=== PATIENT | male | born 1940 | race Two or more races ===

== ENCOUNTER 2018-12-24 11:43 | Inpatient (IN) | payer MEDICARE, MEDICAID ==
[~2018-12-24] VITALS: Ht 177.8 cm; Wt 90.5 kg
[2018-12-24] VITALS (7 sets, daily range): BP systolic 100–142; BP diastolic 71–85
[2018-12-24] MEDS ORDERED: Cefepime HCl 2 GM in NS 110 ML IV SCH (11:45)
--- NOTE | 2018-12-24 12:00 | NUR ---
ED Nurse Note: Patient brought in to ER by ambulance from [facility] due to AMS than usual. mental status cannot be assessed and pt is non verbal. pt saturating 88% at room air so 4L/min O2 via NC initiated and pt is saturating at 95%. skin will be assessed after blood work and urine sample collected.
--- NOTE | 2018-12-24 12:15 | NUR ---
ED Nurse Note: Pressure ulcer on coccyx and both heels noted. no foreign body removed but redness present.
[2018-12-24 12:30] LABS: BASOPHILS % (AUTO) 0.4 % (0.0-2.0); HEMATOCRIT 39.3 % (42.0-52.0); HEMOGLOBIN 12.9 G/DL (14.2-18.0); LYMPHOCYTES % (AUTO) 9.3 % (20.0-45.0); MEAN CORPUSCULAR VOLUME 100 FL (80-99); MONOCYTES % (AUTO) 6.8 % (1.0-10.0); NEUTROPHILS % (AUTO) 83.4 % (45.0-75.0); PLATELET COUNT 169 K/UL (150-450); RED BLOOD COUNT 3.95 M/UL (4.70-6.10); RED CELL DISTRIBUTION WIDTH 14.4 % (11.6-14.8); WHITE BLOOD COUNT 15.1 K/UL (4.8-10.8)
[2018-12-24 12:33] LABS: APPEARANCE,URINE CLEAR; BILIRUBIN, URINE NEGATIVE (NEGATIVE); GLUCOSE, URINE (UA) NEGATIVE (NEGATIVE); KETONES,URINE NEGATIVE (NEGATIVE); LEUKOCYTE ESTERASE ,URINE 1+ (NEGATIVE); NITRITE,URINE NEGATIVE (NEGATIVE); PH,URINE 5 (4.5-8.0); PROTEIN,URINE NEGATIVE (NEGATIVE); UROBILINOGEN,URINE NORMAL MG/DL (0.0-1.0)
[2018-12-24 12:34] LABS: COLOR,URINE YELLOW
[2018-12-24 12:39] LABS: ANION GAP 7 mmol/L (5-15); BLOOD UREA NITROGEN 59 mg/dL (7-18); CALCIUM 8.4 MG/DL (8.5-10.1); CARBON DIOXIDE 28 MMOL/L (21-32); CHLORIDE 106 MMOL/L (98-107); CREATININE 2.8 MG/DL (0.55-1.30); POTASSIUM 5.2 MMOL/L (3.5-5.1); SODIUM 141 MMOL/L (136-145)
[2018-12-24 12:53] LABS: ALANINE AMINOTRANSFERASE 22 U/L (12-78); ALBUMIN 2.4 G/DL (3.4-5.0); ALBUMIN/GLOBULIN RATIO 0.6 (1.0-2.7); ALKALINE PHOSPHATASE 71 U/L (46-116); ASPARTATE AMINO TRANSFERASE 53 U/L (15-37); BILIRUBIN,TOTAL 0.4 MG/DL (0.2-1.0); CKMB 5.1 NG/ML (0.0-3.6); CREATINE KINASE 795 U/L (26-308)
--- NOTE | 2018-12-24 13:51 | Emergency Room Report ---
History of Present Illness General Chief Complaint: Altered Mental Status Source: Family Member, EMS Present Illness HPI Patient presents with altered level of consciousness. 2 days ago he was joking with family. At this point is unresponsive. He is in hospice care however the family wanted him transferred for evaluation is what the problem is. The patient has metastatic prostatic cancer and also dementia. H/O CHF with EF 18%. Patient altered and further history unavailable. Allergies: Coded Allergies: No Known Allergies (Unverified , 12/24/18) Patient History Limited by: medical condition Past Medical History: see triage record, CHF, dementia Social History: Denies: smoking, alcohol use - prior Social History Narrative Hospice at [facility] Reviewed Nursing Documentation: PMH: Agreed; PSxH: Agreed Nursing Documentation-PMH Past Medical History Deferred: Pt Cognitively Impaired Review of Systems All Other Systems: limited Physical Exam Vital Signs Date Time Temp Pulse Resp B/P (MAP) Pulse Ox O2 Delivery O2 Flow Rate FiO2 12/24/18 11:32 98.1 92 18 103/71 100 Room Air Sp02 EP Interpretation: reviewed, normal General Appearance: lethargic, Chronically Ill Eyes: bilateral eye PERRL, bilateral eye other - dry ENT: dry mucus membranes Neck: no meningismus, other - decreased movement Respiratory: rales - right Cardiovascular #1: regular rate, rhythm Cardiovascular #2: 2+ radial (R) Gastrointestinal: non tender, soft, decreased bowel sounds Musculoskeletal: other - decreased ROM Neurologic: Babinski - left, right normal, other - lethargic Psychiatric: depressed affect Reflexes: 1+ knee (R), 1+ knee (L) Skin: mottled Medical Decision Making Diagnostic Impression: Primary Impression: RLL pneumonia Qualified Codes: J18.1 - Lobar pneumonia, unspecified organism Additional Impressions: Sepsis Qualified Codes: A41.9 - Sepsis, unspecified organism Dehydration Renal failure Qualified Codes: N17.9 - Acute kidney failure, unspecified H/O metastatic prostate cancer ER Course Patient presents with a decreased mentation and obvious signs of dehydration and probable fever. Differential includes acute microinfarction, dehydration, sepsis ammonia, urinary tract infection amongst others. The patient will be evaluated with EKG, chest x-ray and labs including blood cultures. The daughter is requesting this. In addition he will receive IV hydration aggressively. EKG without injury. Rate of [address]-T wave changes. Chest x-ray with possible right lower lobe infiltrate. Labs with elevated white count, renal failure and elevated lactic acid. Sepsis re-evaluation: bolus in, mentation improving, capillary fill improved, some rales R, no dyspnea Moaning and family request analgesia. Morphine and zofran given. Improved with pain medication. Patient admitted to medical floor. Discussed with Dr. Cho patient's family request of DNR status. Laboratory Tests Test 12/24/18 12:15 12/24/18 14:30 12/24/18 17:40 White Blood Count 15.1 K/UL (4.8-10.8) H Red Blood Count 3.95 M/UL (4.70-6.10) L Hemoglobin 12.9 G/DL (14.2-18.0) L Hematocrit 39.3 % (42.0-52.0) L Mean Corpuscular Volume 100 FL (80-99) H Mean Corpuscular Hemoglobin 32.6 PG (27.0-31.0) H Mean Corpuscular Hemoglobin Concent 32.8 G/DL (32.0-36.0) Red Cell Distribution Width 14.4 % (11.6-14.8) Platelet Count 169 K/UL (150-450) Mean Platelet Volume 7.1 FL (6.5-10.1) Neutrophils (%) (Auto) 83.4 % (45.0-75.0) H Lymphocytes (%) (Auto) 9.3 % (20.0-45.0) L Monocytes (%) (Auto) 6.8 % (1.0-10.0) Eosinophils (%) (Auto) 0.0 % (0.0-3.0) Basophils (%) (Auto) 0.4 % (0.0-2.0) Prothrombin Time 10.5 SEC (9.30-11.50) Prothrombin Time INR 1.0 (0.9-1.1) PTT 28 SEC (23-33) Urine Color Yellow Urine Appearance Clear Urine pH 5 (4.5-8.0) Urine Specific [place] 1.015 (1.005-1.035) Urine Protein Negative (NEGATIVE) Urine Glucose (UA) Negative (NEGATIVE) Urine Ketones Negative (NEGATIVE) Urine Blood 1+ (NEGATIVE) H Urine Nitrite Negative (NEGATIVE) Urine Bilirubin Negative (NEGATIVE) Urine Urobilinogen Normal MG/DL (0.0-1.0) Urine Leukocyte Esterase 1+ (NEGATIVE) H Urine RBC 0-2 /HPF (0 - 0) H Urine WBC 2-4 /HPF (0 - 0) Urine Squamous Epithelial Cells Occasional /LPF Urine Bacteria Occasional /HPF (NONE) Sodium Level 141 MMOL/L (136-145) Potassium Level 5.2 MMOL/L (3.5-5.1) H Chloride Level 106 MMOL/L (98-107) Carbon Dioxide Level 28 MMOL/L (21-32) Anion Gap 7 mmol/L (5-15) Blood Urea Nitrogen 59 mg/dL (7-18) H Creatinine 2.8 MG/DL (0.55-1.30) H Estimate Glomerular Filtration Rate mL/min (>60) Glucose Level 134 MG/DL (74-106) H Lactic Acid Level 2.50 mmol/L (0.4-2.0) H 2.00 mmol/L (0.66-2.22) Calcium Level 8.4 MG/DL (8.5-10.1) L Magnesium Level 2.2 MG/DL (1.8-2.4) Total Bilirubin 0.4 MG/DL (0.2-1.0) Aspartate Amino Transferase (AST) 53 U/L (15-37) H Alanine Aminotransferase (ALT) 22 U/L (12-78) Alkaline Phosphatase 71 U/L (46-116) Total Creatine Kinase 795 U/L (26-308) H Creatine Kinase MB 5.1 NG/ML (0.0-3.6) H Creatine Kinase MB Relative Index 0.6 Troponin I 0.027 ng/mL (0.000-0.056) Pro-B-Type Natriuretic Peptide 3904 pg/mL (0-125) H Total Protein 6.3 G/DL (6.4-8.2) L Albumin 2.4 G/DL (3.4-5.0) L Globulin 3.9 g/dL Albumin/Globulin Ratio 0.6 (1.0-2.7) L Lipase 39 U/L (73-393) L Arterial Blood pH 7.400 (7.350-7.450) Arterial Blood Partial Pressure CO2 38.8 mmHg (35.0-45.0) Arterial Blood Partial Pressure O2 62.3 mmHg (75.0-100.0) L Arterial Blood HCO3 23.5 mmol/L (22.0-26.0) Arterial Blood Oxygen Saturation 89.9 % (95-100) *L Arterial Blood Base Excess -1.1 (-2-2) Martell Test Positive EKG Diagnostic Results Rate: normal Rhythm: NSR ST Segments: no acute changes Rhythm Strip Diag. Results EP Interpretation: yes Rhythm: NSR, no PVC's, no ectopy Chest X-Ray Diagnostic Results Chest X-Ray Diagnostic Results : Chest X-Ray Ordered: Yes # of Views/Limited/Complete: 1 View Indication: Other EP Interpretation: Yes Interpretation: no effusion, no pneumothorax, other - RLL infiltrate Impression: Other Electronically Signed by: Electronically signed by Mirza Rivera MD Last Vital Signs Date Time Temp Pulse Resp B/P (MAP) Pulse Ox O2 Delivery O2 Flow Rate FiO2 12/24/18 21:03 96 17 98 Facial 35 12/24/18 18:23 99.0 127/79 (95) 12/24/18 15:39 4.0 Status: improved Disposition: ADMITTED INPATIENT Condition: Serious Referrals: NON PHYSICIAN (PCP) Mirza Rivera MD Dec 24, 2018 13:51
[2018-12-24] MEDS ORDERED: ASPIR 8181 MG ORAL (14:00)
[2018-12-24] MEDS ORDERED: QUETIAPINE FUMA50 MG ORAL (14:00)
[2018-12-24] MEDS ORDERED: ZOFRAN4 M1 ORAL (14:00)
[2018-12-24] MEDS ORDERED: FLOMAX0.4 MG ORAL (14:00)
[2018-12-24] MEDS ORDERED: COREG3.125 MG ORAL (14:00)
[2018-12-24] MEDS ORDERED: Morphine Sulfate 2mg/ml Inj(IV/IM USE ONLY) IVP ONE (14:15)
--- NOTE | 2018-12-24 14:33 | NUR ---
ED Nurse Note: Attempted to give report. per Anai, nurse is not available. will try again.
--- NOTE | 2018-12-24 15:13 | NUR ---
ED Nurse Note: Report given to QUAN Blue
--- NOTE | 2018-12-24 15:38 | NUR ---
NURSE NOTES: Patient arrived on floor. No belongings.
[2018-12-24] MEDS ORDERED: Hydromorphone 0.5mg/0.5ml inj IVP PRN ×2 (15:45→19:22)
[2018-12-24] MEDS ORDERED: D5NS 1,000 ML IV SCH (16:09)
--- NOTE | 2018-12-24 16:48 | Pulmonology Progress Note ---
Assessment/Plan Assessment/Plan Pulmonary Consultation HPI Patient is an 78 year old man with history of Metastatic Prostate Cancer, Previous UTI, Dementia, presents with altered level of consciousness. Noted to have Right lower lobe pneumonia s/o Aspiration. He was on hospice care previously. The patient has metastatic prostatic cancer and also dementia. Allergies: Coded Allergies: No Known Allergies (Unverified , 12/24/18) Nursing Documentation-[facility] Past Medical History: Metastatic Prostate Cancer, Previous UTI, Dementia Review of Systems: Cognitively Impaired Physical Exam Vital Signs Noted Date Time Temp Pulse Resp B/P (MAP) Pulse Ox O2 Delivery O2 Flow Rate FiO2 12/24/18 11:32 98.1 92 18 103/71 100 Room Air HEENT: NCAT, dry MM, JVP not elevated Chest: Bilateral Rhonchi Heart: HS1, HS2, RRR Abdomen: Soft, NT, ND Extrem: No rashes noted, no edema [employer]: Sedated, responds to voice - opens eyes, moes all limbs, no seizures Impression Right lower lobe pneumonia - possibly aspiration related Patient presents with a decreased mentation Dehydration Metastatic Prostate Cancer Previous UTI Dementia.I Plan IV Antibiotics IVF SQ Heparin PPX Monitor Labs CT Head HHN/CPT EKG: Rate: normal Rhythm: NSR ST Segments: no acute changes CXR: RLL infiltrates Subjective ROS Limited/Unobtainable: No Allergies: Coded Allergies: No Known Allergies (Unverified , 12/24/18) Objective Last 24 Hour Vital Signs Date Time Temp Pulse Resp B/P (MAP) Pulse Ox O2 Delivery O2 Flow Rate FiO2 12/24/18 15:15 98.2 105 17 100/75 98 Nasal Cannula 4.0 12/24/18 15:15 98.2 105 17 100/75 98 Nasal Cannula 4.0 12/24/18 14:45 98.1 12/24/18 14:00 97.8 110 18 142/75 100 Room Air 12/24/18 13:00 98.3 103 18 121/85 100 Room Air 12/24/18 12:00 98.1 119 18 103/71 100 Room Air 12/24/18 12:00 92 18 Room Air 12/24/18 11:32 98.1 92 18 103/71 100 Room Air Laboratory Tests 12/24/18 12:15: White Blood Count 15.1H, Red Blood Count 3.95L, Hemoglobin 12.9L, Hematocrit 39.3L, Mean Corpuscular Volume 100H, Mean Corpuscular Hemoglobin 32.6H, Mean Corpuscular Hemoglobin Concent 32.8, Red Cell Distribution Width 14.4, Platelet Count 169, Mean Platelet Volume 7.1, Neutrophils (%) (Auto) 83.4H, Lymphocytes ( %) (Auto) 9.3L, Monocytes (%) (Auto) 6.8, Eosinophils (%) (Auto) 0.0, Basophils (%) (Auto) 0.4, Prothrombin Time 10.5, Prothromb Time International Ratio 1.0, Activated Partial Thromboplast Time 28, Urine Color Yellow, Urine Appearance Clear, Urine pH 5, Urine Specific [place] 1.015, Urine Protein Negative, Urine Glucose (UA) Negative, Urine Ketones Negative, Urine Blood 1+H, Urine Nitrite Negative, Urine Bilirubin Negative, Urine Urobilinogen Normal, Urine Leukocyte Esterase 1+H, Urine RBC 0-2H, Urine WBC 2-4, Urine Squamous Epithelial Cells Occasional, Urine Bacteria Occasional, Sodium Level 141, Potassium Level 5.2H, Chloride Level 106, Carbon Dioxide Level 28, Anion Gap 7, Blood Urea Nitrogen 59H, Creatinine 2.8H, Estimat Glomerular Filtration Rate , Glucose Level 134H, Lactic Acid Level 2.50H, Calcium Level 8.4L, Magnesium Level 2.2, Total Bilirubin 0.4, Aspartate Amino Transf (AST/SGOT) 53H, Alanine Aminotransferase ( ALT/SGPT) 22, Alkaline Phosphatase 71, Total Creatine Kinase 795H, Creatine Kinase MB 5.1H, Creatine Kinase MB Relative Index 0.6, Troponin I 0.027, Pro-B- Type Natriuretic Peptide 3904H, Total Protein 6.3L, Albumin 2.4L, Globulin 3.9, Albumin/Globulin Ratio 0.6L, Lipase 39L 12/24/18 14:30: Lactic Acid Level 2.00 Current Medications Medications (Trade) Dose Ordered Sig/Jessie Route PRN Reason Start Time Stop Time Status Last Admin Dose Admin Acetaminophen (Tylenol) 650 mg Q6H PRN ORAL Mild Pain/Temp > 100.5 12/24/18 15:45 01/23/19 15:44 Albuterol/ Ipratropium (Albuterol/ Ipratropium) 3 ml Q4HRT HHN 12/24/18 19:00 12/29/18 18:59 Dextrose/Sodium Chloride 1,000 ml @ 75 mls/hr [id number] IV 12/24/18 16:09 01/23/19 16:08 Heparin Sodium (Porcine) (Heparin 5000 units/ml) 5,000 units EVERY 12 HOURS SUBQ 12/24/18 21:00 01/23/19 20:59 Hydromorphone HCl (Dilaudid) 0.5 mg Q3H PRN IVP Severe Pain (Pain Scale 7-10) 12/24/18 15:45 12/31/18 15:44 Ondansetron HCl (Zofran) 4 mg Q8H PRN IVP Nausea & Vomiting 12/24/18 15:45 01/23/19 15:44 Pantoprazole (Protonix) 40 mg DAILY IVP 12/25/18 09:00 01/24/19 08:59 Piperacillin Sod/ Tazobactam Sod 3.375 gm/Sodium Chloride 110 ml @ 27.5 mls/hr Q8HR IVPB 12/24/18 22:00 12/31/18 21:59 Vancomycin HCl (Vanco rx to dose) 1 ea DAILY PRN MISC Per rx protocol 12/24/18 15:45 01/23/19 15:44 Vancomycin HCl/ Dextrose 275 ml @ 183.333 mls/hr ONCE IVPB 12/24/18 18:00 12/24/18 20:00 Mirza Mcgarry MD Dec 24, 2018 16:48
[2018-12-24] MEDS ORDERED: Vancomycin 1.25gm Premix IVPB SCH (18:00)
--- NOTE | 2018-12-24 18:14 | NUR ---
NURSE NOTES: Spoke to MD Mcgarry about ABG results. ABG 02 Sat is 89.9 with nasal cannula at 4L/minute. MD Mcgarry ordered patient transferred to [facility]. Charge nurse made aware.
[2018-12-24] MEDS ORDERED: Albuterol/Ipratropium 3ml neb HHN SCH (19:00)
--- NOTE | 2018-12-24 19:00 | NUR ---
HAND-OFF: Report given to QUAN Shin.
--- NOTE | 2018-12-24 19:25 | NUR ---
NURSE NOTES: Received report from Mirza RN., pt. transferred from - pt. is awake in bed with eyes open, non-verbal- incomprehensible, no signs or symptoms of acute cardiac or respiratory distress noted, cardiac monitoring on, full body assessment done- sacral area redness and lt. side lower back area small redness area noted and bilateral heels mushy DTI noted- otherwise skin intact, Vital signs taken, pt. oriented to room and pt. teaching done, bed in lowest position and call light within easy reach, bed in lowest position and safety brakes engaged, pt. appears to be resting comfortable in bed, with family at bedside, pt. appears to be tolerating current BIPAP settings at 10/5 and FIO2 of 35%- no distress noted and sating at 97%, Left and Right wrist both 20G IV's intact and patent, Left wrist running D5NS at 75cc/hr. safety measures continued, will continue with plan of care.
--- NOTE | 2018-12-24 19:42 | NUR ---
NURSE NOTES: MD Cho notified about potassium level and had no new orders. He was made aware of patient transfer to [facility].
[2018-12-24] MEDS: D5NS 1,000 ML IV SCH (20:05)
[2018-12-24] MEDS: Heparin 5000 units/ml inj SUBQ SCH (20:06)
--- NOTE | 2018-12-24 20:47 | Infectious Diseases Prog Note ---
Assessment/Plan Problems: (1) LLL pneumonia Assessment & Plan: suspect aspiration, continue vancomycin and zosyn , send sputum culture , aspiration precaution , keep HOB > 30 degree (2) Sepsis Assessment & Plan: with gram positive cocci , due to the above, continue wide spectrum antibiotics pending cultures (3) Acute encephalopathy Assessment & Plan: due to the above, suspect metabolic and toxic, continue antibiotics and supportive care (4) Renal failure Assessment & Plan: suspect due to dehydration , continue IVF , monitor renal function closely (5) Dehydration Assessment & Plan: continue IVF, encourage hydration (6) Acute respiratory failure Assessment & Plan: due to the above, continue BIPAP with close monitor of ABG, and CXR ./ Subjective Allergies: Coded Allergies: No Known Allergies (Unverified , 12/24/18) Objective Vital Signs Last 24 Hour Vital Signs Date Time Temp Pulse Resp B/P (MAP) Pulse Ox O2 Delivery O2 Flow Rate FiO2 12/24/18 20:13 97 16 100 Facial 35 12/24/18 18:23 99.0 98 17 127/79 (95) 94 12/24/18 15:39 Nasal Cannula 4.0 12/24/18 15:15 98.2 105 17 100/75 98 Nasal Cannula 4.0 12/24/18 15:15 98.2 105 17 100/75 98 Nasal Cannula 4.0 12/24/18 14:45 98.1 12/24/18 14:00 97.8 110 18 142/75 100 Room Air 12/24/18 13:00 98.3 103 18 121/85 100 Room Air 12/24/18 12:00 98.1 119 18 103/71 100 Room Air 12/24/18 12:00 92 18 Room Air 12/24/18 11:32 98.1 92 18 103/71 100 Room Air Height (Feet): 5 Height (Inches): 10.00 Weight (Pounds): 180 Laboratory Tests Test 12/24/18 12:15 12/24/18 14:30 12/24/18 17:40 White Blood Count 15.1 K/UL (4.8-10.8) H Red Blood Count 3.95 M/UL (4.70-6.10) L Hemoglobin 12.9 G/DL (14.2-18.0) L Hematocrit 39.3 % (42.0-52.0) L Mean Corpuscular Volume 100 FL (80-99) H Mean Corpuscular Hemoglobin 32.6 PG (27.0-31.0) H Mean Corpuscular Hemoglobin Concent 32.8 G/DL (32.0-36.0) Red Cell Distribution Width 14.4 % (11.6-14.8) Platelet Count 169 K/UL (150-450) Mean Platelet Volume 7.1 FL (6.5-10.1) Neutrophils (%) (Auto) 83.4 % (45.0-75.0) H Lymphocytes (%) (Auto) 9.3 % (20.0-45.0) L Monocytes (%) (Auto) 6.8 % (1.0-10.0) Eosinophils (%) (Auto) 0.0 % (0.0-3.0) Basophils (%) (Auto) 0.4 % (0.0-2.0) Prothrombin Time 10.5 SEC (9.30-11.50) Prothromb Time International Ratio 1.0 (0.9-1.1) Activated Partial Thromboplast Time 28 SEC (23-33) Urine Color Yellow Urine Appearance Clear Urine pH 5 (4.5-8.0) Urine Specific [place] 1.015 (1.005-1.035) Urine Protein Negative (NEGATIVE) Urine Glucose (UA) Negative (NEGATIVE) Urine Ketones Negative (NEGATIVE) Urine Blood 1+ (NEGATIVE) H Urine Nitrite Negative (NEGATIVE) Urine Bilirubin Negative (NEGATIVE) Urine Urobilinogen Normal MG/DL (0.0-1.0) Urine Leukocyte Esterase 1+ (NEGATIVE) H Urine RBC 0-2 /HPF (0 - 0) H Urine WBC 2-4 /HPF (0 - 0) Urine Squamous Epithelial Cells Occasional /LPF Urine Bacteria Occasional /HPF (NONE) Sodium Level 141 MMOL/L (136-145) Potassium Level 5.2 MMOL/L (3.5-5.1) H Chloride Level 106 MMOL/L (98-107) Carbon Dioxide Level 28 MMOL/L (21-32) Anion Gap 7 mmol/L (5-15) Blood Urea Nitrogen 59 mg/dL (7-18) H Creatinine 2.8 MG/DL (0.55-1.30) H Estimat Glomerular Filtration Rate mL/min (>60) Glucose Level 134 MG/DL (74-106) H Lactic Acid Level 2.50 mmol/L (0.4-2.0) H 2.00 mmol/L (0.66-2.22) Calcium Level 8.4 MG/DL (8.5-10.1) L Magnesium Level 2.2 MG/DL (1.8-2.4) Total Bilirubin 0.4 MG/DL (0.2-1.0) Aspartate Amino Transf (AST/SGOT) 53 U/L (15-37) H Alanine Aminotransferase (ALT/SGPT) 22 U/L (12-78) Alkaline Phosphatase 71 U/L (46-116) Total Creatine Kinase 795 U/L (26-308) H Creatine Kinase MB 5.1 NG/ML (0.0-3.6) H Creatine Kinase MB Relative Index 0.6 Troponin I 0.027 ng/mL (0.000-0.056) Pro-B-Type Natriuretic Peptide 3904 pg/mL (0-125) H Total Protein 6.3 G/DL (6.4-8.2) L Albumin 2.4 G/DL (3.4-5.0) L Globulin 3.9 g/dL Albumin/Globulin Ratio 0.6 (1.0-2.7) L Lipase 39 U/L (73-393) L Arterial Blood pH 7.400 (7.350-7.450) Arterial Blood Partial Pressure CO2 38.8 mmHg (35.0-45.0) Arterial Blood Partial Pressure O2 62.3 mmHg (75.0-100.0) L Arterial Blood HCO3 23.5 mmol/L (22.0-26.0) Arterial Blood Oxygen Saturation 89.9 % (95-100) *L Arterial Blood Base Excess -1.1 (-2-2) Martell Test Positive Current Medications Medications (Trade) Dose Ordered Sig/Jessie Route PRN Reason Start Time Stop Time Status Last Admin Dose Admin Acetaminophen (Tylenol) 650 mg Q6H PRN ORAL Mild Pain/Temp > 100.5 12/24/18 19:22 01/23/19 19:21 Albuterol/ Ipratropium (Albuterol/ Ipratropium) 3 ml Q4HRT HHN 12/24/18 23:00 12/29/18 18:59 Dextrose/Sodium Chloride 1,000 ml @ 75 mls/hr [id number] IV 12/24/18 19:21 01/23/19 19:20 12/24/18 20:05 Heparin Sodium (Porcine) (Heparin 5000 units/ml) 5,000 units EVERY 12 HOURS SUBQ 12/24/18 21:00 01/23/19 20:59 12/24/18 20:06 Hydromorphone HCl (Dilaudid) 0.5 mg Q3H PRN IVP Severe Pain (Pain Scale 7-10) 12/24/18 19:22 12/31/18 19:21 Ondansetron HCl (Zofran) 4 mg Q8H PRN IVP Nausea & Vomiting 12/24/18 19:22 01/23/19 19:21 Pantoprazole (Protonix) 40 mg DAILY IVP 12/25/18 09:00 01/24/19 08:59 Piperacillin Sod/ Tazobactam Sod 3.375 gm/Sodium Chloride 110 ml @ 27.5 mls/hr Q8HR IVPB 12/24/18 22:00 12/31/18 21:59 Vancomycin HCl (Vanco rx to dose) 1 ea DAILY PRN MISC Per rx protocol 12/25/18 09:00 01/23/19 15:44 Alex Mckeon M.D. Dec 24, 2018 20:47
[2018-12-24] MEDS ORDERED: Heparin 5000 units/ml inj SUBQ SCH (21:00)
[2018-12-24] MEDS: Piperacillin/Tazobactam 3.375 GM in NS 110 ML IVPB SCH (21:10)
[2018-12-24] MEDS ORDERED: Piperacillin/Tazobactam 3.375 GM in NS 110 ML IVPB SCH (22:00)
[2018-12-24] MEDS: Albuterol/Ipratropium 3ml neb HHN SCH (23:32)
[2018-12-25] VITALS: BP 128/74
[2018-12-25] MEDS: Albuterol/Ipratropium 3ml neb HHN SCH ×6 (03:52→22:49)
[2018-12-25 04:00] VITALS: BP_SYST 128; BP_SYST 143; BP_DIAS 74; BP_DIAS 82
[2018-12-25] MEDS: Piperacillin/Tazobactam 3.375 GM in NS 110 ML IVPB SCH ×3 (05:03→21:00)
[2018-12-25 05:23] LABS: HEMATOCRIT 34.6 % (42.0-52.0); HEMOGLOBIN 11.4 G/DL (14.2-18.0); MEAN CORPUSCULAR VOLUME 100 FL (80-99); PLATELET COUNT 138 K/UL (150-450); RED BLOOD COUNT 3.46 M/UL (4.70-6.10); RED CELL DISTRIBUTION WIDTH 14.2 % (11.6-14.8); WHITE BLOOD COUNT 11.7 K/UL (4.8-10.8)
[2018-12-25 05:39] LABS: ALANINE AMINOTRANSFERASE 31 U/L (12-78); ALBUMIN 2.3 G/DL (3.4-5.0); ALKALINE PHOSPHATASE 72 U/L (46-116); ANION GAP 9 mmol/L (5-15); ASPARTATE AMINO TRANSFERASE 67 U/L (15-37); BILIRUBIN,DIRECT 0.2 MG/DL (0.0-0.3); BILIRUBIN,TOTAL 0.5 MG/DL (0.2-1.0); BLOOD UREA NITROGEN 48 mg/dL (7-18); CARBON DIOXIDE 26 MMOL/L (21-32); CHLORIDE 109 MMOL/L (98-107); CREATININE 1.6 MG/DL (0.55-1.30); PHOSPHORUS 2.6 MG/DL (2.5-4.9); POTASSIUM 4.1 MMOL/L (3.5-5.1); SODIUM 144 MMOL/L (136-145)
[2018-12-25] MEDS ORDERED: Vancomycin 1.25gm Premix IVPB ONE ×2 (06:00→08:00)
--- NOTE | 2018-12-25 07:05 | NUR ---
HAND-OFF: Report given to Todd GLASS, pt. remains stable and no signs of distress noted.
--- NOTE | 2018-12-25 07:35 | History & Physical ---
History and Physical History & Physicial seen and examined . Full Dictation completed on 732 Albaro Cho MD Dec 25, 2018 07:34
--- NOTE | 2018-12-25 07:36 | General Progress Note ---
Assessment/Plan Assessment/Plan Full Dictation in progress Plan: ID, Pulmonary, Nephro consult current empirical abx remians DNR Subjective Allergies: Coded Allergies: No Known Allergies (Unverified , 12/24/18) Objective Last 24 Hour Vital Signs Date Time Temp Pulse Resp B/P (MAP) Pulse Ox O2 Delivery O2 Flow Rate FiO2 12/25/18 07:15 95 17 100 Bi-pap 35 12/25/18 07:13 94 17 100 Full Face 35 12/25/18 07:12 100 Bi-pap 35 12/25/18 07:12 Bi-pap 35 12/25/18 05:06 96 15 96 Full Face 35 12/25/18 04:00 104 12/25/18 04:00 97.3 101 14 143/82 (102) 97 12/25/18 04:00 97.9 90 15 128/74 (92) 98 12/25/18 04:00 Bi-pap 12/25/18 03:55 104 14 100 Bi-pap 35 12/25/18 03:43 101 13 98 Bi-pap 35 12/25/18 03:30 97 13 100 Facial 35 12/25/18 01:39 97 13 100 Facial 35 12/25/18 00:14 102 15 98 Facial 35 12/25/18 00:00 Bi-pap 12/25/18 00:00 97 12/25/18 00:00 97.9 90 15 128/74 (92) 98 12/24/18 23:44 101 23 100 Bi-pap 35 12/24/18 23:43 35 12/24/18 23:34 99 22 98 Bi-pap 35 12/24/18 22:39 92 14 97 Facial 35 12/24/18 21:03 96 17 98 Facial 35 12/24/18 21:00 98 17 Bi-pap 35 12/24/18 20:13 97 16 100 Facial 35 12/24/18 20:00 97.9 97 18 122/76 (91) 97 12/24/18 20:00 106 12/24/18 20:00 Bi-pap 12/24/18 20:00 Bi-pap 12/24/18 19:00 97 Nasal Cannula 4.0 36 12/24/18 19:00 Nasal Cannula 4.0 36 12/24/18 18:23 99.0 98 17 127/79 (95) 94 12/24/18 15:39 Nasal Cannula 4.0 12/24/18 15:15 98.2 105 17 100/75 98 Nasal Cannula 4.0 12/24/18 15:15 98.2 105 17 100/75 98 Nasal Cannula 4.0 12/24/18 14:45 98.1 12/24/18 14:00 97.8 110 18 142/75 100 Room Air 12/24/18 13:00 98.3 103 18 121/85 100 Room Air 12/24/18 12:00 98.1 119 18 103/71 100 Room Air 12/24/18 12:00 92 18 Room Air 12/24/18 11:32 98.1 92 18 103/71 100 Room Air Intake and Output 12/24/18 12/25/18 19:00 07:00 Intake Total 2660 ml 957.5 ml Output Total 600 ml 600 ml Balance 2060 ml 357.5 ml Intake Oral 0 ml IV Total 2660 ml 957.5 ml Output Urine Total 600 ml 600 ml Laboratory Tests 12/24/18 12:15: White Blood Count 15.1H, Red Blood Count 3.95L, Hemoglobin 12.9L, Hematocrit 39.3L, Mean Corpuscular Volume 100H, Mean Corpuscular Hemoglobin 32.6H, Mean Corpuscular Hemoglobin Concent 32.8, Red Cell Distribution Width 14.4, Platelet Count 169, Mean Platelet Volume 7.1, Neutrophils (%) (Auto) 83.4H, Lymphocytes ( %) (Auto) 9.3L, Monocytes (%) (Auto) 6.8, Eosinophils (%) (Auto) 0.0, Basophils (%) (Auto) 0.4, Prothrombin Time 10.5, Prothromb Time International Ratio 1.0, Activated Partial Thromboplast Time 28, Urine Color Yellow, Urine Appearance Clear, Urine pH 5, Urine Specific [place] 1.015, Urine Protein Negative, Urine Glucose (UA) Negative, Urine Ketones Negative, Urine Blood 1+H, Urine Nitrite Negative, Urine Bilirubin Negative, Urine Urobilinogen Normal, Urine Leukocyte Esterase 1+H, Urine RBC 0-2H, Urine WBC 2-4, Urine Squamous Epithelial Cells Occasional, Urine Bacteria Occasional, Sodium Level 141, Potassium Level 5.2H, Chloride Level 106, Carbon Dioxide Level 28, Anion Gap 7, Blood Urea Nitrogen 59H, Creatinine 2.8H, Estimat Glomerular Filtration Rate , Glucose Level 134H, Lactic Acid Level 2.50H, Calcium Level 8.4L, Magnesium Level 2.2, Total Bilirubin 0.4, Aspartate Amino Transf (AST/SGOT) 53H, Alanine Aminotransferase ( ALT/SGPT) 22, Alkaline Phosphatase 71, Total Creatine Kinase 795H, Creatine Kinase MB 5.1H, Creatine Kinase MB Relative Index 0.6, Troponin I 0.027, Pro-B- Type Natriuretic Peptide 3904H, Total Protein 6.3L, Albumin 2.4L, Globulin 3.9, Albumin/Globulin Ratio 0.6L, Lipase 39L 12/24/18 14:30: Lactic Acid Level 2.00 12/24/18 17:40: Arterial Blood pH 7.400, Arterial Blood Partial Pressure CO2 38.8, Arterial Blood Partial Pressure O2 62.3L, Arterial Blood HCO3 23.5, Arterial Blood Oxygen Saturation 89.9*L, Arterial Blood Base Excess -1.1, Martell Test Positive 12/25/18 03:30: White Blood Count 11.7H, Red Blood Count 3.46L, Hemoglobin 11.4L, Hematocrit 34.6L, Mean Corpuscular Volume 100H, Mean Corpuscular Hemoglobin 32.8H, Mean Corpuscular Hemoglobin Concent 32.8, Red Cell Distribution Width 14.2, Platelet Count 138L, Mean Platelet Volume 7.1, Neutrophils (%) (Auto) , Lymphocytes (%) ( Auto) , Monocytes (%) (Auto) , Eosinophils (%) (Auto) , Basophils (%) (Auto) , Sodium Level 144, Potassium Level 4.1, Chloride Level 109H, Carbon Dioxide Level 26, Anion Gap 9, Blood Urea Nitrogen 48H, Creatinine 1.6H, Estimat Glomerular Filtration Rate , Glucose Level 130H, Calcium Level 8.0L, Magnesium Level 2.0, Total Bilirubin 0.5, Aspartate Amino Transf (AST/SGOT) 67H, Alanine Aminotransferase (ALT/SGPT) 31, Alkaline Phosphatase 72, Total Protein 5.9L, Albumin 2.3L, Phosphorus Level 2.6, Direct Bilirubin 0.2, Random Vancomycin Level 11.0 Height (Feet): 5 Height (Inches): 10.00 Weight (Pounds): 180 Albaro Cho MD Dec 25, 2018 07:35
[2018-12-25 08:00] VITALS: BP 117/70
--- NOTE | 2018-12-25 08:00 | NUR ---
NURSE NOTES: received pt in the bed, awake, response just name, vital signs stable, no co pain, no SOB, pt on Bipap 10/5, FIO2 35%, skin warm and dry to touch, dressing on both heels and sacral area dry and intact, Prasad catheter with yellow urine, NPO, bed in low position, call light within react, HOB elevated.
[2018-12-25] MEDS: Pantoprazole Inj IVP SCH (08:36)
[2018-12-25] MEDS: Heparin 5000 units/ml inj SUBQ SCH ×2 (08:38→20:59)
[2018-12-25] MEDS: D5NS 1,000 ML IV SCH ×2 (08:39→11:50)
--- NOTE | 2018-12-25 08:55 | NUR ---
SLASHER SAWYERNEUROSURGICAL PHYSICIAN ASSISTANT 78 Y/O [facility] [place] ER CC:ALTERED MENTAL STATUS SI:SEPSIS . RLL PNA VS: BP 142/75, P 119, T 97.8, RR 18, SpO2 95 on 4.0L O2 NC WBC 15.1, RBC 3.46, Hgb 11.4, Hct 34.6, K 5.2, BUN 59, CR 2.8 SI:LEVOFLOXACIN 150ml IVPB CEFEPIME 110ml IV MORPHINE 2mg IVP ZOFRAN 4mg IVP DILAUDID 0.5mg IVP D5/NS x1L IV VANCOMYCIN 275ml IVPB ADMITTED TO SDU DC PLAN[facility]
[2018-12-25] MEDS ORDERED: Pantoprazole Inj IVP SCH (09:00)
--- NOTE | 2018-12-25 10:15 | Consultation ---
Consult Note Consult Note asked to eval for renal failure admitted through ER yesterday Chief Complaint: Altered Mental Status Patient presents with altered level of consciousness. 2 days ago he was joking with family. At this point is unresponsive. He is in hospice care however a family wanted him transferred for evaluation is what the problem is. The patient has metastatic prostatic cancer and also dementia. H/O CHF with EF 18%. 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
--- NOTE | 2018-12-25 11:25 | Diagnostic Imaging Report ---
Indication: Shortness of breath Technique: One view of the chest Comparison: none Findings: Atelectatic changes are seen at the left lung base. The heart size is upper limits normal. The aorta is tortuous and calcified. Impression: Left basilar atelectasis. No acute process otherwise
--- NOTE | 2018-12-25 11:56 | Diagnostic Imaging Report ---
Indications: Altered level of consciousness Technique: Spiral acquisitions obtained through the brain. Angled axial and coronal 5 x 5 mm slices were reconstructed. Total dose length product 4486.74 mGycm. CTDI vol(s) 70.38,70.38,70.38,70.38 mGy. Dose reduction achieved using automated exposure control Comparison: None. Findings: There is considerable image degradation due to motion artifact despite multiple acquisitions. No definite acute intracranial hemorrhage nor edema, mass effect, nor midline shift. There is marked enlargement of the ventricles and extra axial CSF spaces. There is marked periventricular deep white matter low-attenuation. There is evidence of ethmoid sinus disease. Grossly intact calvarium Impression: Very limited exam due to motion artifact. Extensive chronic and age-related changes as described No gross acute intracranial bleed or mass effect This agrees with the preliminary interpretation provided overnight by [facility] teleradiology service. The CT scanner at [facility] is accredited by the [employer] and the scans are performed using protocols designed to limit radiation exposure to as low as reasonably achievable to attain images of sufficient resolution adequate for diagnostic evaluation.
[2018-12-25 12:00] VITALS: BP 140/79
--- NOTE | 2018-12-25 13:00 | NUR ---
RESPIRATORY NOTE: patient is on BIPAP 10/5 35% patient is on full face mask was going to change the mask, but noticed some redness on the bridge of the nose, Lola RN is aware. Will keep patient on full face mask to avoid more skin breakdown, Tape is in place.
--- NOTE | 2018-12-25 15:00 | NUR ---
NURSE NOTES: vital signs stable, still on Bipap , wound nurse asses pt, dressing changed, family in the room, repositioned, continue monitoring.
--- NOTE | 2018-12-25 15:30 | History and Physical Report ---
DATE OF ADMISSION: 12/24/2018 SOURCE OF INFORMATION: Patient and EMR. HISTORY OF PRESENT ILLNESS: The patient is an 78-year-old male with currently on hospice care, who was transferred by the family secondary to change in level of consciousness. At this time of evaluation, the patient is not making any verbal communication. Limited source of information. The patient is already on BiPAP machine. This is significantly limited source of medical evaluation. REVIEW OF SYSTEMS: Not obtainable as above. ALLERGIES: NKDA. CODE STATUS: DNR. MEDICATIONS: Current hospital medications including, but not limited to, Dilaudid p.r.n., vancomycin, Zosyn. SOCIAL HISTORY: Not obtainable. PHYSICAL EXAMINATION: VITAL SIGNS: Blood pressure 100/70, pulse rate 120, respiratory rate 18, temperature of 98.3. HEAD AND NECK: Atraumatic and normocephalic. CHEST: Diffuse bronchial breathing sounds. ABDOMEN: Soft. MUSCULOSKELETAL: Positive for the increased reflexes and spasticity in all 4 extremities. NEUROLOGY: Limited evaluation as the patient is not verbally communicative. LABORATORY DATA: Labs dated 12/24/2018 shows WBC 15.1, hemoglobin 12.9, platelets 169. Sodium 141, potassium 5.2, BUN 59, creatinine 2.8. BNP of 3900. Albumin of 2.4. UA unremarkable. ASSESSMENT AND PLAN: 1. Sepsis. 2. Hypoxemic respiratory failure. 3. Healthcare-associated pneumonia. 4. Macrocytic anemia. 5. Abnormal LFTs. 6. GI and DVT prophylaxes. 7. DNR/DNI. PLAN OF CARE: We will continue with the empiric antibiotic treatment. Pulmonary and Infectious Disease have been consulted. COMMENT: The time of this dictation does not reflect the actual time of encounter. Albaro Cho M.D. DR: VELMA JOB#: [id number] CC:
--- NOTE | 2018-12-25 15:32 | NUR ---
*-* INSURANCE *-* ALL CLINICALS HAVE ODALIS FAXED TO: [facility] F: [phone]
--- NOTE | 2018-12-25 15:39 | NUR ---
P.T Note: P.T evaluation completed. Pt is alert, non engaging , confused , only responds to name however essentially unable to follow simple commands.Pt is dependent in all areas of ADL/mobilities. Based on P.T evaluation , patient is not candidate for skilled P.T services as patient is already at baseline. Recommend return to prior living arrangement for comfort and care. Addendum: 12/25/18 at 1539 by JUANY HARO PT Amended: Links added.
[2018-12-25 16:00] VITALS: BP 150/83
--- NOTE | 2018-12-25 16:44 | NUR ---
NURSE NOTES:WOUND CARE NOTES:Pt presented on admission with multiple pressure injuries. Non-blanchable red area that is indurated L thoracic(L)1.1cm x (W)3.5cm. Periwound pink and intact. Maroon discoloration that is indurated L Buttocks (L)1.9cm x (W)4cm.Maroon discoloration with red margins that are indurated.Non-blanchable erythema periwound. Non-blanchable erythema with induration noted to R buttocks (L)3cm x (W)3.5cm. Intact Blood Blister noted to R heel (L)5.5cm x (W)4.4cm. Non-blanchable erythema with fluctuance periwound. Intact Blood Blister noted extending from medial to lateral aspect of L heel (L)6.2cm x (W)9cm. Non-blanchable erythema periwound .Pt noted to have restlessness of both lower ext. Cavilon Skin Barrier applied to both heel blisters.Each heel covered with Optifoam drsg .Abd pads applied to both heels and each heel wrapped with kerlix to prevent further friction to heels .Pt's family at bedside and educated on stages of wounds and likelihood of pressure injuries becoming open wounds due to continuous restless behaviour. Pt 's family also informed of interventions being implemented to minimize risks to prevent further wound decline such as pt is being placed on an APM/RAÚL mattress overlay and attempts at off-loading heels. Recommendations: Apply Cavilon Skin Barrier to L thoracic. Cover with Optifoam drsg. Change every 3 days and prn. Apply Cavilon Skin Barrier to R and L heel Blisters. Cover each heel with Optifoam drsg.Reinforce with ABD Pad and Kerlix. Change every 7 days and prn. Apply Triad Paste to Sacrum,R and L buttocks. Cover with Optifoam drsgs. Change every 3 days and PRN. APM/RAÚL Mattress overlay. Reposition at least every 2hours or as tolerated. Off-load heels with Pillow.
--- NOTE | 2018-12-25 16:49 | Infectious Diseases Prog Note ---
Assessment/Plan Problems: (1) LLL pneumonia Assessment & Plan: suspect aspiration, continue vancomycin and zosyn , sputum culture , aspiration precaution , keep HOB > 30 degree (2) Sepsis Assessment & Plan: with gram positive cocci , due to the above, continue wide spectrum antibiotics pending cultures (3) Acute encephalopathy Assessment & Plan: due to the above, suspect metabolic and toxic, continue antibiotics and supportive care (4) Renal failure Assessment & Plan: suspect due to dehydration , continue IVF , monitor renal function closely (5) Dehydration Assessment & Plan: continue IVF, encourage hydration (6) Acute respiratory failure Assessment & Plan: due to the above, continue BIPAP with close monitor of ABG, and CXR ./ Subjective Constitutional: Reports: no symptoms HEENT: Reports: no symptoms Respiratory: Reports: dry cough Breasts: Reports: no symptoms Cardiovascular: Reports: no symptoms Gastrointestinal/Abdominal: Reports: nausea, vomiting Genitourinary: Reports: no symptoms Neurologic: Reports: no symptoms Psychiatric: Reports: no symptoms Skin: Reports: no symptoms Endocrine: Reports: no symptoms Hematologic: Reports: no symptoms Musculoskeletal: Reports: no symptoms Allergies: Coded Allergies: No Known Allergies (Unverified , 12/24/18) Objective Vital Signs Last 24 Hour Vital Signs Date Time Temp Pulse Resp B/P (MAP) Pulse Ox O2 Delivery O2 Flow Rate FiO2 12/25/18 16:00 40 12/25/18 16:00 Bi-pap 12/25/18 16:00 98.2 78 18 150/83 (105) 97 12/25/18 15:58 79 16 100 Bi-pap 35 12/25/18 15:48 77 15 99 Bi-pap 35 12/25/18 15:15 99 15 77 Full Face 35 12/25/18 13:57 99 11 72 Full Face 35 12/25/18 12:00 40 12/25/18 12:00 98.4 75 16 140/79 (99) 100 12/25/18 12:00 Bi-pap 12/25/18 12:00 77 12/25/18 11:16 78 16 100 Bi-pap 35 12/25/18 11:06 72 16 98 Bi-pap 35 12/25/18 11:06 98 15 76 Full Face 35 12/25/18 08:53 85 13 97 Full Face 35 12/25/18 08:00 93 12/25/18 08:00 99.0 81 14 117/70 (86) 97 12/25/18 08:00 40 12/25/18 08:00 Bi-pap 12/25/18 07:31 77 16 99 Bi-pap 35 12/25/18 07:15 95 17 100 Bi-pap 35 12/25/18 07:13 94 17 100 Full Face 35 12/25/18 07:12 100 Bi-pap 35 12/25/18 07:12 Bi-pap 35 12/25/18 05:06 96 15 96 Full Face 35 12/25/18 04:00 104 12/25/18 04:00 97.3 101 14 143/82 (102) 97 12/25/18 04:00 97.9 90 15 128/74 (92) 98 12/25/18 04:00 Bi-pap 12/25/18 03:55 104 14 100 Bi-pap 35 12/25/18 03:43 101 13 98 Bi-pap 35 12/25/18 03:30 97 13 100 Facial 35 12/25/18 01:39 97 13 100 Facial 35 12/25/18 00:14 102 15 98 Facial 35 12/25/18 00:00 Bi-pap 12/25/18 00:00 97 12/25/18 00:00 97.9 90 15 128/74 (92) 98 12/24/18 23:44 101 23 100 Bi-pap 35 12/24/18 23:43 35 12/24/18 23:34 99 22 98 Bi-pap 35 12/24/18 22:39 92 14 97 Facial 35 12/24/18 21:03 96 17 98 Facial 35 12/24/18 21:00 98 17 Bi-pap 35 12/24/18 20:13 97 16 100 Facial 35 12/24/18 20:00 97.9 97 18 122/76 (91) 97 12/24/18 20:00 106 12/24/18 20:00 Bi-pap 12/24/18 20:00 Bi-pap 12/24/18 19:00 97 Nasal Cannula 4.0 36 12/24/18 19:00 Nasal Cannula 4.0 36 12/24/18 18:23 99.0 98 17 127/79 (95) 94 Height (Feet): 5 Height (Inches): 10.00 Weight (Pounds): 180 General Appearance: WD/WN, no acute distress HEENT: normocephalic, atraumatic, anicteric, mucous membranes moist, PERRL, EOMI, pharynx normal, supple, no JVD Respiratory/Chest: chest wall non-tender, no respiratory distress, no accessory muscle use, decreased breath sounds, crackles/rales Cardiovascular: normal peripheral pulses, normal rate, regular rhythm, no gallop/murmur, no JVD Abdomen: normal bowel sounds, soft, non tender, no organomegaly, non distended , no mass, no scars Genitourinary: normal external genitalia Extremities: no cyanosis, no clubbing Skin: no rash, no lesions, no ulcers 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, alert, oriented x 3, responsive Lymphatic: no neck adenopathy, no groin adenopathy Musculoskeletal: normal muscle bulk, no effusion Microbiology Date/Time Source Procedure Growth Status 12/24/18 12:15 Blood Blood Culture - Preliminary Resulted 12/24/18 18:40 Indwelling Cath Urine Culture - Preliminary NO GROWTH Resulted Laboratory Tests Test 12/24/18 17:40 12/25/18 03:30 Arterial Blood pH 7.400 (7.350-7.450) Arterial Blood Partial Pressure CO2 38.8 mmHg (35.0-45.0) Arterial Blood Partial Pressure O2 62.3 mmHg (75.0-100.0) L Arterial Blood HCO3 23.5 mmol/L (22.0-26.0) Arterial Blood Oxygen Saturation 89.9 % (95-100) *L Arterial Blood Base Excess -1.1 (-2-2) Martell Test Positive White Blood Count 11.7 K/UL (4.8-10.8) H Red Blood Count 3.46 M/UL (4.70-6.10) L Hemoglobin 11.4 G/DL (14.2-18.0) L Hematocrit 34.6 % (42.0-52.0) L Mean Corpuscular Volume 100 FL (80-99) H Mean Corpuscular Hemoglobin 32.8 PG (27.0-31.0) H Mean Corpuscular Hemoglobin Concent 32.8 G/DL (32.0-36.0) Red Cell Distribution Width 14.2 % (11.6-14.8) Platelet Count 138 K/UL (150-450) L Mean Platelet Volume 7.1 FL (6.5-10.1) Neutrophils (%) (Auto) % (45.0-75.0) Lymphocytes (%) (Auto) % (20.0-45.0) Monocytes (%) (Auto) % (1.0-10.0) Eosinophils (%) (Auto) % (0.0-3.0) Basophils (%) (Auto) % (0.0-2.0) Sodium Level 144 MMOL/L (136-145) Potassium Level 4.1 MMOL/L (3.5-5.1) Chloride Level 109 MMOL/L (98-107) H Carbon Dioxide Level 26 MMOL/L (21-32) Anion Gap 9 mmol/L (5-15) Blood Urea Nitrogen 48 mg/dL (7-18) H Creatinine 1.6 MG/DL (0.55-1.30) H Estimat Glomerular Filtration Rate mL/min (>60) Glucose Level 130 MG/DL (74-106) H Calcium Level 8.0 MG/DL (8.5-10.1) L Phosphorus Level 2.6 MG/DL (2.5-4.9) Magnesium Level 2.0 MG/DL (1.8-2.4) Total Bilirubin 0.5 MG/DL (0.2-1.0) Direct Bilirubin 0.2 MG/DL (0.0-0.3) Aspartate Amino Transf (AST/SGOT) 67 U/L (15-37) H Alanine Aminotransferase (ALT/SGPT) 31 U/L (12-78) Alkaline Phosphatase 72 U/L (46-116) Total Protein 5.9 G/DL (6.4-8.2) L Albumin 2.3 G/DL (3.4-5.0) L Prostate Specific Antigen 14.98 ng/mL (0.13-4.0) H Random Vancomycin Level 11.0 ug/mL Current Medications Medications (Trade) Dose Ordered Sig/Jessie Route PRN Reason Start Time Stop Time Status Last Admin Dose Admin Acetaminophen (Tylenol) 650 mg Q6H PRN ORAL Mild Pain/Temp > 100.5 12/24/18 19:22 01/23/19 19:21 Albuterol/ Ipratropium (Albuterol/ Ipratropium) 3 ml Q4HRT HHN 12/24/18 23:00 12/29/18 18:59 12/25/18 15:50 Carvedilol (Coreg) 3.125 mg EVERY 12 HOURS ORAL 12/25/18 21:00 01/24/19 20:59 Dextrose/Sodium Chloride 1,000 ml @ 50 mls/hr Q20H IV 12/25/18 11:00 01/23/19 10:59 12/25/18 11:50 Heparin Sodium (Porcine) (Heparin 5000 units/ml) 5,000 units EVERY 12 HOURS SUBQ 12/24/18 21:00 01/23/19 20:59 12/25/18 08:38 Hydromorphone HCl (Dilaudid) 0.5 mg Q3H PRN IVP Severe Pain (Pain Scale 7-10) 12/24/18 19:22 12/31/18 19:21 Ondansetron HCl (Zofran) 4 mg Q8H PRN IVP Nausea & Vomiting 12/24/18 19:22 01/23/19 19:21 Pantoprazole (Protonix) 40 mg DAILY IVP 12/25/18 09:00 01/24/19 08:59 12/25/18 08:36 Piperacillin Sod/ Tazobactam Sod 3.375 gm/Sodium Chloride 110 ml @ 27.5 mls/hr Q8HR IVPB 12/24/18 22:00 12/31/18 21:59 12/25/18 13:40 Tamsulosin HCl (Flomax) 0.4 mg DAILY ORAL 12/26/18 09:00 01/25/19 08:59 Vancomycin HCl (Vanco rx to dose) 1 ea DAILY PRN MISC Per rx protocol 12/25/18 09:00 01/23/19 15:44 Alex Mckeon M.D. Dec 25, 2018 16:49
--- NOTE | 2018-12-25 17:48 | Pulmonology Progress Note ---
Assessment/Plan Assessment/Plan Problem List: 1. AMS - toxic metabolic encephalopathy 2. Pneumonia - possible aspiration 3. Acute hypoxemic respiratory failure 4. Dementia 5. MIRTA Plan: -ABX per ID -f/u cultures -d/c bipap -ABG in AM Subjective ROS Limited/Unobtainable: Yes Allergies: Coded Allergies: No Known Allergies (Unverified , 12/24/18) Subjective On BiPAP. Nonverbal. Respirations stable. Objective Last 24 Hour Vital Signs Date Time Temp Pulse Resp B/P (MAP) Pulse Ox O2 Delivery O2 Flow Rate FiO2 12/25/18 17:05 97 17 84 Full Face 35 12/25/18 16:00 40 12/25/18 16:00 Bi-pap 12/25/18 16:00 98.2 78 18 150/83 (105) 97 12/25/18 16:00 80 12/25/18 15:58 79 16 100 Bi-pap 35 12/25/18 15:48 77 15 99 Bi-pap 35 12/25/18 15:15 99 15 77 Full Face 35 12/25/18 13:57 99 11 72 Full Face 35 12/25/18 12:00 40 12/25/18 12:00 98.4 75 16 140/79 (99) 100 12/25/18 12:00 Bi-pap 12/25/18 12:00 77 12/25/18 11:16 78 16 100 Bi-pap 35 12/25/18 11:06 72 16 98 Bi-pap 35 12/25/18 11:06 98 15 76 Full Face 35 12/25/18 08:53 85 13 97 Full Face 35 12/25/18 08:00 93 12/25/18 08:00 99.0 81 14 117/70 (86) 97 12/25/18 08:00 40 12/25/18 08:00 Bi-pap 12/25/18 07:31 77 16 99 Bi-pap 35 12/25/18 07:15 95 17 100 Bi-pap 35 12/25/18 07:13 94 17 100 Full Face 35 12/25/18 07:12 100 Bi-pap 35 12/25/18 07:12 Bi-pap 35 12/25/18 05:06 96 15 96 Full Face 35 12/25/18 04:00 104 12/25/18 04:00 97.3 101 14 143/82 (102) 97 12/25/18 04:00 97.9 90 15 128/74 (92) 98 12/25/18 04:00 Bi-pap 12/25/18 03:55 104 14 100 Bi-pap 35 12/25/18 03:43 101 13 98 Bi-pap 35 12/25/18 03:30 97 13 100 Facial 35 12/25/18 01:39 97 13 100 Facial 35 12/25/18 00:14 102 15 98 Facial 35 12/25/18 00:00 Bi-pap 12/25/18 00:00 97 12/25/18 00:00 97.9 90 15 128/74 (92) 98 12/24/18 23:44 101 23 100 Bi-pap 35 12/24/18 23:43 35 12/24/18 23:34 99 22 98 Bi-pap 35 12/24/18 22:39 92 14 97 Facial 35 12/24/18 21:03 96 17 98 Facial 35 12/24/18 21:00 98 17 Bi-pap 35 12/24/18 20:13 97 16 100 Facial 35 12/24/18 20:00 97.9 97 18 122/76 (91) 97 12/24/18 20:00 106 12/24/18 20:00 Bi-pap 12/24/18 20:00 Bi-pap 12/24/18 19:00 97 Nasal Cannula 4.0 36 12/24/18 19:00 Nasal Cannula 4.0 36 12/24/18 18:23 99.0 98 17 127/79 (95) 94 Intake and Output 12/24/18 12/25/18 18:59 06:59 Intake Total 2660 ml 882.5 ml Output Total 600 ml 600 ml Balance 2060 ml 282.5 ml Intake Oral 0 ml IV Total 2660 ml 882.5 ml Output Urine Total 600 ml 600 ml General Appearance: no acute distress HEENT: mucous membranes moist Respiratory/Chest: lungs clear Cardiovascular: normal rate Abdomen: soft, non tender Extremities: no edema Microbiology Date/Time Source Procedure Growth Status 12/24/18 12:15 Blood Blood Culture - Preliminary Resulted 12/24/18 18:40 Indwelling Cath Urine Culture - Preliminary NO GROWTH Resulted Laboratory Tests 12/25/18 03:30: White Blood Count 11.7H, Red Blood Count 3.46L, Hemoglobin 11.4L, Hematocrit 34.6L, Mean Corpuscular Volume 100H, Mean Corpuscular Hemoglobin 32.8H, Mean Corpuscular Hemoglobin Concent 32.8, Red Cell Distribution Width 14.2, Platelet Count 138L, Mean Platelet Volume 7.1, Neutrophils (%) (Auto) , Lymphocytes (%) ( Auto) , Monocytes (%) (Auto) , Eosinophils (%) (Auto) , Basophils (%) (Auto) , Sodium Level 144, Potassium Level 4.1, Chloride Level 109H, Carbon Dioxide Level 26, Anion Gap 9, Blood Urea Nitrogen 48H, Creatinine 1.6H, Estimat Glomerular Filtration Rate , Glucose Level 130H, Calcium Level 8.0L, Phosphorus Level 2.6, Magnesium Level 2.0, Total Bilirubin 0.5, Direct Bilirubin 0.2, Aspartate Amino Transf (AST/SGOT) 67H, Alanine Aminotransferase (ALT/SGPT) 31, Alkaline Phosphatase 72, Total Protein 5.9L, Albumin 2.3L, Prostate Specific Antigen 14.98H, Random Vancomycin Level 11.0 Current Medications Medications (Trade) Dose Ordered Sig/Jessie Route PRN Reason Start Time Stop Time Status Last Admin Dose Admin Acetaminophen (Tylenol) 650 mg Q6H PRN ORAL Mild Pain/Temp > 100.5 12/24/18 19:22 01/23/19 19:21 Albuterol/ Ipratropium (Albuterol/ Ipratropium) 3 ml Q4HRT HHN 12/24/18 23:00 12/29/18 18:59 12/25/18 15:50 Carvedilol (Coreg) 3.125 mg EVERY 12 HOURS ORAL 12/25/18 21:00 01/24/19 20:59 Dextrose/Sodium Chloride 1,000 ml @ 50 mls/hr Q20H IV 12/25/18 11:00 01/23/19 10:59 12/25/18 11:50 Heparin Sodium (Porcine) (Heparin 5000 units/ml) 5,000 units EVERY 12 HOURS SUBQ 12/24/18 21:00 01/23/19 20:59 12/25/18 08:38 Hydromorphone HCl (Dilaudid) 0.5 mg Q3H PRN IVP Severe Pain (Pain Scale 7-10) 12/24/18 19:22 12/31/18 19:21 Ondansetron HCl (Zofran) 4 mg Q8H PRN IVP Nausea & Vomiting 12/24/18 19:22 01/23/19 19:21 Pantoprazole (Protonix) 40 mg DAILY IVP 12/25/18 09:00 01/24/19 08:59 12/25/18 08:36 Piperacillin Sod/ Tazobactam Sod 3.375 gm/Sodium Chloride 110 ml @ 27.5 mls/hr Q8HR IVPB 12/24/18 22:00 12/31/18 21:59 12/25/18 13:40 Tamsulosin HCl (Flomax) 0.4 mg DAILY ORAL 12/26/18 09:00 01/25/19 08:59 Vancomycin HCl (Vanco rx to dose) 1 ea DAILY PRN MISC Per rx protocol 12/25/18 09:00 01/23/19 15:44 Enrique White MD Dec 25, 2018 17:48
--- NOTE | 2018-12-25 18:58 | NUR ---
HAND-OFF: Report given to JEAN PAUL GLASS, no respiratory distress.
--- NOTE | 2018-12-25 19:05 | NUR ---
NURSE NOTES: Received patient from Lola Brooks RN. Patient is resting well in bed with BiPAP on with settings of 10/5 FiO2: 35% and O2 saturating at 97%. Bed on lowest position and alarm is activated. Will continue plan of care.
--- NOTE | 2018-12-25 19:15 | Cardiology Report ---
APPROVED REPORT EXAM: Two-dimensional and M-mode echocardiogram with Doppler and color Doppler. INDICATION Congestive Heart Failure M-Mode DIMENSIONS IVSd1.7 (0.7-1.1cm)Left Atrium (MM)3.8 (1.6-4.0cm) LVDd5.7 (3.5-5.6cm)Aortic Root4.0 (2.0-3.7cm) PWd1.4 (0.7-1.1cm)Aortic Cusp Exc.0.9 (1.5-2.0cm) IVSs1.8 cm LVDs4.8 (2.5-4.0cm) PWs1.8 cm Other Information . Global left ventricular hypokinesia with left ventricular ejection fraction estimated at 30-35%. Ischemic cardiomyopathy cannot be excluded. Mild left ventricular enlargement. No evidence of pericardial effusion. Left atrial chamber sizes is within upper normal limits . Right cardiac chamber sized are within normal limits . Aortic valve calcification with decreased cusp excursion c/w aortic stenosis. Mildly thickened mitral valve leaflets with normal excursion. Moderately mitral annulus and aortic root calcification. Pulmonic valve not well visualized. IVC at 1.6 cm without physiologic collapse . A color flow and spectral Doppler study was performed and revealed: No aortic insufficiency . Peak aortic valve gradient of 37mm Hg and a mean of 16mmHg. Moderate aortic valve area is calculated at 1.0 cm2 by continuity equation. Mitral diastolic velocities suggest reduced left ventricular relaxation c/w mild LV diastolic dysfunction (Grade I ) Mild mitral regurgitation. Mild to moderate tricuspid regurgitation. Tricuspid systolic velocities suggests peak right ventricular systolic pressure of 42 mmHg,consistent with mild pulmonary hypertension .
--- NOTE | 2018-12-25 19:40 | Cardiology Report ---
APPROVED REPORT EKG Measurement Heart [id number] Atrial fibrillation Inferior infarct, age undetermined Anterior infarct, age undetermined Abnormal ECG
[2018-12-25 20:00] VITALS: BP 170/91
--- NOTE | 2018-12-25 21:00 | Consultation ---
DATE OF CONSULTATION: 12/25/2018 INFECTIOUS DISEASE CONSULTATION CONSULTING PHYSICIAN: Alex Mckeon M.D. REQUESTING PHYSICIAN: Albaro Cho M.D. REASON FOR CONSULTATION: Left lower lobe aspiration pneumonia, sepsis with encephalopathy, and organ failure. Recommendation for antibiotics treatment. HISTORY OF PRESENT ILLNESS: The patient is an 78-year-old male, Kiswahili speaker, with past medical history of metastatic prostatic cancer and dementia, who lives in the rehabilitation at [facility], was brought into [facility] emergency room with altered level of consciousness, which started almost two days ago. The patient became unresponsive. He was on hospice care before, but family wanted him to be transferred for evaluation to find out what is his symptom related to. He also had history of congestive heart failure with ejection fraction of 18%. The patient was found to be altered in the ER with temperature of 98.1 and pulse of 92 and saturation of 100% on room air. Chest x-ray showed left lower lobe aspiration pneumonia with elevated white count concerning for sepsis. So, he was started on vancomycin and Zosyn empiric treatment. An Infectious Disease consultation was requested for antibiotics treatment and further management. As of note, the patient is on BiPAP and cannot provide any history to me at this time with at the bedside, but mainly Kiswahili speaker. History was mainly obtained by business support manager from his and medical record. REVIEW OF SYSTEMS: Unable to obtain. The patient is a poor historian and cannot provide any history at this point. PAST MEDICAL HISTORY: Significant for dementia and congestive heart failure with metastatic prostate cancer. He was on hospice care. PAST SURGICAL HISTORY: Not on record. MEDICATIONS: The patient was started on vancomycin and Zosyn. For the rest of his medications, please refer to MAR. ALLERGIES: No known drug allergies. FAMILY HISTORY: Not contributory. SOCIAL HISTORY: The patient was at the rehabilitation facility at [place] on hospice care before presenting into the hospital. PHYSICAL EXAMINATION: VITAL SIGNS: Temperature 98.4, pulse 77, respirations 16, blood pressure 140/79, and saturation 100% on BiPAP. GENERAL: An elderly male, looking pale, on BiPAP, awake, demented, not in acute distress. at the bedside. HEENT: Normocephalic and atraumatic. Pupils are reactive to light. Pale sclerae. Unable to assess oral mucosa due to BiPAP mask. NECK: Supple. No lymphadenopathy. CARDIOVASCULAR: He was tachycardic. S1, S2 normal. No murmur or gallop. LUNGS: Diminished breathing sounds at the bases with crackles. No wheezing or rhonchi. ABDOMEN: Soft and distended. Nontender. No organomegaly. No ascites. EXTREMITIES: No edema or cyanosis. SKIN: No rash. No hives. Sacrum redness and erythema. Left heel deep tissue injury and right heel deep tissue injury too. LABORATORY DATA: Labs showed white count of 15.1, hemoglobin of 12.9, and platelet count of 169,000. BUN of 48 and creatinine of 1.6. Glucose of 30. Lactic acid of 2.5. Urinalysis showed +1 leukocyte esterase and wbc's 2 to 4. TOXICOLOGY: Vancomycin level showed 11. MICROBIOLOGY: Urine culture and blood culture pending. IMAGING: Chest x-ray showed left basilar atelectases. No acute process otherwise. Head CT scan showed limited exam due to motion artifact, extensive chronic and age related changes. No gross acute intracranial bleed or mass effect. ASSESSMENT AND RECOMMENDATION: 1. Left lower lobe pneumonia, suspect aspiration. Continue vancomycin and Zosyn empiric coverage. Send sputum culture if he produces any. Aspiration precaution and keep head of bed more than 30 degrees. 2. Sepsis with gram-positive cocci due to the above. Continue wide-spectrum antibiotics pending blood cultures. 3. Acute encephalopathy due to the above. Suspect metabolic and toxic. Continue antibiotics and supportive care. 4. Renal failure, suspect due to dehydration. Continue intravenous fluids. Monitor renal function closely. 5. Dehydration. Continue IV fluids. Encourage hydration. 6. Acute respiratory failure due to the above. Continue BiPAP. Consult Pulmonary. Monitor chest x-ray. Thank you for the consult. Alex Mckeon M.D. DR: JEANINE JOB#: [id number] CC:
--- NOTE | 2018-12-25 23:53 | NUR ---
NURSE NOTES: Patient is tolerating 4L nasal cannula well, O2 saturating at 93%. Patient nods that he is okay and not in any pain or distress. Will continue to monitor.
[2018-12-26] VITALS: BP 118/69
[2018-12-26] MEDS: Albuterol/Ipratropium 3ml neb HHN SCH ×6 (02:08→22:44)
[2018-12-26 04:00] VITALS: BP 115/58
[2018-12-26 05:22] LABS: BASOPHILS % (AUTO) 0.4 % (0.0-2.0); EOSINOPHILS % (AUTO) 0.2 % (0.0-3.0); HEMATOCRIT 34.2 % (42.0-52.0); HEMOGLOBIN 11.2 G/DL (14.2-18.0); LYMPHOCYTES % (AUTO) 9.9 % (20.0-45.0); MEAN CORPUSCULAR VOLUME 100 FL (80-99); MONOCYTES % (AUTO) 5.9 % (1.0-10.0); NEUTROPHILS % (AUTO) 83.7 % (45.0-75.0); PLATELET COUNT 140 K/UL (150-450); RED BLOOD COUNT 3.44 M/UL (4.70-6.10); WHITE BLOOD COUNT 8.7 K/UL (4.8-10.8)
[2018-12-26 05:50] LABS: % IRON SATURATION 81 % (15-50); IRON 81 ug/dL (50-175); TOTAL IRON BINDING CAPACITY 100 ug/dL (250-450)
[2018-12-26 05:57] LABS: CREATINE KINASE 300 U/L (26-308); GAMMA GLUTAMYL TRANSPEPTIDASE 15 U/L (5-85); PHOSPHORUS 2.1 MG/DL (2.5-4.9)
[2018-12-26 06:06] LABS: ALANINE AMINOTRANSFERASE 48 U/L (12-78); ALBUMIN 2.1 G/DL (3.4-5.0); ALBUMIN/GLOBULIN RATIO 0.6 (1.0-2.7); ALKALINE PHOSPHATASE 69 U/L (46-116); ANION GAP 7 mmol/L (5-15); ASPARTATE AMINO TRANSFERASE 74 U/L (15-37); BILIRUBIN,TOTAL 0.8 MG/DL (0.2-1.0); BLOOD UREA NITROGEN 24 mg/dL (7-18); CALCIUM 8.1 MG/DL (8.5-10.1); CARBON DIOXIDE 29 MMOL/L (21-32); CHLORIDE 111 MMOL/L (98-107); CHOLESTEROL 122 MG/DL (< 200); CREATININE 0.9 MG/DL (0.55-1.30); FERRITIN 401 NG/ML (8-388); HDL CHOLESTEROL 32 MG/DL (40-60); POTASSIUM 4.1 MMOL/L (3.5-5.1); SODIUM 147 MMOL/L (136-145); TRIGLYCERIDES 104 MG/DL (30-150)
[2018-12-26] MEDS: D5NS 1,000 ML IV SCH (06:15)
[2018-12-26] MEDS: Piperacillin/Tazobactam 3.375 GM in NS 110 ML IVPB SCH ×3 (06:15→22:47)
[2018-12-26] MEDS ORDERED: Vancomycin 1.5gm Premix 275 ML IVPB SCH ×2 (07:00→08:00)
--- NOTE | 2018-12-26 07:25 | NUR ---
HAND-OFF: Report given to Lola Brooks RN.
[2018-12-26 08:00] VITALS: BP 129/63
--- NOTE | 2018-12-26 08:15 | NUR ---
NURSE NOTES: received pt in the bed, awake, alert, vital signs stable, no co pain, no SOB, pt on O2 4L, O2 sat 92%, no co pain, skin warm and dry to touch, dressing on sacral area and both heel dry and intact, Prasad catheter with yellow urine, bed in low position, call light within reach.
[2018-12-26] MEDS: Pantoprazole Inj IVP SCH (08:31)
[2018-12-26] MEDS: Heparin 5000 units/ml inj SUBQ SCH ×2 (08:33→21:17)
[2018-12-26] MEDS ORDERED: Tamsulosin 0.4mg cap ORAL SCH (09:00)
[2018-12-26 12:00] VITALS: BP 119/66
--- NOTE | 2018-12-26 12:03 | Pulmonology Progress Note ---
Assessment/Plan Assessment/Plan Problem List: 1. AMS - toxic metabolic encephalopathy 2. Pneumonia - possible aspiration 3. Acute hypoxemic respiratory failure 4. Dementia 5. MIRTA - improved 6. Acute pulmonary edema Plan: -ABX per ID -f/u cultures -no longer needs bipap -d/c IVF, may need diuresis Subjective ROS Limited/Unobtainable: Yes Allergies: Coded Allergies: No Known Allergies (Unverified , 12/24/18) Subjective ABG w/o need for BiPAP. Cr improved, proBNP elevated, getting IVF. Breathing stable Nonverbal Objective Last 24 Hour Vital Signs Date Time Temp Pulse Resp B/P (MAP) Pulse Ox O2 Delivery O2 Flow Rate FiO2 12/26/18 11:48 68 16 93 Nasal Cannula 4.0 36 12/26/18 11:48 36 12/26/18 08:34 66 129/63 12/26/18 08:15 68 18 96 Nasal Cannula 4.0 36 12/26/18 08:05 36 12/26/18 08:05 72 16 96 Nasal Cannula 4.0 36 12/26/18 08:05 Nasal Cannula 4.0 36 12/26/18 08:05 96 Nasal Cannula 4.0 36 12/26/18 08:00 71 12/26/18 08:00 Nasal Cannula 4.0 12/26/18 08:00 97.8 66 21 129/63 (85) 92 12/26/18 04:00 97.9 65 28 115/58 (77) 93 12/26/18 04:00 Nasal Cannula 4.0 12/26/18 03:26 62 12/26/18 02:17 72 18 97 Nasal Cannula 4.0 36 12/26/18 02:08 68 18 94 Nasal Cannula 4.0 36 12/26/18 00:00 Nasal Cannula 4.0 12/26/18 00:00 98.6 73 28 118/69 (85) 91 12/25/18 23:36 78 12/25/18 22:57 72 18 97 Nasal Cannula 4.0 36 12/25/18 22:50 74 18 95 Nasal Cannula 4.0 36 12/25/18 20:58 78 170/91 12/25/18 20:00 4.0 12/25/18 20:00 97.9 78 18 170/91 (117) 95 12/25/18 20:00 Nasal Cannula 4.0 4/8/19 19:30 77 15 100 Bi-pap 35 12/25/18 19:26 72 12/25/18 19:22 76 16 97 Bi-pap 35 12/25/18 19:22 Bi-pap 35 12/25/18 19:22 97 Bi-pap 35 12/25/18 19:20 76 18 97 Full Face 35 12/25/18 17:05 97 17 84 Full Face 35 12/25/18 16:00 40 12/25/18 16:00 Bi-pap 12/25/18 16:00 98.2 78 18 150/83 (105) 97 12/25/18 16:00 80 12/25/18 15:58 79 16 100 Bi-pap 35 12/25/18 15:48 77 15 99 Bi-pap 35 12/25/18 15:15 99 15 77 Full Face 35 12/25/18 13:57 99 11 72 Full Face 35 Intake and Output 12/25/18 12/26/18 19:00 07:00 Intake Total 542.5 ml 718.12 ml Output Total 1600 ml 750 ml Balance -1057.5 ml -31.88 ml IV Total 542.5 ml 718.12 ml Output Urine Total 1600 ml 750 ml General Appearance: no acute distress HEENT: mucous membranes moist, other - +JVD Respiratory/Chest: crackles/rales Cardiovascular: normal rate Abdomen: normal bowel sounds, soft, non tender Extremities: no edema Neurologic/Psychiatric: responsive Microbiology Date/Time Source Procedure Growth Status 12/24/18 12:15 Blood Blood Culture - Preliminary Staphylococcus Sp Coag Neg Resulted 12/24/18 12:15 Blood Blood Culture - Preliminary NO GROWTH AFTER 24 HOURS Resulted 12/24/18 14:00 Nasal Nares Left MRSA Culture - Final NO METHICILLIN RESISTANT STAPH AUREUS... Complete 12/24/18 18:40 Indwelling Cath Urine Culture - Preliminary NO GROWTH AFTER 24 HOURS Resulted 12/24/18 14:00 Rectum VRE Culture - Final NO VANCOMYCIN RESISTANT ENTEROCOCCUS ... Complete 12/24/18 14:00 Rectum - Final NO CARBAPENEM-RESISTANT ENTEROBACTERI... Complete Laboratory Tests 12/26/18 03:35: White Blood Count 8.7, Red Blood Count 3.44L, Hemoglobin 11.2L, Hematocrit 34.2L , Mean Corpuscular Volume 100H, Mean Corpuscular Hemoglobin 32.6H, Mean Corpuscular Hemoglobin Concent 32.7, Red Cell Distribution Width 14.0, Platelet Count 140L, Mean Platelet Volume 7.4, Neutrophils (%) (Auto) 83.7H, Lymphocytes (%) (Auto) 9.9L, Monocytes (%) (Auto) 5.9, Eosinophils (%) (Auto) 0.2, Basophils (%) (Auto) 0.4, Sodium Level 147H, Potassium Level 4.1, Chloride Level 111H, Carbon Dioxide Level 29, Anion Gap 7, Blood Urea Nitrogen 24H, Creatinine 0.9, Estimat Glomerular Filtration Rate , Glucose Level 130H, Hemoglobin A1c 6.5H, Uric Acid 4.4, Calcium Level 8.1L, Phosphorus Level 2.1L, Magnesium Level 2.0, Iron Level 81, Total Iron Binding Capacity 100L, Percent Iron Saturation 81H, Unsaturated Iron Binding 19L, Ferritin 401H, Total Bilirubin 0.8, Gamma Glutamyl Transpeptidase 15, Aspartate Amino Transf (AST/ SGOT) 74H, Alanine Aminotransferase (ALT/SGPT) 48, Alkaline Phosphatase 69, Total Creatine Kinase 300, C-Reactive Protein, Quantitative 11.7H, Pro-B-Type Natriuretic Peptide 04158H, Total Protein 5.4L, Albumin 2.1L, Globulin 3.3, Albumin/Globulin Ratio 0.6L, Triglycerides Level 104, Cholesterol Level 122, LDL Cholesterol 77, HDL Cholesterol 32L, Cholesterol/HDL Ratio 3.8, Vitamin B12 Level 588, Folate 19.8, Thyroid Stimulating Hormone (TSH) 1.225, Random Vancomycin Level 11.8 12/26/18 09:04: Arterial Blood pH 7.464H, Arterial Blood Partial Pressure CO2 37.1, Arterial Blood Partial Pressure O2 56.9L, Arterial Blood HCO3 26.0, Arterial Blood Oxygen Saturation 89.1*L, Arterial Blood Base Excess 2.3H, Martell Test Positive Current Medications Medications (Trade) Dose Ordered Sig/Jessie Route PRN Reason Start Time Stop Time Status Last Admin Dose Admin Acetaminophen (Tylenol) 650 mg Q6H PRN ORAL Mild Pain/Temp > 100.5 12/24/18 19:22 01/23/19 19:21 Albuterol/ Ipratropium (Albuterol/ Ipratropium) 3 ml Q4HRT HHN 12/24/18 23:00 12/29/18 18:59 12/26/18 11:48 Carvedilol (Coreg) 3.125 mg EVERY 12 HOURS ORAL 12/25/18 21:00 01/24/19 20:59 12/26/18 08:34 Heparin Sodium (Porcine) (Heparin 5000 units/ml) 5,000 units EVERY 12 HOURS SUBQ 12/24/18 21:00 01/23/19 20:59 12/26/18 08:33 Hydromorphone HCl (Dilaudid) 0.5 mg Q3H PRN IVP Severe Pain (Pain Scale 7-10) 12/24/18 19:22 12/31/18 19:21 Ondansetron HCl (Zofran) 4 mg Q8H PRN IVP Nausea & Vomiting 12/24/18 19:22 01/23/19 19:21 Pantoprazole (Protonix) 40 mg DAILY IVP 12/25/18 09:00 01/24/19 08:59 12/26/18 08:31 Piperacillin Sod/ Tazobactam Sod 3.375 gm/Sodium Chloride 110 ml @ 27.5 mls/hr Q8HR IVPB 12/24/18 22:00 12/31/18 21:59 12/26/18 06:15 Tamsulosin HCl (Flomax) 0.4 mg DAILY ORAL 12/26/18 09:00 01/25/19 08:59 12/26/18 08:32 Vancomycin HCl (Vanco rx to dose) 1 ea DAILY PRN MISC Per rx protocol 12/25/18 09:00 01/23/19 15:44 Vancomycin HCl/ Dextrose 275 ml @ 183.333 mls/hr Q24H IVPB 12/26/18 08:00 12/31/18 07:59 12/26/18 08:31 Enrique White MD Dec 26, 2018 12:03
--- NOTE | 2018-12-26 12:53 | Nephrology Progress Note ---
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 NOW IS FULL CODE ??? Subjective ROS Limited/Unobtainable: No Constitutional: Reports: malaise Objective Objective Last 24 Hour Vital Signs Date Time Temp Pulse Resp B/P (MAP) Pulse Ox O2 Delivery O2 Flow Rate FiO2 12/26/18 12:00 98.4 63 19 119/66 (83) 92 12/26/18 12:00 Nasal Cannula 4.0 12/26/18 11:58 63 16 99 Nasal Cannula 4.0 36 12/26/18 11:48 68 16 93 Nasal Cannula 4.0 36 12/26/18 11:48 36 12/26/18 08:34 66 129/63 12/26/18 08:15 68 18 96 Nasal Cannula 4.0 36 12/26/18 08:05 36 12/26/18 08:05 72 16 96 Nasal Cannula 4.0 36 12/26/18 08:05 Nasal Cannula 4.0 36 12/26/18 08:05 96 Nasal Cannula 4.0 36 12/26/18 08:00 71 12/26/18 08:00 Nasal Cannula 4.0 12/26/18 08:00 97.8 66 21 129/63 (85) 92 12/26/18 04:00 97.9 65 28 115/58 (77) 93 12/26/18 04:00 Nasal Cannula 4.0 12/26/18 03:26 62 12/26/18 02:17 72 18 97 Nasal Cannula 4.0 36 12/26/18 02:08 68 18 94 Nasal Cannula 4.0 36 12/26/18 00:00 Nasal Cannula 4.0 12/26/18 00:00 98.6 73 28 118/69 (85) 91 12/25/18 23:36 78 12/25/18 22:57 72 18 97 Nasal Cannula 4.0 36 12/25/18 22:50 74 18 95 Nasal Cannula 4.0 36 12/25/18 20:58 78 170/91 12/25/18 20:00 4.0 12/25/18 20:00 97.9 78 18 170/91 (117) 95 12/25/18 20:00 Nasal Cannula 4.0 12/25/18 19:30 77 15 100 Bi-pap 35 12/25/18 19:26 72 12/25/18 19:22 76 16 97 Bi-pap 35 12/25/18 19:22 Bi-pap 35 12/25/18 19:22 97 Bi-pap 35 12/25/18 19:20 76 18 97 Full Face 35 12/25/18 17:05 97 17 84 Full Face 35 12/25/18 16:00 40 12/25/18 16:00 Bi-pap 12/25/18 16:00 98.2 78 18 150/83 (105) 97 12/25/18 16:00 80 12/25/18 15:58 79 16 100 Bi-pap 35 12/25/18 15:48 77 15 99 Bi-pap 35 12/25/18 15:15 99 15 77 Full Face 35 12/25/18 13:57 99 11 72 Full Face 35 Intake and Output 12/25/18 12/26/18 19:00 07:00 Intake Total 542.5 ml 718.12 ml Output Total 1600 ml 750 ml Balance -1057.5 ml -31.88 ml IV Total 542.5 ml 718.12 ml Output Urine Total 1600 ml 750 ml Laboratory Tests 12/26/18 03:35: White Blood Count 8.7, Red Blood Count 3.44L, Hemoglobin 11.2L, Hematocrit 34.2L , Mean Corpuscular Volume 100H, Mean Corpuscular Hemoglobin 32.6H, Mean Corpuscular Hemoglobin Concent 32.7, Red Cell Distribution Width 14.0, Platelet Count 140L, Mean Platelet Volume 7.4, Neutrophils (%) (Auto) 83.7H, Lymphocytes (%) (Auto) 9.9L, Monocytes (%) (Auto) 5.9, Eosinophils (%) (Auto) 0.2, Basophils (%) (Auto) 0.4, Sodium Level 147H, Potassium Level 4.1, Chloride Level 111H, Carbon Dioxide Level 29, Anion Gap 7, Blood Urea Nitrogen 24H, Creatinine 0.9, Estimat Glomerular Filtration Rate , Glucose Level 130H, Hemoglobin A1c 6.5H, Uric Acid 4.4, Calcium Level 8.1L, Phosphorus Level 2.1L, Magnesium Level 2.0, Iron Level 81, Total Iron Binding Capacity 100L, Percent Iron Saturation 81H, Unsaturated Iron Binding 19L, Ferritin 401H, Total Bilirubin 0.8, Gamma Glutamyl Transpeptidase 15, Aspartate Amino Transf (AST/ SGOT) 74H, Alanine Aminotransferase (ALT/SGPT) 48, Alkaline Phosphatase 69, Total Creatine Kinase 300, C-Reactive Protein, Quantitative 11.7H, Pro-B-Type Natriuretic Peptide 88604N, Total Protein 5.4L, Albumin 2.1L, Globulin 3.3, Albumin/Globulin Ratio 0.6L, Triglycerides Level 104, Cholesterol Level 122, LDL Cholesterol 77, HDL Cholesterol 32L, Cholesterol/HDL Ratio 3.8, Vitamin B12 Level 588, Folate 19.8, Thyroid Stimulating Hormone (TSH) 1.225, Random Vancomycin Level 11.8 12/26/18 09:04: Arterial Blood pH 7.464H, Arterial Blood Partial Pressure CO2 37.1, Arterial Blood Partial Pressure O2 56.9L, Arterial Blood HCO3 26.0, Arterial Blood Oxygen Saturation 89.1*L, Arterial Blood Base Excess 2.3H, Martell Test Positive Height (Feet): 5 Height (Inches): 10.00 Weight (Pounds): 180 General Appearance: lethargic Cardiovascular: normal rate Respiratory/Chest: decreased breath sounds Abdomen: distended Rigoberto Aaron MD Dec 26, 2018 12:53
--- NOTE | 2018-12-26 13:11 | NUR ---
RD ASSESSMENT & RECOMMENDATIONS SEE CARE ACTIVITY FOR COMPLETE ASSESSMENT DAILY ESTIMATED NEEDS: Needs based on Wound, CA / 77kg abw 25-30 kcals/kg 7801-3652 total kcals 1.25-1.5 g protein/kg 96-115 g total protein 20-22 mL/kg 5527-8575 total fluid mLs NUTRITION DIAGNOSIS: Increased kcal/prot needs R/T wound healing, catabolic dx as evidenced by pt admitted w/ BL heels + sacral wound, pending eval, h/o metastatic prostate CA. CURRENT DIET:NPO PO DIET RECOMMENDATIONS: CCHO MED, LOW NA/ texture per PERSONNEL ANALYST ADDITIONAL RECOMMENDATIONS: * Calibrated bedscale weight for accurate CBW- bed w/ added p200 mattress * Monitor lytes, replete as needed (low phos) * Consider accucheck w/ SSI- h/o DM, A1C=6.5 * Wound healing: add MVI x 1, Vit C 500mg QD, Kyler 1pkt BID -F/up w/ wound care eval
--- NOTE | 2018-12-26 14:00 | NUR ---
*-* INSURANCE *-* ALL CLINICALS HAVE ODALIS FAXED TO: [facility] F: [phone]
--- NOTE | 2018-12-26 14:30 | NUR ---
NURSE NOTES: vital signs stable, tolerate o2 4L well,family in the room, continue monitoring.
--- NOTE | 2018-12-26 14:48 | NUR ---
ST NOTE: BEDSIDE SWALLOW EVAL RECEIVED BEDSIDE SWALLOW EVAL ORDER CHART REVIEWED PRIOR THE EVALUATION REFERRED BY , DR. GONZALES. PT IS A 78-YEAR-OLD LIBERIAN-SPEAKING MALE WHO WAS ADMITTED DUE TO SEPSIS, ACUTE RESP FAILURE AND ACUTE ENCEPHALOPATHY. PT WAS PUT ON BIPAP WITH FIO2 40%. DYSPHAGIA RISK FACTORS: DEMENTIA, HEART FAILURE, H/O DYSPHAGIA, SEIZURE, HTN, H/O CHF(EF 18% AND NOW 30%), DMII, PSYCH(PSYCHOSIS AND DEPRESSIVE DISORDER). PLOF: PT IS AT [facility]. PT WAS ON PUREE WITH THIN LIQUIDS DIET. PT WAS ON HOSPICE CARE. PER PT'S POLST:DNR/DNI, COMFORT-FOCUSED TX AND NO ARTIFICIAL MEANS OF NUTRITION, INCLUDING FEEDING TUBES. MEDICATIONS: PROTONIX, DILAUDID(PAIN MED) CURRENT STATUS: PT SEEN AT BEDSIDE IN PM, OFF BIPAP ON 12/25/18 AT NIGHT. FAMILY AT THE BEDSIDE, MORE ALERT, BUT CONFUSED, ORIENTED X 1, DID NOT FOLLOW DIRECTIONS. PT WITH NC(4L). OXYGEN LEVEL: 92-96. PT IS NOT FULL CODE. GIVEN PO TRIALS: NECTAR THICK(TSP X 2 ONLY) INITIAL IMPRESSION: MODERATE OR WORSENED OROPHARYNGEAL DYSPHAGIA GOOD DENTITION. MILDLY TO MODERATELY ORAL TRANSIT TIME AND OROPHARYNGEAL TRANSIT TIME, REDUCED LARYNGEAL ELEVATION, DELAYED COUGHING AND THROAT CLEARING WERE NOTED. GIVEN PT HAS H/O DEMENTIA AND IS ADMITTED FOR ACUTE RESP FAILURE, PT IS AT HIGH RISK FOR (SILENT) ASPIRATION. RECOMMENDATIONS: 1. CONSERVATIVELY, MODIFIED BARIUM SWALLOW STUDY(MBSS) PRIOR PO DIET. 2. IF PO IS GIVEN FOR QUALITY OF LIFE, CONSIDER LIQUIFIED PUREED, LIKE NECTAR THICK SOUP CONSISTENCY WITH NECTAR THICK LIQUIDS AT 1/2 TEASPOON LEVEL 3. STRICT ASPIRATION/REFLUX PRECAUTIONS WITH 1TO1 FEEDING. 4. MODIFIED BARIUM SWALLOW STUDY TO OBJECTIVELY ASSESS PT'S SWALLOWING FUNCTION AND R/O ANY SILENT ASPIRATION RISK. D/W PT'S FAMILY RE: RESULTS AND RECOMMENDATIONS, PT'S FAMILY AWARE THAT PT IS AT HIGH RISK FOR ASPIRATION. FAMILY AGREED KEEP PT NPO UNTIL MODIFIED BARIUM SWALLOW STUDY. POSTED NPO SIGN. D/W SHERIE GLASS. INFORMED PRIMARY PHYSICIAN, DR. MARTINES RE: PT'S CONDITIONS AND MBSS IS NECESSARY TO R/O ANY ASPIRATION RISK. PER YUMIKO SANTO FOR MBSS. WILL FOLLOW UP.
[2018-12-26 16:00] VITALS: BP 130/69
--- NOTE | 2018-12-26 16:46 | General Progress Note ---
Assessment/Plan Assessment/Plan S: I am ok O: make verbal conversation, no chest pain. on BIPAP PHYSICAL EXAMINATION:HEAD AND NECK: Atraumatic and normocephalic. CHEST: Diffuse bronchial breathing sounds.ABDOMEN: Soft. MUSCULOSKELETAL: Positive for the increased reflexes and spasticity in all 4 extremities.NEUROLOGY: Limited evaluation as the patient is not verbally communicative. Meds: Reviewed and reconciled. ASSESSMENT AND PLAN: 1. Sepsis: Gram positive 2. Hypoxemic respiratory failure. 3. Healthcare-associated pneumonia. 4. Macrocytic anemia. 5. Abnormal LFTs. 6. GI and DVT prophylaxes. 7. DNR/DNI. Plan: ID, Pulmonary, Nephro notes are reviewed current empirical abx remains DNR Subjective Allergies: Coded Allergies: No Known Allergies (Unverified , 12/24/18) Objective Last 24 Hour Vital Signs Date Time Temp Pulse Resp B/P (MAP) Pulse Ox O2 Delivery O2 Flow Rate FiO2 12/26/18 16:02 Nasal Cannula 4.0 12/26/18 16:00 68 12/26/18 16:00 97.5 63 20 130/69 (89) 93 12/26/18 15:32 71 16 99 Nasal Cannula 4.0 36 12/26/18 15:22 36 12/26/18 15:22 73 16 93 Nasal Cannula 4.0 36 12/26/18 12:00 98.4 63 19 119/66 (83) 92 12/26/18 12:00 Nasal Cannula 4.0 12/26/18 12:00 54 12/26/18 11:58 63 16 99 Nasal Cannula 4.0 36 12/26/18 11:48 68 16 93 Nasal Cannula 4.0 36 12/26/18 11:48 36 12/26/18 08:34 66 129/63 12/26/18 08:15 68 18 96 Nasal Cannula 4.0 36 12/26/18 08:05 36 12/26/18 08:05 72 16 96 Nasal Cannula 4.0 36 12/26/18 08:05 Nasal Cannula 4.0 36 12/26/18 08:05 96 Nasal Cannula 4.0 36 12/26/18 08:00 71 12/26/18 08:00 Nasal Cannula 4.0 12/26/18 08:00 97.8 66 21 129/63 (85) 92 12/26/18 04:00 97.9 65 28 115/58 (77) 93 12/26/18 04:00 Nasal Cannula 4.0 12/26/18 03:26 62 12/26/18 02:17 72 18 97 Nasal Cannula 4.0 36 12/26/18 02:08 68 18 94 Nasal Cannula 4.0 36 12/26/18 00:00 Nasal Cannula 4.0 12/26/18 00:00 98.6 73 28 118/69 (85) 91 12/25/18 23:36 78 12/25/18 22:57 72 18 97 Nasal Cannula 4.0 36 12/25/18 22:50 74 18 95 Nasal Cannula 4.0 36 12/25/18 20:58 78 170/91 12/25/18 20:00 4.0 12/25/18 20:00 97.9 78 18 170/91 (117) 95 12/25/18 20:00 Nasal Cannula 4.0 12/25/18 19:30 77 15 100 Bi-pap 35 12/25/18 19:26 72 12/25/18 19:22 76 16 97 Bi-pap 35 12/25/18 19:22 Bi-pap 35 12/25/18 19:22 97 Bi-pap 35 12/25/18 19:20 76 18 97 Full Face 35 12/25/18 17:05 97 17 84 Full Face 35 Intake and Output 12/25/18 12/26/18 19:00 07:00 Intake Total 542.5 ml 718.12 ml Output Total 1600 ml 750 ml Balance -1057.5 ml -31.88 ml IV Total 542.5 ml 718.12 ml Output Urine Total 1600 ml 750 ml Laboratory Tests 12/26/18 03:35: White Blood Count 8.7, Red Blood Count 3.44L, Hemoglobin 11.2L, Hematocrit 34.2L , Mean Corpuscular Volume 100H, Mean Corpuscular Hemoglobin 32.6H, Mean Corpuscular Hemoglobin Concent 32.7, Red Cell Distribution Width 14.0, Platelet Count 140L, Mean Platelet Volume 7.4, Neutrophils (%) (Auto) 83.7H, Lymphocytes (%) (Auto) 9.9L, Monocytes (%) (Auto) 5.9, Eosinophils (%) (Auto) 0.2, Basophils (%) (Auto) 0.4, Sodium Level 147H, Potassium Level 4.1, Chloride Level 111H, Carbon Dioxide Level 29, Anion Gap 7, Blood Urea Nitrogen 24H, Creatinine 0.9, Estimat Glomerular Filtration Rate , Glucose Level 130H, Hemoglobin A1c 6.5H, Uric Acid 4.4, Calcium Level 8.1L, Phosphorus Level 2.1L, Magnesium Level 2.0, Iron Level 81, Total Iron Binding Capacity 100L, Percent Iron Saturation 81H, Unsaturated Iron Binding 19L, Ferritin 401H, Total Bilirubin 0.8, Gamma Glutamyl Transpeptidase 15, Aspartate Amino Transf (AST/ SGOT) 74H, Alanine Aminotransferase (ALT/SGPT) 48, Alkaline Phosphatase 69, Total Creatine Kinase 300, C-Reactive Protein, Quantitative 11.7H, Pro-B-Type Natriuretic Peptide 95195A, Total Protein 5.4L, Albumin 2.1L, Globulin 3.3, Albumin/Globulin Ratio 0.6L, Triglycerides Level 104, Cholesterol Level 122, LDL Cholesterol 77, HDL Cholesterol 32L, Cholesterol/HDL Ratio 3.8, Vitamin B12 Level 588, Folate 19.8, Thyroid Stimulating Hormone (TSH) 1.225, Random Vancomycin Level 11.8 12/26/18 09:04: Arterial Blood pH 7.464H, Arterial Blood Partial Pressure CO2 37.1, Arterial Blood Partial Pressure O2 56.9L, Arterial Blood HCO3 26.0, Arterial Blood Oxygen Saturation 89.1*L, Arterial Blood Base Excess 2.3H, Martell Test Positive Height (Feet): 5 Height (Inches): 10.00 Weight (Pounds): 180 Albaro Cho MD Dec 26, 2018 16:46
--- NOTE | 2018-12-26 17:56 | Infectious Diseases Prog Note ---
Assessment/Plan Problems: (1) LLL pneumonia Assessment & Plan: suspect aspiration, continue vancomycin and zosyn , sputum culture , aspiration precaution , keep HOB > 30 degree (2) Sepsis Assessment & Plan: with gram positive cocci , due to the above, continue wide spectrum antibiotics pending cultures (3) Acute encephalopathy Assessment & Plan: due to the above, suspect metabolic and toxic, continue antibiotics and supportive care (4) Renal failure Assessment & Plan: suspect due to dehydration , continue IVF , monitor renal function closely (5) Dehydration Assessment & Plan: continue IVF, encourage hydration (6) Acute respiratory failure Assessment & Plan: due to the above, continue BIPAP with close monitor of ABG, and CXR ./ Subjective Constitutional: Reports: no symptoms HEENT: Reports: no symptoms Respiratory: Reports: no symptoms Breasts: Reports: no symptoms Cardiovascular: Reports: no symptoms Gastrointestinal/Abdominal: Reports: no symptoms Genitourinary: Reports: no symptoms Neurologic: Reports: no symptoms Psychiatric: Reports: no symptoms Skin: Reports: no symptoms Endocrine: Reports: no symptoms Hematologic: Reports: no symptoms Musculoskeletal: Reports: no symptoms Allergies: Coded Allergies: No Known Allergies (Unverified , 12/24/18) Objective Vital Signs Last 24 Hour Vital Signs Date Time Temp Pulse Resp B/P (MAP) Pulse Ox O2 Delivery O2 Flow Rate FiO2 12/26/18 16:02 Nasal Cannula 4.0 12/26/18 16:00 68 12/26/18 16:00 97.5 63 20 130/69 (89) 93 12/26/18 15:32 71 16 99 Nasal Cannula 4.0 36 12/26/18 15:22 36 12/26/18 15:22 73 16 93 Nasal Cannula 4.0 36 12/26/18 12:00 98.4 63 19 119/66 (83) 92 12/26/18 12:00 Nasal Cannula 4.0 12/26/18 12:00 54 12/26/18 11:58 63 16 99 Nasal Cannula 4.0 36 12/26/18 11:48 68 16 93 Nasal Cannula 4.0 36 12/26/18 11:48 36 12/26/18 08:34 66 129/63 12/26/18 08:15 68 18 96 Nasal Cannula 4.0 36 12/26/18 08:05 36 12/26/18 08:05 72 16 96 Nasal Cannula 4.0 36 12/26/18 08:05 Nasal Cannula 4.0 36 12/26/18 08:05 96 Nasal Cannula 4.0 36 12/26/18 08:00 71 12/26/18 08:00 Nasal Cannula 4.0 12/26/18 08:00 97.8 66 21 129/63 (85) 92 12/26/18 04:00 97.9 65 28 115/58 (77) 93 12/26/18 04:00 Nasal Cannula 4.0 12/26/18 03:26 62 12/26/18 02:17 72 18 97 Nasal Cannula 4.0 36 12/26/18 02:08 68 18 94 Nasal Cannula 4.0 36 12/26/18 00:00 Nasal Cannula 4.0 12/26/18 00:00 98.6 73 28 118/69 (85) 91 12/25/18 23:36 78 12/25/18 22:57 72 18 97 Nasal Cannula 4.0 36 12/25/18 22:50 74 18 95 Nasal Cannula 4.0 36 12/25/18 20:58 78 170/91 12/25/18 20:00 4.0 12/25/18 20:00 97.9 78 18 170/91 (117) 95 12/25/18 20:00 Nasal Cannula 4.0 12/25/18 19:30 77 15 100 Bi-pap 35 12/25/18 19:26 72 12/25/18 19:22 76 16 97 Bi-pap 35 12/25/18 19:22 Bi-pap 35 12/25/18 19:22 97 Bi-pap 35 12/25/18 19:20 76 18 97 Full Face 35 Height (Feet): 5 Height (Inches): 10.00 Weight (Pounds): 180 General Appearance: WD/WN, no acute distress HEENT: normocephalic, atraumatic, anicteric, mucous membranes moist, PERRL, EOMI, pharynx normal, supple Respiratory/Chest: chest wall non-tender, no respiratory distress, no accessory muscle use, decreased breath sounds Cardiovascular: normal peripheral pulses, normal rate, regular rhythm, no gallop/murmur, no JVD Abdomen: normal bowel sounds, soft, non tender, no organomegaly, non distended , no mass, no scars Extremities: no cyanosis, no clubbing Skin: no rash, no lesions, no ulcers Neurologic/Psychiatric: alert, responsive Lymphatic: no neck adenopathy, no groin adenopathy Musculoskeletal: normal muscle bulk, no effusion Microbiology Date/Time Source Procedure Growth Status 12/24/18 12:15 Blood Blood Culture - Preliminary Staphylococcus Sp Coag Neg Resulted 12/24/18 12:15 Blood Blood Culture - Preliminary NO GROWTH AFTER 24 HOURS Resulted 12/24/18 14:00 Nasal Nares Left MRSA Culture - Final NO METHICILLIN RESISTANT STAPH AUREUS... Complete 12/24/18 18:40 Indwelling Cath Urine Culture - Preliminary NO GROWTH AFTER 24 HOURS Resulted 12/24/18 14:00 Rectum VRE Culture - Final NO VANCOMYCIN RESISTANT ENTEROCOCCUS ... Complete 12/24/18 14:00 Rectum - Final NO CARBAPENEM-RESISTANT ENTEROBACTERI... Complete Laboratory Tests Test 12/26/18 03:35 12/26/18 09:04 White Blood Count 8.7 K/UL (4.8-10.8) Red Blood Count 3.44 M/UL (4.70-6.10) L Hemoglobin 11.2 G/DL (14.2-18.0) L Hematocrit 34.2 % (42.0-52.0) L Mean Corpuscular Volume 100 FL (80-99) H Mean Corpuscular Hemoglobin 32.6 PG (27.0-31.0) H Mean Corpuscular Hemoglobin Concent 32.7 G/DL (32.0-36.0) Red Cell Distribution Width 14.0 % (11.6-14.8) Platelet Count 140 K/UL (150-450) L Mean Platelet Volume 7.4 FL (6.5-10.1) Neutrophils (%) (Auto) 83.7 % (45.0-75.0) H Lymphocytes (%) (Auto) 9.9 % (20.0-45.0) L Monocytes (%) (Auto) 5.9 % (1.0-10.0) Eosinophils (%) (Auto) 0.2 % (0.0-3.0) Basophils (%) (Auto) 0.4 % (0.0-2.0) Sodium Level 147 MMOL/L (136-145) H Potassium Level 4.1 MMOL/L (3.5-5.1) Chloride Level 111 MMOL/L (98-107) H Carbon Dioxide Level 29 MMOL/L (21-32) Anion Gap 7 mmol/L (5-15) Blood Urea Nitrogen 24 mg/dL (7-18) H Creatinine 0.9 MG/DL (0.55-1.30) Estimat Glomerular Filtration Rate mL/min (>60) Glucose Level 130 MG/DL (74-106) H Hemoglobin A1c 6.5 % (4.3-6.0) H Uric Acid 4.4 MG/DL (2.6-7.2) Calcium Level 8.1 MG/DL (8.5-10.1) L Phosphorus Level 2.1 MG/DL (2.5-4.9) L Magnesium Level 2.0 MG/DL (1.8-2.4) Iron Level 81 ug/dL (50-175) Total Iron Binding Capacity 100 ug/dL (250-450) L Percent Iron Saturation 81 % (15-50) H Unsaturated Iron Binding 19 ug/dL (112-346) L Ferritin 401 NG/ML (8-388) H Total Bilirubin 0.8 MG/DL (0.2-1.0) Gamma Glutamyl Transpeptidase 15 U/L (5-85) Aspartate Amino Transf (AST/SGOT) 74 U/L (15-37) H Alanine Aminotransferase (ALT/SGPT) 48 U/L (12-78) Alkaline Phosphatase 69 U/L (46-116) Total Creatine Kinase 300 U/L (26-308) C-Reactive Protein, Quantitative 11.7 mg/dL (0.00-0.90) H Pro-B-Type Natriuretic Peptide 15523 pg/mL (0-125) H Total Protein 5.4 G/DL (6.4-8.2) L Albumin 2.1 G/DL (3.4-5.0) L Globulin 3.3 g/dL Albumin/Globulin Ratio 0.6 (1.0-2.7) L Triglycerides Level 104 MG/DL (30-150) Cholesterol Level 122 MG/DL (< 200) LDL Cholesterol 77 mg/dL (<100) HDL Cholesterol 32 MG/DL (40-60) L Cholesterol/HDL Ratio 3.8 (3.3-4.4) Vitamin B12 Level 588 PG/ML (193-986) Folate 19.8 NG/ML (8.6-58.9) Thyroid Stimulating Hormone (TSH) 1.225 uiU/mL (0.358-3.740) Random Vancomycin Level 11.8 ug/mL Arterial Blood pH 7.464 (7.350-7.450) Arterial Blood Partial Pressure CO2 37.1 mmHg (35.0-45.0) Arterial Blood Partial Pressure O2 56.9 mmHg (75.0-100.0) L Arterial Blood HCO3 26.0 mmol/L (22.0-26.0) Arterial Blood Oxygen Saturation 89.1 % (95-100) *L Arterial Blood Base Excess 2.3 (-2-2) H Martell Test Positive Current Medications Medications (Trade) Dose Ordered Sig/Jessie Route PRN Reason Start Time Stop Time Status Last Admin Dose Admin Acetaminophen (Tylenol) 650 mg Q6H PRN ORAL Mild Pain/Temp > 100.5 12/24/18 19:22 01/23/19 19:21 Albuterol/ Ipratropium (Albuterol/ Ipratropium) 3 ml Q4HRT HHN 12/24/18 23:00 12/29/18 18:59 12/26/18 15:22 Carvedilol (Coreg) 3.125 mg EVERY 12 HOURS ORAL 12/25/18 21:00 01/24/19 20:59 12/26/18 08:34 Heparin Sodium (Porcine) (Heparin 5000 units/ml) 5,000 units EVERY 12 HOURS SUBQ 12/24/18 21:00 01/23/19 20:59 12/26/18 08:33 Hydromorphone HCl (Dilaudid) 0.5 mg Q3H PRN IVP Severe Pain (Pain Scale 7-10) 12/24/18 19:22 12/31/18 19:21 Ondansetron HCl (Zofran) 4 mg Q8H PRN IVP Nausea & Vomiting 12/24/18 19:22 01/23/19 19:21 Pantoprazole (Protonix) 40 mg DAILY IVP 12/25/18 09:00 01/24/19 08:59 12/26/18 08:31 Piperacillin Sod/ Tazobactam Sod 3.375 gm/Sodium Chloride 110 ml @ 27.5 mls/hr Q8HR IVPB 12/24/18 22:00 12/31/18 21:59 12/26/18 13:37 Tamsulosin HCl (Flomax) 0.4 mg DAILY ORAL 12/26/18 09:00 01/25/19 08:59 12/26/18 08:32 Vancomycin HCl (Vanco rx to dose) 1 ea DAILY PRN MISC Per rx protocol 12/25/18 09:00 01/23/19 15:44 Vancomycin HCl 750 mg/Dextrose 275 ml @ 183.333 mls/hr Q12HR IVPB 12/26/18 21:00 12/31/18 20:59 Alex Mckeon M.D. Dec 26, 2018 17:56
--- NOTE | 2018-12-26 18:31 | Consultation ---
History of Present Illness General Date patient seen: Dec 26, 2018 Chief Complaint: Altered Mental Status Present Illness HPI This is a 78-year-old male [facility] resident care dependent who presented to [facility] after being identified of having altered mental status and abnormal labs. Patient currently admitted for medical care and management. During admission was identified to have multiple wounds requiring care. Surgery called to evaluate and assist with patient's care and management. Patient seen, patient evaluated, chart reviewed. Labs and imaging noted. Patient unable to participate in providing history or during examination Allergies: Coded Allergies: No Known Allergies (Unverified , 12/24/18) Medication History Scheduled Aspirin* (Aspir 81*), 81 MG ORAL DAILY, (Reported) Carvedilol (Coreg), 3.125 MG ORAL EVERY 12 HOURS, (Reported) Quetiapine Fumarate* (Quetiapine Fumarate*), 50 MG ORAL DAILY, (Reported) Tamsulosin HCl (Flomax), 0.4 MG ORAL DAILY, (Reported) Scheduled PRN Ondansetron (Zofran), 4 MG ORAL Q6H PRN for Nausea & Vomiting, (Reported) Patient History Limited by: medical condition History Provided By: Medical Record, PMD Healthcare decision maker Resuscitation status Do Not Resuscitate Advanced Directive on File No Past Medical/Surgical History Past Medical/Surgical History: (1) Acute encephalopathy (2) RLL pneumonia (3) Renal failure (4) Dehydration (5) Sepsis (6) LLL pneumonia (7) Acute respiratory failure Review of Systems ROS Narrative Cannot obtain given patient's current medical condition Physical Exam General Appearance: no apparent distress Lines, tubes and drains: other HEENT: normocephalic, mucous membranes moist, other Neck: supple Respiratory/Chest: no respiratory distress, no accessory muscle use, decreased breath sounds Cardiovascular/Chest: normal rate Abdomen: soft, no organomegaly, no mass, feeding tube Extremities: other Skin Exam: other Neurologic: unresponsiveness Last 24 Hour Vital Signs Date Time Temp Pulse Resp B/P (MAP) Pulse Ox O2 Delivery O2 Flow Rate FiO2 12/26/18 16:02 Nasal Cannula 4.0 12/26/18 16:00 68 12/26/18 16:00 97.5 63 20 130/69 (89) 93 12/26/18 15:32 71 16 99 Nasal Cannula 4.0 36 12/26/18 15:22 36 12/26/18 15:22 73 16 93 Nasal Cannula 4.0 36 12/26/18 12:00 98.4 63 19 119/66 (83) 92 12/26/18 12:00 Nasal Cannula 4.0 12/26/18 12:00 54 12/26/18 11:58 63 16 99 Nasal Cannula 4.0 36 12/26/18 11:48 68 16 93 Nasal Cannula 4.0 36 12/26/18 11:48 36 12/26/18 08:34 66 129/63 12/26/18 08:15 68 18 96 Nasal Cannula 4.0 36 12/26/18 08:05 36 12/26/18 08:05 72 16 96 Nasal Cannula 4.0 36 12/26/18 08:05 Nasal Cannula 4.0 36 12/26/18 08:05 96 Nasal Cannula 4.0 36 12/26/18 08:00 71 12/26/18 08:00 Nasal Cannula 4.0 12/26/18 08:00 97.8 66 21 129/63 (85) 92 12/26/18 04:00 97.9 65 28 115/58 (77) 93 12/26/18 04:00 Nasal Cannula 4.0 12/26/18 03:26 62 12/26/18 02:17 72 18 97 Nasal Cannula 4.0 36 12/26/18 02:08 68 18 94 Nasal Cannula 4.0 36 12/26/18 00:00 Nasal Cannula 4.0 12/26/18 00:00 98.6 73 28 118/69 (85) 91 12/25/18 23:36 78 12/25/18 22:57 72 18 97 Nasal Cannula 4.0 36 12/25/18 22:50 74 18 95 Nasal Cannula 4.0 36 12/25/18 20:58 78 170/91 12/25/18 20:00 4.0 12/25/18 20:00 97.9 78 18 170/91 (117) 95 12/25/18 20:00 Nasal Cannula 4.0 12/25/18 19:30 77 15 100 Bi-pap 35 12/25/18 19:26 72 12/25/18 19:22 76 16 97 Bi-pap 35 12/25/18 19:22 Bi-pap 35 12/25/18 19:22 97 Bi-pap 35 12/25/18 19:20 76 18 97 Full Face 35 Intake and Output 12/25/18 12/26/18 19:00 07:00 Intake Total 542.5 ml 718.12 ml Output Total 1600 ml 750 ml Balance -1057.5 ml -31.88 ml IV Total 542.5 ml 718.12 ml Output Urine Total 1600 ml 750 ml Laboratory Tests Test 12/26/18 03:35 12/26/18 09:04 White Blood Count 8.7 K/UL (4.8-10.8) Red Blood Count 3.44 M/UL (4.70-6.10) L Hemoglobin 11.2 G/DL (14.2-18.0) L Hematocrit 34.2 % (42.0-52.0) L Mean Corpuscular Volume 100 FL (80-99) H Mean Corpuscular Hemoglobin 32.6 PG (27.0-31.0) H Mean Corpuscular Hemoglobin Concent 32.7 G/DL (32.0-36.0) Red Cell Distribution Width 14.0 % (11.6-14.8) Platelet Count 140 K/UL (150-450) L Mean Platelet Volume 7.4 FL (6.5-10.1) Neutrophils (%) (Auto) 83.7 % (45.0-75.0) H Lymphocytes (%) (Auto) 9.9 % (20.0-45.0) L Monocytes (%) (Auto) 5.9 % (1.0-10.0) Eosinophils (%) (Auto) 0.2 % (0.0-3.0) Basophils (%) (Auto) 0.4 % (0.0-2.0) Sodium Level 147 MMOL/L (136-145) H Potassium Level 4.1 MMOL/L (3.5-5.1) Chloride Level 111 MMOL/L (98-107) H Carbon Dioxide Level 29 MMOL/L (21-32) Anion Gap 7 mmol/L (5-15) Blood Urea Nitrogen 24 mg/dL (7-18) H Creatinine 0.9 MG/DL (0.55-1.30) Estimat Glomerular Filtration Rate mL/min (>60) Glucose Level 130 MG/DL (74-106) H Hemoglobin A1c 6.5 % (4.3-6.0) H Uric Acid 4.4 MG/DL (2.6-7.2) Calcium Level 8.1 MG/DL (8.5-10.1) L Phosphorus Level 2.1 MG/DL (2.5-4.9) L Magnesium Level 2.0 MG/DL (1.8-2.4) Iron Level 81 ug/dL (50-175) Total Iron Binding Capacity 100 ug/dL (250-450) L Percent Iron Saturation 81 % (15-50) H Unsaturated Iron Binding 19 ug/dL (112-346) L Ferritin 401 NG/ML (8-388) H Total Bilirubin 0.8 MG/DL (0.2-1.0) Gamma Glutamyl Transpeptidase 15 U/L (5-85) Aspartate Amino Transf (AST/SGOT) 74 U/L (15-37) H Alanine Aminotransferase (ALT/SGPT) 48 U/L (12-78) Alkaline Phosphatase 69 U/L (46-116) Total Creatine Kinase 300 U/L (26-308) C-Reactive Protein, Quantitative 11.7 mg/dL (0.00-0.90) H Pro-B-Type Natriuretic Peptide 80049 pg/mL (0-125) H Total Protein 5.4 G/DL (6.4-8.2) L Albumin 2.1 G/DL (3.4-5.0) L Globulin 3.3 g/dL Albumin/Globulin Ratio 0.6 (1.0-2.7) L Triglycerides Level 104 MG/DL (30-150) Cholesterol Level 122 MG/DL (< 200) LDL Cholesterol 77 mg/dL (<100) HDL Cholesterol 32 MG/DL (40-60) L Cholesterol/HDL Ratio 3.8 (3.3-4.4) Vitamin B12 Level 588 PG/ML (193-986) Folate 19.8 NG/ML (8.6-58.9) Thyroid Stimulating Hormone (TSH) 1.225 uiU/mL (0.358-3.740) Random Vancomycin Level 11.8 ug/mL Arterial Blood pH 7.464 (7.350-7.450) Arterial Blood Partial Pressure CO2 37.1 mmHg (35.0-45.0) Arterial Blood Partial Pressure O2 56.9 mmHg (75.0-100.0) L Arterial Blood HCO3 26.0 mmol/L (22.0-26.0) Arterial Blood Oxygen Saturation 89.1 % (95-100) *L Arterial Blood Base Excess 2.3 (-2-2) H Martell Test Positive Height (Feet): 5 Height (Inches): 10.00 Weight (Pounds): 180 Medications Current Medications Medications (Trade) Dose Ordered Sig/Jessie Route PRN Reason Start Time Stop Time Status Last Admin Dose Admin Acetaminophen (Tylenol) 650 mg Q6H PRN ORAL Mild Pain/Temp > 100.5 12/24/18 19:22 01/23/19 19:21 Albuterol/ Ipratropium (Albuterol/ Ipratropium) 3 ml Q4HRT HHN 12/24/18 23:00 12/29/18 18:59 12/26/18 15:22 Carvedilol (Coreg) 3.125 mg EVERY 12 HOURS ORAL 12/25/18 21:00 01/24/19 20:59 12/26/18 08:34 Heparin Sodium (Porcine) (Heparin 5000 units/ml) 5,000 units EVERY 12 HOURS SUBQ 12/24/18 21:00 01/23/19 20:59 12/26/18 08:33 Hydromorphone HCl (Dilaudid) 0.5 mg Q3H PRN IVP Severe Pain (Pain Scale 7-10) 12/24/18 19:22 12/31/18 19:21 Ondansetron HCl (Zofran) 4 mg Q8H PRN IVP Nausea & Vomiting 12/24/18 19:22 01/23/19 19:21 Pantoprazole (Protonix) 40 mg DAILY IVP 12/25/18 09:00 01/24/19 08:59 12/26/18 08:31 Piperacillin Sod/ Tazobactam Sod 3.375 gm/Sodium Chloride 110 ml @ 27.5 mls/hr Q8HR IVPB 12/24/18 22:00 12/31/18 21:59 12/26/18 13:37 Tamsulosin HCl (Flomax) 0.4 mg DAILY ORAL 12/26/18 09:00 01/25/19 08:59 12/26/18 08:32 Vancomycin HCl (Vanco rx to dose) 1 ea DAILY PRN MISC Per rx protocol 12/25/18 09:00 01/23/19 15:44 Vancomycin HCl 750 mg/Dextrose 275 ml @ 183.333 mls/hr Q12HR IVPB 12/26/18 21:00 12/31/18 20:59 Assessment/Plan Problem List: (1) Decubitus skin ulcer Assessment & Plan: Pt presented on admission with multiple pressure injuries. Non-blanchable red area that is indurated L thoracic(L)1.1cm x (W)3.5cm. Periwound pink and intact. Maroon discoloration that is indurated L Buttocks (L) 1.9cm x (W)4cm.Maroon discoloration with red margins that are indurated.Non- blanchable erythema periwound. Non-blanchable erythema with induration noted to R buttocks (L)3cm x (W)3.5cm. Intact Blood Blister noted to R heel (L)5.5cm x (W )4.4cm. Non-blanchable erythema with fluctuance periwound. Intact Blood Blister noted extending from medial to lateral aspect of L heel (L)6.2cm x (W)9cm. Non- blanchable erythema periwound . Cavilon Skin Barrier applied to both heel blisters.Each heel covered with Optifoam drsg .Abd pads applied to both heels and each heel wrapped with kerlix to prevent further friction to heels Tx plan: Apply Cavilon Skin Barrier to L thoracic. Cover with Optifoam drsg. Change every 3 days and prn. Apply Cavilon Skin Barrier to R and L heel Blisters. Cover each heel with Optifoam drsg.Reinforce with ABD Pad and Kerlix. Change every 7 days and prn. Apply Triad Paste to Sacrum,R and L buttocks. Cover with Optifoam drsgs. Change every 3 days and APM/RAÚL Mattress overlay. Reposition at least every 2hours or as tolerated. Off-load heels with Pillow. ICD Codes: L89.90 - Pressure ulcer of unspecified site, unspecified stage SNOMED: 567574225 (2) Heel ulcer ICD Codes: L97.409 - Non-pressure chronic ulcer of unspecified heel and midfoot with unspecified severity SNOMED: 660341321 (3) Sepsis Assessment & Plan: leukocytosis resolved on IV Abx as per ID labs abnormal CT head noted cont with current care ICD Codes: A41.9 - Sepsis, unspecified organism SNOMED: 03473323 Qualifiers: Qualified Codes: A41.9 - Sepsis, unspecified organism (4) Dehydration Assessment & Plan: DAILY ESTIMATED NEEDS: Needs based on Wound, CA / 77kg abw 25-30 kcals/kg 7966-9956 total kcals 1.25-1.5 g protein/kg 96-115 g total protein 20-22 mL/kg 6662-2170 total fluid mLs NUTRITION DIAGNOSIS: Increased kcal/prot needs R/T wound healing, catabolic dx as evidenced by pt admitted w/ BL heels + sacral wound, pending eval, h/o metastatic prostate CA. CURRENT DIET:NPO PO DIET RECOMMENDATIONS: CCHO MED, LOW NA/ texture per [employer] ADDITIONAL RECOMMENDATIONS: * Calibrated bedscale weight for accurate CBW- bed w/ added p200 mattress * Monitor lytes, replete as needed (low phos) * Consider accucheck w/ SSI- h/o DM, A1C=6.5 * Wound healing: add MVI x 1, Vit C 500mg QD, Kyler 1pkt BID -F/up w/ wound care eval ICD Codes: E86.0 - Dehydration SNOMED: 78963582 Juan Syed Dec 26, 2018 18:31
--- NOTE | 2018-12-26 19:27 | NUR ---
HAND-OFF: Report given to JADA GLASS, CONDITION STABLE.
--- NOTE | 2018-12-26 19:28 | NUR ---
NURSE NOTES: Received bedside report from QUAN Brooks.Patient stable,no s/s of pain,no respiratory distress noted,A&Ox2 Azeri speaking,SR on child monitor,Sat O2 96-98% via N/C 4L/min,pt NPO until video swal.evaluation tomorrow,BS active in all quadrants,F/cath patent,draining toward gravity,wound dressing done by wound care nurse today and should be change on hills in 7 days,sacral in 3 days or as needed,IV asymptomatic intact L hand 22G SL,bed secured,call light within a reach.Order active to transfer MS.
--- NOTE | 2018-12-26 19:39 | NUR ---
NURSE NOTES: Patient took out IV line,new IV inserted on R hand G 22 SL asymptomatic,intact.Patient ready to transfer to [facility]
--- NOTE | 2018-12-26 20:00 | NUR ---
NURSE NOTES: Patient transferred to [address] [place] [address],tolerated portable oxygen well with 4L/min,no respiratory distress noted,report given to QUAN Vuong.Belongings list signed for no belongings.
[2018-12-26 21:00] VITALS: BP 133/73
[2018-12-26] MEDS ORDERED: Vancomycin 750mg/D5W 275ml IVPB SCH ×2 (21:00)
--- NOTE | 2018-12-26 21:00 | NUR ---
NURSE NOTES: Received patient from SDU, pt agitated but no other s/s of acute distress. Belongings checked. IV access asymptomatic, dressing reinforced. Prasad cath noted, draining dark ignacia urine. Fall and safety precautions taken, NPO status noted.
[2018-12-27 00:57] VITALS: BP 143/76
[2018-12-27] MEDS: Hydromorphone 0.5mg/0.5ml inj IVP PRN ×4 (01:28→17:30)
[2018-12-27] MEDS: Albuterol/Ipratropium 3ml neb HHN SCH ×6 (02:51→23:03)
[2018-12-27 04:00] VITALS: BP 116/74
[2018-12-27] MEDS: Piperacillin/Tazobactam 3.375 GM in NS 110 ML IVPB SCH ×4 (05:16→22:06)
--- NOTE | 2018-12-27 07:38 | NUR ---
HAND-OFF: Report given to QUAN Centeno.
--- NOTE | 2018-12-27 07:39 | NUR ---
NURSE NOTES: Received patient awake, lying comfortably in bed. Airloss mattress on bed. Nasal cannula at 3l/min. IV site at right hand, 22 gauge, saline lock. Bed at lowest level. with 3 side rails up. Call light within reach. In no apparent distress. Will continue to monitor.
[2018-12-27 08:00] VITALS: BP 135/72
[2018-12-27] MEDS: Pantoprazole Inj IVP SCH (08:28)
[2018-12-27] MEDS: Vancomycin 750 MG in D5W 275 ML IVPB SCH ×2 (08:29→20:18)
[2018-12-27] MEDS ORDERED: Ascorbic Acid 500mg tab ORAL SCH (09:00)
[2018-12-27] MEDS: Ascorbic Acid 500mg tab ORAL SCH ×2 (09:00→18:00)
[2018-12-27] MEDS: Heparin 5000 units/ml inj SUBQ SCH ×2 (09:00→20:03)
[2018-12-27] MEDS: Tamsulosin 0.4mg cap ORAL SCH (09:00)
--- NOTE | 2018-12-27 11:38 | General Progress Note ---
Assessment/Plan Assessment/Plan S: I am ok O: make verbal conversation, no chest pain. on BIPAP onn-off PHYSICAL EXAMINATION:HEAD AND NECK: Atraumatic and normocephalic. CHEST: Diffuse bronchial breathing sounds.ABDOMEN: Soft. MUSCULOSKELETAL: Positive for the increased reflexes and spasticity in all 4 extremities.NEUROLOGY: Limited evaluation as the patient is not verbally communicative. Meds: Reviewed and reconciled. ASSESSMENT AND PLAN: 1. Sepsis: Gram positive 2. Hypoxemic respiratory failure. 3. Healthcare-associated pneumonia. 4. Macrocytic anemia. 5. Abnormal LFTs. 6. GI and DVT prophylaxes. 7. DNR/DNI. 8. Dysphagia Plan: ID, Pulmonary, Nephro notes are reviewed current empirical abx remains DNR high risk for aspiration may benefit from peg placement keep npo d/w ST-design consultant Subjective Allergies: Coded Allergies: No Known Allergies (Unverified , 12/24/18) Objective Last 24 Hour Vital Signs Date Time Temp Pulse Resp B/P (MAP) Pulse Ox O2 Delivery O2 Flow Rate FiO2 12/27/18 11:08 92 20 100 Nasal Cannula 3.0 32 12/27/18 11:00 92 20 97 Nasal Cannula 3.0 32 12/27/18 09:00 Nasal Cannula 4.0 12/27/18 08:00 97.9 65 18 135/72 (93) 95 12/27/18 07:15 90 20 99 Nasal Cannula 3.0 32 12/27/18 07:12 97.6 12/27/18 07:00 112 18 96 Nasal Cannula 3.0 32 12/27/18 07:00 Nasal Cannula 3.0 31 12/27/18 07:00 96 Nasal Cannula 3.0 32 12/27/18 04:00 97.6 66 18 116/74 (88) 94 12/27/18 02:59 36 12/27/18 02:59 74 18 98 Nasal Cannula 4.0 36 12/27/18 02:51 74 18 95 Nasal Cannula 4.0 36 12/27/18 00:57 98.6 72 18 143/76 (98) 92 12/26/18 22:52 78 18 97 Nasal Cannula 4.0 36 12/26/18 22:52 36 12/26/18 22:44 78 18 92 Room Air 21 12/26/18 21:00 98.2 77 18 133/73 (93) 93 12/26/18 21:00 Nasal Cannula 4.0 12/26/18 20:00 Nasal Cannula 4.0 12/26/18 19:13 75 16 98 Nasal Cannula 4.0 36 12/26/18 19:13 36 12/26/18 19:07 Nasal Cannula 4.0 36 12/26/18 19:06 94 Nasal Cannula 4.0 36 12/26/18 19:04 81 16 94 Nasal Cannula 4.0 36 12/26/18 16:02 Nasal Cannula 4.0 12/26/18 16:00 68 12/26/18 16:00 97.5 63 20 130/69 (89) 93 12/26/18 15:32 71 16 99 Nasal Cannula 4.0 36 12/26/18 15:22 36 12/26/18 15:22 73 16 93 Nasal Cannula 4.0 36 12/26/18 12:00 98.4 63 19 119/66 (83) 92 12/26/18 12:00 Nasal Cannula 4.0 12/26/18 12:00 54 12/26/18 11:58 63 16 99 Nasal Cannula 4.0 36 12/26/18 11:48 68 16 93 Nasal Cannula 4.0 36 12/26/18 11:48 36 Intake and Output 12/26/18 12/27/18 19:00 07:00 Intake Total 440.000 ml Output Total 600 ml 500 ml Balance -160.000 ml -500 ml IV Total 440.000 ml Output Urine Total 600 ml 500 ml Laboratory Tests 12/27/18 06:15: Pro-B-Type Natriuretic Peptide 64452C Height (Feet): 5 Height (Inches): 10.00 Weight (Pounds): 179 Albaro Cho MD Dec 27, 2018 11:38
[2018-12-27 12:00] VITALS: BP 145/76
--- NOTE | 2018-12-27 12:59 | Surgery Progress Note ---
Surgery Progress Note Subjective Additional Comments no acute events. leukocytosis resolved. labs okay. cultures noted. exam unchanged. Objective Last 24 Hour Vital Signs Date Time Temp Pulse Resp B/P (MAP) Pulse Ox O2 Delivery O2 Flow Rate FiO2 12/27/18 11:08 92 20 100 Nasal Cannula 3.0 32 12/27/18 11:00 92 20 97 Nasal Cannula 3.0 32 12/27/18 09:00 Nasal Cannula 4.0 12/27/18 08:00 97.9 65 18 135/72 (93) 95 12/27/18 07:15 90 20 99 Nasal Cannula 3.0 32 12/27/18 07:12 97.6 12/27/18 07:00 112 18 96 Nasal Cannula 3.0 32 12/27/18 07:00 Nasal Cannula 3.0 31 12/27/18 07:00 96 Nasal Cannula 3.0 32 12/27/18 04:00 97.6 66 18 116/74 (88) 94 12/27/18 02:59 36 12/27/18 02:59 74 18 98 Nasal Cannula 4.0 36 12/27/18 02:51 74 18 95 Nasal Cannula 4.0 36 12/27/18 00:57 98.6 72 18 143/76 (98) 92 12/26/18 22:52 78 18 97 Nasal Cannula 4.0 36 12/26/18 22:52 36 12/26/18 22:44 78 18 92 Room Air 21 12/26/18 21:00 98.2 77 18 133/73 (93) 93 12/26/18 21:00 Nasal Cannula 4.0 12/26/18 20:00 Nasal Cannula 4.0 12/26/18 19:13 75 16 98 Nasal Cannula 4.0 36 12/26/18 19:13 36 12/26/18 19:07 Nasal Cannula 4.0 36 12/26/18 19:06 94 Nasal Cannula 4.0 36 12/26/18 19:04 81 16 94 Nasal Cannula 4.0 36 12/26/18 16:02 Nasal Cannula 4.0 12/26/18 16:00 68 12/26/18 16:00 97.5 63 20 130/69 (89) 93 12/26/18 15:32 71 16 99 Nasal Cannula 4.0 36 12/26/18 15:22 36 12/26/18 15:22 73 16 93 Nasal Cannula 4.0 36 I&O Intake and Output 12/26/18 12/27/18 19:00 07:00 Intake Total 440.000 ml Output Total 600 ml 500 ml Balance -160.000 ml -500 ml IV Total 440.000 ml Output Urine Total 600 ml 500 ml Dressing: other Wound: clean Drains: other Cardiovascular: RSR Respiratory: decreased breath sounds Abdomen: soft, present bowel sounds, non-distended Extremities: no tenderness, no cyanosis Laboratory Tests Test 12/27/18 06:15 Pro-B-Type Natriuretic Peptide 95432 pg/mL (0-125) H Plan Problems: (1) Decubitus skin ulcer Assessment & Plan: Pt presented on admission with multiple pressure injuries. Non-blanchable red area that is indurated L thoracic(L)1.1cm x (W)3.5cm. Periwound pink and intact. Maroon discoloration that is indurated L Buttocks (L) 1.9cm x (W)4cm.Maroon discoloration with red margins that are indurated.Non- blanchable erythema periwound. Non-blanchable erythema with induration noted to R buttocks (L)3cm x (W)3.5cm. Intact Blood Blister noted to R heel (L)5.5cm x (W )4.4cm. Non-blanchable erythema with fluctuance periwound. Intact Blood Blister noted extending from medial to lateral aspect of L heel (L)6.2cm x (W)9cm. Non- blanchable erythema periwound . Cavilon Skin Barrier applied to both heel blisters.Each heel covered with Optifoam drsg .Abd pads applied to both heels and each heel wrapped with kerlix to prevent further friction to heels Tx plan: Apply Cavilon Skin Barrier to L thoracic. Cover with Optifoam drsg. Change every 3 days and prn. Apply Cavilon Skin Barrier to R and L heel Blisters. Cover each heel with Optifoam drsg.Reinforce with ABD Pad and Kerlix. Change every 7 days and prn. Apply Triad Paste to Sacrum,R and L buttocks. Cover with Optifoam drsgs. Change every 3 days and APM/RAÚL Mattress overlay. Reposition at least every 2hours or as tolerated. Off-load heels with Pillow. (2) Heel ulcer (3) Sepsis Assessment & Plan: leukocytosis resolved on IV Abx as per ID labs abnormal CT head noted cont with current care (4) Dehydration Assessment & Plan: DAILY ESTIMATED NEEDS: Needs based on Wound, CA / 77kg abw 25-30 kcals/kg 7062-7203 total kcals 1.25-1.5 g protein/kg 96-115 g total protein 20-22 mL/kg 4226-3316 total fluid mLs NUTRITION DIAGNOSIS: Increased kcal/prot needs R/T wound healing, catabolic dx as evidenced by pt admitted w/ BL heels + sacral wound, pending eval, h/o metastatic prostate CA. CURRENT DIET:NPO PO DIET RECOMMENDATIONS: CCHO MED, LOW NA/ texture per HANGER OFF ADDITIONAL RECOMMENDATIONS: * Calibrated bedscale weight for accurate CBW- bed w/ added p200 mattress * Monitor lytes, replete as needed (low phos) * Consider accucheck w/ SSI- h/o DM, A1C=6.5 * Wound healing: add MVI x 1, Vit C 500mg QD, Kyler 1pkt BID Juan Syed Dec 27, 2018 12:59
--- NOTE | 2018-12-27 13:17 | GI Initial Consult Note ---
History of Present Illness General Date patient seen: Dec 27, 2018 Time patient seen: 13:11 Reason for Hospitalization: Altered Mental Status Referring physician: LANCE Reason for Consultation: PEG EVALUATION Present Illness HPI Patient presents with altered level of consciousness. 2 days ago he was joking with family. At this point is unresponsive. He is in hospice care however the family wanted him transferred for evaluation is what the problem is. The patient has metastatic prostatic cancer and also dementia. H/O CHF with EF 18%. Patient altered and further history unavailable. GI consulted for PEG evaluation. HELEN ellis, pt seen awake alert NAD. Family at bedside. The patient failed recent swallow evaluation, now recommended to the family to have a PEG placed. I met with the family at bedside to discuss the risk and benefits of having the PEG placed. They are awaiting additional family members prior to making their final decision. Reported that the patient has a history of metastatic prostate cancer and was previous only hospice care. Patient is now currently full code. Unknown history of endoscopy and colonoscopy at this time. Home Meds Reported Medications Aspirin* (ASPIR 81*) 81 Mg Tablet.dr, 81 MG ORAL DAILY, TAB 12/24/18 Carvedilol (Coreg) 3.125 Mg Tablet, 3.125 MG ORAL EVERY 12 HOURS, TAB 12/24/18 Ondansetron (Zofran) 4 Mg Tablet, 4 MG ORAL Q6H PRN for Nausea & Vomiting, TAB 12/24/18 Quetiapine Fumarate* (QUETIAPINE FUMARATE*) 50 Mg Tablet, 50 MG ORAL DAILY, TAB 12/24/18 Tamsulosin HCl (Flomax) 0.4 Mg Cap.er.24h, 0.4 MG ORAL DAILY, CAP 12/24/18 Med list reviewed/reconciled: Yes Allergies: Coded Allergies: No Known Allergies (Unverified , 12/24/18) Patient History History Provided By: Family Member, Medical Record PMH Narrative Limited by: medical condition Past Medical History: see triage record, CHF, dementia Social History: Denies: smoking, alcohol use - prior Social History Narrative Hospice at [facility] Reviewed Nursing Documentation: PMH: Agreed; PSxH: Agreed Nursing Documentation-PMH Past Medical History Deferred: Pt Cognitively Impaired Social History: Denies: smoking, alcohol use, drug use, other Review of Systems All Other Systems: limited Physical Exam Vital Signs Date Time Temp Pulse Resp B/P (MAP) Pulse Ox O2 Delivery O2 Flow Rate FiO2 12/24/18 11:32 98.1 92 18 103/71 100 Room Air 12/24/18 15:15 4.0 12/24/18 19:00 36 Sp02 EP Interpretation: reviewed, normal Labs Laboratory Tests Test 12/27/18 06:15 Pro-B-Type Natriuretic Peptide 86377 pg/mL (0-125) H General Appearance: no apparent distress Head: normocephalic EENT: PERRL/EOMI, normal ENT inspection Neck: supple Respiratory: normal breath sounds, no respiratory distress Cardiovascular: normal rate Gastrointestinal: normal inspection, non tender, soft, normal bowel sounds, non -distended Rectal: deferred Genitourinary: deferred Musculoskeletal: normal inspection, back normal Neurologic: alert, responsive Skin: normal inspection, normal color, no rash, warm/dry, palpation normal, well hydrated Lymphatic: normal inspection, no adenopathy Current Medications Current Medications Medications (Trade) Dose Ordered Sig/Jessie Route PRN Reason Start Time Stop Time Status Last Admin Dose Admin Acetaminophen (Tylenol) 650 mg Q6H PRN ORAL Mild Pain/Temp > 100.5 12/26/18 21:50 01/25/19 21:49 Albuterol/ Ipratropium (Albuterol/ Ipratropium) 3 ml Q4HRT HHN 12/26/18 23:00 12/29/18 18:59 12/27/18 10:59 Ascorbic Acid (Vitamin C) 500 mg TWICE A DAY ORAL 12/27/18 09:00 01/26/19 08:59 Carvedilol (Coreg) 3.125 mg EVERY 12 HOURS ORAL 12/27/18 09:00 01/24/19 20:59 Heparin Sodium (Porcine) (Heparin 5000 units/ml) 5,000 units EVERY 12 HOURS SUBQ 12/27/18 09:00 01/23/19 20:59 Hydromorphone HCl (Dilaudid) 0.5 mg Q3H PRN IVP Severe Pain (Pain Scale 7-10) 12/26/18 21:50 12/31/18 21:49 12/27/18 12:24 Multivitamins (Multivitamins) 1 tab DAILY ORAL 12/27/18 09:00 01/26/19 08:59 Ondansetron HCl (Zofran) 4 mg Q8H PRN IVP Nausea & Vomiting 12/26/18 21:51 01/25/19 21:50 Pantoprazole (Protonix) 40 mg DAILY IVP 12/27/18 09:00 01/24/19 08:59 12/27/18 08:28 Piperacillin Sod/ Tazobactam Sod 3.375 gm/Sodium Chloride 110 ml @ 27.5 mls/hr Q8HR IVPB 12/26/18 22:00 12/31/18 21:59 12/27/18 05:16 Tamsulosin HCl (Flomax) 0.4 mg DAILY ORAL 12/27/18 09:00 01/25/19 08:59 Vancomycin HCl (Vanco rx to dose) 1 ea DAILY PRN MISC Per rx protocol 12/26/18 21:51 01/25/19 21:50 Vancomycin HCl 750 mg/Dextrose 275 ml @ 183.333 mls/hr Q12HR IVPB 12/27/18 09:00 12/31/18 20:59 12/27/18 08:29 GI: Plan Problems: (1) Dysphagia (2) Severe malnutrition (3) Encounter for PEG (percutaneous endoscopic gastrostomy) (4) Dehydration (5) Hemochromatosis Plan PEG if family agrees, I have discussed the risks and benefits with the son at bedside. Awaiting additional family member to make final decision. maintain NPO + IVFs will schedule when decision is final prn transfusions ppi supportive care electrolyte correction will follow with additional recommendations Discussed with Dr. Styles. Thank you for this patient referral, we will follow. The patient was seen and examined at bedside and all new and available data was reviewed in the patients chart. I agree with the above findings, impression and plan. (Patient seen earlier today. Signature stamp does not reflect patient encounter time.). - MD Ruby Wagner Anh-Khadar PLAY BACK OPERATOR Dec 27, 2018 13:17
[2018-12-27 16:00] VITALS: BP 148/76
--- NOTE | 2018-12-27 16:08 | NUR ---
ST NOTE: MODIFIED BARIUM SWALLOW STUDY COMPLETED MODIFIED BARIUM SWALLOW STUDY(MBSS) FULL REPORT WILL FOLLOW AFTER REVIEWED IMAGES UNDER ST NOTE IN CARE ACTIVITY. PT ALERT WITH CUES, DECREASED ABILITY IN FOLLOWING DIRECTIONS, PT WAS IN BED AND ADJUST AT UPRIGHT POSITION. PT WITH NASAL CANNULA(4L) WITH NO RESP DISTRESS. GIVEN PO TRIALS: THIN(TSPX2) AND NECTAR THICK(TSP) ONLY PT PRESENTS WITH SIGNIFICANT OROPHARYNGEAL DYSPHAGIA. DURING ORAL PHASE, ANTERIOR SPILLAGE WITH THIN LIQUID ON THE RIGHT SIDE, INCREASED ORAL TRANSIT TIME ON THE FIRST THIN LIQUID TRIAL(8 TO 10SECS); AND 5 SECONDS WITH NECTAR THICK LIQUIDS, REDUCED BOLUS CONTROL; AND BOLUS HEADED IN PYRIFORM SINUSES DURING INITIATION OF PHARYNGEAL PHASE. DURING THE PHARYNGEAL PHASE, DEEP TRACE LARYNGEAL PENETRATION(LP) WITH THIN LIQUIDS DURING THE SWALLOW, ENTERED THE AIRWAY, ABOVE THE VOCAL FOLDS, BUT NOT EJECTED SECONDARY TO REDUCED HYO-LARYNGEAL ELEVATION/EXCURSION, NO EPIGLOTTIC MOVEMENT AND REDUCED LARYNGEAL VESTIBULE CLOSURE. DELAY COUGHING WAS NOTED AFTER THE FLUORO WAS OFF. WHEN PT TOOK NECTAR THICK LIQUID TRIAL, DEEP TRACE LP AFTER SWALLOW, ENTERED THE AIRWAY, NOT EJECTED, DUE TO THE ABOVE DEFICITS. SIGNIFICANT RESIDUE WAS NOTED IN TONGUE BASE, VALLECULAE, PHARYNGEAL WALL, PYRIFORM SINUSES DUE TO OVERALL PHARYNGEAL WEAKNESS(REDUCED TONGUE BASE RETRACTION, HYO-LARYNGEAL ELEVATION, NO INVERSION OF EPIGLOTTIC MOVEMENT, REDUCED LARYNGEAL ELEVATION AND REDUCED PHARYNGEAL STRIPPING WAVE). CERVICAL OSTEOPHYTES WERE NOTED FROM C2 TO C4, POSSIBLE THE CONTRIBUTION OF REDUCED EPIGLOTTIC MOVEMENT. PLEASE SEE FULL RADIOLOGIST REPORT FOR DETAILS. OVERALL, PT IS AT HIGH RISK RISK FOR CHRONIC ASPIRATION(DELAYED COUGHING WAS NOTED AFTER THE FLUORO WAS OFF) COMPOUNDED OF COGNITIVE IMPAIRMENT; PT WAS UNABLE TO FOLLOW SWALLOW TECHNIQUES; HOWEVER, PT TENDED TO TURN HIS HEAD TO R-SIDED DURING SWALLOW. RECOMMENDATIONS: 1. HOSPICE CARE WITH COMFORT FEEDING VS PEG PLACEMENT ONLY IF PT'S FAMILY AGREES. 2. IF PO IS GIVEN FOR QUALITY OF LIFE(COMFORT FEEDING), CONSIDER LIQUIFIED PUREED, LIKE NECTAR THICK SOUP CONSISTENCY AT 1/2 TEASPOON LEVEL WITH STRICT ASPIRATION PRECAUTIONS WITH 1TO1 FEEDING. 3. ORAL SUCTION PRN. D/W PT'S FAMILY, RN, MOHIT, AND INFORMED MD, DR. MARTINES.
--- NOTE | 2018-12-27 16:30 | NUR ---
ADOPTION AGENTPRODUCTION UNDERWRITER SI:SEPSIS . RLL PNA VS: BP 148/76, P 69, T 96.4, RR 20, SpO2 91 on 3.0L O2 NC [id number] PEPT 53098 IS: VANCOMYCIN 275ml IVPB PROTONIX 40mg IVP ALBUTEROL 3ml HHN PIPERACILLIN 110ml IVPB DILAUDID 0.5mg IVP MED/SURG STATUS
--- NOTE | 2018-12-27 17:11 | Nephrology Progress Note ---
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 NOW IS FULL CODE ??? Subjective ROS Limited/Unobtainable: No Constitutional: Reports: malaise, weakness Objective Objective Last 24 Hour Vital Signs Date Time Temp Pulse Resp B/P (MAP) Pulse Ox O2 Delivery O2 Flow Rate FiO2 12/27/18 16:00 96.4 69 18 148/76 (100) 96 12/27/18 15:20 88 20 100 Nasal Cannula 3.0 32 12/27/18 15:10 80 20 97 Nasal Cannula 3.0 32 12/27/18 12:54 97.9 12/27/18 12:00 98.0 72 18 145/76 (99) 91 12/27/18 11:08 92 20 100 Nasal Cannula 3.0 32 12/27/18 11:00 92 20 97 Nasal Cannula 3.0 32 12/27/18 09:00 Nasal Cannula 4.0 12/27/18 08:00 97.9 65 18 135/72 (93) 95 12/27/18 07:15 90 20 99 Nasal Cannula 3.0 32 12/27/18 07:00 112 18 96 Nasal Cannula 3.0 32 12/27/18 07:00 Nasal Cannula 3.0 31 12/27/18 07:00 96 Nasal Cannula 3.0 32 12/27/18 04:00 97.6 66 18 116/74 (88) 94 12/27/18 02:59 36 12/27/18 02:59 74 18 98 Nasal Cannula 4.0 36 12/27/18 02:51 74 18 95 Nasal Cannula 4.0 36 12/27/18 00:57 98.6 72 18 143/76 (98) 92 12/26/18 22:52 78 18 97 Nasal Cannula 4.0 36 12/26/18 22:52 36 12/26/18 22:44 78 18 92 Room Air 21 12/26/18 21:00 98.2 77 18 133/73 (93) 93 12/26/18 21:00 Nasal Cannula 4.0 12/26/18 20:00 Nasal Cannula 4.0 12/26/18 19:13 75 16 98 Nasal Cannula 4.0 36 12/26/18 19:13 36 12/26/18 19:07 Nasal Cannula 4.0 36 12/26/18 19:06 94 Nasal Cannula 4.0 36 12/26/18 19:04 81 16 94 Nasal Cannula 4.0 36 Intake and Output 12/26/18 12/27/18 19:00 07:00 Intake Total 440.000 ml Output Total 600 ml 500 ml Balance -160.000 ml -500 ml IV Total 440.000 ml Output Urine Total 600 ml 500 ml Laboratory Tests 12/27/18 06:15: Pro-B-Type Natriuretic Peptide 61504M Height (Feet): 5 Height (Inches): 10.00 Weight (Pounds): 179 General Appearance: no apparent distress Cardiovascular: normal rate Respiratory/Chest: decreased breath sounds Abdomen: distended Objective NO CHANGE Rigoberto Aaron MD Dec 27, 2018 17:11
--- NOTE | 2018-12-27 17:52 | Infectious Diseases Prog Note ---
Assessment/Plan Problems: (1) LLL pneumonia Assessment & Plan: suspect aspiration, continue vancomycin and zosyn , sputum culture , aspiration precaution , keep HOB > 30 degree (2) Sepsis Assessment & Plan: with staph aureus , due to the above, already on vancomycin and zosyn , will order ECHO to rule out vegetations . repeat blood culture to confirm clearance (3) Acute encephalopathy Assessment & Plan: due to the above, suspect metabolic and toxic, continue antibiotics and supportive care (4) Renal failure Assessment & Plan: suspect due to dehydration , continue IVF , monitor renal function closely (5) Dehydration Assessment & Plan: continue IVF, encourage hydration (6) Acute respiratory failure Assessment & Plan: due to the above, improving , off BIPAP , monitor CXR . Subjective ROS Limited/Unobtainable: Yes Allergies: Coded Allergies: No Known Allergies (Unverified , 12/24/18) Subjective He was awake but confused and agitated , trying to get out of bed , afebrile Objective Vital Signs Last 24 Hour Vital Signs Date Time Temp Pulse Resp B/P (MAP) Pulse Ox O2 Delivery O2 Flow Rate FiO2 12/27/18 16:00 96.4 69 18 148/76 (100) 96 12/27/18 15:20 88 20 100 Nasal Cannula 3.0 32 12/27/18 15:10 80 20 97 Nasal Cannula 3.0 32 12/27/18 12:54 97.9 12/27/18 12:00 98.0 72 18 145/76 (99) 91 12/27/18 11:08 92 20 100 Nasal Cannula 3.0 32 12/27/18 11:00 92 20 97 Nasal Cannula 3.0 32 12/27/18 09:00 Nasal Cannula 4.0 12/27/18 08:00 97.9 65 18 135/72 (93) 95 12/27/18 07:15 90 20 99 Nasal Cannula 3.0 32 12/27/18 07:00 112 18 96 Nasal Cannula 3.0 32 12/27/18 07:00 Nasal Cannula 3.0 31 12/27/18 07:00 96 Nasal Cannula 3.0 32 12/27/18 04:00 97.6 66 18 116/74 (88) 94 12/27/18 02:59 36 12/27/18 02:59 74 18 98 Nasal Cannula 4.0 36 12/27/18 02:51 74 18 95 Nasal Cannula 4.0 36 12/27/18 00:57 98.6 72 18 143/76 (98) 92 12/26/18 22:52 78 18 97 Nasal Cannula 4.0 36 12/26/18 22:52 36 12/26/18 22:44 78 18 92 Room Air 21 12/26/18 21:00 98.2 77 18 133/73 (93) 93 12/26/18 21:00 Nasal Cannula 4.0 12/26/18 20:00 Nasal Cannula 4.0 12/26/18 19:13 75 16 98 Nasal Cannula 4.0 36 12/26/18 19:13 36 12/26/18 19:07 Nasal Cannula 4.0 36 12/26/18 19:06 94 Nasal Cannula 4.0 36 12/26/18 19:04 81 16 94 Nasal Cannula 4.0 36 Height (Feet): 5 Height (Inches): 10.00 Weight (Pounds): 179 General Appearance: WD/WN, no acute distress HEENT: normocephalic, atraumatic, anicteric, mucous membranes moist, PERRL, EOMI, pharynx normal, supple, no JVD Respiratory/Chest: chest wall non-tender, no respiratory distress, no accessory muscle use, decreased breath sounds, crackles/rales Cardiovascular: normal peripheral pulses, normal rate, regular rhythm, no gallop/murmur, no JVD Abdomen: normal bowel sounds, soft, non tender, no organomegaly, non distended , no mass, no scars Extremities: no cyanosis, no clubbing Skin: no rash, no lesions, no ulcers Neurologic/Psychiatric: promotion producer II-XII grossly normal, no motor/sensory deficits, abnormal gait, alert, oriented x 3 Lymphatic: no neck adenopathy, no groin adenopathy Musculoskeletal: normal muscle bulk, no effusion Microbiology Date/Time Source Procedure Growth Status 12/24/18 18:40 Indwelling Cath Urine Culture - Final NO GROWTH AFTER 48 HOURS Complete Laboratory Tests Test 12/27/18 06:15 Pro-B-Type Natriuretic Peptide 98228 pg/mL (0-125) H Current Medications Medications (Trade) Dose Ordered Sig/Jessie Route PRN Reason Start Time Stop Time Status Last Admin Dose Admin Acetaminophen (Tylenol) 650 mg Q6H PRN ORAL Mild Pain/Temp > 100.5 12/26/18 21:50 01/25/19 21:49 Albuterol/ Ipratropium (Albuterol/ Ipratropium) 3 ml Q4HRT HHN 12/26/18 23:00 12/29/18 18:59 12/27/18 16:37 Ascorbic Acid (Vitamin C) 500 mg TWICE A DAY ORAL 12/27/18 09:00 01/26/19 08:59 Carvedilol (Coreg) 3.125 mg EVERY 12 HOURS ORAL 12/27/18 09:00 01/24/19 20:59 Heparin Sodium (Porcine) (Heparin 5000 units/ml) 5,000 units EVERY 12 HOURS SUBQ 12/27/18 09:00 01/23/19 20:59 Hydromorphone HCl (Dilaudid) 0.5 mg Q3H PRN IVP Severe Pain (Pain Scale 7-10) 12/26/18 21:50 12/31/18 21:49 12/27/18 17:30 Multivitamins (Multivitamins) 1 tab DAILY ORAL 12/27/18 09:00 01/26/19 08:59 Ondansetron HCl (Zofran) 4 mg Q8H PRN IVP Nausea & Vomiting 12/26/18 21:51 01/25/19 21:50 Pantoprazole (Protonix) 40 mg DAILY IVP 12/27/18 09:00 01/24/19 08:59 12/27/18 08:28 Piperacillin Sod/ Tazobactam Sod 3.375 gm/Sodium Chloride 110 ml @ 27.5 mls/hr Q8HR IVPB 12/26/18 22:00 12/31/18 21:59 12/27/18 15:25 Tamsulosin HCl (Flomax) 0.4 mg DAILY ORAL 12/27/18 09:00 01/25/19 08:59 Vancomycin HCl (Vanco rx to dose) 1 ea DAILY PRN MISC Per rx protocol 12/26/18 21:51 01/25/19 21:50 Vancomycin HCl 750 mg/Dextrose 275 ml @ 183.333 mls/hr Q12HR IVPB 12/27/18 09:00 12/31/18 20:59 12/27/18 08:29 Alex Mckeon M.D. Dec 27, 2018 17:52
--- NOTE | 2018-12-27 19:35 | NUR ---
HAND-OFF: Report given to QUAN Vuong.
[2018-12-27 20:00] VITALS: BP 133/76
[2018-12-27] MEDS ORDERED: LORazepam Inj 2mg/ml 1ml IV SCH (20:00)
--- NOTE | 2018-12-27 20:00 | NUR ---
NURSE NOTES: Received patient agitated in bed, trying to get out, trying pull out andrews. Called Dr Cho and got one time order of ativan, restraint if needed, and to consult Dr Black.
--- NOTE | 2018-12-27 22:45 | Consultation ---
History of Present Illness General Chief Complaint: Altered Mental Status Referring physician: LANCE Reason for Consultation: PEG EVALUATION Present Illness HPI 78-year-old male, Portuguese speaker, with past medical history of mmp and metastatic prostatic cancer and dementia. the pt was severely agitated and anxious. the pt was unable to provide hx due to cognitive impairment. the pt was pw memory impairment, waxing and waning of consciousness. Allergies: Coded Allergies: No Known Allergies (Unverified , 12/24/18) Medication History Scheduled Aspirin* (Aspir 81*), 81 MG ORAL DAILY, (Reported) Carvedilol (Coreg), 3.125 MG ORAL EVERY 12 HOURS, (Reported) Quetiapine Fumarate* (Quetiapine Fumarate*), 50 MG ORAL DAILY, (Reported) Tamsulosin HCl (Flomax), 0.4 MG ORAL DAILY, (Reported) Scheduled PRN Ondansetron (Zofran), 4 MG ORAL Q6H PRN for Nausea & Vomiting, (Reported) Patient History Limited by: medical condition History Provided By: Medical Record, PMD Healthcare decision maker Resuscitation status Do Not Resuscitate Advanced Directive on File No Past Medical/Surgical History Past Medical/Surgical History: (1) Acute encephalopathy (2) RLL pneumonia (3) Renal failure (4) Dehydration (5) Sepsis (6) LLL pneumonia (7) Acute respiratory failure (8) Decubitus skin ulcer (9) Heel ulcer (10) Dysphagia (11) Severe malnutrition (12) Encounter for PEG (percutaneous endoscopic gastrostomy) (13) Hemochromatosis (14) Anxiety (15) Agitation Review of Systems Psychiatric: Reports: anxiety, depressed feelings, emotional problems, hallucinations Physical Exam General Appearance: alert, confused, agitated, combative Last 24 Hour Vital Signs Date Time Temp Pulse Resp B/P (MAP) Pulse Ox O2 Delivery O2 Flow Rate FiO2 12/27/18 20:02 91 148/76 12/27/18 19:40 91 18 98 Nasal Cannula 3.0 32 12/27/18 19:25 96 Nasal Cannula 3.0 32 12/27/18 19:25 Nasal Cannula 3.0 32 12/27/18 19:25 91 20 96 Nasal Cannula 3.0 32 12/27/18 18:00 96.4 12/27/18 16:00 96.4 69 18 148/76 (100) 96 12/27/18 15:20 88 20 100 Nasal Cannula 3.0 32 12/27/18 15:10 80 20 97 Nasal Cannula 3.0 32 12/27/18 12:00 98.0 72 18 145/76 (99) 91 12/27/18 11:08 92 20 100 Nasal Cannula 3.0 32 12/27/18 11:00 92 20 97 Nasal Cannula 3.0 32 12/27/18 09:00 Nasal Cannula 4.0 12/27/18 08:00 97.9 65 18 135/72 (93) 95 12/27/18 07:15 90 20 99 Nasal Cannula 3.0 32 12/27/18 07:00 112 18 96 Nasal Cannula 3.0 32 12/27/18 07:00 Nasal Cannula 3.0 31 12/27/18 07:00 96 Nasal Cannula 3.0 32 12/27/18 04:00 97.6 66 18 116/74 (88) 94 12/27/18 02:59 36 12/27/18 02:59 74 18 98 Nasal Cannula 4.0 36 12/27/18 02:51 74 18 95 Nasal Cannula 4.0 36 12/27/18 00:57 98.6 72 18 143/76 (98) 92 12/26/18 22:52 78 18 97 Nasal Cannula 4.0 36 12/26/18 22:52 36 Intake and Output 12/26/18 12/27/18 19:00 07:00 Intake Total 440.000 ml Output Total 600 ml 500 ml Balance -160.000 ml -500 ml IV Total 440.000 ml Output Urine Total 600 ml 500 ml Laboratory Tests Test 12/27/18 06:15 Pro-B-Type Natriuretic Peptide 30683 pg/mL (0-125) H Height (Feet): 5 Height (Inches): 10.00 Weight (Pounds): 179 Medications Current Medications Medications (Trade) Dose Ordered Sig/Jessie Route PRN Reason Start Time Stop Time Status Last Admin Dose Admin Acetaminophen (Tylenol) 650 mg Q6H PRN ORAL Mild Pain/Temp > 100.5 12/26/18 21:50 01/25/19 21:49 Albuterol/ Ipratropium (Albuterol/ Ipratropium) 3 ml Q4HRT HHN 12/26/18 23:00 12/29/18 18:59 12/27/18 19:25 Ascorbic Acid (Vitamin C) 500 mg TWICE A DAY ORAL 12/27/18 09:00 01/26/19 08:59 Carvedilol (Coreg) 3.125 mg EVERY 12 HOURS ORAL 12/27/18 09:00 01/24/19 20:59 12/27/18 20:02 Heparin Sodium (Porcine) (Heparin 5000 units/ml) 5,000 units EVERY 12 HOURS SUBQ 12/27/18 09:00 01/23/19 20:59 12/27/18 20:03 Hydromorphone HCl (Dilaudid) 0.5 mg Q3H PRN IVP Severe Pain (Pain Scale 7-10) 12/26/18 21:50 12/31/18 21:49 12/27/18 17:30 Multivitamins (Multivitamins) 1 tab DAILY ORAL 12/27/18 09:00 01/26/19 08:59 Ondansetron HCl (Zofran) 4 mg Q8H PRN IVP Nausea & Vomiting 12/26/18 21:51 01/25/19 21:50 Pantoprazole (Protonix) 40 mg DAILY IVP 12/27/18 09:00 01/24/19 08:59 12/27/18 08:28 Piperacillin Sod/ Tazobactam Sod 3.375 gm/Sodium Chloride 110 ml @ 27.5 mls/hr Q8HR IVPB 12/26/18 22:00 12/31/18 21:59 12/27/18 22:06 Tamsulosin HCl (Flomax) 0.4 mg DAILY ORAL 12/27/18 09:00 01/25/19 08:59 Vancomycin HCl (Vanco rx to dose) 1 ea DAILY PRN MISC Per rx protocol 12/26/18 21:51 01/25/19 21:50 Vancomycin HCl 750 mg/Dextrose 275 ml @ 183.333 mls/hr Q12HR IVPB 12/27/18 09:00 12/31/18 20:59 12/27/18 20:18 Assessment/Plan Problem List: (1) Dementia with behavioral disturbance ICD Codes: F03.91 - Unspecified dementia with behavioral disturbance SNOMED: 5938243368324 (2) Acute encephalopathy ICD Codes: G93.40 - Encephalopathy, unspecified SNOMED: 92232974, 873595248 Assessment/Plan zyprexa 2.5mg po tid cont soft restraints. Lisha Starr MD Dec 27, 2018 22:45
[2018-12-27] MEDS ORDERED: LORazepam 1mg tab ORAL PRN (23:00)
--- NOTE | 2018-12-27 23:08 | NUR ---
NURSE NOTES: Soft wrist restraints unnecessary as one time order of Ativan was able to calm the patient down. Did not initiate.
[2018-12-27] MEDS: OLANZapine 2.5mg tab ORAL SCH (23:42)
[2018-12-28] VITALS (9 sets, daily range): BP systolic 116–144; BP diastolic 64–77
[2018-12-28] MEDS: Albuterol/Ipratropium 3ml neb HHN SCH ×6 (03:20→23:12)
[2018-12-28] MEDS: Piperacillin/Tazobactam 3.375 GM in NS 110 ML IVPB SCH ×3 (05:00→23:15)
[2018-12-28 08:30] LABS: BASOPHILS % (AUTO) 0.7 % (0.0-2.0); EOSINOPHILS % (AUTO) 5.4 % (0.0-3.0); HEMATOCRIT 37.5 % (42.0-52.0); LYMPHOCYTES % (AUTO) 19.1 % (20.0-45.0); MEAN CORPUSCULAR VOLUME 100 FL (80-99); MONOCYTES % (AUTO) 11.3 % (1.0-10.0); NEUTROPHILS % (AUTO) 63.6 % (45.0-75.0); PLATELET COUNT 185 K/UL (150-450); RED BLOOD COUNT 3.75 M/UL (4.70-6.10); RED CELL DISTRIBUTION WIDTH 14.4 % (11.6-14.8)
--- NOTE | 2018-12-28 08:48 | NUR ---
NURSE NOTES: Patient is alert to name. Patient is Tajik speaking. Patient is on oxygen via nasal cannula at 2 liters. Side rails are up X3. Patient's heels are off loading. Bed is locked, in lowest position, and bed alarm is on. No s/s of distress at the moment. Will continue to monitor.
[2018-12-28 08:54] LABS: ANION GAP 7 mmol/L (5-15); BLOOD UREA NITROGEN 19 mg/dL (7-18); CALCIUM 8.4 MG/DL (8.5-10.1); CARBON DIOXIDE 31 MMOL/L (21-32); CHLORIDE 112 MMOL/L (98-107); CREATININE 0.9 MG/DL (0.55-1.30); POTASSIUM 3.6 MMOL/L (3.5-5.1); SODIUM 149 MMOL/L (136-145)
[2018-12-28] MEDS: Tamsulosin 0.4mg cap ORAL SCH (09:00)
[2018-12-28] MEDS: Ascorbic Acid 500mg tab ORAL SCH ×2 (09:00→17:30)
[2018-12-28] MEDS: Pantoprazole Inj IVP SCH (09:00)
[2018-12-28] MEDS: OLANZapine 2.5mg tab ORAL SCH ×3 (09:00→17:30)
[2018-12-28] MEDS: Heparin 5000 units/ml inj SUBQ SCH ×2 (09:00→20:26)
[2018-12-28 09:04] LABS: ALANINE AMINOTRANSFERASE 68 U/L (12-78); ALBUMIN 2.2 G/DL (3.4-5.0); ALKALINE PHOSPHATASE 67 U/L (46-116); ASPARTATE AMINO TRANSFERASE 52 U/L (15-37); BILIRUBIN,DIRECT 0.3 MG/DL (0.0-0.3)
[2018-12-28 10:09] LABS: INR 1.1 (0.9-1.1)
[2018-12-28] MEDS: Vancomycin 500mg/D5W 110ml IVPB SCH ×4 (10:22→22:09)
[2018-12-28] MEDS ORDERED: Propofol 200mg/20ml IV ONE (11:30)
[2018-12-28] MEDS ORDERED: fentaNYL 100 mcg/2 mL IV ONE (11:30)
--- NOTE | 2018-12-28 11:42 | Pre-Procedure Note/Attestation ---
Pre-Procedure Note/Attestation Complete Prior to Procedure Planned Procedure: not applicable Procedure Narrative: egd/peg Indications for Procedure Pre-Operative Diagnosis: dysphagia Attestation I attest that I discussed the nature of the procedure; its benefits; risks and complications; and alternatives (and the risks and benefits of such alternatives ), prior to the procedure, with the patient (or the patient's legal sales representative printing paper). I attest that, if there was a reasonable possibility of needing a blood transfusion, the patient (or the patient's legal sales representative printing paper) was given the [facility] standardized written summary, pursuant to the Will Angel Blood Safety Act ([place] Health and Safety Code # 1645, as amended). I attest that I re-evaluated the patient just prior to the surgery and that there has been no change in the patient's H&P, except as documented below: David Styles MD Dec 28, 2018 11:42
--- NOTE | 2018-12-28 11:44 | Anethesia Preoperative Eval ---
Anesthesia Pre-op PMH/ROS General Date of Evaluation: Dec 28, 2018 Time of Evaluation: 11:35 Anesthesiologist: Aubrey ASA Score: ASA 4 Mallampati Score Class I : Soft palate, uvula, fauces, pillars visible Class II: Soft palate, uvula, fauces visible Class III: Soft palate, base of uvula visible Class IV: Only hard plate visible Mallampati Classification: Class III Surgeon: Jensen Diagnosis: Dysphagia Surgical Procedure: EGD PEG tube placement Anesthesia History: none Family History: no anesthesia problems Allergies: Coded Allergies: No Known Allergies (Unverified , 12/24/18) Patient NPO?: Yes Past Medical History Cardiovascular: Reports: HTN, CAD; Denies: PR, valve dz, arrhythmia, other Pulmonary: Reports: JEFFRY; Denies: asthma, COPD, other Gastrointestinal/Genitourinary: Reports: GERD, other - dysphagia; Denies: CRI, ESRD Neurologic/Psychiatric: Reports: dementia, CVA; Denies: depression/anxiety, TIA, other Endocrine: Reports: DM, hypothyroidism; Denies: steroids, other HEENT: Denies: cataract (L), cataract (R), glaucoma, KAKTOVIK (L), KAKTOVIK (R), other Hematology/Immune: Reports: anemia - mild; Denies: DVT, bleeding disorder, other Musculoskeletal/Integumentary: Reports: DJD; Denies: OA, RA, DDD, edema, other PMH Narrative: as above PSxH Narrative: see H&P Anesthesia Pre-op Phys. Exam Physician Exam Last Vital Signs Date Time Temp Pulse Resp B/P (MAP) Pulse Ox O2 Delivery O2 Flow Rate FiO2 12/28/18 11:07 67 18 93 Nasal Cannula 3.0 32 12/28/18 08:00 98.3 139/74 (95) Constitutional: NAD Neurologic: other - unable to obtaine Cardiovascular: RRR, no M/R/G Respiratory: CTA Gastrointestinal: S/NT/ND Airway Exam Mallampati Score: Class III MO: limited Neck: stiff ROM: limited Teeth: missing Dentures: no upper, no lower Anesthesia Pre-op A/P Labs Hematology Test 12/28/18 07:50 White Blood Count 6.0 K/UL (4.8-10.8) Red Blood Count 3.75 M/UL (4.70-6.10) L Hemoglobin 12.0 G/DL (14.2-18.0) L Hematocrit 37.5 % (42.0-52.0) L Mean Corpuscular Volume 100 FL (80-99) H Mean Corpuscular Hemoglobin 31.9 PG (27.0-31.0) H Mean Corpuscular Hemoglobin Concent 31.9 G/DL (32.0-36.0) L Red Cell Distribution Width 14.4 % (11.6-14.8) Platelet Count 185 K/UL (150-450) Mean Platelet Volume 6.4 FL (6.5-10.1) L Neutrophils (%) (Auto) 63.6 % (45.0-75.0) Lymphocytes (%) (Auto) 19.1 % (20.0-45.0) L Monocytes (%) (Auto) 11.3 % (1.0-10.0) H Eosinophils (%) (Auto) 5.4 % (0.0-3.0) H Basophils (%) (Auto) 0.7 % (0.0-2.0) Coagulation Test 12/28/18 09:35 Prothrombin Time 11.4 SEC (9.30-11.50) Prothromb Time International Ratio 1.1 (0.9-1.1) Activated Partial Thromboplast Time 26 SEC (23-33) Chemistry Test 12/28/18 07:50 Sodium Level 149 MMOL/L (136-145) H Potassium Level 3.6 MMOL/L (3.5-5.1) Chloride Level 112 MMOL/L (98-107) H Carbon Dioxide Level 31 MMOL/L (21-32) Anion Gap 7 mmol/L (5-15) Blood Urea Nitrogen 19 mg/dL (7-18) H Creatinine 0.9 MG/DL (0.55-1.30) Estimat Glomerular Filtration Rate mL/min (>60) Glucose Level 110 MG/DL (74-106) H Uric Acid 3.6 MG/DL (2.6-7.2) Calcium Level 8.4 MG/DL (8.5-10.1) L Phosphorus Level 3.0 MG/DL (2.5-4.9) Magnesium Level 2.3 MG/DL (1.8-2.4) Total Bilirubin 1.0 MG/DL (0.2-1.0) Direct Bilirubin 0.3 MG/DL (0.0-0.3) Aspartate Amino Transf (AST/SGOT) 52 U/L (15-37) H Alanine Aminotransferase (ALT/SGPT) 68 U/L (12-78) Alkaline Phosphatase 67 U/L (46-116) C-Reactive Protein, Quantitative 4.9 mg/dL (0.00-0.90) H Pro-B-Type Natriuretic Peptide 8620 pg/mL (0-125) H Total Protein 5.7 G/DL (6.4-8.2) L Albumin 2.2 G/DL (3.4-5.0) L Risk Assessment & Plan Assessment: ASA 4 Plan: MAC Status Change Before Surgery: No Pre-Antibiotics Drug: as scheduled Hemanth Burgos MD Dec 28, 2018 11:44
--- NOTE | 2018-12-28 11:44 | GI Progress Note ---
Assessment/Plan Problems: (1) Dysphagia ICD Codes: R13.10 - Dysphagia, unspecified SNOMED: 40867131, 805023051 (2) Anxiety ICD Codes: F41.9 - Anxiety disorder, unspecified SNOMED: 21021554 (3) Agitation ICD Codes: R45.1 - Restlessness and agitation SNOMED: 848028644 (4) Encounter for PEG (percutaneous endoscopic gastrostomy) ICD Codes: Z43.1 - Encounter for attention to gastrostomy SNOMED: 166807169, 655530019 Assessment/Plan plan PEG for today Subjective Gastrointestinal/Abdominal: Reports: no symptoms Objective Last 24 Hour Vital Signs Date Time Temp Pulse Resp B/P (MAP) Pulse Ox O2 Delivery O2 Flow Rate FiO2 12/28/18 11:07 67 18 93 Nasal Cannula 3.0 32 12/28/18 08:00 98.3 76 18 139/74 (95) 98 12/28/18 08:00 Nasal Cannula 2.0 12/28/18 07:41 64 20 100 Nasal Cannula 3.0 32 12/28/18 07:31 Nasal Cannula 3.0 32 12/28/18 07:31 63 20 94 Nasal Cannula 3.0 32 12/28/18 07:30 94 Nasal Cannula 3.0 32 12/28/18 04:00 98.0 71 18 144/77 (99) 97 12/28/18 03:31 76 18 96 Nasal Cannula 3.0 32 12/28/18 03:20 68 18 97 Nasal Cannula 3.0 32 12/28/18 00:00 98.4 81 18 137/64 (88) 97 12/27/18 23:13 78 18 97 Nasal Cannula 3.0 32 12/27/18 23:05 Nasal Cannula 4.0 12/27/18 23:03 90 18 93 Nasal Cannula 3.0 32 12/27/18 20:02 91 148/76 12/27/18 20:00 98.0 90 21 133/76 (95) 92 12/27/18 19:40 91 18 98 Nasal Cannula 3.0 32 12/27/18 19:25 96 Nasal Cannula 3.0 32 12/27/18 19:25 Nasal Cannula 3.0 32 12/27/18 19:25 91 20 96 Nasal Cannula 3.0 32 12/27/18 18:00 96.4 12/27/18 16:00 96.4 69 18 148/76 (100) 96 12/27/18 15:20 88 20 100 Nasal Cannula 3.0 32 12/27/18 15:10 80 20 97 Nasal Cannula 3.0 32 12/27/18 12:00 98.0 72 18 145/76 (99) 91 Intake and Output 12/27/18 12/28/18 19:00 07:00 Intake Total 412.500 ml Output Total 500 ml 250 ml Balance -87.500 ml -250 ml IV Total 412.500 ml Output Urine Total 500 ml 250 ml Laboratory Tests Test 12/28/18 07:50 12/28/18 09:35 White Blood Count 6.0 K/UL (4.8-10.8) Red Blood Count 3.75 M/UL (4.70-6.10) L Hemoglobin 12.0 G/DL (14.2-18.0) L Hematocrit 37.5 % (42.0-52.0) L Mean Corpuscular Volume 100 FL (80-99) H Mean Corpuscular Hemoglobin 31.9 PG (27.0-31.0) H Mean Corpuscular Hemoglobin Concent 31.9 G/DL (32.0-36.0) L Red Cell Distribution Width 14.4 % (11.6-14.8) Platelet Count 185 K/UL (150-450) Mean Platelet Volume 6.4 FL (6.5-10.1) L Neutrophils (%) (Auto) 63.6 % (45.0-75.0) Lymphocytes (%) (Auto) 19.1 % (20.0-45.0) L Monocytes (%) (Auto) 11.3 % (1.0-10.0) H Eosinophils (%) (Auto) 5.4 % (0.0-3.0) H Basophils (%) (Auto) 0.7 % (0.0-2.0) Sodium Level 149 MMOL/L (136-145) H Potassium Level 3.6 MMOL/L (3.5-5.1) Chloride Level 112 MMOL/L (98-107) H Carbon Dioxide Level 31 MMOL/L (21-32) Anion Gap 7 mmol/L (5-15) Blood Urea Nitrogen 19 mg/dL (7-18) H Creatinine 0.9 MG/DL (0.55-1.30) Estimat Glomerular Filtration Rate mL/min (>60) Glucose Level 110 MG/DL (74-106) H Uric Acid 3.6 MG/DL (2.6-7.2) Calcium Level 8.4 MG/DL (8.5-10.1) L Phosphorus Level 3.0 MG/DL (2.5-4.9) Magnesium Level 2.3 MG/DL (1.8-2.4) Total Bilirubin 1.0 MG/DL (0.2-1.0) Direct Bilirubin 0.3 MG/DL (0.0-0.3) Aspartate Amino Transf (AST/SGOT) 52 U/L (15-37) H Alanine Aminotransferase (ALT/SGPT) 68 U/L (12-78) Alkaline Phosphatase 67 U/L (46-116) C-Reactive Protein, Quantitative 4.9 mg/dL (0.00-0.90) H Pro-B-Type Natriuretic Peptide 8620 pg/mL (0-125) H Total Protein 5.7 G/DL (6.4-8.2) L Albumin 2.2 G/DL (3.4-5.0) L Vancomycin Level Trough 22.1 ug/mL (5.0-12.0) H Prothrombin Time 11.4 SEC (9.30-11.50) Prothromb Time International Ratio 1.1 (0.9-1.1) Activated Partial Thromboplast Time 26 SEC (23-33) Height (Feet): 5 Height (Inches): 10.00 Weight (Pounds): 179 General Appearance: no apparent distress Cardiovascular: normal rate Respiratory/Chest: decreased breath sounds Abdominal Exam: normal bowel sounds, non tender, soft Extremities: non-tender David Styles MD Dec 28, 2018 11:43
[2018-12-28] MEDS ORDERED: NS 500ML IVPB ONE (11:45)
--- NOTE | 2018-12-28 11:55 | NUR ---
NURSE NOTES: Patient off unit for procedure.
--- NOTE | 2018-12-28 12:00 | Endoscopy Procedure Note ---
Endoscopy Procedure Note General Indication for Procedure: dysphagia Procedures Performed: EGD, PEG Operative Findings/Diagnosis: same Specimen: none Pt Tolerated Procedure Well: Yes Estimated Blood Loss: none Anesthesia Anesthesiologist: andrew Anesthesia: MAC Inserted Devices Implant(s) used?: No GI Core Measures 50 yrs or older w/o bx or poly: Not Applicable 10yrs. F/U not recommended: Not Applicable David Styles MD Dec 28, 2018 12:00
--- NOTE | 2018-12-28 12:07 | Immediate Post-Op Evaluation ---
Immediate Post-Op Evalulation Immediate Post-Op Evalulation Procedure: EGD PEG tube placement Date of Evaluation: Dec 28, 2018 Time of Evaluation: 12:06 IV Fluids: 300 Blood Products: none Estimated Blood Loss: min Urinary Output: none Blood Pressure Systolic: 142 Blood Pressure Diastolic: 68 Pulse Rate: 64 Respiratory Rate: 20 O2 Sat by Pulse Oximetry: 98 Temperature (Fahrenheit): 97.6 Pain Score (1-10): 1 Nausea: No Vomiting: No Complications none Patient Status: reacts, patent, none Hydration Status: adequate Hemanth Burgos MD Dec 28, 2018 12:07
--- NOTE | 2018-12-28 12:23 | NUR ---
ST NOTE: FOLLOWED UP PT'S CONDITIONS. DISCUSSED WITH RN, GERONIMO AND SANDEE Suarez RE:PT'S CONDITIONS AND MBSS RESULTS AND RECOMMENDATIONS. PER N.P., PT'S FAMILY AGREED WITH PEG PLACEMENT AND SCHEDULE TODAY FOR PLACEMENT.
--- NOTE | 2018-12-28 12:50 | NUR ---
NURSE NOTES: Patient returned to unit. Vital signs stable. Report received from QUAN Wang. Patient has no reports of discomfort at the moment. Abdominal binder placed. Will continue to monitor.
--- NOTE | 2018-12-28 13:54 | General Progress Note ---
Assessment/Plan Assessment/Plan S: I am ok O: make verbal conversation, no chest pain. on BIPAP onn-off PHYSICAL EXAMINATION:HEAD AND NECK: Atraumatic and normocephalic. CHEST: Diffuse bronchial breathing sounds.ABDOMEN: Soft. MUSCULOSKELETAL: Positive for the increased reflexes and spasticity in all 4 extremities.NEUROLOGY: Limited evaluation as the patient is not verbally communicative. Meds: Reviewed and reconciled. ASSESSMENT AND PLAN: 1. Sepsis: Gram positive 2. Hypoxemic respiratory failure. 3. Healthcare-associated pneumonia. 4. Macrocytic anemia. 5. Abnormal LFTs. 6. GI and DVT prophylaxes. 7. DNR/DNI. 8. Dysphagia Plan: ID, Pulmonary, Nephro notes are reviewed current empirical abx remains DNR high risk for aspiration may benefit from peg placement keep npo d/w ST-technical assistance consultant will proceed with PEG T placement . comment: D/w family at bed side. requested DNI/DNR. Subjective Allergies: Coded Allergies: No Known Allergies (Unverified , 12/24/18) Objective Last 24 Hour Vital Signs Date Time Temp Pulse Resp B/P (MAP) Pulse Ox O2 Delivery O2 Flow Rate FiO2 12/28/18 12:25 65 22 129/65 97 Nasal Cannula 3 12/28/18 12:17 64 22 124/72 97 Nasal Cannula 3 12/28/18 12:12 62 22 116/75 97 Nasal Cannula 3 12/28/18 12:07 64 20 98 12/28/18 12:05 97.1 62 22 116/75 97 Nasal Cannula 3 12/28/18 11:17 77 18 99 Nasal Cannula 3.0 32 12/28/18 11:07 67 18 93 Nasal Cannula 3.0 32 12/28/18 08:00 98.3 76 18 139/74 (95) 98 12/28/18 08:00 Nasal Cannula 2.0 12/28/18 07:41 64 20 100 Nasal Cannula 3.0 32 12/28/18 07:31 Nasal Cannula 3.0 32 12/28/18 07:31 63 20 94 Nasal Cannula 3.0 32 12/28/18 07:30 94 Nasal Cannula 3.0 32 12/28/18 04:00 98.0 71 18 144/77 (99) 97 12/28/18 03:31 76 18 96 Nasal Cannula 3.0 32 12/28/18 03:20 68 18 97 Nasal Cannula 3.0 32 12/28/18 00:00 98.4 81 18 137/64 (88) 97 12/27/18 23:13 78 18 97 Nasal Cannula 3.0 32 12/27/18 23:05 Nasal Cannula 4.0 12/27/18 23:03 90 18 93 Nasal Cannula 3.0 32 12/27/18 20:02 91 148/76 12/27/18 20:00 98.0 90 21 133/76 (95) 92 12/27/18 19:40 91 18 98 Nasal Cannula 3.0 32 12/27/18 19:25 96 Nasal Cannula 3.0 32 12/27/18 19:25 Nasal Cannula 3.0 32 12/27/18 19:25 91 20 96 Nasal Cannula 3.0 32 12/27/18 18:00 96.4 12/27/18 16:00 96.4 69 18 148/76 (100) 96 12/27/18 15:20 88 20 100 Nasal Cannula 3.0 32 12/27/18 15:10 80 20 97 Nasal Cannula 3.0 32 Intake and Output 12/27/18 12/28/18 19:00 07:00 Intake Total 412.500 ml Output Total 500 ml 250 ml Balance -87.500 ml -250 ml IV Total 412.500 ml Output Urine Total 500 ml 250 ml Laboratory Tests 12/28/18 07:50: White Blood Count 6.0, Red Blood Count 3.75L, Hemoglobin 12.0L, Hematocrit 37.5L , Mean Corpuscular Volume 100H, Mean Corpuscular Hemoglobin 31.9H, Mean Corpuscular Hemoglobin Concent 31.9L, Red Cell Distribution Width 14.4, Platelet Count 185, Mean Platelet Volume 6.4L, Neutrophils (%) (Auto) 63.6, Lymphocytes (%) (Auto) 19.1L, Monocytes (%) (Auto) 11.3H, Eosinophils (%) (Auto ) 5.4H, Basophils (%) (Auto) 0.7, Sodium Level 149H, Potassium Level 3.6, Chloride Level 112H, Carbon Dioxide Level 31, Anion Gap 7, Blood Urea Nitrogen 19H, Creatinine 0.9, Estimat Glomerular Filtration Rate , Glucose Level 110H, Uric Acid 3.6, Calcium Level 8.4L, Phosphorus Level 3.0, Magnesium Level 2.3, Total Bilirubin 1.0, Direct Bilirubin 0.3, Aspartate Amino Transf (AST/SGOT) 52H , Alanine Aminotransferase (ALT/SGPT) 68, Alkaline Phosphatase 67, C-Reactive Protein, Quantitative 4.9H, Pro-B-Type Natriuretic Peptide 8620H, Total Protein 5.7L, Albumin 2.2L, Vancomycin Level Trough 22.1H 12/28/18 09:35: Prothrombin Time 11.4, Prothromb Time International Ratio 1.1, Activated Partial Thromboplast Time 26 Height (Feet): 5 Height (Inches): 10.00 Weight (Pounds): 179 Albaro Cho MD Dec 28, 2018 13:54
--- NOTE | 2018-12-28 16:02 | Surgery Progress Note ---
Surgery Progress Note Subjective Additional Comments no acute events. comfortable. stable. family at bedside. Objective Last 24 Hour Vital Signs Date Time Temp Pulse Resp B/P (MAP) Pulse Ox O2 Delivery O2 Flow Rate FiO2 12/28/18 15:12 59 18 96 Nasal Cannula 3.0 32 12/28/18 12:25 65 22 129/65 97 Nasal Cannula 3 12/28/18 12:17 64 22 124/72 97 Nasal Cannula 3 12/28/18 12:12 62 22 116/75 97 Nasal Cannula 3 12/28/18 12:07 64 20 98 12/28/18 12:05 97.1 62 22 116/75 97 Nasal Cannula 3 12/28/18 11:17 77 18 99 Nasal Cannula 3.0 32 12/28/18 11:07 67 18 93 Nasal Cannula 3.0 32 12/28/18 08:00 98.3 76 18 139/74 (95) 98 12/28/18 08:00 Nasal Cannula 2.0 12/28/18 07:41 64 20 100 Nasal Cannula 3.0 32 12/28/18 07:31 Nasal Cannula 3.0 32 12/28/18 07:31 63 20 94 Nasal Cannula 3.0 32 12/28/18 07:30 94 Nasal Cannula 3.0 32 12/28/18 04:00 98.0 71 18 144/77 (99) 97 12/28/18 03:31 76 18 96 Nasal Cannula 3.0 32 12/28/18 03:20 68 18 97 Nasal Cannula 3.0 32 12/28/18 00:00 98.4 81 18 137/64 (88) 97 12/27/18 23:13 78 18 97 Nasal Cannula 3.0 32 12/27/18 23:05 Nasal Cannula 4.0 12/27/18 23:03 90 18 93 Nasal Cannula 3.0 32 12/27/18 20:02 91 148/76 12/27/18 20:00 98.0 90 21 133/76 (95) 92 12/27/18 19:40 91 18 98 Nasal Cannula 3.0 32 12/27/18 19:25 96 Nasal Cannula 3.0 32 12/27/18 19:25 Nasal Cannula 3.0 32 12/27/18 19:25 91 20 96 Nasal Cannula 3.0 32 12/27/18 18:00 96.4 I&O Intake and Output 12/27/18 12/28/18 19:00 07:00 Intake Total 412.500 ml Output Total 500 ml 250 ml Balance -87.500 ml -250 ml IV Total 412.500 ml Output Urine Total 500 ml 250 ml Dressing: saturated Wound: other Drains: other Cardiovascular: RSR Respiratory: clear Abdomen: soft, non-tender, present bowel sounds, non-distended Extremities: edema, no cyanosis Laboratory Tests Test 12/28/18 07:50 12/28/18 09:35 White Blood Count 6.0 K/UL (4.8-10.8) Red Blood Count 3.75 M/UL (4.70-6.10) L Hemoglobin 12.0 G/DL (14.2-18.0) L Hematocrit 37.5 % (42.0-52.0) L Mean Corpuscular Volume 100 FL (80-99) H Mean Corpuscular Hemoglobin 31.9 PG (27.0-31.0) H Mean Corpuscular Hemoglobin Concent 31.9 G/DL (32.0-36.0) L Red Cell Distribution Width 14.4 % (11.6-14.8) Platelet Count 185 K/UL (150-450) Mean Platelet Volume 6.4 FL (6.5-10.1) L Neutrophils (%) (Auto) 63.6 % (45.0-75.0) Lymphocytes (%) (Auto) 19.1 % (20.0-45.0) L Monocytes (%) (Auto) 11.3 % (1.0-10.0) H Eosinophils (%) (Auto) 5.4 % (0.0-3.0) H Basophils (%) (Auto) 0.7 % (0.0-2.0) Sodium Level 149 MMOL/L (136-145) H Potassium Level 3.6 MMOL/L (3.5-5.1) Chloride Level 112 MMOL/L (98-107) H Carbon Dioxide Level 31 MMOL/L (21-32) Anion Gap 7 mmol/L (5-15) Blood Urea Nitrogen 19 mg/dL (7-18) H Creatinine 0.9 MG/DL (0.55-1.30) Estimat Glomerular Filtration Rate mL/min (>60) Glucose Level 110 MG/DL (74-106) H Uric Acid 3.6 MG/DL (2.6-7.2) Calcium Level 8.4 MG/DL (8.5-10.1) L Phosphorus Level 3.0 MG/DL (2.5-4.9) Magnesium Level 2.3 MG/DL (1.8-2.4) Total Bilirubin 1.0 MG/DL (0.2-1.0) Direct Bilirubin 0.3 MG/DL (0.0-0.3) Aspartate Amino Transf (AST/SGOT) 52 U/L (15-37) H Alanine Aminotransferase (ALT/SGPT) 68 U/L (12-78) Alkaline Phosphatase 67 U/L (46-116) C-Reactive Protein, Quantitative 4.9 mg/dL (0.00-0.90) H Pro-B-Type Natriuretic Peptide 8620 pg/mL (0-125) H Total Protein 5.7 G/DL (6.4-8.2) L Albumin 2.2 G/DL (3.4-5.0) L Vancomycin Level Trough 22.1 ug/mL (5.0-12.0) H Prothrombin Time 11.4 SEC (9.30-11.50) Prothromb Time International Ratio 1.1 (0.9-1.1) Activated Partial Thromboplast Time 26 SEC (23-33) Plan Problems: (1) Decubitus skin ulcer Assessment & Plan: Pt presented on admission with multiple pressure injuries. Non-blanchable red area that is indurated L thoracic(L)1.1cm x (W)3.5cm. Periwound pink and intact. Maroon discoloration that is indurated L Buttocks (L) 1.9cm x (W)4cm.Maroon discoloration with red margins that are indurated.Non- blanchable erythema periwound. Non-blanchable erythema with induration noted to R buttocks (L)3cm x (W)3.5cm. Intact Blood Blister noted to R heel (L)5.5cm x (W )4.4cm. Non-blanchable erythema with fluctuance periwound. Intact Blood Blister noted extending from medial to lateral aspect of L heel (L)6.2cm x (W)9cm. Non- blanchable erythema periwound . Cavilon Skin Barrier applied to both heel blisters.Each heel covered with Optifoam drsg .Abd pads applied to both heels and each heel wrapped with kerlix to prevent further friction to heels Tx plan: Apply Cavilon Skin Barrier to L thoracic. Cover with Optifoam drsg. Change every 3 days and prn. Apply Cavilon Skin Barrier to R and L heel Blisters. Cover each heel with Optifoam drsg.Reinforce with ABD Pad and Kerlix. Change every 7 days and prn. Apply Triad Paste to Sacrum,R and L buttocks. Cover with Optifoam drsgs. Change every 3 days and APM/RAÚL Mattress overlay. Reposition at least every 2hours or as tolerated. Off-load heels with Pillow. (2) Heel ulcer (3) Sepsis Assessment & Plan: leukocytosis resolved on IV Abx as per ID labs abnormal CT head noted cont with current care (4) Dehydration Assessment & Plan: DAILY ESTIMATED NEEDS: Needs based on Wound, CA / 77kg abw 25-30 kcals/kg 6803-5988 total kcals 1.25-1.5 g protein/kg 96-115 g total protein 20-22 mL/kg 9740-9503 total fluid mLs NUTRITION DIAGNOSIS: Increased kcal/prot needs R/T wound healing, catabolic dx as evidenced by pt admitted w/ BL heels + sacral wound, pending eval, h/o metastatic prostate CA. 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
--- NOTE | 2018-12-28 16:57 | Nephrology Progress Note ---
Assessment/Plan Problem List: (1) Renal failure Assessment: acute , resolved (2) LLL pneumonia (3) Acute respiratory failure (4) Acute encephalopathy Assessment Renal impression: Renal failure acute, likely prerenal , combination of cardiomyopathy and dehydration leading to pre renal azotemia RLL pneumonia Sepsis H/O metastatic prostate cancer EjFx 18% per history now 30% Was on Hospice PET [facility] Anemia Plan watch Vanco levels optimize cardiac state pulm support antibiotics Per consultants 2D echo noted WAS ON HOSPICE [facility]. ..NOW IS FULL CODE ??? Subjective ROS Limited/Unobtainable: No Constitutional: Reports: malaise Objective Objective Last 24 Hour Vital Signs Date Time Temp Pulse Resp B/P (MAP) Pulse Ox O2 Delivery O2 Flow Rate FiO2 12/28/18 15:22 59 20 99 Nasal Cannula 3.0 32 12/28/18 15:12 59 18 96 Nasal Cannula 3.0 32 12/28/18 12:25 65 22 129/65 97 Nasal Cannula 3 12/28/18 12:17 64 22 124/72 97 Nasal Cannula 3 12/28/18 12:12 62 22 116/75 97 Nasal Cannula 3 12/28/18 12:07 64 20 98 12/28/18 12:05 97.1 62 22 116/75 97 Nasal Cannula 3 12/28/18 11:17 77 18 99 Nasal Cannula 3.0 32 12/28/18 11:07 67 18 93 Nasal Cannula 3.0 32 12/28/18 08:00 98.3 76 18 139/74 (95) 98 12/28/18 08:00 Nasal Cannula 2.0 12/28/18 07:41 64 20 100 Nasal Cannula 3.0 32 12/28/18 07:31 Nasal Cannula 3.0 32 12/28/18 07:31 63 20 94 Nasal Cannula 3.0 32 12/28/18 07:30 94 Nasal Cannula 3.0 32 12/28/18 04:00 98.0 71 18 144/77 (99) 97 12/28/18 03:31 76 18 96 Nasal Cannula 3.0 32 12/28/18 03:20 68 18 97 Nasal Cannula 3.0 32 12/28/18 00:00 98.4 81 18 137/64 (88) 97 12/27/18 23:13 78 18 97 Nasal Cannula 3.0 32 4/10/19 23:05 Nasal Cannula 4.0 12/27/18 23:03 90 18 93 Nasal Cannula 3.0 32 12/27/18 20:02 91 148/76 12/27/18 20:00 98.0 90 21 133/76 (95) 92 12/27/18 19:40 91 18 98 Nasal Cannula 3.0 32 12/27/18 19:25 96 Nasal Cannula 3.0 32 12/27/18 19:25 Nasal Cannula 3.0 32 12/27/18 19:25 91 20 96 Nasal Cannula 3.0 32 12/27/18 18:00 96.4 Intake and Output 12/27/18 12/28/18 19:00 07:00 Intake Total 412.500 ml Output Total 500 ml 250 ml Balance -87.500 ml -250 ml IV Total 412.500 ml Output Urine Total 500 ml 250 ml Laboratory Tests 12/28/18 07:50: White Blood Count 6.0, Red Blood Count 3.75L, Hemoglobin 12.0L, Hematocrit 37.5L , Mean Corpuscular Volume 100H, Mean Corpuscular Hemoglobin 31.9H, Mean Corpuscular Hemoglobin Concent 31.9L, Red Cell Distribution Width 14.4, Platelet Count 185, Mean Platelet Volume 6.4L, Neutrophils (%) (Auto) 63.6, Lymphocytes (%) (Auto) 19.1L, Monocytes (%) (Auto) 11.3H, Eosinophils (%) (Auto ) 5.4H, Basophils (%) (Auto) 0.7, Sodium Level 149H, Potassium Level 3.6, Chloride Level 112H, Carbon Dioxide Level 31, Anion Gap 7, Blood Urea Nitrogen 19H, Creatinine 0.9, Estimat Glomerular Filtration Rate , Glucose Level 110H, Uric Acid 3.6, Calcium Level 8.4L, Phosphorus Level 3.0, Magnesium Level 2.3, Total Bilirubin 1.0, Direct Bilirubin 0.3, Aspartate Amino Transf (AST/SGOT) 52H , Alanine Aminotransferase (ALT/SGPT) 68, Alkaline Phosphatase 67, C-Reactive Protein, Quantitative 4.9H, Pro-B-Type Natriuretic Peptide 8620H, Total Protein 5.7L, Albumin 2.2L, Vancomycin Level Trough 22.1H 12/28/18 09:35: Prothrombin Time 11.4, Prothromb Time International Ratio 1.1, Activated Partial Thromboplast Time 26 Height (Feet): 5 Height (Inches): 10.00 Weight (Pounds): 179 General Appearance: no apparent distress Cardiovascular: normal rate Respiratory/Chest: decreased breath sounds Abdomen: soft, distended Objective NO CHANGE Rigoberto Aaron MD Dec 28, 2018 16:57
--- NOTE | 2018-12-28 17:18 | Infectious Diseases Prog Note ---
Assessment/Plan Problems: (1) LLL pneumonia Assessment & Plan: suspect aspiration, continue vancomycin and zosyn empirically , aspiration precaution , keep HOB > 30 degree (2) Sepsis Assessment & Plan: with staph aureus methicillin sensitive , due to the above , already on vancomycin and zosyn , ECHO rule out vegetations . repeated blood culture to confirm clearance is pending . (3) Acute encephalopathy Assessment & Plan: due to the above, suspect metabolic and toxic, continue antibiotics and supportive care (4) Renal failure Assessment & Plan: suspect due to dehydration , continue IVF , monitor renal function closely (5) Dehydration Assessment & Plan: continue IVF, encourage hydration (6) Acute respiratory failure Assessment & Plan: due to the above, improving , off BIPAP , monitor CXR . Subjective ROS Limited/Unobtainable: Yes Allergies: Coded Allergies: No Known Allergies (Unverified , 12/24/18) Subjective He was awake but confused and doesn't follow commands , afebrile Objective Vital Signs Last 24 Hour Vital Signs Date Time Temp Pulse Resp B/P (MAP) Pulse Ox O2 Delivery O2 Flow Rate FiO2 12/28/18 15:22 59 20 99 Nasal Cannula 3.0 32 12/28/18 15:12 59 18 96 Nasal Cannula 3.0 32 12/28/18 12:25 65 22 129/65 97 Nasal Cannula 3 12/28/18 12:17 64 22 124/72 97 Nasal Cannula 3 12/28/18 12:12 62 22 116/75 97 Nasal Cannula 3 12/28/18 12:07 64 20 98 12/28/18 12:05 97.1 62 22 116/75 97 Nasal Cannula 3 12/28/18 11:17 77 18 99 Nasal Cannula 3.0 32 12/28/18 11:07 67 18 93 Nasal Cannula 3.0 32 12/28/18 08:00 98.3 76 18 139/74 (95) 98 12/28/18 08:00 Nasal Cannula 2.0 12/28/18 07:41 64 20 100 Nasal Cannula 3.0 32 12/28/18 07:31 Nasal Cannula 3.0 32 12/28/18 07:31 63 20 94 Nasal Cannula 3.0 32 12/28/18 07:30 94 Nasal Cannula 3.0 32 12/28/18 04:00 98.0 71 18 144/77 (99) 97 12/28/18 03:31 76 18 96 Nasal Cannula 3.0 32 12/28/18 03:20 68 18 97 Nasal Cannula 3.0 32 12/28/18 00:00 98.4 81 18 137/64 (88) 97 12/27/18 23:13 78 18 97 Nasal Cannula 3.0 32 12/27/18 23:05 Nasal Cannula 4.0 12/27/18 23:03 90 18 93 Nasal Cannula 3.0 32 12/27/18 20:02 91 148/76 12/27/18 20:00 98.0 90 21 133/76 (95) 92 12/27/18 19:40 91 18 98 Nasal Cannula 3.0 32 12/27/18 19:25 96 Nasal Cannula 3.0 32 12/27/18 19:25 Nasal Cannula 3.0 32 12/27/18 19:25 91 20 96 Nasal Cannula 3.0 32 12/27/18 18:00 96.4 Height (Feet): 5 Height (Inches): 10.00 Weight (Pounds): 179 General Appearance: WD/WN, no acute distress HEENT: normocephalic, atraumatic, anicteric, mucous membranes moist, EOMI, pharynx normal, supple, no JVD Respiratory/Chest: chest wall non-tender, no respiratory distress, no accessory muscle use, decreased breath sounds Cardiovascular: normal peripheral pulses, normal rate, regular rhythm, no gallop/murmur, no JVD Abdomen: normal bowel sounds, soft, non tender, no organomegaly, non distended , no mass, no scars Genitourinary: normal external genitalia Extremities: no cyanosis, no clubbing Skin: no rash, no lesions, no ulcers Neurologic/Psychiatric: 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, no motor/sensory deficits, oriented x 3, responsive Lymphatic: no neck adenopathy, no groin adenopathy Musculoskeletal: normal muscle bulk, no effusion Laboratory Tests Test 12/28/18 07:50 12/28/18 09:35 White Blood Count 6.0 K/UL (4.8-10.8) Red Blood Count 3.75 M/UL (4.70-6.10) L Hemoglobin 12.0 G/DL (14.2-18.0) L Hematocrit 37.5 % (42.0-52.0) L Mean Corpuscular Volume 100 FL (80-99) H Mean Corpuscular Hemoglobin 31.9 PG (27.0-31.0) H Mean Corpuscular Hemoglobin Concent 31.9 G/DL (32.0-36.0) L Red Cell Distribution Width 14.4 % (11.6-14.8) Platelet Count 185 K/UL (150-450) Mean Platelet Volume 6.4 FL (6.5-10.1) L Neutrophils (%) (Auto) 63.6 % (45.0-75.0) Lymphocytes (%) (Auto) 19.1 % (20.0-45.0) L Monocytes (%) (Auto) 11.3 % (1.0-10.0) H Eosinophils (%) (Auto) 5.4 % (0.0-3.0) H Basophils (%) (Auto) 0.7 % (0.0-2.0) Sodium Level 149 MMOL/L (136-145) H Potassium Level 3.6 MMOL/L (3.5-5.1) Chloride Level 112 MMOL/L (98-107) H Carbon Dioxide Level 31 MMOL/L (21-32) Anion Gap 7 mmol/L (5-15) Blood Urea Nitrogen 19 mg/dL (7-18) H Creatinine 0.9 MG/DL (0.55-1.30) Estimat Glomerular Filtration Rate mL/min (>60) Glucose Level 110 MG/DL (74-106) H Uric Acid 3.6 MG/DL (2.6-7.2) Calcium Level 8.4 MG/DL (8.5-10.1) L Phosphorus Level 3.0 MG/DL (2.5-4.9) Magnesium Level 2.3 MG/DL (1.8-2.4) Total Bilirubin 1.0 MG/DL (0.2-1.0) Direct Bilirubin 0.3 MG/DL (0.0-0.3) Aspartate Amino Transf (AST/SGOT) 52 U/L (15-37) H Alanine Aminotransferase (ALT/SGPT) 68 U/L (12-78) Alkaline Phosphatase 67 U/L (46-116) C-Reactive Protein, Quantitative 4.9 mg/dL (0.00-0.90) H Pro-B-Type Natriuretic Peptide 8620 pg/mL (0-125) H Total Protein 5.7 G/DL (6.4-8.2) L Albumin 2.2 G/DL (3.4-5.0) L Vancomycin Level Trough 22.1 ug/mL (5.0-12.0) H Prothrombin Time 11.4 SEC (9.30-11.50) Prothromb Time International Ratio 1.1 (0.9-1.1) Activated Partial Thromboplast Time 26 SEC (23-33) Current Medications Medications (Trade) Dose Ordered Sig/Jessie Route PRN Reason Start Time Stop Time Status Last Admin Dose Admin Acetaminophen (Tylenol) 650 mg Q6H PRN ORAL Mild Pain/Temp > 100.5 12/26/18 21:50 01/25/19 21:49 Albuterol/ Ipratropium (Albuterol/ Ipratropium) 3 ml Q4HRT HHN 12/26/18 23:00 12/29/18 18:59 12/28/18 15:12 Ascorbic Acid (Vitamin C) 500 mg TWICE A DAY ORAL 12/27/18 09:00 01/26/19 08:59 Carvedilol (Coreg) 3.125 mg EVERY 12 HOURS ORAL 12/27/18 09:00 01/24/19 20:59 12/27/18 20:02 Heparin Sodium (Porcine) (Heparin 5000 units/ml) 5,000 units EVERY 12 HOURS SUBQ 12/27/18 09:00 01/23/19 20:59 12/27/18 20:03 Hydromorphone HCl (Dilaudid) 0.5 mg Q3H PRN IVP Severe Pain (Pain Scale 7-10) 12/26/18 21:50 12/31/18 21:49 12/27/18 17:30 Lorazepam (Ativan) 1 mg Q6H PRN ORAL For Anxiety 12/27/18 23:00 01/03/19 22:59 Multivitamins (Multivitamins) 1 tab DAILY ORAL 12/27/18 09:00 01/26/19 08:59 Olanzapine (ZyPREXA) 2.5 mg TID ORAL 12/27/18 23:00 01/26/19 22:59 12/27/18 23:42 Ondansetron HCl (Zofran) 4 mg Q8H PRN IVP Nausea & Vomiting 12/26/18 21:51 01/25/19 21:50 Pantoprazole (Protonix) 40 mg DAILY IVP 12/27/18 09:00 01/24/19 08:59 12/27/18 08:28 Piperacillin Sod/ Tazobactam Sod 3.375 gm/Sodium Chloride 110 ml @ 27.5 mls/hr Q8HR IVPB 12/26/18 22:00 12/31/18 21:59 12/28/18 14:16 Tamsulosin HCl (Flomax) 0.4 mg DAILY ORAL 12/27/18 09:00 01/25/19 08:59 Vancomycin HCl (Vanco rx to dose) 1 ea DAILY PRN MISC Per rx protocol 12/26/18 21:51 01/25/19 21:50 Vancomycin HCl 500 mg/Dextrose 110 ml @ 110 mls/hr Q12HR@1100,2300 IVPB 12/28/18 11:00 01/02/19 10:59 12/28/18 10:22 Alex Mckeon M.D. Dec 28, 2018 17:18
[2018-12-28] MEDS: Hydromorphone 0.5mg/0.5ml inj IVP PRN ×2 (17:40→22:16)
--- NOTE | 2018-12-28 17:59 | NUR ---
NURSE NOTES: Tube started at 1730. Rate started at 10 ml/hr. Will increase to goal rate as tolerated.
--- NOTE | 2018-12-28 18:30 | Procedure Note ---
DATE OF PROCEDURE: 12/28/2018 SURGEON: David Styles M.D. REFERRING PHYSICIAN: Albaro Cho M.D. PROCEDURE: Upper endoscopy with PEG placement. ANESTHESIA: Per Dr. Burgos. INSTRUMENT: Olympus adult flexible upper endoscope. INDICATION: Failure to thrive and dysphagia. REASON FOR PROCEDURE: The procedure, risks, benefits, and possible consequences, including hemorrhage, aspiration, perforation and infection, and alternative treatments, were explained to the patient/legal guardian by Dr. David Styles and the patient/legal guardian understood and accepted these risks DESCRIPTION OF PROCEDURE: After informed consent was obtained and the patient was adequately sedated, Olympus upper endoscope was advanced from the mouth to the second portion of duodenum and retroflexion was performed in the stomach. The patient had severe atrophic gastritis. Then, under endoscopic guidance under sterile condition, a 20-Sami pull type of G-tube was successfully placed in the epigastric area. The distance from the tip of the tube to skin was about 2 cm in size. The patient tolerated the procedure very well without any complication. SUMMARY OF FINDINGS: 1. Status post successful PEG placement. 2. Atrophic gastritis. RECOMMENDATIONS: 1. Abdominal binder. 2. Elevate the head of the bed at all times. 3. G-tube flush. 4. G-tube care. 5. Start tube feeding later today. 6. The patient is currently on vancomycin, we will continue. I want to thank, Dr. Cho, for this kind referral. David Styles M.D. DR: NAT JOB#: [id number] CC: Albaro Cho M.D.; Fax#: [phone]
--- NOTE | 2018-12-28 19:26 | NUR ---
HAND-OFF: Report given to QUAN Joaquin.
--- NOTE | 2018-12-28 19:30 | NUR ---
NURSE NOTES: Received patient in bed. A&OX1. NC 2L on. IV site patent and intact. G-tube in place, running Glucerna 1.5 10cc/hr, 5cc residual noted, flushed, elevated HOB. Prasad draining well by gravity, ignacia urine noted. Bed in lowest position. Call light within reach. Will continue to monitor.
[2018-12-28] MEDS ORDERED: NS 275ml ONE (19:33)
[2018-12-28] MEDS ORDERED: Tubing IV Secondary IV ONE (19:33)
--- NOTE | 2018-12-28 22:01 | General Progress Note ---
Assessment/Plan Problem List: (1) Acute encephalopathy ICD Codes: G93.40 - Encephalopathy, unspecified SNOMED: 35756463, 136050961 (2) Anxiety ICD Codes: F41.9 - Anxiety disorder, unspecified SNOMED: 78274243 Assessment/Plan zyprexa 2.5mg po tid ativan prn haldol prn Subjective Neurologic/Psychiatric: Reports: anxiety, depressed, emotional problems Allergies: Coded Allergies: No Known Allergies (Unverified , 12/24/18) Subjective the pt is doing better and calmer luxembourger speaking. Objective Last 24 Hour Vital Signs Date Time Temp Pulse Resp B/P (MAP) Pulse Ox O2 Delivery O2 Flow Rate FiO2 12/28/18 20:26 84 128/69 12/28/18 20:00 98.4 84 18 128/69 (88) 93 12/28/18 19:38 78 20 97 Nasal Cannula 3.0 32 12/28/18 19:30 68 20 92 Nasal Cannula 3.0 32 12/28/18 19:30 Nasal Cannula 3.0 32 12/28/18 19:25 92 Nasal Cannula 3.0 32 12/28/18 16:00 98.0 80 18 128/71 (90) 99 12/28/18 15:22 59 20 99 Nasal Cannula 3.0 32 12/28/18 15:12 59 18 96 Nasal Cannula 3.0 32 12/28/18 12:25 65 22 129/65 97 Nasal Cannula 3 12/28/18 12:17 64 22 124/72 97 Nasal Cannula 3 12/28/18 12:12 62 22 116/75 97 Nasal Cannula 3 12/28/18 12:07 64 20 98 12/28/18 12:05 97.1 62 22 116/75 97 Nasal Cannula 3 12/28/18 11:17 77 18 99 Nasal Cannula 3.0 32 12/28/18 11:07 67 18 93 Nasal Cannula 3.0 32 12/28/18 08:00 98.3 76 18 139/74 (95) 98 12/28/18 08:00 Nasal Cannula 2.0 12/28/18 07:41 64 20 100 Nasal Cannula 3.0 32 12/28/18 07:31 Nasal Cannula 3.0 32 12/28/18 07:31 63 20 94 Nasal Cannula 3.0 32 12/28/18 07:30 94 Nasal Cannula 3.0 32 12/28/18 04:00 98.0 71 18 144/77 (99) 97 12/28/18 03:31 76 18 96 Nasal Cannula 3.0 32 12/28/18 03:20 68 18 97 Nasal Cannula 3.0 32 12/28/18 00:00 98.4 81 18 137/64 (88) 97 12/27/18 23:13 78 18 97 Nasal Cannula 3.0 32 12/27/18 23:05 Nasal Cannula 4.0 12/27/18 23:03 90 18 93 Nasal Cannula 3.0 32 Intake and Output 12/27/18 12/28/18 19:00 07:00 Intake Total 412.500 ml Output Total 500 ml 250 ml Balance -87.500 ml -250 ml IV Total 412.500 ml Output Urine Total 500 ml 250 ml Laboratory Tests 12/28/18 07:50: White Blood Count 6.0, Red Blood Count 3.75L, Hemoglobin 12.0L, Hematocrit 37.5L , Mean Corpuscular Volume 100H, Mean Corpuscular Hemoglobin 31.9H, Mean Corpuscular Hemoglobin Concent 31.9L, Red Cell Distribution Width 14.4, Platelet Count 185, Mean Platelet Volume 6.4L, Neutrophils (%) (Auto) 63.6, Lymphocytes (%) (Auto) 19.1L, Monocytes (%) (Auto) 11.3H, Eosinophils (%) (Auto ) 5.4H, Basophils (%) (Auto) 0.7, Sodium Level 149H, Potassium Level 3.6, Chloride Level 112H, Carbon Dioxide Level 31, Anion Gap 7, Blood Urea Nitrogen 19H, Creatinine 0.9, Estimat Glomerular Filtration Rate , Glucose Level 110H, Uric Acid 3.6, Calcium Level 8.4L, Phosphorus Level 3.0, Magnesium Level 2.3, Total Bilirubin 1.0, Direct Bilirubin 0.3, Aspartate Amino Transf (AST/SGOT) 52H , Alanine Aminotransferase (ALT/SGPT) 68, Alkaline Phosphatase 67, C-Reactive Protein, Quantitative 4.9H, Pro-B-Type Natriuretic Peptide 8620H, Total Protein 5.7L, Albumin 2.2L, Vancomycin Level Trough 22.1H 12/28/18 09:35: Prothrombin Time 11.4, Prothromb Time International Ratio 1.1, Activated Partial Thromboplast Time 26 Height (Feet): 5 Height (Inches): 10.00 Weight (Pounds): 179 General Appearance: no apparent distress, alert, confused, agitated Lisha Black MD Dec 28, 2018 22:01
[2018-12-29] VITALS: BP 128/83
[2018-12-29] MEDS: Albuterol/Ipratropium 3ml neb HHN SCH ×4 (03:34→14:20)
[2018-12-29 04:00] VITALS: BP 124/64
[2018-12-29] MEDS: Piperacillin/Tazobactam 3.375 GM in NS 110 ML IVPB SCH ×2 (05:24→14:08)
[2018-12-29] MEDS: Hydromorphone 0.5mg/0.5ml inj IVP PRN ×3 (05:26→17:48)
[2018-12-29 06:15] LABS: EOSINOPHILS % (AUTO) 2.9 % (0.0-3.0); HEMATOCRIT 36.4 % (42.0-52.0); HEMOGLOBIN 11.9 G/DL (14.2-18.0); LYMPHOCYTES % (AUTO) 12.9 % (20.0-45.0); MEAN CORPUSCULAR VOLUME 100 FL (80-99); MONOCYTES % (AUTO) 9.3 % (1.0-10.0); NEUTROPHILS % (AUTO) 73.8 % (45.0-75.0); PLATELET COUNT 216 K/UL (150-450); RED BLOOD COUNT 3.65 M/UL (4.70-6.10); RED CELL DISTRIBUTION WIDTH 14.3 % (11.6-14.8); WHITE BLOOD COUNT 7.5 K/UL (4.8-10.8)
--- NOTE | 2018-12-29 07:30 | NUR ---
HAND-OFF: Report given to Mayra GLASS.
--- NOTE | 2018-12-29 07:32 | NUR ---
NURSE NOTES: Patient is asleep. HOB is elevated. Side rails are up X3, bed is locked, and in lowest position. Bed alarm is on. Tube feeding is running at 30 ml/hr. IV is intact. No s/s of distress at the moment. Will continue to monitor.
[2018-12-29 07:48] LABS: ANION GAP 9 mmol/L (5-15); BLOOD UREA NITROGEN 17 mg/dL (7-18); CALCIUM 8.1 MG/DL (8.5-10.1); CARBON DIOXIDE 28 MMOL/L (21-32); CHLORIDE 113 MMOL/L (98-107); CREATININE 0.9 MG/DL (0.55-1.30); POTASSIUM 3.4 MMOL/L (3.5-5.1); SODIUM 150 MMOL/L (136-145)
[2018-12-29 08:00] VITALS: BP 137/69
[2018-12-29] MEDS: Tamsulosin 0.4mg cap ORAL SCH (08:08)
[2018-12-29] MEDS: Pantoprazole Inj IVP SCH (08:09)
[2018-12-29] MEDS: OLANZapine 2.5mg tab ORAL SCH ×2 (08:09→14:08)
[2018-12-29] MEDS: Ascorbic Acid 500mg tab ORAL SCH (08:09)
[2018-12-29] MEDS: Heparin 5000 units/ml inj SUBQ SCH ×2 (08:10→21:14)
--- NOTE | 2018-12-29 10:47 | GI Progress Note ---
Assessment/Plan Problems: (1) Encounter for PEG (percutaneous endoscopic gastrostomy) ICD Codes: Z43.1 - Encounter for attention to gastrostomy SNOMED: 000664576, 125227895 (2) Severe malnutrition ICD Codes: E43 - Unspecified severe protein-calorie malnutrition SNOMED: 98546272 (3) Dysphagia ICD Codes: R13.10 - Dysphagia, unspecified SNOMED: 44093805, 815639817 (4) Dehydration ICD Codes: E86.0 - Dehydration SNOMED: 49310807 (5) Agitation ICD Codes: R45.1 - Restlessness and agitation SNOMED: 162425384 (6) Hemochromatosis ICD Codes: E83.119 - Hemochromatosis, unspecified SNOMED: 990194677 Status: stable Status Narrative Discussed with Dr. Styles. Assessment/Plan SUMMARY OF FINDINGS: 1. Status post successful PEG placement. 2. Atrophic gastritis. RECOMMENDATIONS: 1. Abdominal binder. 2. Elevate the head of the bed at all times. 3. G-tube flush. 4. G-tube care. 5. Start tube feeding later today. 6. The patient is currently on vancomycin, we will continue. ppi prn transfusions follow labs The patient was seen and examined at bedside and all new and available data was reviewed in the patients chart. I agree with the above findings, impression and plan. (Patient seen earlier today. Signature stamp does not reflect patient encounter time.). - David Styles MD Subjective Subjective limited Objective Last 24 Hour Vital Signs Date Time Temp Pulse Resp B/P (MAP) Pulse Ox O2 Delivery O2 Flow Rate FiO2 12/29/18 09:00 74 20 97 Nasal Cannula 3.0 32 12/29/18 08:38 Nasal Cannula 3.0 32 12/29/18 08:38 64 20 94 Nasal Cannula 3.0 32 12/29/18 08:38 94 3.0 32 12/29/18 08:14 70 118/66 12/29/18 08:00 98.4 73 19 137/69 (91) 94 12/29/18 08:00 Nasal Cannula 2.0 12/29/18 04:00 98.5 72 18 124/64 (84) 96 12/29/18 03:38 71 20 98 Nasal Cannula 3.0 32 12/29/18 03:29 71 20 96 Nasal Cannula 3.0 32 12/29/18 00:00 98.0 80 18 128/83 (98) 94 12/28/18 23:21 77 20 98 Nasal Cannula 3.0 32 12/28/18 23:09 75 20 91 Nasal Cannula 3.0 32 12/28/18 21:00 Nasal Cannula 2.0 12/28/18 20:26 84 128/69 12/28/18 20:00 98.4 84 18 128/69 (88) 93 12/28/18 19:38 78 20 97 Nasal Cannula 3.0 32 12/28/18 19:30 68 20 92 Nasal Cannula 3.0 32 12/28/18 19:30 Nasal Cannula 3.0 32 12/28/18 19:25 92 Nasal Cannula 3.0 32 12/28/18 16:00 98.0 80 18 128/71 (90) 99 12/28/18 15:22 59 20 99 Nasal Cannula 3.0 32 12/28/18 15:12 59 18 96 Nasal Cannula 3.0 32 12/28/18 12:25 65 22 129/65 97 Nasal Cannula 3 12/28/18 12:17 64 22 124/72 97 Nasal Cannula 3 12/28/18 12:12 62 22 116/75 97 Nasal Cannula 3 12/28/18 12:07 64 20 98 12/28/18 12:05 97.1 62 22 116/75 97 Nasal Cannula 3 12/28/18 11:17 77 18 99 Nasal Cannula 3.0 32 12/28/18 11:07 67 18 93 Nasal Cannula 3.0 32 Intake and Output 12/28/18 12/29/18 19:00 07:00 Intake Total 570 ml 817.5 ml Output Total 800 ml 800 ml Balance -230 ml 17.5 ml Free Water 150 ml 300 ml IV Total 400 ml 247.5 ml Tube Feeding 20 ml 270 ml Output Urine Total 800 ml 800 ml Laboratory Tests Test 12/29/18 05:45 White Blood Count 7.5 K/UL (4.8-10.8) Red Blood Count 3.65 M/UL (4.70-6.10) L Hemoglobin 11.9 G/DL (14.2-18.0) L Hematocrit 36.4 % (42.0-52.0) L Mean Corpuscular Volume 100 FL (80-99) H Mean Corpuscular Hemoglobin 32.6 PG (27.0-31.0) H Mean Corpuscular Hemoglobin Concent 32.6 G/DL (32.0-36.0) Red Cell Distribution Width 14.3 % (11.6-14.8) Platelet Count 216 K/UL (150-450) Mean Platelet Volume 6.3 FL (6.5-10.1) L Neutrophils (%) (Auto) 73.8 % (45.0-75.0) Lymphocytes (%) (Auto) 12.9 % (20.0-45.0) L Monocytes (%) (Auto) 9.3 % (1.0-10.0) Eosinophils (%) (Auto) 2.9 % (0.0-3.0) Basophils (%) (Auto) 1.0 % (0.0-2.0) Sodium Level 150 MMOL/L (136-145) H Potassium Level 3.4 MMOL/L (3.5-5.1) L Chloride Level 113 MMOL/L (98-107) H Carbon Dioxide Level 28 MMOL/L (21-32) Anion Gap 9 mmol/L (5-15) Blood Urea Nitrogen 17 mg/dL (7-18) Creatinine 0.9 MG/DL (0.55-1.30) Estimat Glomerular Filtration Rate mL/min (>60) Glucose Level 131 MG/DL (74-106) H Calcium Level 8.1 MG/DL (8.5-10.1) L Height (Feet): 5 Height (Inches): 10.00 Weight (Pounds): 179 General Appearance: no apparent distress, alert Cardiovascular: normal rate Respiratory/Chest: normal breath sounds, no respiratory distress Abdominal Exam: normal bowel sounds, non tender, soft, GT site - c/d/i Extremities: non-tender Kp Beltran NP Dec 29, 2018 10:47
[2018-12-29] MEDS: Vancomycin 500mg/D5W 110ml IVPB SCH ×2 (10:58)
--- NOTE | 2018-12-29 10:59 | NUR ---
RD ASSESSMENT & RECOMMENDATIONS SEE CARE ACTIVITY FOR COMPLETE ASSESSMENT DAILY ESTIMATED NEEDS: Needs based on Wound, CA / 77kg abw 25-30 kcals/kg 1770-2068 total kcals 1.25-1.5 g protein/kg 96-115 g total protein 20-22 mL/kg 6931-1940 total fluid mLs NUTRITION DIAGNOSIS: 1) Increased kcal/prot needs R/T wound healing, catabolic dx as evidenced by pt admitted w/ BL heels + sacral wound, refer to WC eval, h/o metastatic prostate CA. 2) Swallowing difficulty r/t dysphagia as evidenced by pt is now S/ p PEG placement, on tube feeds. CURRENT TF:Glucerna 1.5 @50ml/hr ENTERAL NUTRITION RECOMMENDATIONS: Maintain Glucerna 1.5 @50ml/hr x24 hrs to provide 1200ml, 1800 kcal, 99g prot, 911ml free H2O - Maintain current goal to meet >90% est kcal and 100% est pro needs - Increase water flushes (hypernatremia) - HOB over 30 degree ADDITIONAL RECOMMENDATIONS: * Calibrated bedscale weight for accurate CBW- bed w/ added p200 mattress * Monitor lytes, replete as needed (low K) * Consider accucheck w/ SSI- h/o DM, A1C=6.5 * Wound healing: add MVI x 1, Vit C 500mg QD, Kyler 1pkt BID
--- NOTE | 2018-12-29 11:09 | Surgery Progress Note ---
Surgery Progress Note Subjective Additional Comments s/p PEG tube. will attempt to pull tube so has abdominal binder. andrews in place. dressings clean Objective Last 24 Hour Vital Signs Date Time Temp Pulse Resp B/P (MAP) Pulse Ox O2 Delivery O2 Flow Rate FiO2 12/29/18 11:06 77 20 97 Nasal Cannula 3.0 32 12/29/18 10:47 67 20 94 Nasal Cannula 3.0 32 12/29/18 09:00 74 20 97 Nasal Cannula 3.0 32 12/29/18 08:38 Nasal Cannula 3.0 32 12/29/18 08:38 64 20 94 Nasal Cannula 3.0 32 12/29/18 08:38 94 3.0 32 12/29/18 08:14 70 118/66 12/29/18 08:00 98.4 73 19 137/69 (91) 94 12/29/18 08:00 Nasal Cannula 2.0 12/29/18 04:00 98.5 72 18 124/64 (84) 96 12/29/18 03:38 71 20 98 Nasal Cannula 3.0 32 12/29/18 03:29 71 20 96 Nasal Cannula 3.0 32 12/29/18 00:00 98.0 80 18 128/83 (98) 94 12/28/18 23:21 77 20 98 Nasal Cannula 3.0 32 12/28/18 23:09 75 20 91 Nasal Cannula 3.0 32 12/28/18 21:00 Nasal Cannula 2.0 12/28/18 20:26 84 128/69 12/28/18 20:00 98.4 84 18 128/69 (88) 93 12/28/18 19:38 78 20 97 Nasal Cannula 3.0 32 12/28/18 19:30 68 20 92 Nasal Cannula 3.0 32 12/28/18 19:30 Nasal Cannula 3.0 32 12/28/18 19:25 92 Nasal Cannula 3.0 32 12/28/18 16:00 98.0 80 18 128/71 (90) 99 12/28/18 15:22 59 20 99 Nasal Cannula 3.0 32 12/28/18 15:12 59 18 96 Nasal Cannula 3.0 32 12/28/18 12:25 65 22 129/65 97 Nasal Cannula 3 12/28/18 12:17 64 22 124/72 97 Nasal Cannula 3 12/28/18 12:12 62 22 116/75 97 Nasal Cannula 3 12/28/18 12:07 64 20 98 12/28/18 12:05 97.1 62 22 116/75 97 Nasal Cannula 3 12/28/18 11:17 77 18 99 Nasal Cannula 3.0 32 I&O Intake and Output 12/28/18 12/29/18 19:00 07:00 Intake Total 570 ml 817.5 ml Output Total 800 ml 800 ml Balance -230 ml 17.5 ml Free Water 150 ml 300 ml IV Total 400 ml 247.5 ml Tube Feeding 20 ml 270 ml Output Urine Total 800 ml 800 ml Dressing: dry Wound: clean Drains: other Cardiovascular: RSR Respiratory: clear Abdomen: soft, present bowel sounds Extremities: no tenderness, no cyanosis Laboratory Tests Test 12/29/18 05:45 White Blood Count 7.5 K/UL (4.8-10.8) Red Blood Count 3.65 M/UL (4.70-6.10) L Hemoglobin 11.9 G/DL (14.2-18.0) L Hematocrit 36.4 % (42.0-52.0) L Mean Corpuscular Volume 100 FL (80-99) H Mean Corpuscular Hemoglobin 32.6 PG (27.0-31.0) H Mean Corpuscular Hemoglobin Concent 32.6 G/DL (32.0-36.0) Red Cell Distribution Width 14.3 % (11.6-14.8) Platelet Count 216 K/UL (150-450) Mean Platelet Volume 6.3 FL (6.5-10.1) L Neutrophils (%) (Auto) 73.8 % (45.0-75.0) Lymphocytes (%) (Auto) 12.9 % (20.0-45.0) L Monocytes (%) (Auto) 9.3 % (1.0-10.0) Eosinophils (%) (Auto) 2.9 % (0.0-3.0) Basophils (%) (Auto) 1.0 % (0.0-2.0) Sodium Level 150 MMOL/L (136-145) H Potassium Level 3.4 MMOL/L (3.5-5.1) L Chloride Level 113 MMOL/L (98-107) H Carbon Dioxide Level 28 MMOL/L (21-32) Anion Gap 9 mmol/L (5-15) Blood Urea Nitrogen 17 mg/dL (7-18) Creatinine 0.9 MG/DL (0.55-1.30) Estimat Glomerular Filtration Rate mL/min (>60) Glucose Level 131 MG/DL (74-106) H Calcium Level 8.1 MG/DL (8.5-10.1) L Plan Problems: (1) Decubitus skin ulcer Assessment & Plan: Pt presented on admission with multiple pressure injuries. Non-blanchable red area that is indurated L thoracic(L)1.1cm x (W)3.5cm. Periwound pink and intact. Maroon discoloration that is indurated L Buttocks (L) 1.9cm x (W)4cm.Maroon discoloration with red margins that are indurated.Non- blanchable erythema periwound. Non-blanchable erythema with induration noted to R buttocks (L)3cm x (W)3.5cm. Intact Blood Blister noted to R heel (L)5.5cm x (W )4.4cm. Non-blanchable erythema with fluctuance periwound. Intact Blood Blister noted extending from medial to lateral aspect of L heel (L)6.2cm x (W)9cm. Non- blanchable erythema periwound . Cavilon Skin Barrier applied to both heel blisters.Each heel covered with Optifoam drsg .Abd pads applied to both heels and each heel wrapped with kerlix to prevent further friction to heels Tx plan: Apply Cavilon Skin Barrier to L thoracic. Cover with Optifoam drsg. Change every 3 days and prn. Apply Cavilon Skin Barrier to R and L heel Blisters. Cover each heel with Optifoam drsg.Reinforce with ABD Pad and Kerlix. Change every 7 days and prn. Apply Triad Paste to Sacrum,R and L buttocks. Cover with Optifoam drsgs. Change every 3 days and APM/RAÚL Mattress overlay. Reposition at least every 2hours or as tolerated. Off-load heels with Pillow. (2) Heel ulcer (3) Sepsis Assessment & Plan: leukocytosis resolved on IV Abx as per ID labs abnormal and improving CT head noted cont with current care (4) Dehydration Assessment & Plan: DAILY ESTIMATED NEEDS: Needs based on Wound, CA / 77kg abw 25-30 kcals/kg 6859-9771 total kcals 1.25-1.5 g protein/kg 96-115 g total protein 20-22 mL/kg 1174-2565 total fluid mLs NUTRITION DIAGNOSIS: Increased kcal/prot needs R/T wound healing, catabolic dx as evidenced by pt admitted w/ BL heels + sacral wound, pending eval, h/o metastatic prostate CA. CURRENT DIET:NPO PO DIET RECOMMENDATIONS: CCHO MED, LOW NA/ texture per MEAT TEAM LEAD ADDITIONAL RECOMMENDATIONS: * Calibrated bedscale weight for accurate CBW- bed w/ added p200 mattress * Monitor lytes, replete as needed (low phos) * Consider accucheck w/ SSI- h/o DM, A1C=6.5 * Wound healing: add MVI x 1, Vit C 500mg QD, Kyler 1pkt BID Juan Syed Dec 29, 2018 11:09
[2018-12-29 12:00] VITALS: BP 133/64
--- NOTE | 2018-12-29 12:53 | General Progress Note ---
Assessment/Plan Assessment/Plan S: I am ok O: make limited verbal conversation, no chest pain. cousin and the son at the bed side PHYSICAL EXAMINATION:HEAD AND NECK: Atraumatic and normocephalic. CHEST: Diffuse bronchial breathing sounds.ABDOMEN: PEG t in place, Soft. MUSCULOSKELETAL: Positive for the increased reflexes and spasticity in all 4 extremities.NEUROLOGY: Limited evaluation as the patient is not verbally communicative. Meds: Reviewed and reconciled. ASSESSMENT AND PLAN: 1. Sepsis: Gram positive 2. Hypoxemic respiratory failure. 3. Healthcare-associated pneumonia. 4. Macrocytic anemia. 5. Abnormal LFTs. 6. GI and DVT prophylaxes. 7. DNR/DNI. 8. Dysphagia Plan: ID, Pulmonary, Nephro notes are reviewed current empirical abx remains DNR high risk for aspiration S/ph PEG T placement . comment: D/w family ( one daughterr and the son ) at bed side. requested DNI/ DNR. Subjective Allergies: Coded Allergies: No Known Allergies (Unverified , 12/24/18) Objective Last 24 Hour Vital Signs Date Time Temp Pulse Resp B/P (MAP) Pulse Ox O2 Delivery O2 Flow Rate FiO2 12/29/18 12:00 98.7 70 20 133/64 (87) 93 12/29/18 11:06 77 20 97 Nasal Cannula 3.0 32 12/29/18 10:47 67 20 94 Nasal Cannula 3.0 32 12/29/18 09:00 74 20 97 Nasal Cannula 3.0 32 12/29/18 08:38 Nasal Cannula 3.0 32 12/29/18 08:38 64 20 94 Nasal Cannula 3.0 32 12/29/18 08:38 94 3.0 32 12/29/18 08:14 70 118/66 12/29/18 08:00 98.4 73 19 137/69 (91) 94 12/29/18 08:00 Nasal Cannula 2.0 12/29/18 04:00 98.5 72 18 124/64 (84) 96 12/29/18 03:38 71 20 98 Nasal Cannula 3.0 32 12/29/18 03:29 71 20 96 Nasal Cannula 3.0 32 12/29/18 00:00 98.0 80 18 128/83 (98) 94 12/28/18 23:21 77 20 98 Nasal Cannula 3.0 32 12/28/18 23:09 75 20 91 Nasal Cannula 3.0 32 12/28/18 21:00 Nasal Cannula 2.0 12/28/18 20:26 84 128/69 12/28/18 20:00 98.4 84 18 128/69 (88) 93 12/28/18 19:38 78 20 97 Nasal Cannula 3.0 32 12/28/18 19:30 68 20 92 Nasal Cannula 3.0 32 12/28/18 19:30 Nasal Cannula 3.0 32 12/28/18 19:25 92 Nasal Cannula 3.0 32 12/28/18 16:00 98.0 80 18 128/71 (90) 99 12/28/18 15:22 59 20 99 Nasal Cannula 3.0 32 12/28/18 15:12 59 18 96 Nasal Cannula 3.0 32 Intake and Output 12/28/18 12/29/18 19:00 07:00 Intake Total 570 ml 817.5 ml Output Total 800 ml 800 ml Balance -230 ml 17.5 ml Free Water 150 ml 300 ml IV Total 400 ml 247.5 ml Tube Feeding 20 ml 270 ml Output Urine Total 800 ml 800 ml Laboratory Tests 12/29/18 05:45: White Blood Count 7.5, Red Blood Count 3.65L, Hemoglobin 11.9L, Hematocrit 36.4L , Mean Corpuscular Volume 100H, Mean Corpuscular Hemoglobin 32.6H, Mean Corpuscular Hemoglobin Concent 32.6, Red Cell Distribution Width 14.3, Platelet Count 216, Mean Platelet Volume 6.3L, Neutrophils (%) (Auto) 73.8, Lymphocytes ( %) (Auto) 12.9L, Monocytes (%) (Auto) 9.3, Eosinophils (%) (Auto) 2.9, Basophils (%) (Auto) 1.0, Sodium Level 150H, Potassium Level 3.4L, Chloride Level 113H, Carbon Dioxide Level 28, Anion Gap 9, Blood Urea Nitrogen 17, Creatinine 0.9, Estimat Glomerular Filtration Rate , Glucose Level 131H, Calcium Level 8.1L Height (Feet): 5 Height (Inches): 10.00 Weight (Pounds): 179 Albaro Cho MD Dec 29, 2018 12:53
[2018-12-29] MEDS ORDERED: Tubing IV Secondary IV ONE (15:55)
[2018-12-29] MEDS ORDERED: NS 275ml ONE (15:55)
[2018-12-29] MEDS ORDERED: NS 500ML ONE (15:55)
[2018-12-29 16:00] VITALS: BP 154/78
--- NOTE | 2018-12-29 16:41 | Infectious Diseases Prog Note ---
Assessment/Plan Problems: (1) LLL pneumonia Assessment & Plan: suspect aspiration, improved with vancomycin and zosyn empirically , aspiration precaution , keep HOB > 30 degree (2) Sepsis Assessment & Plan: with staph aureus methicillin sensitive , due to the above , already on vancomycin and zosyn , will switch to oxacillin and treat him for four weeks . ECHO rule out vegetations . repeated blood culture to confirm clearance is pending . (3) Acute encephalopathy Assessment & Plan: due to the above, suspect metabolic and toxic, continue antibiotics and supportive care (4) Renal failure Assessment & Plan: suspect due to dehydration , continue IVF , monitor renal function closely (5) Dehydration Assessment & Plan: continue IVF, encourage hydration (6) Acute respiratory failure Assessment & Plan: due to the above, improving , off BIPAP , monitor CXR . Subjective ROS Limited/Unobtainable: Yes Allergies: Coded Allergies: No Known Allergies (Unverified , 12/24/18) Subjective He was awake but confused and doesn't follow commands , afebrile Objective Vital Signs Last 24 Hour Vital Signs Date Time Temp Pulse Resp B/P (MAP) Pulse Ox O2 Delivery O2 Flow Rate FiO2 12/29/18 16:00 97.9 80 21 154/78 (103) 93 12/29/18 14:30 79 20 98 Nasal Cannula 3.0 32 12/29/18 14:21 72 20 95 Nasal Cannula 3.0 32 12/29/18 12:00 98.7 70 20 133/64 (87) 93 12/29/18 11:06 77 20 97 Nasal Cannula 3.0 32 12/29/18 10:47 67 20 94 Nasal Cannula 3.0 32 12/29/18 09:00 74 20 97 Nasal Cannula 3.0 32 12/29/18 08:38 Nasal Cannula 3.0 32 12/29/18 08:38 64 20 94 Nasal Cannula 3.0 32 12/29/18 08:38 94 3.0 32 12/29/18 08:14 70 118/66 12/29/18 08:00 98.4 73 19 137/69 (91) 94 12/29/18 08:00 Nasal Cannula 2.0 12/29/18 04:00 98.5 72 18 124/64 (84) 96 12/29/18 03:38 71 20 98 Nasal Cannula 3.0 32 12/29/18 03:29 71 20 96 Nasal Cannula 3.0 32 12/29/18 00:00 98.0 80 18 128/83 (98) 94 12/28/18 23:21 77 20 98 Nasal Cannula 3.0 32 12/28/18 23:09 75 20 91 Nasal Cannula 3.0 32 12/28/18 21:00 Nasal Cannula 2.0 12/28/18 20:26 84 128/69 12/28/18 20:00 98.4 84 18 128/69 (88) 93 12/28/18 19:38 78 20 97 Nasal Cannula 3.0 32 12/28/18 19:30 68 20 92 Nasal Cannula 3.0 32 12/28/18 19:30 Nasal Cannula 3.0 32 12/28/18 19:25 92 Nasal Cannula 3.0 32 Height (Feet): 5 Height (Inches): 10.00 Weight (Pounds): 179 General Appearance: WD/WN, no acute distress HEENT: normocephalic, atraumatic, anicteric, mucous membranes moist, PERRL Respiratory/Chest: chest wall non-tender, lungs clear, no respiratory distress , no accessory muscle use, decreased breath sounds, crackles/rales Cardiovascular: normal peripheral pulses, normal rate, regular rhythm, no gallop/murmur, no JVD Abdomen: normal bowel sounds, soft, non tender, no organomegaly, non distended , no mass, no scars Genitourinary: normal external genitalia Extremities: no cyanosis, no clubbing Skin: no rash, no lesions, no ulcers Neurologic/Psychiatric: clinical nursing coordinator II-XII grossly normal, alert, responsive Lymphatic: no neck adenopathy, no groin adenopathy Musculoskeletal: normal muscle bulk, no effusion Microbiology Date/Time Source Procedure Growth Status 12/27/18 16:15 Blood Blood Culture - Preliminary NO GROWTH AFTER 24 HOURS Resulted 12/27/18 16:00 Blood Blood Culture - Preliminary NO GROWTH AFTER 24 HOURS Resulted Laboratory Tests Test 12/29/18 05:45 White Blood Count 7.5 K/UL (4.8-10.8) Red Blood Count 3.65 M/UL (4.70-6.10) L Hemoglobin 11.9 G/DL (14.2-18.0) L Hematocrit 36.4 % (42.0-52.0) L Mean Corpuscular Volume 100 FL (80-99) H Mean Corpuscular Hemoglobin 32.6 PG (27.0-31.0) H Mean Corpuscular Hemoglobin Concent 32.6 G/DL (32.0-36.0) Red Cell Distribution Width 14.3 % (11.6-14.8) Platelet Count 216 K/UL (150-450) Mean Platelet Volume 6.3 FL (6.5-10.1) L Neutrophils (%) (Auto) 73.8 % (45.0-75.0) Lymphocytes (%) (Auto) 12.9 % (20.0-45.0) L Monocytes (%) (Auto) 9.3 % (1.0-10.0) Eosinophils (%) (Auto) 2.9 % (0.0-3.0) Basophils (%) (Auto) 1.0 % (0.0-2.0) Sodium Level 150 MMOL/L (136-145) H Potassium Level 3.4 MMOL/L (3.5-5.1) L Chloride Level 113 MMOL/L (98-107) H Carbon Dioxide Level 28 MMOL/L (21-32) Anion Gap 9 mmol/L (5-15) Blood Urea Nitrogen 17 mg/dL (7-18) Creatinine 0.9 MG/DL (0.55-1.30) Estimat Glomerular Filtration Rate mL/min (>60) Glucose Level 131 MG/DL (74-106) H Calcium Level 8.1 MG/DL (8.5-10.1) L Current Medications Medications (Trade) Dose Ordered Sig/Jessie Route PRN Reason Start Time Stop Time Status Last Admin Dose Admin Acetaminophen (Tylenol) 650 mg Q6H PRN ORAL Mild Pain/Temp > 100.5 12/26/18 21:50 01/25/19 21:49 Albuterol/ Ipratropium (Albuterol/ Ipratropium) 3 ml Q4HRT HHN 12/26/18 23:00 12/29/18 18:59 12/29/18 14:20 Ascorbic Acid (Vitamin C) 500 mg TWICE A DAY ORAL 12/27/18 09:00 01/26/19 08:59 12/29/18 08:09 Carvedilol (Coreg) 3.125 mg EVERY 12 HOURS ORAL 12/27/18 09:00 01/24/19 20:59 12/29/18 08:14 Heparin Sodium (Porcine) (Heparin 5000 units/ml) 5,000 units EVERY 12 HOURS SUBQ 12/27/18 09:00 01/23/19 20:59 12/29/18 08:10 Hydromorphone HCl (Dilaudid) 0.5 mg Q3H PRN IVP Severe Pain (Pain Scale 7-10) 12/26/18 21:50 12/31/18 21:49 12/29/18 10:58 Lorazepam (Ativan) 1 mg Q6H PRN ORAL For Anxiety 12/27/18 23:00 01/03/19 22:59 Multivitamins (Multivitamins) 1 tab DAILY ORAL 12/27/18 09:00 01/26/19 08:59 12/29/18 08:09 Olanzapine (ZyPREXA) 2.5 mg TID ORAL 12/27/18 23:00 01/26/19 22:59 12/29/18 14:08 Ondansetron HCl (Zofran) 4 mg Q8H PRN IVP Nausea & Vomiting 12/26/18 21:51 01/25/19 21:50 Pantoprazole (Protonix) 40 mg DAILY IVP 12/27/18 09:00 01/24/19 08:59 12/29/18 08:09 Piperacillin Sod/ Tazobactam Sod 3.375 gm/Sodium Chloride 110 ml @ 27.5 mls/hr Q8HR IVPB 12/26/18 22:00 12/31/18 21:59 12/29/18 14:08 Tamsulosin HCl (Flomax) 0.4 mg DAILY ORAL 12/27/18 09:00 01/25/19 08:59 12/29/18 08:08 Vancomycin HCl (Vanco rx to dose) 1 ea DAILY PRN MISC Per rx protocol 12/26/18 21:51 01/25/19 21:50 Vancomycin HCl 500 mg/Dextrose 110 ml @ 110 mls/hr Q12HR@1100,2300 IVPB 12/28/18 11:00 01/02/19 10:59 12/29/18 10:58 Alex Mckeon M.D. Dec 29, 2018 16:41
--- NOTE | 2018-12-29 16:44 | NUR ---
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 RLL PNA VS: BP 154/78, P 80, T 97.9, RR 21, SpO2 93 on 3.0L O2 NC RBC 3.65, Hgb 11.9, Hct 36.4, Na 150, K 3.4 IS:VANCOMYCIN 110ml ZYPREXA 2.5mg COREG 3.125mg HEPARIN SUBQ PROTONIX 40mg IVP ALBUTEROL 3ml HHN ZOSYN 110ml IVPB MED/SURG STATUS
--- NOTE | 2018-12-29 16:46 | Nephrology Progress Note ---
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 ..NOW IS FULL CODE ??? Subjective ROS Limited/Unobtainable: No Constitutional: Reports: malaise, weakness Objective Objective Last 24 Hour Vital Signs Date Time Temp Pulse Resp B/P (MAP) Pulse Ox O2 Delivery O2 Flow Rate FiO2 12/29/18 16:00 97.9 80 21 154/78 (103) 93 12/29/18 14:30 79 20 98 Nasal Cannula 3.0 32 12/29/18 14:21 72 20 95 Nasal Cannula 3.0 32 12/29/18 12:00 98.7 70 20 133/64 (87) 93 12/29/18 11:06 77 20 97 Nasal Cannula 3.0 32 12/29/18 10:47 67 20 94 Nasal Cannula 3.0 32 12/29/18 09:00 74 20 97 Nasal Cannula 3.0 32 12/29/18 08:38 Nasal Cannula 3.0 32 12/29/18 08:38 64 20 94 Nasal Cannula 3.0 32 12/29/18 08:38 94 3.0 32 12/29/18 08:14 70 118/66 12/29/18 08:00 98.4 73 19 137/69 (91) 94 12/29/18 08:00 Nasal Cannula 2.0 12/29/18 04:00 98.5 72 18 124/64 (84) 96 12/29/18 03:38 71 20 98 Nasal Cannula 3.0 32 12/29/18 03:29 71 20 96 Nasal Cannula 3.0 32 12/29/18 00:00 98.0 80 18 128/83 (98) 94 12/28/18 23:21 77 20 98 Nasal Cannula 3.0 32 12/28/18 23:09 75 20 91 Nasal Cannula 3.0 32 12/28/18 21:00 Nasal Cannula 2.0 12/28/18 20:26 84 128/69 12/28/18 20:00 98.4 84 18 128/69 (88) 93 12/28/18 19:38 78 20 97 Nasal Cannula 3.0 32 12/28/18 19:30 68 20 92 Nasal Cannula 3.0 32 12/28/18 19:30 Nasal Cannula 3.0 32 12/28/18 19:25 92 Nasal Cannula 3.0 32 Intake and Output 12/28/18 12/29/18 19:00 07:00 Intake Total 570 ml 847.5 ml Output Total 800 ml 800 ml Balance -230 ml 47.5 ml Free Water 150 ml 300 ml IV Total 400 ml 247.5 ml Tube Feeding 20 ml 300 ml Output Urine Total 800 ml 800 ml Laboratory Tests 12/29/18 05:45: White Blood Count 7.5, Red Blood Count 3.65L, Hemoglobin 11.9L, Hematocrit 36.4L , Mean Corpuscular Volume 100H, Mean Corpuscular Hemoglobin 32.6H, Mean Corpuscular Hemoglobin Concent 32.6, Red Cell Distribution Width 14.3, Platelet Count 216, Mean Platelet Volume 6.3L, Neutrophils (%) (Auto) 73.8, Lymphocytes ( %) (Auto) 12.9L, Monocytes (%) (Auto) 9.3, Eosinophils (%) (Auto) 2.9, Basophils (%) (Auto) 1.0, Sodium Level 150H, Potassium Level 3.4L, Chloride Level 113H, Carbon Dioxide Level 28, Anion Gap 9, Blood Urea Nitrogen 17, Creatinine 0.9, Estimat Glomerular Filtration Rate , Glucose Level 131H, Calcium Level 8.1L Height (Feet): 5 Height (Inches): 10.00 Weight (Pounds): 179 General Appearance: no apparent distress Cardiovascular: normal rate Respiratory/Chest: decreased breath sounds Abdomen: distended Objective NO CHANGE Rigoberto Aaron MD Dec 29, 2018 16:46
[2018-12-29] MEDS ORDERED: Acetaminophen 650mg/20.3ml GT PRN (17:00)
[2018-12-29] MEDS: Oxacillin 2 GM in NS 110 ML IVPB SCH ×2 (17:31→21:04)
[2018-12-29] MEDS: Ascorbic Acid 500mg tab GT SCH (17:32)
[2018-12-29] MEDS: OLANZapine 2.5mg tab GT SCH (17:32)
--- NOTE | 2018-12-29 19:28 | NUR ---
HAND-OFF: Report given to QUAN Lee.
--- NOTE | 2018-12-29 19:51 | NUR ---
NURSE NOTES: Pt is in bed, asleep. No acute distress noted.Nasal Canula at 2L. HOB elevated. Glucerna 1.5 running at 50ml/hr. Prasad draining yellow urine. Wound dressing dry and intact. Bed locked in position,side rails up and call light within reach. Fall precaution in place.Bed alarm on. Pt will be monitored.
[2018-12-29 20:00] VITALS: BP 144/70
[2018-12-29] MEDS: LORazepam 1mg tab GT PRN (21:05)
--- NOTE | 2018-12-29 23:17 | Psych Consult Progress Note ---
Psychiatry Progress Note Psychiatry Progress Note Medications Current Medications Medications (Trade) Dose Ordered Sig/Jessie Route PRN Reason Start Time Stop Time Status Last Admin Dose Admin Acetaminophen (Tylenol) 650 mg Q6H PRN GT Mild Pain/Temp > 100.5 12/29/18 17:00 01/25/19 21:49 Ascorbic Acid (Vitamin C) 500 mg TWICE A DAY GT 12/29/18 18:00 01/26/19 08:59 12/29/18 17:32 Carvedilol (Coreg) 3.125 mg EVERY 12 HOURS GT 12/29/18 21:00 01/24/19 20:59 12/29/18 21:04 Heparin Sodium (Porcine) (Heparin 5000 units/ml) 5,000 units EVERY 12 HOURS SUBQ 12/27/18 09:00 01/23/19 20:59 12/29/18 21:14 Hydromorphone HCl (Dilaudid) 0.5 mg Q3H PRN IVP Severe Pain (Pain Scale 7-10) 12/26/18 21:50 12/31/18 21:49 12/29/18 17:48 Lansoprazole (Prevacid) 30 mg BID GT 12/29/18 18:00 01/28/19 17:59 12/29/18 17:32 Lorazepam (Ativan) 1 mg Q6H PRN GT For Anxiety 12/29/18 17:00 01/03/19 22:59 12/29/18 21:05 Multivitamins (Multivitamins) 1 tab DAILY GT 12/30/18 09:00 01/26/19 08:59 Olanzapine (ZyPREXA) 2.5 mg TID GT 12/29/18 18:00 01/26/19 22:59 12/29/18 17:32 Ondansetron HCl (Zofran) 4 mg Q8H PRN IVP Nausea & Vomiting 12/26/18 21:51 01/25/19 21:50 Oxacillin Sodium 2 gm/Sodium Chloride 110 ml @ 220 mls/hr Q4HR IVPB 12/29/18 17:00 01/05/19 16:59 12/29/18 21:04 Potassium Chloride (K-Dur) 40 meq TWICE A DAY GT 12/29/18 18:00 01/28/19 17:59 12/29/18 17:32 Tamsulosin HCl (Flomax) 0.4 mg DAILY ORAL 12/27/18 09:00 01/25/19 08:59 12/29/18 08:08 Problems: (1) Acute encephalopathy (2) Anxiety Neurological/Psychiatric: Reports: anxiety Allergies: Coded Allergies: No Known Allergies (Unverified , 12/24/18) Objective Data Height (Feet): 5 Height (Inches): 10.00 Weight (Pounds): 179 General Appearance: WD/WN, alert, confused, agitated, overweight Assessment/Plan Problem List: (1) Acute encephalopathy ICD Codes: G93.40 - Encephalopathy, unspecified SNOMED: 79037746, 762633621 (2) Anxiety ICD Codes: F41.9 - Anxiety disorder, unspecified SNOMED: 56419110 Assessment/Plan zyprexa 2.5mg po tid ativan prn Lisha Pierson MD Dec 29, 2018 23:17
[2018-12-30] VITALS (8 sets, daily range): BP systolic 93–163; BP diastolic 52–94
[2018-12-30] MEDS: Oxacillin 2 GM in NS 110 ML IVPB SCH ×6 (01:29→21:46)
[2018-12-30] MEDS: Hydromorphone 0.5mg/0.5ml inj IVP PRN ×3 (01:31→18:41)
--- NOTE | 2018-12-30 05:00 | NUR ---
NURSE NOTES: Pt was turned Q 2HRS, bed bath given, linen changed, Dressing dry and intact.
--- NOTE | 2018-12-30 07:00 | NUR ---
NURSE NOTES: Spoke to Dr. Braxton regarding pt's code status. ordered to change full code to DNR/DNI.
--- NOTE | 2018-12-30 07:25 | NUR ---
HAND-OFF: Report given to Kasia Brothers RN .Pt is in bed, stable. No acute distress noted.
[2018-12-30 07:39] LABS: BASOPHILS % (AUTO) 0.7 % (0.0-2.0); EOSINOPHILS % (AUTO) 3.6 % (0.0-3.0); HEMOGLOBIN 11.5 G/DL (14.2-18.0); LYMPHOCYTES % (AUTO) 13.4 % (20.0-45.0); MEAN CORPUSCULAR VOLUME 101 FL (80-99); MONOCYTES % (AUTO) 6.7 % (1.0-10.0); NEUTROPHILS % (AUTO) 75.7 % (45.0-75.0); PLATELET COUNT 211 K/UL (150-450); RED BLOOD COUNT 3.57 M/UL (4.70-6.10); RED CELL DISTRIBUTION WIDTH 14.3 % (11.6-14.8); WHITE BLOOD COUNT 8.6 K/UL (4.8-10.8)
--- NOTE | 2018-12-30 07:49 | NUR ---
NURSE NOTES: Patient non-verbal, confused. on nasal cannula 2 liter, no sign of shortness of breath; no sign of distress; no sign of chest pain; Tube feeding Glucerna 1.5 running at 50cc, no residual and flushes well; Prasad in place drains yellow urine; IV R-Hand fluid running TKO; bed at lowest position, head of the bed elevated, side rails up x2, breaks engaged. will keep monitoring.
--- NOTE | 2018-12-30 07:56 | General Progress Note ---
Assessment/Plan Assessment/Plan S: I am ok O: make limited verbal conversation, no chest pain. PHYSICAL EXAMINATION:HEAD AND NECK: Atraumatic and normocephalic. CHEST: Diffuse bronchial breathing sounds.ABDOMEN: PEG t in place, Soft. MUSCULOSKELETAL: Positive for the increased reflexes and spasticity in all 4 extremities.NEUROLOGY: Limited evaluation as the patient is not verbally communicative. Meds: Reviewed and reconciled. ASSESSMENT AND PLAN: 1. Sepsis: Gram positive 2. Hypoxemic respiratory failure. 3. Healthcare-associated pneumonia. 4. Macrocytic anemia. 5. Abnormal LFTs. 6. GI and DVT prophylaxes. 7. DNR/DNI. 8. Dysphagia Plan: ID, Pulmonary, Nephro notes are reviewed current empirical abx remains DNR high risk for aspiration S/p PEG T placement . Placement: SNIF + Hospice , requested a different facility comment: D/w family ( one daughter and the son ) at bed side. requested DNI/DNR. Subjective Allergies: Coded Allergies: No Known Allergies (Unverified , 12/24/18) Objective Last 24 Hour Vital Signs Date Time Temp Pulse Resp B/P (MAP) Pulse Ox O2 Delivery O2 Flow Rate FiO2 12/30/18 05:09 98.4 77 18 110/61 (77) 100 12/30/18 04:27 98.8 67 20 93/52 (66) 100 12/30/18 00:00 98.6 78 20 144/79 (100) 97 12/29/18 21:04 78 138/71 12/29/18 21:00 Nasal Cannula 2.0 12/29/18 20:00 98.9 84 20 144/70 (94) 98 12/29/18 19:36 95 3.0 32 12/29/18 19:36 Nasal Cannula 3.0 32 12/29/18 19:35 Nasal Cannula 3.0 32 12/29/18 19:35 77 18 Nasal Cannula 3.0 32 12/29/18 19:35 Nasal Cannula 3.0 32 12/29/18 16:00 97.9 80 21 154/78 (103) 93 12/29/18 14:30 79 20 98 Nasal Cannula 3.0 32 12/29/18 14:21 72 20 95 Nasal Cannula 3.0 32 12/29/18 12:00 98.7 70 20 133/64 (87) 93 12/29/18 11:06 77 20 97 Nasal Cannula 3.0 32 12/29/18 10:47 67 20 94 Nasal Cannula 3.0 32 12/29/18 09:00 74 20 97 Nasal Cannula 3.0 32 12/29/18 08:38 Nasal Cannula 3.0 32 12/29/18 08:38 64 20 94 Nasal Cannula 3.0 32 12/29/18 08:38 94 3.0 32 12/29/18 08:14 70 118/66 12/29/18 08:00 98.4 73 19 137/69 (91) 94 12/29/18 08:00 Nasal Cannula 2.0 Intake and Output 12/29/18 12/30/18 18:59 06:59 Intake Total 860 ml 1230 ml Output Total 200 ml 500 ml Balance 660 ml 730 ml Free Water 330 ml 300 ml IV Total 330 ml Tube Feeding 530 ml 600 ml Output Urine Total 200 ml 500 ml Laboratory Tests 12/30/18 06:16: White Blood Count 8.6, Red Blood Count 3.57L, Hemoglobin 11.5L, Hematocrit 36.0L , Mean Corpuscular Volume 101H, Mean Corpuscular Hemoglobin 32.2H, Mean Corpuscular Hemoglobin Concent 32.0, Red Cell Distribution Width 14.3, Platelet Count 211, Mean Platelet Volume 5.9L, Neutrophils (%) (Auto) 75.7H, Lymphocytes (%) (Auto) 13.4L, Monocytes (%) (Auto) 6.7, Eosinophils (%) (Auto) 3.6H, Basophils (%) (Auto) 0.7, Sodium Level [Pending], Potassium Level [Pending], Chloride Level [Pending], Carbon Dioxide Level [Pending], Blood Urea Nitrogen [ Pending], Creatinine [Pending], Estimat Glomerular Filtration Rate [Pending], Glucose Level [Pending], Calcium Level [Pending] Height (Feet): 5 Height (Inches): 10.00 Weight (Pounds): 179 Albaro Cho MD Dec 30, 2018 07:55
[2018-12-30 08:03] LABS: ANION GAP 6 mmol/L (5-15); BLOOD UREA NITROGEN 19 mg/dL (7-18); CALCIUM 7.7 MG/DL (8.5-10.1); CARBON DIOXIDE 31 MMOL/L (21-32); CHLORIDE 112 MMOL/L (98-107); CREATININE 0.9 MG/DL (0.55-1.30); POTASSIUM 3.4 MMOL/L (3.5-5.1); SODIUM 149 MMOL/L (136-145)
[2018-12-30] MEDS: Tamsulosin 0.4mg cap ORAL SCH (08:49)
[2018-12-30] MEDS: OLANZapine 2.5mg tab GT SCH ×4 (08:49→21:46)
[2018-12-30] MEDS: Ascorbic Acid 500mg tab GT SCH ×2 (08:50→17:15)
[2018-12-30] MEDS: Heparin 5000 units/ml inj SUBQ SCH ×2 (08:51→21:49)
--- NOTE | 2018-12-30 10:17 | General Progress Note ---
Assessment/Plan Problem List: (1) Dysphagia ICD Codes: R13.10 - Dysphagia, unspecified SNOMED: 80400820, 515969884 (2) Anxiety ICD Codes: F41.9 - Anxiety disorder, unspecified SNOMED: 51616274 (3) Agitation ICD Codes: R45.1 - Restlessness and agitation SNOMED: 989413650 (4) Encounter for PEG (percutaneous endoscopic gastrostomy) ICD Codes: Z43.1 - Encounter for attention to gastrostomy SNOMED: 724461344, 780039927 Assessment/Plan SUMMARY OF FINDINGS: 1. Status post successful PEG placement. 2. Atrophic gastritis. RECOMMENDATIONS: 1. Abdominal binder. 2. Elevate the head of the bed at all times. 3. G-tube flush. 4. G-tube care. 5. Start tube feeding later today. 6. The patient is currently on vancomycin, we will continue. ppi prn transfusions follow labs pending placement Subjective ROS Limited/Unobtainable: No Allergies: Coded Allergies: No Known Allergies (Unverified , 12/24/18) Objective Last 24 Hour Vital Signs Date Time Temp Pulse Resp B/P (MAP) Pulse Ox O2 Delivery O2 Flow Rate FiO2 12/30/18 09:00 Nasal Cannula 2.0 12/30/18 08:50 67 117/68 12/30/18 08:19 98.9 67 20 117/68 (84) 94 12/30/18 05:09 98.4 77 18 110/61 (77) 100 12/30/18 04:27 98.8 67 20 93/52 (66) 100 12/30/18 00:00 98.6 78 20 144/79 (100) 97 12/29/18 21:04 78 138/71 12/29/18 21:00 Nasal Cannula 2.0 12/29/18 20:00 98.9 84 20 144/70 (94) 98 12/29/18 19:36 95 3.0 32 12/29/18 19:36 Nasal Cannula 3.0 32 12/29/18 19:35 Nasal Cannula 3.0 32 12/29/18 19:35 77 18 Nasal Cannula 3.0 32 12/29/18 19:35 Nasal Cannula 3.0 32 12/29/18 16:00 97.9 80 21 154/78 (103) 93 12/29/18 14:30 79 20 98 Nasal Cannula 3.0 32 12/29/18 14:21 72 20 95 Nasal Cannula 3.0 32 12/29/18 12:00 98.7 70 20 133/64 (87) 93 12/29/18 11:06 77 20 97 Nasal Cannula 3.0 32 12/29/18 10:47 67 20 94 Nasal Cannula 3.0 32 Intake and Output 12/29/18 12/30/18 18:59 06:59 Intake Total 860 ml 1230 ml Output Total 200 ml 500 ml Balance 660 ml 730 ml Free Water 330 ml 300 ml IV Total 330 ml Tube Feeding 530 ml 600 ml Output Urine Total 200 ml 500 ml Laboratory Tests 12/30/18 06:16: White Blood Count 8.6, Red Blood Count 3.57L, Hemoglobin 11.5L, Hematocrit 36.0L , Mean Corpuscular Volume 101H, Mean Corpuscular Hemoglobin 32.2H, Mean Corpuscular Hemoglobin Concent 32.0, Red Cell Distribution Width 14.3, Platelet Count 211, Mean Platelet Volume 5.9L, Neutrophils (%) (Auto) 75.7H, Lymphocytes (%) (Auto) 13.4L, Monocytes (%) (Auto) 6.7, Eosinophils (%) (Auto) 3.6H, Basophils (%) (Auto) 0.7, Sodium Level 149H, Potassium Level 3.4L, Chloride Level 112H, Carbon Dioxide Level 31, Anion Gap 6, Blood Urea Nitrogen 19H, Creatinine 0.9, Estimat Glomerular Filtration Rate , Glucose Level 157H, Calcium Level 7.7L Height (Feet): 5 Height (Inches): 10.00 Weight (Pounds): 179 General Appearance: no apparent distress EENT: normal ENT inspection Neck: supple Cardiovascular: normal rate Respiratory/Chest: decreased breath sounds Abdomen: normal bowel sounds, non tender, soft Extremities: non-tender David Styles MD Dec 30, 2018 10:17
--- NOTE | 2018-12-30 13:00 | Nephrology Progress Note ---
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 ..NOW IS FULL CODE ??? Subjective ROS Limited/Unobtainable: No Constitutional: Reports: malaise Objective Objective Last 24 Hour Vital Signs Date Time Temp Pulse Resp B/P (MAP) Pulse Ox O2 Delivery O2 Flow Rate FiO2 12/30/18 12:00 98.8 68 16 119/70 (86) 93 12/30/18 09:00 Nasal Cannula 2.0 12/30/18 08:50 67 117/68 12/30/18 08:19 98.9 67 20 117/68 (84) 94 12/30/18 05:09 98.4 77 18 110/61 (77) 100 12/30/18 04:27 98.8 67 20 93/52 (66) 100 12/30/18 00:00 98.6 78 20 144/79 (100) 97 12/29/18 21:04 78 138/71 12/29/18 21:00 Nasal Cannula 2.0 12/29/18 20:00 98.9 84 20 144/70 (94) 98 12/29/18 19:36 95 3.0 32 12/29/18 19:36 Nasal Cannula 3.0 32 12/29/18 19:35 Nasal Cannula 3.0 32 12/29/18 19:35 77 18 Nasal Cannula 3.0 32 12/29/18 19:35 Nasal Cannula 3.0 32 12/29/18 16:00 97.9 80 21 154/78 (103) 93 12/29/18 14:30 79 20 98 Nasal Cannula 3.0 32 12/29/18 14:21 72 20 95 Nasal Cannula 3.0 32 Intake and Output 12/29/18 12/30/18 19:00 07:00 Intake Total 850 ml 1380 ml Output Total 200 ml 500 ml Balance 650 ml 880 ml Free Water 330 ml 450 ml IV Total 330 ml Tube Feeding 520 ml 600 ml Output Urine Total 200 ml 500 ml Laboratory Tests 12/30/18 06:16: White Blood Count 8.6, Red Blood Count 3.57L, Hemoglobin 11.5L, Hematocrit 36.0L , Mean Corpuscular Volume 101H, Mean Corpuscular Hemoglobin 32.2H, Mean Corpuscular Hemoglobin Concent 32.0, Red Cell Distribution Width 14.3, Platelet Count 211, Mean Platelet Volume 5.9L, Neutrophils (%) (Auto) 75.7H, Lymphocytes (%) (Auto) 13.4L, Monocytes (%) (Auto) 6.7, Eosinophils (%) (Auto) 3.6H, Basophils (%) (Auto) 0.7, Sodium Level 149H, Potassium Level 3.4L, Chloride Level 112H, Carbon Dioxide Level 31, Anion Gap 6, Blood Urea Nitrogen 19H, Creatinine 0.9, Estimat Glomerular Filtration Rate , Glucose Level 157H, Calcium Level 7.7L Height (Feet): 5 Height (Inches): 10.00 Weight (Pounds): 179 General Appearance: no apparent distress Cardiovascular: normal rate Respiratory/Chest: decreased breath sounds Abdomen: distended Objective NO CHANGE Rigoberto Aaron MD Dec 30, 2018 13:00
[2018-12-30 13:20] LABS: ALANINE AMINOTRANSFERASE 43 U/L (12-78); ALBUMIN 2.1 G/DL (3.4-5.0); ALKALINE PHOSPHATASE 98 U/L (46-116); ASPARTATE AMINO TRANSFERASE 34 U/L (15-37); BILIRUBIN,DIRECT < 0.1 MG/DL (0.0-0.3); BILIRUBIN,TOTAL 0.3 MG/DL (0.2-1.0); PHOSPHORUS 2.8 MG/DL (2.5-4.9)
--- NOTE | 2018-12-30 13:57 | Surgery Progress Note ---
Surgery Progress Note Subjective Additional Comments dnr/dni. family at bedside. no acute events. electrolytes abnormal. exam unchanged. Objective Last 24 Hour Vital Signs Date Time Temp Pulse Resp B/P (MAP) Pulse Ox O2 Delivery O2 Flow Rate FiO2 12/30/18 12:00 98.8 68 16 119/70 (86) 93 12/30/18 09:00 Nasal Cannula 2.0 12/30/18 08:50 67 117/68 12/30/18 08:19 98.9 67 20 117/68 (84) 94 12/30/18 05:09 98.4 77 18 110/61 (77) 100 12/30/18 04:27 98.8 67 20 93/52 (66) 100 12/30/18 00:00 98.6 78 20 144/79 (100) 97 12/29/18 21:04 78 138/71 12/29/18 21:00 Nasal Cannula 2.0 12/29/18 20:00 98.9 84 20 144/70 (94) 98 12/29/18 19:36 95 3.0 32 12/29/18 19:36 Nasal Cannula 3.0 32 12/29/18 19:35 Nasal Cannula 3.0 32 12/29/18 19:35 77 18 Nasal Cannula 3.0 32 12/29/18 19:35 Nasal Cannula 3.0 32 12/29/18 16:00 97.9 80 21 154/78 (103) 93 12/29/18 14:30 79 20 98 Nasal Cannula 3.0 32 12/29/18 14:21 72 20 95 Nasal Cannula 3.0 32 I&O Intake and Output 12/29/18 12/30/18 19:00 07:00 Intake Total 850 ml 1380 ml Output Total 200 ml 500 ml Balance 650 ml 880 ml Free Water 330 ml 450 ml IV Total 330 ml Tube Feeding 520 ml 600 ml Output Urine Total 200 ml 500 ml Dressing: dry Wound: clean Drains: other Cardiovascular: RSR Respiratory: decreased breath sounds Abdomen: soft, present bowel sounds, non-distended Extremities: other Laboratory Tests Test 12/30/18 06:16 White Blood Count 8.6 K/UL (4.8-10.8) Red Blood Count 3.57 M/UL (4.70-6.10) L Hemoglobin 11.5 G/DL (14.2-18.0) L Hematocrit 36.0 % (42.0-52.0) L Mean Corpuscular Volume 101 FL (80-99) H Mean Corpuscular Hemoglobin 32.2 PG (27.0-31.0) H Mean Corpuscular Hemoglobin Concent 32.0 G/DL (32.0-36.0) Red Cell Distribution Width 14.3 % (11.6-14.8) Platelet Count 211 K/UL (150-450) Mean Platelet Volume 5.9 FL (6.5-10.1) L Neutrophils (%) (Auto) 75.7 % (45.0-75.0) H Lymphocytes (%) (Auto) 13.4 % (20.0-45.0) L Monocytes (%) (Auto) 6.7 % (1.0-10.0) Eosinophils (%) (Auto) 3.6 % (0.0-3.0) H Basophils (%) (Auto) 0.7 % (0.0-2.0) Sodium Level 149 MMOL/L (136-145) H Potassium Level 3.4 MMOL/L (3.5-5.1) L Chloride Level 112 MMOL/L (98-107) H Carbon Dioxide Level 31 MMOL/L (21-32) Anion Gap 6 mmol/L (5-15) Blood Urea Nitrogen 19 mg/dL (7-18) H Creatinine 0.9 MG/DL (0.55-1.30) Estimat Glomerular Filtration Rate mL/min (>60) Glucose Level 157 MG/DL (74-106) H Calcium Level 7.7 MG/DL (8.5-10.1) L Phosphorus Level 2.8 MG/DL (2.5-4.9) Magnesium Level 2.2 MG/DL (1.8-2.4) Total Bilirubin 0.3 MG/DL (0.2-1.0) Direct Bilirubin < 0.1 MG/DL (0.0-0.3) Aspartate Amino Transf (AST/SGOT) 34 U/L (15-37) Alanine Aminotransferase (ALT/SGPT) 43 U/L (12-78) Alkaline Phosphatase 98 U/L (46-116) Total Protein 5.6 G/DL (6.4-8.2) L Albumin 2.1 G/DL (3.4-5.0) L Plan Problems: (1) Decubitus skin ulcer Assessment & Plan: Pt presented on admission with multiple pressure injuries. Non-blanchable red area that is indurated L thoracic(L)1.1cm x (W)3.5cm. Periwound pink and intact. Maroon discoloration that is indurated L Buttocks (L) 1.9cm x (W)4cm.Maroon discoloration with red margins that are indurated.Non- blanchable erythema periwound. Non-blanchable erythema with induration noted to R buttocks (L)3cm x (W)3.5cm. Intact Blood Blister noted to R heel (L)5.5cm x (W )4.4cm. Non-blanchable erythema with fluctuance periwound. Intact Blood Blister noted extending from medial to lateral aspect of L heel (L)6.2cm x (W)9cm. Non- blanchable erythema periwound . Cavilon Skin Barrier applied to both heel blisters.Each heel covered with Optifoam drsg .Abd pads applied to both heels and each heel wrapped with kerlix to prevent further friction to heels Tx plan: Apply Cavilon Skin Barrier to L thoracic. Cover with Optifoam drsg. Change every 3 days and prn. Apply Cavilon Skin Barrier to R and L heel Blisters. Cover each heel with Optifoam drsg.Reinforce with ABD Pad and Kerlix. Change every 7 days and prn. Apply Triad Paste to Sacrum,R and L buttocks. Cover with Optifoam drsgs. Change every 3 days and APM/RAÚL Mattress overlay. Reposition at least every 2hours or as tolerated. Off-load heels with Pillow. (2) Heel ulcer (3) Sepsis Assessment & Plan: leukocytosis resolved on IV Abx as per ID labs abnormal and improving CT head noted cont with current care (4) Dehydration Assessment & Plan: DAILY ESTIMATED NEEDS: Needs based on Wound, CA / 77kg abw 25-30 kcals/kg 4175-9287 total kcals 1.25-1.5 g protein/kg 96-115 g total protein 20-22 mL/kg 6959-9065 total fluid mLs NUTRITION DIAGNOSIS: Increased kcal/prot needs R/T wound healing, catabolic dx as evidenced by pt admitted w/ BL heels + sacral wound, pending eval, h/o metastatic prostate CA. CURRENT DIET:NPO PO DIET RECOMMENDATIONS: CCHO MED, LOW NA/ texture per HAND BLOCKER ADDITIONAL RECOMMENDATIONS: * Calibrated bedscale weight for accurate CBW- bed w/ added p200 mattress * Monitor lytes, replete as needed (low phos) * Consider accucheck w/ SSI- h/o DM, A1C=6.5 * Wound healing: add MVI x 1, Vit C 500mg QD, Kyler 1pkt BID Juan Syed Dec 30, 2018 13:57
--- NOTE | 2018-12-30 13:57 | NUR ---
NURSE NOTES: After I prepare the Zyprexa, MD Mckeon was at the bed side and ordered hold and communicated MD Black. Patient was sleepy and 1300 scheduled Zyprexa wasn't given. Charge nurse, Alexandra is aware.
--- NOTE | 2018-12-30 14:53 | Infectious Diseases Prog Note ---
Assessment/Plan Problems: (1) LLL pneumonia Assessment & Plan: suspect aspiration, improved with vancomycin and zosyn empirically , aspiration precaution , keep HOB > 30 degree (2) Sepsis Assessment & Plan: with staph aureus methicillin sensitive , due to the above , already on oxacillin and treat him for four weeks . ECHO rule out vegetations . repeated blood culture to confirm clearance is pending . (3) Acute encephalopathy Assessment & Plan: due to the above, suspect metabolic and toxic, continue antibiotics and supportive care (4) Renal failure Assessment & Plan: suspect due to dehydration , continue IVF , monitor renal function closely (5) Dehydration Assessment & Plan: continue IVF, encourage hydration (6) Acute respiratory failure Assessment & Plan: due to the above, improving , off BIPAP , monitor CXR . Subjective ROS Limited/Unobtainable: Yes Allergies: Coded Allergies: No Known Allergies (Unverified , 12/24/18) Subjective He was altered and unresponsive today , and doesn't follow commands , afebrile Objective Vital Signs Last 24 Hour Vital Signs Date Time Temp Pulse Resp B/P (MAP) Pulse Ox O2 Delivery O2 Flow Rate FiO2 12/30/18 12:00 98.8 68 16 119/70 (86) 93 12/30/18 09:00 Nasal Cannula 2.0 12/30/18 08:50 67 117/68 12/30/18 08:19 98.9 67 20 117/68 (84) 94 12/30/18 05:09 98.4 77 18 110/61 (77) 100 12/30/18 04:27 98.8 67 20 93/52 (66) 100 12/30/18 00:00 98.6 78 20 144/79 (100) 97 12/29/18 21:04 78 138/71 12/29/18 21:00 Nasal Cannula 2.0 12/29/18 20:00 98.9 84 20 144/70 (94) 98 12/29/18 19:36 95 3.0 32 12/29/18 19:36 Nasal Cannula 3.0 32 12/29/18 19:35 Nasal Cannula 3.0 32 12/29/18 19:35 77 18 Nasal Cannula 3.0 32 12/29/18 19:35 Nasal Cannula 3.0 32 12/29/18 16:00 97.9 80 21 154/78 (103) 93 Height (Feet): 5 Height (Inches): 10.00 Weight (Pounds): 179 General Appearance: WD/WN, no acute distress HEENT: normocephalic, atraumatic, anicteric, mucous membranes moist, PERRL, EOMI, pharynx normal, supple, no JVD Respiratory/Chest: chest wall non-tender, no respiratory distress, no accessory muscle use, decreased breath sounds, crackles/rales Cardiovascular: normal peripheral pulses, normal rate, regular rhythm, no gallop/murmur, no JVD Abdomen: normal bowel sounds, soft, non tender, no organomegaly, non distended , no mass, no scars Genitourinary: normal external genitalia Extremities: no cyanosis, no clubbing Skin: no rash, no lesions, ulcers Neurologic/Psychiatric: unresponsiveness Lymphatic: no neck adenopathy, no groin adenopathy Musculoskeletal: normal muscle bulk, no effusion Microbiology Date/Time Source Procedure Growth Status 12/27/18 16:15 Blood Blood Culture - Preliminary NO GROWTH AFTER 48 HOURS Resulted 12/27/18 16:00 Blood Blood Culture - Preliminary NO GROWTH AFTER 48 HOURS Resulted Laboratory Tests Test 12/30/18 06:16 White Blood Count 8.6 K/UL (4.8-10.8) Red Blood Count 3.57 M/UL (4.70-6.10) L Hemoglobin 11.5 G/DL (14.2-18.0) L Hematocrit 36.0 % (42.0-52.0) L Mean Corpuscular Volume 101 FL (80-99) H Mean Corpuscular Hemoglobin 32.2 PG (27.0-31.0) H Mean Corpuscular Hemoglobin Concent 32.0 G/DL (32.0-36.0) Red Cell Distribution Width 14.3 % (11.6-14.8) Platelet Count 211 K/UL (150-450) Mean Platelet Volume 5.9 FL (6.5-10.1) L Neutrophils (%) (Auto) 75.7 % (45.0-75.0) H Lymphocytes (%) (Auto) 13.4 % (20.0-45.0) L Monocytes (%) (Auto) 6.7 % (1.0-10.0) Eosinophils (%) (Auto) 3.6 % (0.0-3.0) H Basophils (%) (Auto) 0.7 % (0.0-2.0) Sodium Level 149 MMOL/L (136-145) H Potassium Level 3.4 MMOL/L (3.5-5.1) L Chloride Level 112 MMOL/L (98-107) H Carbon Dioxide Level 31 MMOL/L (21-32) Anion Gap 6 mmol/L (5-15) Blood Urea Nitrogen 19 mg/dL (7-18) H Creatinine 0.9 MG/DL (0.55-1.30) Estimat Glomerular Filtration Rate mL/min (>60) Glucose Level 157 MG/DL (74-106) H Calcium Level 7.7 MG/DL (8.5-10.1) L Phosphorus Level 2.8 MG/DL (2.5-4.9) Magnesium Level 2.2 MG/DL (1.8-2.4) Total Bilirubin 0.3 MG/DL (0.2-1.0) Direct Bilirubin < 0.1 MG/DL (0.0-0.3) Aspartate Amino Transf (AST/SGOT) 34 U/L (15-37) Alanine Aminotransferase (ALT/SGPT) 43 U/L (12-78) Alkaline Phosphatase 98 U/L (46-116) Total Protein 5.6 G/DL (6.4-8.2) L Albumin 2.1 G/DL (3.4-5.0) L Current Medications Medications (Trade) Dose Ordered Sig/Jessie Route PRN Reason Start Time Stop Time Status Last Admin Dose Admin Acetaminophen (Tylenol) 650 mg Q6H PRN GT Mild Pain/Temp > 100.5 12/29/18 17:00 01/25/19 21:49 Ascorbic Acid (Vitamin C) 500 mg TWICE A DAY GT 12/29/18 18:00 01/26/19 08:59 12/30/18 08:50 Carvedilol (Coreg) 3.125 mg EVERY 12 HOURS GT 12/29/18 21:00 01/24/19 20:59 12/30/18 08:50 Heparin Sodium (Porcine) (Heparin 5000 units/ml) 5,000 units EVERY 12 HOURS SUBQ 12/27/18 09:00 01/23/19 20:59 12/30/18 08:51 Hydromorphone HCl (Dilaudid) 0.5 mg Q3H PRN IVP Severe Pain (Pain Scale 7-10) 12/26/18 21:50 12/31/18 21:49 12/30/18 01:31 Lansoprazole (Prevacid) 30 mg BID GT 12/29/18 18:00 01/28/19 17:59 12/30/18 08:49 Lorazepam (Ativan) 1 mg Q6H PRN GT For Anxiety 12/29/18 17:00 01/03/19 22:59 12/29/18 21:05 Multivitamins (Multivitamins) 1 tab DAILY GT 12/30/18 09:00 01/26/19 08:59 12/30/18 08:49 Olanzapine (ZyPREXA) 2.5 mg TID GT 12/29/18 18:00 01/26/19 22:59 12/30/18 08:49 Ondansetron HCl (Zofran) 4 mg Q8H PRN IVP Nausea & Vomiting 12/26/18 21:51 01/25/19 21:50 Oxacillin Sodium 2 gm/Sodium Chloride 110 ml @ 220 mls/hr Q4HR IVPB 12/29/18 17:00 01/05/19 16:59 12/30/18 13:39 Potassium Chloride (K-Dur) 40 meq TWICE A DAY GT 12/29/18 18:00 01/28/19 17:59 12/30/18 08:49 Tamsulosin HCl (Flomax) 0.4 mg DAILY ORAL 12/27/18 09:00 01/25/19 08:59 12/30/18 08:49 Alex Mckeon M.D. Dec 30, 2018 14:53
[2018-12-30] MEDS ORDERED: NS 500ML ONE (15:56)
[2018-12-30] MEDS ORDERED: Tubing IV Secondary IV ONE (15:56)
[2018-12-30] MEDS ORDERED: fentaNYL 100 mcg/2 mL IV ONE (16:22)
--- NOTE | 2018-12-30 19:38 | NUR ---
NURSE NOTES: Patient non-verbal, confused. on nasal cannula 2 liter, no sign of shortness of breath; no sign of distress; no sign of chest pain; Tube feeding Glucerna GT at 50cc, no residual and flushes well; Prasad in place drains yellow urine; IV R-Hand fluid running TKO; bed at lowest position, head of the bed elevated, side rails up x2, bed locked in lowest position, will keep monitoring.
--- NOTE | 2018-12-30 19:38 | NUR ---
HAND-OFF: Report given to QUAN Santos.
[2018-12-31] VITALS: BP 166/97
[2018-12-31] MEDS: Oxacillin 2 GM in NS 110 ML IVPB SCH ×6 (00:21→20:21)
[2018-12-31] MEDS: Hydromorphone 0.5mg/0.5ml inj IVP PRN ×4 (00:21→21:17)
[2018-12-31] MEDS: LORazepam 1mg tab GT PRN ×3 (01:35→23:50)
--- NOTE | 2018-12-31 03:00 | NUR ---
NURSE NOTES: Changed all dressings and noticed marked deterioration in wounds on both heels (blisters) and the sacral redness is now dti. The left heel blister is blood filled and there is blanchable redness surrounding it. The right heel blood blister is partially open and draining purulent foul smeeling yellow brown drainage. Pictures retaken and dressings reapplied. Optifoam and triad to sacral and heels cleansed with NS and covered with Optifoam and kerlix and floated on multiple pillows. Pt has been repositioned every two hours and pressure offloaded.
--- NOTE | 2018-12-31 03:34 | NUR ---
NURSE NOTES: Wound care performed and pictures retaken. Pt had a previous stage 1 but appears to now have a dti on sacral area. Will inform MD and family in the am about change in condition. Turning patient q 2 and managing moisture and will continue to monitor.
[2018-12-31 04:00] VITALS: BP 116/65
--- NOTE | 2018-12-31 07:22 | NUR ---
NURSE NOTES: Patient non-verbal, on nasal cannula at 2 liter, no sign of distress and shortness of breath; no sign of chest pain; Tube feeding Glucerna 1.5 running at 50cc, flushes well, no residual; Prasad in place drains well; wound care provided by PM nurse, and communicated MD Cho and PM nurse going to initiate wound care protocol; will follow up on that. side rails up x2, breaks engaged, bed at lowest position. will keep monitoring.
--- NOTE | 2018-12-31 07:34 | NUR ---
HAND-OFF: Report given to QUAN Ridley.
[2018-12-31 08:00] VITALS: BP 117/69
--- NOTE | 2018-12-31 08:06 | NUR ---
NURSE NOTES: Informed Kunal Beebe of change in condition and Marquis said to have wound care nurse see the patient as soon as possible.
[2018-12-31] MEDS: Ascorbic Acid 500mg tab GT SCH ×2 (08:43→18:09)
[2018-12-31] MEDS: Tamsulosin 0.4mg cap ORAL SCH (08:43)
[2018-12-31] MEDS: Heparin 5000 units/ml inj SUBQ SCH ×2 (08:46→20:53)
--- NOTE | 2018-12-31 10:23 | General Progress Note ---
Assessment/Plan Problem List: (1) Dysphagia ICD Codes: R13.10 - Dysphagia, unspecified SNOMED: 19346558, 355213893 (2) Anxiety ICD Codes: F41.9 - Anxiety disorder, unspecified SNOMED: 39210630 (3) Agitation ICD Codes: R45.1 - Restlessness and agitation SNOMED: 911346954 (4) Encounter for PEG (percutaneous endoscopic gastrostomy) ICD Codes: Z43.1 - Encounter for attention to gastrostomy SNOMED: 247281724, 546343359 Assessment/Plan SUMMARY OF FINDINGS: 1. Status post successful PEG placement. 2. Atrophic gastritis. RECOMMENDATIONS: 1. Abdominal binder. 2. Elevate the head of the bed at all times. 3. G-tube flush. 4. G-tube care. 5. Start tube feeding later today. 6. The patient is currently on vancomycin, we will continue. ppi prn transfusions follow labs pending placement Subjective ROS Limited/Unobtainable: No Allergies: Coded Allergies: No Known Allergies (Unverified , 12/24/18) Objective Last 24 Hour Vital Signs Date Time Temp Pulse Resp B/P (MAP) Pulse Ox O2 Delivery O2 Flow Rate FiO2 12/31/18 09:40 98.6 12/31/18 09:00 Nasal Cannula 2.0 12/31/18 08:43 74 117/69 12/31/18 08:00 98.6 74 18 117/69 (85) 99 12/31/18 04:00 98.7 77 18 116/65 (82) 96 12/31/18 00:00 99.2 97 20 166/97 (120) 92 12/30/18 21:48 97 163/94 12/30/18 21:00 Nasal Cannula 2.0 12/30/18 20:00 98.2 97 20 163/94 (117) 96 12/30/18 16:00 98.6 79 19 138/82 (100) 93 12/30/18 12:00 98.8 68 16 119/70 (86) 93 Intake and Output 12/30/18 12/31/18 18:59 06:59 Intake Total 1340 ml 420 ml Balance 1340 ml 420 ml Free Water 300 ml 150 ml IV Total 440 ml 220 ml Tube Feeding 600 ml 50 ml # Voids 2 # Bowel Movements 2 Height (Feet): 5 Height (Inches): 10.00 Weight (Pounds): 179 General Appearance: no apparent distress EENT: normal ENT inspection Neck: supple Cardiovascular: normal rate Respiratory/Chest: decreased breath sounds Abdomen: normal bowel sounds, non tender, soft Extremities: non-tender David Styles MD Dec 31, 2018 10:23
--- NOTE | 2018-12-31 10:58 | General Progress Note ---
Assessment/Plan Assessment/Plan S: Not verbally communicative O: make limited verbal conversation, no chest pain. appears anxious. The son is bed side PHYSICAL EXAMINATION:HEAD AND NECK: Atraumatic and normocephalic. CHEST: Diffuse bronchial breathing sounds.ABDOMEN: PEG t in place, Soft. MUSCULOSKELETAL: Positive for the increased reflexes and spasticity in all 4 extremities.NEUROLOGY: Limited evaluation as the patient is not verbally communicative. Meds: Reviewed and reconciled. ASSESSMENT AND PLAN: 1. Sepsis: Gram positive 2. Hypoxemic respiratory failure. 3. Healthcare-associated pneumonia. 4. Macrocytic anemia. 5. Abnormal LFTs. 6. GI and DVT prophylaxes. 7. DNR/DNI. 8. Dysphagia Plan: ID, Pulmonary, Nephro notes are reviewed current empirical abx remains DNR high risk for aspiration S/p PEG T placement . Placement: SNIF + Hospice , [facility] Notes from Psych reviewed comment: D/w family ( one daughter and the son ) at bed side. requested DNI/DNR. Subjective Allergies: Coded Allergies: No Known Allergies (Unverified , 12/24/18) Objective Last 24 Hour Vital Signs Date Time Temp Pulse Resp B/P (MAP) Pulse Ox O2 Delivery O2 Flow Rate FiO2 12/31/18 09:40 98.6 12/31/18 09:00 Nasal Cannula 2.0 12/31/18 08:43 74 117/69 12/31/18 08:00 98.6 74 18 117/69 (85) 99 12/31/18 04:00 98.7 77 18 116/65 (82) 96 12/31/18 00:00 99.2 97 20 166/97 (120) 92 12/30/18 21:48 97 163/94 12/30/18 21:00 Nasal Cannula 2.0 12/30/18 20:00 98.2 97 20 163/94 (117) 96 12/30/18 16:00 98.6 79 19 138/82 (100) 93 12/30/18 12:00 98.8 68 16 119/70 (86) 93 Intake and Output 12/30/18 12/31/18 18:59 06:59 Intake Total 1340 ml 420 ml Balance 1340 ml 420 ml Free Water 300 ml 150 ml IV Total 440 ml 220 ml Tube Feeding 600 ml 50 ml # Voids 2 # Bowel Movements 2 Height (Feet): 5 Height (Inches): 10.00 Weight (Pounds): 179 Albaro Cho MD Dec 31, 2018 10:58
--- NOTE | 2018-12-31 11:11 | Nephrology Progress Note ---
Assessment/Plan Problem List: (1) Renal failure Assessment: acute , resolved (2) LLL pneumonia (3) Acute respiratory failure (4) Acute encephalopathy Assessment Renal impression: Renal failure acute, likely prerenal , combination of cardiomyopathy and dehydration leading to pre renal azotemia RLL pneumonia Sepsis H/O metastatic prostate cancer EjFx 18% per history now 30% Was on Hospice [employer] Anemia Plan K supplement as needed optimize cardiac state pulm support antibiotics Per consultants 2D echo noted NOW DNR Subjective ROS Limited/Unobtainable: No Constitutional: Reports: malaise Objective Objective Last 24 Hour Vital Signs Date Time Temp Pulse Resp B/P (MAP) Pulse Ox O2 Delivery O2 Flow Rate FiO2 12/31/18 09:40 98.6 12/31/18 09:00 Nasal Cannula 2.0 12/31/18 08:43 74 117/69 12/31/18 08:00 98.6 74 18 117/69 (85) 99 12/31/18 04:00 98.7 77 18 116/65 (82) 96 12/31/18 00:00 99.2 97 20 166/97 (120) 92 12/30/18 21:48 97 163/94 12/30/18 21:00 Nasal Cannula 2.0 12/30/18 20:00 98.2 97 20 163/94 (117) 96 12/30/18 16:00 98.6 79 19 138/82 (100) 93 12/30/18 12:00 98.8 68 16 119/70 (86) 93 Intake and Output 12/30/18 12/31/18 18:59 06:59 Intake Total 1340 ml 420 ml Balance 1340 ml 420 ml Free Water 300 ml 150 ml IV Total 440 ml 220 ml Tube Feeding 600 ml 50 ml # Voids 2 # Bowel Movements 2 Height (Feet): 5 Height (Inches): 10.00 Weight (Pounds): 179 General Appearance: no apparent distress Objective NO CHANGE Rigoberto Aaron MD Dec 31, 2018 11:11
[2018-12-31 12:00] VITALS: BP 129/68
--- NOTE | 2018-12-31 13:49 | Surgery Progress Note ---
Surgery Progress Note Subjective Additional Comments deterioration of heel and sacrum forming DTI. Objective Last 24 Hour Vital Signs Date Time Temp Pulse Resp B/P (MAP) Pulse Ox O2 Delivery O2 Flow Rate FiO2 12/31/18 12:00 97.7 65 18 129/68 (88) 95 12/31/18 09:40 98.6 12/31/18 09:00 Nasal Cannula 2.0 12/31/18 08:43 74 117/69 12/31/18 08:00 98.6 74 18 117/69 (85) 99 12/31/18 04:00 98.7 77 18 116/65 (82) 96 12/31/18 00:00 99.2 97 20 166/97 (120) 92 12/30/18 21:48 97 163/94 12/30/18 21:00 Nasal Cannula 2.0 12/30/18 20:00 98.2 97 20 163/94 (117) 96 12/30/18 16:00 98.6 79 19 138/82 (100) 93 I&O Intake and Output 12/30/18 12/31/18 18:59 06:59 Intake Total 1340 ml 420 ml Balance 1340 ml 420 ml Free Water 300 ml 150 ml IV Total 440 ml 220 ml Tube Feeding 600 ml 50 ml # Voids 2 # Bowel Movements 2 Dressing: dry Wound: other Cardiovascular: RSR Respiratory: clear, decreased breath sounds Abdomen: soft, present bowel sounds Extremities: edema, other Plan Problems: (1) Decubitus skin ulcer Assessment & Plan: Pt presented on admission with multiple pressure injuries. Non-blanchable red area that is indurated L thoracic(L)1.1cm x (W)3.5cm. Periwound pink and intact. Maroon discoloration that is indurated L Buttocks (L) 1.9cm x (W)4cm.Maroon discoloration with red margins that are indurated.Non- blanchable erythema periwound. Non-blanchable erythema with induration noted to R buttocks (L)3cm x (W)3.5cm. Intact Blood Blister noted to R heel (L)5.5cm x (W )4.4cm. Non-blanchable erythema with fluctuance periwound. Intact Blood Blister noted extending from medial to lateral aspect of L heel (L)6.2cm x (W)9cm. Non- blanchable erythema periwound . Cavilon Skin Barrier applied to both heel blisters.Each heel covered with Optifoam drsg .Abd pads applied to both heels and each heel wrapped with kerlix to prevent further friction to heels deterioration in wounds on both heels (blisters) and the sacral redness is now dti. The left heel blister is blood filled and there is blanchable redness surrounding it. The right heel blood blister is partially open and draining foul smelling yellow brown drainage Tx plan: Apply Cavilon Skin Barrier to L thoracic. Cover with Optifoam drsg. Change every 3 days and prn. Apply Cavilon Skin Barrier to R and L heel Blisters. Cover each heel with Optifoam drsg. Reinforce with ABD Pad and Kerlix. Change daily Will discuss with family for intervention Unfortunately at risk for decline given medical condition and current status Apply Triad Paste to Sacrum,R and L buttocks. Cover with Optifoam drsgs. Change every 3 days and APM/RAÚL Mattress overlay. Reposition at least every 2hours or as tolerated. Off-load heels with Pillow. (2) Heel ulcer (3) Sepsis Assessment & Plan: leukocytosis resolved on IV Abx as per ID labs abnormal and improving CT head noted cont with current care (4) Dehydration Assessment & Plan: DAILY ESTIMATED NEEDS: Needs based on Wound, CA / 77kg abw 25-30 kcals/kg 3270-6015 total kcals 1.25-1.5 g protein/kg 96-115 g total protein 20-22 mL/kg 5224-6657 total fluid mLs NUTRITION DIAGNOSIS: Increased kcal/prot needs R/T wound healing, catabolic dx as evidenced by pt admitted w/ BL heels + sacral wound, pending eval, h/o metastatic prostate CA. CURRENT DIET:NPO PO DIET RECOMMENDATIONS: CCHO MED, LOW NA/ texture per [employer] ADDITIONAL RECOMMENDATIONS: * Calibrated bedscale weight for accurate CBW- bed w/ added p200 mattress * Monitor lytes, replete as needed (low phos) * Consider accucheck w/ SSI- h/o DM, A1C=6.5 * Wound healing: add MVI x 1, Vit C 500mg QD, Kyler 1pkt BID Juan Syed Dec 31, 2018 13:49
[2018-12-31 16:00] VITALS: BP 121/72
--- NOTE | 2018-12-31 16:20 | Infectious Diseases Prog Note ---
Assessment/Plan Problems: (1) LLL pneumonia Assessment & Plan: suspect aspiration, improved with vancomycin and zosyn empirically , aspiration precaution , keep HOB > 30 degree (2) Sepsis Assessment & Plan: with staph aureus methicillin sensitive , due to the above , already on oxacillin and treat him for four weeks . ECHO rule out vegetations . repeated blood culture to confirm clearance is pending .EOT 01/24/19 (3) Acute encephalopathy Assessment & Plan: due to the above, suspect metabolic and toxic, continue antibiotics and supportive care (4) Renal failure Assessment & Plan: suspect due to dehydration , continue IVF , monitor renal function closely (5) Dehydration Assessment & Plan: continue IVF, encourage hydration (6) Acute respiratory failure Assessment & Plan: due to the above, improving , off BIPAP , monitor CXR . Subjective ROS Limited/Unobtainable: Yes Allergies: Coded Allergies: No Known Allergies (Unverified , 12/24/18) Subjective He was altered and unresponsive today , and doesn't follow commands , afebrile Objective Vital Signs Last 24 Hour Vital Signs Date Time Temp Pulse Resp B/P (MAP) Pulse Ox O2 Delivery O2 Flow Rate FiO2 12/31/18 16:00 98.6 79 18 121/72 (88) 95 12/31/18 14:53 97.7 12/31/18 12:00 97.7 65 18 129/68 (88) 95 12/31/18 09:00 Nasal Cannula 2.0 12/31/18 08:43 74 117/69 12/31/18 08:00 98.6 74 18 117/69 (85) 99 12/31/18 04:00 98.7 77 18 116/65 (82) 96 12/31/18 00:00 99.2 97 20 166/97 (120) 92 12/30/18 21:48 97 163/94 12/30/18 21:00 Nasal Cannula 2.0 12/30/18 20:00 98.2 97 20 163/94 (117) 96 Height (Feet): 5 Height (Inches): 10.00 Weight (Pounds): 179 General Appearance: WD/WN, no acute distress HEENT: normocephalic, atraumatic, anicteric, mucous membranes moist, PERRL Respiratory/Chest: chest wall non-tender, no respiratory distress, no accessory muscle use, decreased breath sounds Cardiovascular: normal peripheral pulses, normal rate, regular rhythm, no gallop/murmur, no JVD Abdomen: normal bowel sounds, soft, non tender, no organomegaly, non distended , no mass, no scars Genitourinary: normal external genitalia Extremities: no cyanosis, no clubbing Skin: no rash, no lesions, ulcers Neurologic/Psychiatric: alert, unresponsiveness Lymphatic: no neck adenopathy, no groin adenopathy Musculoskeletal: normal muscle bulk, no effusion Current Medications Medications (Trade) Dose Ordered Sig/Jessie Route PRN Reason Start Time Stop Time Status Last Admin Dose Admin Acetaminophen (Tylenol) 650 mg Q6H PRN GT Mild Pain/Temp > 100.5 12/29/18 17:00 01/25/19 21:49 Ascorbic Acid (Vitamin C) 500 mg TWICE A DAY GT 12/29/18 18:00 01/26/19 08:59 12/31/18 08:43 Carvedilol (Coreg) 3.125 mg EVERY 12 HOURS GT 12/29/18 21:00 01/24/19 20:59 12/31/18 08:43 Heparin Sodium (Porcine) (Heparin 5000 units/ml) 5,000 units EVERY 12 HOURS SUBQ 12/27/18 09:00 01/23/19 20:59 12/31/18 08:46 Hydromorphone HCl (Dilaudid) 0.5 mg Q3H PRN IVP Severe Pain (Pain Scale 7-10) 12/26/18 21:50 12/31/18 21:49 12/31/18 12:55 Lansoprazole (Prevacid) 30 mg BID GT 12/29/18 18:00 01/28/19 17:59 12/31/18 08:43 Lorazepam (Ativan) 1 mg Q6H PRN GT For Anxiety 12/29/18 17:00 01/03/19 22:59 12/31/18 10:53 Multivitamins (Multivitamins) 1 tab DAILY GT 12/30/18 09:00 01/26/19 08:59 12/31/18 08:43 Olanzapine (ZyPREXA) 2.5 mg QHS GT 12/30/18 21:00 01/29/19 20:59 12/30/18 21:46 Ondansetron HCl (Zofran) 4 mg Q8H PRN IVP Nausea & Vomiting 12/26/18 21:51 01/25/19 21:50 Oxacillin Sodium 2 gm/Sodium Chloride 110 ml @ 220 mls/hr Q4HR IVPB 12/29/18 17:00 01/05/19 16:59 12/31/18 12:55 Potassium Chloride (K-Dur) 40 meq TWICE A DAY GT 12/29/18 18:00 01/28/19 17:59 12/31/18 08:43 Tamsulosin HCl (Flomax) 0.4 mg DAILY ORAL 12/27/18 09:00 01/25/19 08:59 12/31/18 08:43 Alex Mckeon M.D. Dec 31, 2018 16:20
--- NOTE | 2018-12-31 19:10 | NUR ---
HAND-OFF: Report given to QUAN Santos.
--- NOTE | 2018-12-31 19:15 | NUR ---
NURSE NOTES: Patient non-verbal, on nasal cannula at 2 liter, no sign of distress and shortness of breath; no sign of chest pain; Tube feeding Glucerna 1.5 running at 50cc, flushes well, no residual; Prasad in place drains well; bed locked in lowest position, side rails x2, bed alarm on. will keep monitoring.
[2018-12-31 20:00] VITALS: BP 164/100
[2018-12-31] MEDS: OLANZapine 2.5mg tab GT SCH (20:52)
[2019-01-01] VITALS: BP 143/85
[2019-01-01] MEDS: Oxacillin 2 GM in NS 110 ML IVPB SCH ×6 (00:14→20:01)
[2019-01-01] MEDS: Hydromorphone 0.5mg/0.5ml inj IVP PRN ×3 (02:35→12:43)
[2019-01-01 04:00] VITALS: BP 100/46
--- NOTE | 2019-01-01 07:40 | NUR ---
NURSE NOTES: Received patient on bed, asleep. IV intact and patent. Prasad catheter intact, patent and draining. Gtube present and intact and patent. Bed in low and locked position. Dressings dry and intact. no signs of respiratory distress or pain. Room board updated, will continue to monitor.
--- NOTE | 2019-01-01 07:41 | NUR ---
HAND-OFF: Report given to QUAN Blue.
[2019-01-01 08:00] VITALS: BP 106/49
--- NOTE | 2019-01-01 08:19 | NUR ---
NURSE NOTES:WOUND CARE FOLLOW-UP NOTES:L thoracic area has resolved .Area is pink and blanchable. R buttocks resolved -pink and blanchable. DTPI L buttocks resolving (L)1.7cm x (W04cm.Site is slightly indurated but pink. Periwound without erythema or induration. Dark-dry,brown pigmentation sacrum without erythema,induration or fluctuance when palpated(L)3cm x (W)3.5cm. R heel Blood blister de-roofed. Approx 50% loose skin flap noted. Base of wound is beefy red. Moderate amt sanguineous exudate noted. Periwound fluctuant (L)3.8cm x (W)7cm. No odor noted.L heel blood blister reabsorbing. Oozing small amt sanguineous exudate. Periwound non-blanchable and fluctuant. No odor noted. (L)6cm x (W)5cm. Tx.Plan:Cleanse R heel with Saline. Apply Therahoney. Cavilon Skin Barrier periwound. Cover with Optifoam drsg. Change every 3 days and prn. Apply Cavilon Skin Barrier to L heel. Cover with Optifoam drsg. Change every 3 days and prn. Off-load heels with pillow. Apply Moisture Barrier to Sacrum and L buttocks. Cover with Optifoam drsgs.Change every 3 days and prn. Continue APM/RAÚL mattress overlay. Reposition at least every 2hours or as tolerated. Off-load heels with pillow.
[2019-01-01] MEDS: Tamsulosin 0.4mg cap ORAL SCH (08:53)
[2019-01-01] MEDS: Ascorbic Acid 500mg tab GT SCH ×2 (08:54→17:21)
[2019-01-01] MEDS: Heparin 5000 units/ml inj SUBQ SCH ×2 (08:58→20:36)
--- NOTE | 2019-01-01 10:35 | GI Progress Note ---
Assessment/Plan Problems: (1) Encounter for PEG (percutaneous endoscopic gastrostomy) ICD Codes: Z43.1 - Encounter for attention to gastrostomy SNOMED: 335906050, 067118908 (2) Severe malnutrition ICD Codes: E43 - Unspecified severe protein-calorie malnutrition SNOMED: 24607307 (3) Dysphagia ICD Codes: R13.10 - Dysphagia, unspecified SNOMED: 97866305, 642929393 (4) Dehydration ICD Codes: E86.0 - Dehydration SNOMED: 02048984 (5) Agitation ICD Codes: R45.1 - Restlessness and agitation SNOMED: 497596404 (6) Hemochromatosis ICD Codes: E83.119 - Hemochromatosis, unspecified SNOMED: 277166968 Status: stable Status Narrative Discussed with Dr. Styles. Assessment/Plan SUMMARY OF FINDINGS: 1. Status post successful PEG placement. 2. Atrophic gastritis. RECOMMENDATIONS: ID, Pulmonary, Nephro notes are reviewed current empirical abx remains DNR/DNI strict aspiration precautions S/p PEG T placement, tolerating feedings Placement: [facility]ospice , [facility] PR[facility] Reglan as needed for GI motility The patient was seen and examined at bedside and all new and available data was reviewed in the patients chart. I agree with the above findings, impression and plan. (Patient seen earlier today. Signature stamp does not reflect patient encounter time.). - David Styles MD Subjective Subjective limited Objective Last 24 Hour Vital Signs Date Time Temp Pulse Resp B/P (MAP) Pulse Ox O2 Delivery O2 Flow Rate FiO2 01/01/19 09:00 66 106/49 01/01/19 09:00 Nasal Cannula 2.0 01/01/19 08:00 98.5 66 19 106/49 (68) 97 01/01/19 04:00 98.1 62 18 100/46 (64) 98 01/01/19 00:00 98.2 82 18 143/85 (104) 93 12/31/18 21:00 Nasal Cannula 2.0 12/31/18 20:52 87 164/100 12/31/18 20:00 98.2 87 18 164/100 (121) 93 12/31/18 19:48 Nasal Cannula 3.0 32 12/31/18 19:48 96 3.0 32 12/31/18 16:00 98.6 79 18 121/72 (88) 95 12/31/18 14:53 97.7 12/31/18 12:00 97.7 65 18 129/68 (88) 95 Intake and Output 12/31/18 01/01/19 19:00 07:00 Intake Total 820 ml 550 ml Output Total 1000 ml Balance 820 ml -450 ml IV Total 220 ml 550 ml Tube Feeding 600 ml Output Urine Total 1000 ml Height (Feet): 5 Height (Inches): 10.00 Weight (Pounds): 179 General Appearance: WD/WN, no apparent distress, alert Cardiovascular: normal rate Respiratory/Chest: normal breath sounds, no respiratory distress Abdominal Exam: normal bowel sounds, non tender, soft, GT site - Clean dry and intact Extremities: non-tender Kp Beltran NP Jan 01, 2019 10:34
[2019-01-01] MEDS: LORazepam 1mg tab GT PRN (11:32)
[2019-01-01 12:00] VITALS: BP 106/49
--- NOTE | 2019-01-01 13:10 | General Progress Note ---
Assessment/Plan Assessment/Plan S: Not verbally communicative O: make limited verbal conversation, no chest pain. appears anxious. The son is bed side PHYSICAL EXAMINATION:HEAD AND NECK: Atraumatic and normocephalic. CHEST: Diffuse bronchial breathing sounds.ABDOMEN: PEG t in place, Soft. MUSCULOSKELETAL: Positive for the increased reflexes and spasticity in all 4 extremities.NEUROLOGY: Limited evaluation as the patient is not verbally communicative. Meds: Reviewed and reconciled. ASSESSMENT AND PLAN: 1. Sepsis: Gram positive 2. Hypoxemic respiratory failure. 3. Healthcare-associated pneumonia. 4. Macrocytic anemia. 5. Abnormal LFTs. 6. GI and DVT prophylaxes. 7. DNR/DNI. 8. Dysphagia Plan: ID, Pulmonary, Nephro notes are reviewed current empirical abx remains DNR high risk for aspiration S/p PEG T placement . Placement: SNIF + Hospice , requested a different facility [facility] PRN agitation Notes from Psych reviewed Subjective Allergies: Coded Allergies: No Known Allergies (Unverified , 12/24/18) Objective Last 24 Hour Vital Signs Date Time Temp Pulse Resp B/P (MAP) Pulse Ox O2 Delivery O2 Flow Rate FiO2 01/01/19 12:00 98.5 66 19 106/49 (68) 97 01/01/19 09:00 66 106/49 01/01/19 09:00 Nasal Cannula 2.0 01/01/19 08:00 98.5 66 19 106/49 (68) 97 01/01/19 04:00 98.1 62 18 100/46 (64) 98 01/01/19 00:00 98.2 82 18 143/85 (104) 93 12/31/18 21:00 Nasal Cannula 2.0 12/31/18 20:52 87 164/100 12/31/18 20:00 98.2 87 18 164/100 (121) 93 12/31/18 19:48 Nasal Cannula 3.0 32 12/31/18 19:48 96 3.0 32 12/31/18 16:00 98.6 79 18 121/72 (88) 95 12/31/18 14:53 97.7 Intake and Output 12/31/18 01/01/19 18:59 06:59 Intake Total 820 ml 600 ml Output Total 1000 ml Balance 820 ml -400 ml IV Total 220 ml 550 ml Tube Feeding 600 ml 50 ml Output Urine Total 1000 ml Height (Feet): 5 Height (Inches): 10.00 Weight (Pounds): 179 Albaro Cho MD Jan 01, 2019 13:10
--- NOTE | 2019-01-01 13:28 | NUR ---
RD ASSESSMENT & RECOMMENDATIONS SEE CARE ACTIVITY FOR COMPLETE ASSESSMENT DAILY ESTIMATED NEEDS: Needs based on Wound, CA / 77kg abw 25-30 kcals/kg 8070-8280 total kcals 1.25-1.5 g protein/kg 96-115 g total protein 20-22 mL/kg 7742-5942 total fluid mLs NUTRITION DIAGNOSIS: 1) Increased kcal/prot needs R/T wound healing, catabolic dx as evidenced by pt admitted w/ BL heels + sacral wound, now DTI, h/o metastatic prostate CA. 2) Swallowing difficulty r/t dysphagia as evidenced by pt is now S/ p PEG placement, on tube feeds. CURRENT TF:Glucerna 1.5 @50ml/hr x 24 hrs ENTERAL NUTRITION RECOMMENDATIONS: Maintain Glucerna 1.5 @50ml/hr x24 hrs to provide 1200ml, 1800 kcal, 99g prot, 911ml free H2O - Maintain current goal to meet >90% est kcal and 100% est pro needs - Increase water flushes (hypernatremia) - HOB over 30 degree ADDITIONAL RECOMMENDATIONS: * Calibrated bedscale weight for accurate CBW- bed w/ added p200 mattress * Monitor lytes, replete as needed (low K) * Consider accucheck w/ SSI- h/o DM, A1C=6.5 * Wound healing: add Kyler 1pkt BID, continue Vit C * Updated CBC, BMP as able
--- NOTE | 2019-01-01 13:38 | Surgery Progress Note ---
Surgery Progress Note Subjective Additional Comments no acute events. moving a lot in bed and mumbles. friction to wounds Objective Last 24 Hour Vital Signs Date Time Temp Pulse Resp B/P (MAP) Pulse Ox O2 Delivery O2 Flow Rate FiO2 01/01/19 12:00 98.5 66 19 106/49 (68) 97 01/01/19 09:00 66 106/49 01/01/19 09:00 Nasal Cannula 2.0 01/01/19 08:00 98.5 66 19 106/49 (68) 97 01/01/19 04:00 98.1 62 18 100/46 (64) 98 01/01/19 00:00 98.2 82 18 143/85 (104) 93 12/31/18 21:00 Nasal Cannula 2.0 12/31/18 20:52 87 164/100 12/31/18 20:00 98.2 87 18 164/100 (121) 93 12/31/18 19:48 Nasal Cannula 3.0 32 12/31/18 19:48 96 3.0 32 12/31/18 16:00 98.6 79 18 121/72 (88) 95 12/31/18 14:53 97.7 I&O Intake and Output 12/31/18 01/01/19 18:59 06:59 Intake Total 820 ml 600 ml Output Total 1000 ml Balance 820 ml -400 ml IV Total 220 ml 550 ml Tube Feeding 600 ml 50 ml Output Urine Total 1000 ml Dressing: dry Wound: other Drains: other Cardiovascular: RSR Respiratory: decreased breath sounds Abdomen: soft, present bowel sounds, non-distended Extremities: edema, other Plan Problems: (1) Decubitus skin ulcer Assessment & Plan: Pt presented on admission with multiple pressure injuries. Non-blanchable red area that is indurated L thoracic(L)1.1cm x (W)3.5cm. Periwound pink and intact. Maroon discoloration that is indurated L Buttocks (L) 1.9cm x (W)4cm.Maroon discoloration with red margins that are indurated.Non- blanchable erythema periwound. Non-blanchable erythema with induration noted to R buttocks (L)3cm x (W)3.5cm. Intact Blood Blister noted to R heel (L)5.5cm x (W )4.4cm. Non-blanchable erythema with fluctuance periwound. Intact Blood Blister noted extending from medial to lateral aspect of L heel (L)6.2cm x (W)9cm. Non- blanchable erythema periwound . Cavilon Skin Barrier applied to both heel blisters.Each heel covered with Optifoam drsg .Abd pads applied to both heels and each heel wrapped with kerlix to prevent further friction to heels deterioration in wounds on both heels (blisters) and the sacral redness is now dti. The left heel blister is blood filled and there is blanchable redness surrounding it. The right heel blood blister is partially open and draining foul smelling yellow brown drainage Tx plan: Apply Cavilon Skin Barrier to L thoracic. Cover with Optifoam drsg. Change every 3 days and prn. Apply Cavilon Skin Barrier to R and L heel Blisters. Cover each heel with Optifoam drsg. Reinforce with ABD Pad and Kerlix. Change daily Will discuss with family for intervention Unfortunately at risk for decline given medical condition and current status Apply Triad Paste to Sacrum,R and L buttocks. Cover with Optifoam drsgs. Change every 3 days and APM/RAÚL Mattress overlay. Reposition at least every 2hours or as tolerated. Off-load heels with Pillow. (2) Heel ulcer (3) Sepsis Assessment & Plan: leukocytosis resolved on IV Abx as per ID labs abnormal and improving CT head noted cont with current care (4) Dehydration Assessment & Plan: DAILY ESTIMATED NEEDS: Needs based on Wound, CA / 77kg abw 25-30 kcals/kg 4341-1589 total kcals 1.25-1.5 g protein/kg 96-115 g total protein 20-22 mL/kg 7331-0266 total fluid mLs NUTRITION DIAGNOSIS: 1) Increased kcal/prot needs R/T wound healing, catabolic dx as evidenced by pt admitted w/ BL heels + sacral wound, now DTI, h/o metastatic prostate CA. 2) Swallowing difficulty r/t dysphagia as evidenced by pt is now S/ p PEG placement, on tube feeds. CURRENT TF:Glucerna 1.5 @50ml/hr x 24 hrs ENTERAL NUTRITION RECOMMENDATIONS: Maintain Glucerna 1.5 @50ml/hr x24 hrs to provide 1200ml, 1800 kcal, 99g prot , 911ml free H2O - Maintain current goal to meet >90% est kcal and 100% est pro needs - Increase water flushes (hypernatremia) - HOB over 30 degree ADDITIONAL RECOMMENDATIONS: * Calibrated bedscale weight for accurate CBW- bed w/ added p200 mattress * Monitor lytes, replete as needed (low K) * Consider accucheck w/ SSI- h/o DM, A1C=6.5 * Wound healing: add Kyler 1pkt BID, continue Vit C * Updated CBC, BMP as able Juan Syed Jan 01, 2019 13:38
[2019-01-01] MEDS ORDERED: DiphenhydrAMINE 50mg/ml Inj IM SCH ×2 (14:00→20:00)
[2019-01-01] MEDS ORDERED: Haloperidol 5mg/ml Inj IM SCH ×2 (14:00→20:00)
--- NOTE | 2019-01-01 14:00 | NUR ---
NURSE NOTES: patient on bilateral soft wrist restraints as he was pulling on his gtube. [employer]ESS OPERATOR Khadar was made aware. Charge nurse aware.
--- NOTE | 2019-01-01 14:46 | Nephrology Progress Note ---
Assessment/Plan Problem List: (1) Renal failure Assessment: acute , resolved (2) LLL pneumonia (3) Acute respiratory failure (4) Acute encephalopathy Assessment Renal impression: Renal failure acute, likely prerenal , combination of cardiomyopathy and dehydration leading to pre renal azotemia RLL pneumonia Sepsis H/O metastatic prostate cancer EjFx 18% per history now 30% Was on Hospice [facility] Anemia Plan K supplement as needed optimize cardiac state pulm support antibiotics Per consultants 2D echo noted NOW DNR Subjective ROS Limited/Unobtainable: No Constitutional: Reports: malaise Objective Objective Last 24 Hour Vital Signs Date Time Temp Pulse Resp B/P (MAP) Pulse Ox O2 Delivery O2 Flow Rate FiO2 01/01/19 12:00 98.5 66 19 106/49 (68) 97 01/01/19 09:00 66 106/49 01/01/19 09:00 Nasal Cannula 2.0 01/01/19 08:00 98.5 66 19 106/49 (68) 97 01/01/19 04:00 98.1 62 18 100/46 (64) 98 01/01/19 00:00 98.2 82 18 143/85 (104) 93 12/31/18 21:00 Nasal Cannula 2.0 12/31/18 20:52 87 164/100 12/31/18 20:00 98.2 87 18 164/100 (121) 93 12/31/18 19:48 Nasal Cannula 3.0 32 12/31/18 19:48 96 3.0 32 12/31/18 16:00 98.6 79 18 121/72 (88) 95 12/31/18 14:53 97.7 Intake and Output 12/31/18 01/01/19 18:59 06:59 Intake Total 820 ml 600 ml Output Total 1000 ml Balance 820 ml -400 ml IV Total 220 ml 550 ml Tube Feeding 600 ml 50 ml Output Urine Total 1000 ml Height (Feet): 5 Height (Inches): 10.00 Weight (Pounds): 179 General Appearance: no apparent distress Objective NO CHANGE Rigoberto Aaron MD Jan 01, 2019 14:46
[2019-01-01 16:00] VITALS: BP 120/51
--- NOTE | 2019-01-01 17:38 | Infectious Diseases Prog Note ---
Assessment/Plan Problems: (1) LLL pneumonia Assessment & Plan: suspect aspiration, improved with vancomycin and zosyn empirically , aspiration precaution , keep HOB > 30 degree (2) Sepsis Assessment & Plan: with staph aureus methicillin sensitive , due to the above , already on oxacillin and treat him for four weeks . ECHO rule out vegetations . repeated blood culture to confirm clearance is pending .EOT 01/24/19 (3) Acute encephalopathy Assessment & Plan: due to the above, suspect metabolic and toxic, continue antibiotics and supportive care (4) Renal failure Assessment & Plan: suspect due to dehydration , continue IVF , monitor renal function closely (5) Dehydration Assessment & Plan: continue IVF, encourage hydration (6) Acute respiratory failure Assessment & Plan: due to the above, improving , off BIPAP , monitor CXR . Subjective ROS Limited/Unobtainable: Yes Allergies: Coded Allergies: No Known Allergies (Unverified , 12/24/18) Subjective He was mildly agitated and restless, unresponsive today , and doesn't follow commands , afebrile , pulled his G tube and had leaking Objective Vital Signs Last 24 Hour Vital Signs Date Time Temp Pulse Resp B/P (MAP) Pulse Ox O2 Delivery O2 Flow Rate FiO2 01/01/19 16:00 98.7 70 18 120/51 (74) 98 01/01/19 12:00 98.5 66 19 106/49 (68) 97 01/01/19 09:00 66 106/49 01/01/19 09:00 Nasal Cannula 2.0 01/01/19 08:00 98.5 66 19 106/49 (68) 97 01/01/19 04:00 98.1 62 18 100/46 (64) 98 01/01/19 00:00 98.2 82 18 143/85 (104) 93 12/31/18 21:00 Nasal Cannula 2.0 12/31/18 20:52 87 164/100 12/31/18 20:00 98.2 87 18 164/100 (121) 93 12/31/18 19:48 Nasal Cannula 3.0 32 12/31/18 19:48 96 3.0 32 Height (Feet): 5 Height (Inches): 10.00 Weight (Pounds): 179 General Appearance: WD/WN, no acute distress HEENT: normocephalic, atraumatic, anicteric, mucous membranes moist Respiratory/Chest: chest wall non-tender, no respiratory distress, no accessory muscle use, decreased breath sounds, crackles/rales Cardiovascular: normal peripheral pulses, normal rate, regular rhythm, no gallop/murmur, no JVD Abdomen: normal bowel sounds, soft, non tender, no organomegaly, non distended , no mass, no scars Extremities: no cyanosis, no clubbing Skin: no rash, no lesions, ulcers Neurologic/Psychiatric: alert, oriented x 3, responsive Lymphatic: no neck adenopathy, no groin adenopathy Musculoskeletal: normal muscle bulk, no effusion Current Medications Medications (Trade) Dose Ordered Sig/Jessie Route PRN Reason Start Time Stop Time Status Last Admin Dose Admin Acetaminophen (Tylenol) 650 mg Q6H PRN GT Mild Pain/Temp > 100.5 12/29/18 17:00 01/25/19 21:49 Ascorbic Acid (Vitamin C) 500 mg TWICE A DAY GT 12/29/18 18:00 01/26/19 08:59 01/01/19 17:21 Carvedilol (Coreg) 3.125 mg EVERY 12 HOURS GT 12/29/18 21:00 01/24/19 20:59 12/31/18 20:52 Heparin Sodium (Porcine) (Heparin 5000 units/ml) 5,000 units EVERY 12 HOURS SUBQ 12/27/18 09:00 01/23/19 20:59 01/01/19 08:58 Hydromorphone HCl (Dilaudid) 0.5 mg EVERY 3 HOURS PRN IVP Severe Pain (Pain Scale 7-10) 01/01/19 02:00 01/08/19 01:59 01/01/19 12:43 Lansoprazole (Prevacid) 30 mg BID GT 12/29/18 18:00 01/28/19 17:59 01/01/19 17:21 Lorazepam (Ativan) 1 mg Q6H PRN GT For Anxiety 12/29/18 17:00 01/03/19 22:59 01/01/19 11:32 Multivitamins (Multivitamins) 1 tab DAILY GT 12/30/18 09:00 01/26/19 08:59 01/01/19 08:53 Olanzapine (ZyPREXA) 2.5 mg QHS GT 12/30/18 21:00 01/29/19 20:59 12/31/18 20:52 Ondansetron HCl (Zofran) 4 mg Q8H PRN IVP Nausea & Vomiting 12/26/18 21:51 01/25/19 21:50 Oxacillin Sodium 2 gm/Sodium Chloride 110 ml @ 220 mls/hr Q4HR IVPB 12/29/18 17:00 01/05/19 16:59 01/01/19 17:21 Potassium Chloride (K-Dur) 40 meq TWICE A DAY GT 12/29/18 18:00 01/28/19 17:59 01/01/19 17:21 Tamsulosin HCl (Flomax) 0.4 mg DAILY ORAL 12/27/18 09:00 01/25/19 08:59 01/01/19 08:53 Alex Mckeon M.D. Jan 01, 2019 17:38
--- NOTE | 2019-01-01 19:45 | NUR ---
HAND-OFF: Report given to QUAN Judge.
--- NOTE | 2019-01-01 19:45 | NUR ---
NURSE NOTES: Received patient in bed in semi fowlers- aspiration precautions HOB up 40 degrees. IV intact and patent. Prasad catheter intact, patent and draining. Gtube present and intact and patent. Bed in low and locked position. Dressings dry and intact. no signs of respiratory distress or pain. Pt has on bilateral soft wrist restraints. Pt is very agitated and moaning. Will administer medications to reduce agitation. Will monitor skin integrity and turn patient q 2 and prn. Room board updated, will continue to monitor.
--- NOTE | 2019-01-01 19:49 | NUR ---
CASE MANAGEMENT: REVIEW SI: SEPSIS . DEHYDRATION PEG 12/28 T 98.5 HR 66 RR 19 BP 106/49 SAT 97% NC/2L IS: COREG GT Q12HR K-DUR GT BID OXACILLIN IV Q4HR GT FEEDING MED/SURG STATUS DCP: LUNA MACIAS
[2019-01-01 20:00] VITALS: BP 129/93
[2019-01-01] MEDS: OLANZapine 2.5mg tab GT SCH (20:35)
--- NOTE | 2019-01-01 21:36 | Psych Consult Progress Note ---
Psychiatry Progress Note Psychiatry Progress Note Medications Current Medications Medications (Trade) Dose Ordered Sig/Jessie Route PRN Reason Start Time Stop Time Status Last Admin Dose Admin Acetaminophen (Tylenol) 650 mg Q6H PRN GT Mild Pain/Temp > 100.5 12/29/18 17:00 01/25/19 21:49 Ascorbic Acid (Vitamin C) 500 mg TWICE A DAY GT 12/29/18 18:00 01/26/19 08:59 01/01/19 17:21 Carvedilol (Coreg) 3.125 mg EVERY 12 HOURS GT 12/29/18 21:00 01/24/19 20:59 01/01/19 20:35 Heparin Sodium (Porcine) (Heparin 5000 units/ml) 5,000 units EVERY 12 HOURS SUBQ 12/27/18 09:00 01/23/19 20:59 01/01/19 20:36 Hydromorphone HCl (Dilaudid) 0.5 mg EVERY 3 HOURS PRN IVP Severe Pain (Pain Scale 7-10) 01/01/19 02:00 01/08/19 01:59 01/01/19 12:43 Lansoprazole (Prevacid) 30 mg BID GT 12/29/18 18:00 01/28/19 17:59 01/01/19 17:21 Lorazepam (Ativan) 1 mg Q6H PRN GT For Anxiety 12/29/18 17:00 01/03/19 22:59 01/01/19 11:32 Multivitamins (Multivitamins) 1 tab DAILY GT 12/30/18 09:00 01/26/19 08:59 01/01/19 08:53 Olanzapine (ZyPREXA) 2.5 mg QHS GT 12/30/18 21:00 01/29/19 20:59 01/01/19 20:35 Ondansetron HCl (Zofran) 4 mg Q8H PRN IVP Nausea & Vomiting 12/26/18 21:51 01/25/19 21:50 Oxacillin Sodium 2 gm/Sodium Chloride 110 ml @ 220 mls/hr Q4HR IVPB 12/29/18 17:00 01/05/19 16:59 01/01/19 20:01 Potassium Chloride (K-Dur) 40 meq TWICE A DAY GT 12/29/18 18:00 01/28/19 17:59 01/01/19 17:21 Tamsulosin HCl (Flomax) 0.4 mg DAILY ORAL 12/27/18 09:00 01/25/19 08:59 01/01/19 08:53 Problems: (1) Dementia with behavioral disturbance (2) Acute encephalopathy Neurological/Psychiatric: Reports: anxiety Allergies: Coded Allergies: No Known Allergies (Unverified , 12/24/18) Subjective the pt was agitated I lowered the zyprexa dose yesterday and the pt pulled out his IV access. the pt received a cocktail. the pt was confused. the pt was placed in soft restraints. Objective Data Height (Feet): 5 Height (Inches): 10.00 Weight (Pounds): 179 Assessment/Plan Problem List: (1) Dementia with behavioral disturbance ICD Codes: F03.91 - Unspecified dementia with behavioral disturbance SNOMED: 2438531555058 (2) Acute encephalopathy ICD Codes: G93.40 - Encephalopathy, unspecified SNOMED: 47504586, 010454384 Assessment: zyprexa 2.5mg po bid cont soft restraints. Lisha Starr MD Jan 01, 2019 21:36
[2019-01-02] VITALS: BP 141/89
[2019-01-02] MEDS: Oxacillin 2 GM in NS 110 ML IVPB SCH ×6 (00:07→21:10)
[2019-01-02 03:55] VITALS: BP 112/63
--- NOTE | 2019-01-02 04:00 | NUR ---
NURSE NOTES: PATIENT IN BED, ASLEEP, NO DISTRESS, IV IN PLACE. GTUBE IN PLACE, NO RESIDUALS, TOLERATING TUBE FEEDING. HOB ELEVATED, BED ALARM ON, CALL LIGHT WITHIN REACH. MORRIS IN PLACE. BILATERAL SOFT WRIST RESTRAINTS ON FOR PATIENT SAFETY.
[2019-01-02] MEDS: LORazepam 1mg tab GT PRN ×2 (04:05→11:31)
[2019-01-02 05:54] LABS: BASOPHILS % (AUTO) 0.9 % (0.0-2.0); HEMATOCRIT 37.5 % (42.0-52.0); HEMOGLOBIN 12.1 G/DL (14.2-18.0); LYMPHOCYTES % (AUTO) 14.6 % (20.0-45.0); MEAN CORPUSCULAR VOLUME 99 FL (80-99); MONOCYTES % (AUTO) 6.1 % (1.0-10.0); NEUTROPHILS % (AUTO) 74.4 % (45.0-75.0); PLATELET COUNT 309 K/UL (150-450); RED BLOOD COUNT 3.77 M/UL (4.70-6.10); RED CELL DISTRIBUTION WIDTH 14.5 % (11.6-14.8); WHITE BLOOD COUNT 9.7 K/UL (4.8-10.8)
[2019-01-02 06:12] LABS: ALANINE AMINOTRANSFERASE 26 U/L (12-78); ALBUMIN 2.1 G/DL (3.4-5.0); ALBUMIN/GLOBULIN RATIO 0.5 (1.0-2.7); ALKALINE PHOSPHATASE 95 U/L (46-116); ANION GAP 5 mmol/L (5-15); ASPARTATE AMINO TRANSFERASE 34 U/L (15-37); BILIRUBIN,TOTAL 0.3 MG/DL (0.2-1.0); BLOOD UREA NITROGEN 20 mg/dL (7-18); CALCIUM 8.2 MG/DL (8.5-10.1); CARBON DIOXIDE 28 MMOL/L (21-32); CHLORIDE 107 MMOL/L (98-107); CREATININE 0.9 MG/DL (0.55-1.30); PHOSPHORUS 3.9 MG/DL (2.5-4.9); POTASSIUM 5.8 MMOL/L (3.5-5.1); SODIUM 140 MMOL/L (136-145)
--- NOTE | 2019-01-02 07:15 | NUR ---
HAND-OFF: Report given to MYA Erickson RN.
--- NOTE | 2019-01-02 07:28 | NUR ---
NURSE NOTES: Received pt from QUAN [facility]. Pt is confused and orient x1. pt has NC 2LMP. Pt has g tube in place is running well. pt has Prasad cath in place is working well. all needs attended, bed is locked and is in the lowest position, call light within easy reach. will continue to monitor.
[2019-01-02 08:00] VITALS: BP 110/60
[2019-01-02] MEDS: Ascorbic Acid 500mg tab GT SCH ×2 (08:52→17:36)
[2019-01-02] MEDS: Tamsulosin 0.4mg cap ORAL SCH (08:52)
[2019-01-02] MEDS: OLANZapine 2.5mg tab GT SCH ×2 (08:52→17:36)
[2019-01-02] MEDS: Heparin 5000 units/ml inj SUBQ SCH ×2 (08:54→21:10)
--- NOTE | 2019-01-02 09:30 | NUR ---
NURSE NOTES: Dr chung is aware about K, will continue to monitor.
--- NOTE | 2019-01-02 10:53 | GI Progress Note ---
Assessment/Plan Problems: (1) Encounter for PEG (percutaneous endoscopic gastrostomy) ICD Codes: Z43.1 - Encounter for attention to gastrostomy SNOMED: 672936921, 736276026 (2) Severe malnutrition ICD Codes: E43 - Unspecified severe protein-calorie malnutrition SNOMED: 33005967 (3) Dysphagia ICD Codes: R13.10 - Dysphagia, unspecified SNOMED: 08580239, 933660996 (4) Dehydration ICD Codes: E86.0 - Dehydration SNOMED: 18606040 (5) Agitation ICD Codes: R45.1 - Restlessness and agitation SNOMED: 427200763 (6) Hemochromatosis ICD Codes: E83.119 - Hemochromatosis, unspecified SNOMED: 327804852 Status: stable, unchanged Status Narrative Discussed with Dr. Styles Assessment/Plan SUMMARY OF FINDINGS: 1. Status post successful PEG placement. 2. Atrophic gastritis. RECOMMENDATIONS: ID, Pulmonary, Nephro notes are reviewed current empirical abx remains DNR/DNI strict aspiration precautions S/p PEG T placement, tolerating feedings Placement: SNF + Hospice , requested a different facility [facility] PRN agitation Reglan as needed for GI motility The patient was seen and examined at bedside and all new and available data was reviewed in the patients chart. I agree with the above findings, impression and plan. (Patient seen earlier today. Signature stamp does not reflect patient encounter time.). - David Styles MD Subjective Subjective limited Objective Last 24 Hour Vital Signs Date Time Temp Pulse Resp B/P (MAP) Pulse Ox O2 Delivery O2 Flow Rate FiO2 01/02/19 08:52 76 110/60 01/02/19 08:00 97.9 76 20 110/60 (77) 96 01/02/19 06:58 Nasal Cannula 3.0 32 01/02/19 06:58 98 Nasal Cannula 3.0 32 01/02/19 03:55 97.6 72 20 112/63 (79) 94 01/02/19 00:00 98.1 83 21 141/89 (106) 95 01/01/19 21:46 Nasal Cannula 2.0 01/01/19 20:35 110 129/93 01/01/19 20:00 98.7 110 21 129/93 (105) 98 01/01/19 16:00 98.7 70 18 120/51 (74) 98 01/01/19 12:00 98.5 66 19 106/49 (68) 97 Intake and Output 01/01/19 01/02/19 19:00 07:00 Intake Total 890 ml 680 ml Output Total 1300 ml 1350 ml Balance -410 ml -670 ml Free Water 120 ml 150 ml IV Total 220 ml 330 ml Tube Feeding 550 ml 200 ml Output Urine Total 1300 ml 1350 ml Laboratory Tests Test 01/02/19 05:25 White Blood Count 9.7 K/UL (4.8-10.8) Red Blood Count 3.77 M/UL (4.70-6.10) L Hemoglobin 12.1 G/DL (14.2-18.0) L Hematocrit 37.5 % (42.0-52.0) L Mean Corpuscular Volume 99 FL (80-99) Mean Corpuscular Hemoglobin 31.9 PG (27.0-31.0) H Mean Corpuscular Hemoglobin Concent 32.2 G/DL (32.0-36.0) Red Cell Distribution Width 14.5 % (11.6-14.8) Platelet Count 309 K/UL (150-450) Mean Platelet Volume 5.7 FL (6.5-10.1) L Neutrophils (%) (Auto) 74.4 % (45.0-75.0) Lymphocytes (%) (Auto) 14.6 % (20.0-45.0) L Monocytes (%) (Auto) 6.1 % (1.0-10.0) Eosinophils (%) (Auto) 4.0 % (0.0-3.0) H Basophils (%) (Auto) 0.9 % (0.0-2.0) Sodium Level 140 MMOL/L (136-145) Potassium Level 5.8 MMOL/L (3.5-5.1) H Chloride Level 107 MMOL/L (98-107) Carbon Dioxide Level 28 MMOL/L (21-32) Anion Gap 5 mmol/L (5-15) Blood Urea Nitrogen 20 mg/dL (7-18) H Creatinine 0.9 MG/DL (0.55-1.30) Estimat Glomerular Filtration Rate mL/min (>60) Glucose Level 127 MG/DL (74-106) H Calcium Level 8.2 MG/DL (8.5-10.1) L Phosphorus Level 3.9 MG/DL (2.5-4.9) Magnesium Level 2.2 MG/DL (1.8-2.4) Total Bilirubin 0.3 MG/DL (0.2-1.0) Aspartate Amino Transf (AST/SGOT) 34 U/L (15-37) Alanine Aminotransferase (ALT/SGPT) 26 U/L (12-78) Alkaline Phosphatase 95 U/L (46-116) Total Protein 6.0 G/DL (6.4-8.2) L Albumin 2.1 G/DL (3.4-5.0) L Globulin 3.9 g/dL Albumin/Globulin Ratio 0.5 (1.0-2.7) L Height (Feet): 5 Height (Inches): 10.00 Weight (Pounds): 179 General Appearance: no apparent distress Cardiovascular: normal rate Respiratory/Chest: normal breath sounds, no respiratory distress Abdominal Exam: normal bowel sounds, non tender, soft, GT site Extremities: non-tender Kp Beltran ROUND UP RING HAND Jan 02, 2019 10:53
--- NOTE | 2019-01-02 11:27 | Nephrology Progress Note ---
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 Anemia Plan DC KCL NS bolus optimize cardiac state pulm support antibiotics Per consultants 2D echo noted NOW DNR Subjective ROS Limited/Unobtainable: No Constitutional: Reports: malaise Objective Objective Last 24 Hour Vital Signs Date Time Temp Pulse Resp B/P (MAP) Pulse Ox O2 Delivery O2 Flow Rate FiO2 01/02/19 08:52 76 110/60 01/02/19 08:00 97.9 76 20 110/60 (77) 96 01/02/19 06:58 Nasal Cannula 3.0 32 01/02/19 06:58 98 Nasal Cannula 3.0 32 01/02/19 03:55 97.6 72 20 112/63 (79) 94 01/02/19 00:00 98.1 83 21 141/89 (106) 95 01/01/19 21:46 Nasal Cannula 2.0 01/01/19 20:35 110 129/93 01/01/19 20:00 98.7 110 21 129/93 (105) 98 01/01/19 16:00 98.7 70 18 120/51 (74) 98 01/01/19 12:00 98.5 66 19 106/49 (68) 97 Intake and Output 01/01/19 01/02/19 19:00 07:00 Intake Total 890 ml 680 ml Output Total 1300 ml 1350 ml Balance -410 ml -670 ml Free Water 120 ml 150 ml IV Total 220 ml 330 ml Tube Feeding 550 ml 200 ml Output Urine Total 1300 ml 1350 ml Laboratory Tests 01/02/19 05:25: White Blood Count 9.7, Red Blood Count 3.77L, Hemoglobin 12.1L, Hematocrit 37.5L , Mean Corpuscular Volume 99, Mean Corpuscular Hemoglobin 31.9H, Mean Corpuscular Hemoglobin Concent 32.2, Red Cell Distribution Width 14.5, Platelet Count 309, Mean Platelet Volume 5.7L, Neutrophils (%) (Auto) 74.4, Lymphocytes ( %) (Auto) 14.6L, Monocytes (%) (Auto) 6.1, Eosinophils (%) (Auto) 4.0H, Basophils (%) (Auto) 0.9, Sodium Level 140, Potassium Level 5.8H, Chloride Level 107, Carbon Dioxide Level 28, Anion Gap 5, Blood Urea Nitrogen 20H, Creatinine 0.9, Estimat Glomerular Filtration Rate , Glucose Level 127H, Calcium Level 8.2L, Phosphorus Level 3.9, Magnesium Level 2.2, Total Bilirubin 0.3, Aspartate Amino Transf (AST/SGOT) 34, Alanine Aminotransferase (ALT/SGPT) 26, Alkaline Phosphatase 95, Total Protein 6.0L, Albumin 2.1L, Globulin 3.9, Albumin/Globulin Ratio 0.5L Height (Feet): 5 Height (Inches): 10.00 Weight (Pounds): 179 General Appearance: no apparent distress, confused Cardiovascular: normal rate Respiratory/Chest: decreased breath sounds Abdomen: distended Objective NO CHANGE Rigoberto Aaron MD Jan 02, 2019 11:27
[2019-01-02 12:00] VITALS: BP 113/61
--- NOTE | 2019-01-02 12:21 | General Progress Note ---
Assessment/Plan Assessment: S: Not verbally communicative O: make limited verbal conversation, no chest pain. appears anxious. The son is bed side PHYSICAL EXAMINATION:HEAD AND NECK: Atraumatic and normocephalic. CHEST: Diffuse bronchial breathing sounds.ABDOMEN: PEG t in place, Soft. MUSCULOSKELETAL: Positive for the increased reflexes and spasticity in all 4 extremities.NEUROLOGY: Limited evaluation as the patient is not verbally communicative. Meds: Reviewed and reconciled. ASSESSMENT AND PLAN: 1. Sepsis: Gram positive 2. Hypoxemic respiratory failure. 3. Healthcare-associated pneumonia. 4. Macrocytic anemia. 5. Abnormal LFTs. 6. GI and DVT prophylaxes. 7. DNR/DNI. 8. Dysphagia Plan: ID, Pulmonary, Nephro notes are reviewed current empirical abx remains DNR high risk for aspiration S/p PEG T placement . Placement: SN[facility] + Hospice , [facility] PRN agitation Notes from Psych reviewed Subjective Allergies: Coded Allergies: No Known Allergies (Unverified , 12/24/18) Objective Last 24 Hour Vital Signs Date Time Temp Pulse Resp B/P (MAP) Pulse Ox O2 Delivery O2 Flow Rate FiO2 01/02/19 08:52 76 110/60 01/02/19 08:00 97.9 76 20 110/60 (77) 96 01/02/19 06:58 Nasal Cannula 3.0 32 01/02/19 06:58 98 Nasal Cannula 3.0 32 01/02/19 03:55 97.6 72 20 112/63 (79) 94 01/02/19 00:00 98.1 83 21 141/89 (106) 95 01/01/19 21:46 Nasal Cannula 2.0 01/01/19 20:35 110 129/93 01/01/19 20:00 98.7 110 21 129/93 (105) 98 01/01/19 16:00 98.7 70 18 120/51 (74) 98 Intake and Output 01/01/19 01/02/19 19:00 07:00 Intake Total 890 ml 680 ml Output Total 1300 ml 1350 ml Balance -410 ml -670 ml Free Water 120 ml 150 ml IV Total 220 ml 330 ml Tube Feeding 550 ml 200 ml Output Urine Total 1300 ml 1350 ml Laboratory Tests 01/02/19 05:25: White Blood Count 9.7, Red Blood Count 3.77L, Hemoglobin 12.1L, Hematocrit 37.5L , Mean Corpuscular Volume 99, Mean Corpuscular Hemoglobin 31.9H, Mean Corpuscular Hemoglobin Concent 32.2, Red Cell Distribution Width 14.5, Platelet Count 309, Mean Platelet Volume 5.7L, Neutrophils (%) (Auto) 74.4, Lymphocytes ( %) (Auto) 14.6L, Monocytes (%) (Auto) 6.1, Eosinophils (%) (Auto) 4.0H, Basophils (%) (Auto) 0.9, Sodium Level 140, Potassium Level 5.8H, Chloride Level 107, Carbon Dioxide Level 28, Anion Gap 5, Blood Urea Nitrogen 20H, Creatinine 0.9, Estimat Glomerular Filtration Rate , Glucose Level 127H, Calcium Level 8.2L, Phosphorus Level 3.9, Magnesium Level 2.2, Total Bilirubin 0.3, Aspartate Amino Transf (AST/SGOT) 34, Alanine Aminotransferase (ALT/SGPT) 26, Alkaline Phosphatase 95, Total Protein 6.0L, Albumin 2.1L, Globulin 3.9, Albumin/Globulin Ratio 0.5L Height (Feet): 5 Height (Inches): 10.00 Weight (Pounds): 179 Albaro Cho MD Jan 02, 2019 12:21
--- NOTE | 2019-01-02 12:38 | Surgery Progress Note ---
Surgery Progress Note Subjective Additional Comments no acute events. moving around a lot in bed. labs okay. exam stable. Objective Last 24 Hour Vital Signs Date Time Temp Pulse Resp B/P (MAP) Pulse Ox O2 Delivery O2 Flow Rate FiO2 01/02/19 08:52 76 110/60 01/02/19 08:00 97.9 76 20 110/60 (77) 96 01/02/19 06:58 Nasal Cannula 3.0 32 01/02/19 06:58 98 Nasal Cannula 3.0 32 01/02/19 03:55 97.6 72 20 112/63 (79) 94 01/02/19 00:00 98.1 83 21 141/89 (106) 95 01/01/19 21:46 Nasal Cannula 2.0 01/01/19 20:35 110 129/93 01/01/19 20:00 98.7 110 21 129/93 (105) 98 01/01/19 16:00 98.7 70 18 120/51 (74) 98 I&O Intake and Output 01/01/19 01/02/19 19:00 07:00 Intake Total 890 ml 680 ml Output Total 1300 ml 1350 ml Balance -410 ml -670 ml Free Water 120 ml 150 ml IV Total 220 ml 330 ml Tube Feeding 550 ml 200 ml Output Urine Total 1300 ml 1350 ml Dressing: saturated Wound: other Drains: other Cardiovascular: RSR Respiratory: decreased breath sounds Abdomen: soft, present bowel sounds, non-distended Extremities: other Laboratory Tests Test 01/02/19 05:25 White Blood Count 9.7 K/UL (4.8-10.8) Red Blood Count 3.77 M/UL (4.70-6.10) L Hemoglobin 12.1 G/DL (14.2-18.0) L Hematocrit 37.5 % (42.0-52.0) L Mean Corpuscular Volume 99 FL (80-99) Mean Corpuscular Hemoglobin 31.9 PG (27.0-31.0) H Mean Corpuscular Hemoglobin Concent 32.2 G/DL (32.0-36.0) Red Cell Distribution Width 14.5 % (11.6-14.8) Platelet Count 309 K/UL (150-450) Mean Platelet Volume 5.7 FL (6.5-10.1) L Neutrophils (%) (Auto) 74.4 % (45.0-75.0) Lymphocytes (%) (Auto) 14.6 % (20.0-45.0) L Monocytes (%) (Auto) 6.1 % (1.0-10.0) Eosinophils (%) (Auto) 4.0 % (0.0-3.0) H Basophils (%) (Auto) 0.9 % (0.0-2.0) Sodium Level 140 MMOL/L (136-145) Potassium Level 5.8 MMOL/L (3.5-5.1) H Chloride Level 107 MMOL/L (98-107) Carbon Dioxide Level 28 MMOL/L (21-32) Anion Gap 5 mmol/L (5-15) Blood Urea Nitrogen 20 mg/dL (7-18) H Creatinine 0.9 MG/DL (0.55-1.30) Estimat Glomerular Filtration Rate mL/min (>60) Glucose Level 127 MG/DL (74-106) H Calcium Level 8.2 MG/DL (8.5-10.1) L Phosphorus Level 3.9 MG/DL (2.5-4.9) Magnesium Level 2.2 MG/DL (1.8-2.4) Total Bilirubin 0.3 MG/DL (0.2-1.0) Aspartate Amino Transf (AST/SGOT) 34 U/L (15-37) Alanine Aminotransferase (ALT/SGPT) 26 U/L (12-78) Alkaline Phosphatase 95 U/L (46-116) Total Protein 6.0 G/DL (6.4-8.2) L Albumin 2.1 G/DL (3.4-5.0) L Globulin 3.9 g/dL Albumin/Globulin Ratio 0.5 (1.0-2.7) L Plan Problems: (1) Decubitus skin ulcer Assessment & Plan: Pt presented on admission with multiple pressure injuries. Non-blanchable red area that is indurated L thoracic(L)1.1cm x (W)3.5cm. Periwound pink and intact. Maroon discoloration that is indurated L Buttocks (L) 1.9cm x (W)4cm.Maroon discoloration with red margins that are indurated.Non- blanchable erythema periwound. Non-blanchable erythema with induration noted to R buttocks (L)3cm x (W)3.5cm. Intact Blood Blister noted to R heel (L)5.5cm x (W )4.4cm. Non-blanchable erythema with fluctuance periwound. Intact Blood Blister noted extending from medial to lateral aspect of L heel (L)6.2cm x (W)9cm. Non- blanchable erythema periwound . Cavilon Skin Barrier applied to both heel blisters.Each heel covered with Optifoam drsg .Abd pads applied to both heels and each heel wrapped with kerlix to prevent further friction to heels deterioration in wounds on both heels (blisters) and the sacral redness is now dti. The left heel blister is blood filled and there is blanchable redness surrounding it. The right heel blood blister is partially open and draining foul smelling yellow brown drainage Tx plan: Apply Cavilon Skin Barrier to L thoracic. Cover with Optifoam drsg. Change every 3 days and prn. Apply Cavilon Skin Barrier to R and L heel Blisters. Cover each heel with Optifoam drsg. Reinforce with ABD Pad and Kerlix. Change daily Will discuss with family for intervention Unfortunately at risk for decline given medical condition and current status Apply Triad Paste to Sacrum,R and L buttocks. Cover with Optifoam drsgs. Change every 3 days and APM/RAÚL Mattress overlay. Reposition at least every 2hours or as tolerated. Off-load heels with Pillow. (2) Heel ulcer (3) Sepsis Assessment & Plan: leukocytosis resolved on IV Abx as per ID labs abnormal and improving CT head noted cont with current care (4) Dehydration Assessment & Plan: DAILY ESTIMATED NEEDS: Needs based on Wound, CA / 77kg abw 25-30 kcals/kg 9838-4528 total kcals 1.25-1.5 g protein/kg 96-115 g total protein 20-22 mL/kg 1918-1790 total fluid mLs NUTRITION DIAGNOSIS: 1) Increased kcal/prot needs R/T wound healing, catabolic dx as evidenced by pt admitted w/ BL heels + sacral wound, now DTI, h/o metastatic prostate CA. 2) Swallowing difficulty r/t dysphagia as evidenced by pt is now S/ p PEG placement, on tube feeds. CURRENT TF:Glucerna 1.5 @50ml/hr x 24 hrs ENTERAL NUTRITION RECOMMENDATIONS: Maintain Glucerna 1.5 @50ml/hr x24 hrs to provide 1200ml, 1800 kcal, 99g prot , 911ml free H2O - Maintain current goal to meet >90% est kcal and 100% est pro needs - Increase water flushes (hypernatremia) - HOB over 30 degree ADDITIONAL RECOMMENDATIONS: * Calibrated bedscale weight for accurate CBW- bed w/ added p200 mattress * Monitor lytes, replete as needed (low K) * Consider accucheck w/ SSI- h/o DM, A1C=6.5 * Wound healing: add Kyler 1pkt BID, continue Vit C * Updated CBC, BMP as able Juan Syed Jan 02, 2019 12:38
--- NOTE | 2019-01-02 13:16 | NUR ---
DISCHARGE SWALLOW/SPEECH THERAPY SUMMARY: PATIENT WAS SEEN FOR DYSPHAGIA, SEE SWALLOW EVALUATION AND MODIFIED BARIUM VIDEOSWALLOW STUDY REPORTS. PATIENT HAD PEG PLACED 12/28/18. PATIENT NOT SEEN SINCE PEG PLACEMENT DUE TO SCHEDULE CONFLICTS. PATIENT IS NOT ALERT FOR PO TRIALS FOR ORAL GRAT AT THIS TIME. PLAN: WILL D/C FROM [facility] AT THIS TIME. CONTINUE WITH PEG FEEDINGS AND ORAL CARE AND F/UP WITH [facility] AT SNF FOR ORAL GRATIFICATION (SEE MOD BARIUM SWALLOW STUDY RECOMMENDATIONS). D/W QUAN
[2019-01-02 16:00] VITALS: BP 127/72
--- NOTE | 2019-01-02 17:05 | NUR ---
AIR BRAKE MECHANIC NOTES DISCHARGE PLANNING [facility] [phone] SPOKE WITH JANUARY, NO BEDS [facility] [phone] SPOKE WITH MARCO NO BEDS [facility] [phone] SPOKE WITH TESSIE NO BEDS [facility] [phone] SPOKE WITH NEHA NO BEDS AVAILABLE RECEIVED CALL FROM ADI FROM [facility] PT'S DAUGHTER REQUESTING HOSPICE CARE WITH SNF PLACEMENT. INQUIRY FAXED TO ADI. WAITING FOR CALL BACK. [facility] [phone] [facility] [phone]
--- NOTE | 2019-01-02 17:28 | Infectious Diseases Prog Note ---
Assessment/Plan Problems: (1) LLL pneumonia Assessment & Plan: suspect aspiration, improved with vancomycin and zosyn empirically , aspiration precaution , keep HOB > 30 degree (2) Sepsis Assessment & Plan: with staph aureus methicillin sensitive , due to the above , already on oxacillin and treat him for four weeks . ECHO rule out vegetations . repeated blood culture to confirm clearance is pending .EOT 01/24/19 (3) Acute encephalopathy Assessment & Plan: due to the above, suspect metabolic and toxic, continue antibiotics and supportive care (4) Renal failure Assessment & Plan: suspect due to dehydration , continue IVF , monitor renal function closely (5) Dehydration Assessment & Plan: continue IVF, encourage hydration (6) Acute respiratory failure Assessment & Plan: due to the above, improving , off BIPAP , monitor CXR . Subjective ROS Limited/Unobtainable: Yes Allergies: Coded Allergies: No Known Allergies (Unverified , 12/24/18) Subjective He was comfortable, lying in bed, not agitated or restless, unresponsive and doesn't follow commands , afebrile , pulled his G tube and had leaking Objective Vital Signs Last 24 Hour Vital Signs Date Time Temp Pulse Resp B/P (MAP) Pulse Ox O2 Delivery O2 Flow Rate FiO2 01/02/19 16:00 98.4 65 20 127/72 (90) 98 01/02/19 12:00 97.3 71 18 113/61 (78) 93 01/02/19 09:00 Nasal Cannula 2.0 01/02/19 08:52 76 110/60 01/02/19 08:00 97.9 76 20 110/60 (77) 96 01/02/19 06:58 Nasal Cannula 3.0 32 01/02/19 06:58 98 Nasal Cannula 3.0 32 01/02/19 03:55 97.6 72 20 112/63 (79) 94 01/02/19 00:00 98.1 83 21 141/89 (106) 95 01/01/19 21:46 Nasal Cannula 2.0 01/01/19 20:35 110 129/93 01/01/19 20:00 98.7 110 21 129/93 (105) 98 Height (Feet): 5 Height (Inches): 10.00 Weight (Pounds): 179 General Appearance: WD/WN, no acute distress HEENT: normocephalic, atraumatic, anicteric, mucous membranes moist, PERRL Respiratory/Chest: chest wall non-tender, no respiratory distress, no accessory muscle use, decreased breath sounds Cardiovascular: normal peripheral pulses, normal rate, regular rhythm, no gallop/murmur, no JVD Abdomen: normal bowel sounds, soft, non tender, no organomegaly, non distended , no mass, no scars Extremities: no cyanosis, no clubbing Skin: no rash, no lesions, ulcers Neurologic/Psychiatric: alert, oriented x 3, responsive Lymphatic: no neck adenopathy, no groin adenopathy Musculoskeletal: normal muscle bulk, no effusion Laboratory Tests Test 01/02/19 05:25 White Blood Count 9.7 K/UL (4.8-10.8) Red Blood Count 3.77 M/UL (4.70-6.10) L Hemoglobin 12.1 G/DL (14.2-18.0) L Hematocrit 37.5 % (42.0-52.0) L Mean Corpuscular Volume 99 FL (80-99) Mean Corpuscular Hemoglobin 31.9 PG (27.0-31.0) H Mean Corpuscular Hemoglobin Concent 32.2 G/DL (32.0-36.0) Red Cell Distribution Width 14.5 % (11.6-14.8) Platelet Count 309 K/UL (150-450) Mean Platelet Volume 5.7 FL (6.5-10.1) L Neutrophils (%) (Auto) 74.4 % (45.0-75.0) Lymphocytes (%) (Auto) 14.6 % (20.0-45.0) L Monocytes (%) (Auto) 6.1 % (1.0-10.0) Eosinophils (%) (Auto) 4.0 % (0.0-3.0) H Basophils (%) (Auto) 0.9 % (0.0-2.0) Sodium Level 140 MMOL/L (136-145) Potassium Level 5.8 MMOL/L (3.5-5.1) H Chloride Level 107 MMOL/L (98-107) Carbon Dioxide Level 28 MMOL/L (21-32) Anion Gap 5 mmol/L (5-15) Blood Urea Nitrogen 20 mg/dL (7-18) H Creatinine 0.9 MG/DL (0.55-1.30) Estimat Glomerular Filtration Rate mL/min (>60) Glucose Level 127 MG/DL (74-106) H Calcium Level 8.2 MG/DL (8.5-10.1) L Phosphorus Level 3.9 MG/DL (2.5-4.9) Magnesium Level 2.2 MG/DL (1.8-2.4) Total Bilirubin 0.3 MG/DL (0.2-1.0) Aspartate Amino Transf (AST/SGOT) 34 U/L (15-37) Alanine Aminotransferase (ALT/SGPT) 26 U/L (12-78) Alkaline Phosphatase 95 U/L (46-116) Total Protein 6.0 G/DL (6.4-8.2) L Albumin 2.1 G/DL (3.4-5.0) L Globulin 3.9 g/dL Albumin/Globulin Ratio 0.5 (1.0-2.7) L Current Medications Medications (Trade) Dose Ordered Sig/Jessie Route PRN Reason Start Time Stop Time Status Last Admin Dose Admin Acetaminophen (Tylenol) 650 mg Q6H PRN GT Mild Pain/Temp > 100.5 12/29/18 17:00 01/25/19 21:49 Ascorbic Acid (Vitamin C) 500 mg TWICE A DAY GT 12/29/18 18:00 01/26/19 08:59 01/02/19 08:52 Carvedilol (Coreg) 3.125 mg EVERY 12 HOURS GT 12/29/18 21:00 01/24/19 20:59 01/02/19 08:52 Heparin Sodium (Porcine) (Heparin 5000 units/ml) 5,000 units EVERY 12 HOURS SUBQ 12/27/18 09:00 01/23/19 20:59 01/02/19 08:54 Hydromorphone HCl (Dilaudid) 0.5 mg EVERY 3 HOURS PRN IVP Severe Pain (Pain Scale 7-10) 01/01/19 02:00 01/08/19 01:59 01/01/19 12:43 Lansoprazole (Prevacid) 30 mg BID GT 12/29/18 18:00 01/28/19 17:59 01/02/19 08:52 Lorazepam (Ativan) 1 mg Q6H PRN GT For Anxiety 12/29/18 17:00 01/03/19 22:59 01/02/19 11:31 Multivitamins (Multivitamins) 1 tab DAILY GT 12/30/18 09:00 01/26/19 08:59 01/02/19 08:52 Olanzapine (ZyPREXA) 2.5 mg BID GT 01/02/19 09:00 02/01/19 08:59 01/02/19 08:52 Ondansetron HCl (Zofran) 4 mg Q8H PRN IVP Nausea & Vomiting 12/26/18 21:51 01/25/19 21:50 Oxacillin Sodium 2 gm/Sodium Chloride 110 ml @ 220 mls/hr Q4HR IVPB 12/29/18 17:00 01/05/19 16:59 01/02/19 13:30 Tamsulosin HCl (Flomax) 0.4 mg DAILY ORAL 12/27/18 09:00 01/25/19 08:59 01/02/19 08:52 Alex Mckeon M.D. Jan 02, 2019 17:28
--- NOTE | 2019-01-02 19:45 | NUR ---
NURSE NOTES: Received report from QUAN Saeed. Patient A&Ox1. On nasal cannula. no signs of distress or labored breathing. IV intact, patent, and saline locked. GT intact, patent, and infusing feeding. Prasad intact, patent, and draining urine. Soft bilateral restraints on. Bed at least 30 degrees. Bed in lowest position. Will continue with plan of care.
--- NOTE | 2019-01-02 19:46 | NUR ---
HAND-OFF: Report given to QUAN CERVANTES.
[2019-01-02 20:00] VITALS: BP 128/73
[2019-01-02] MEDS: Hydromorphone 0.5mg/0.5ml inj IVP PRN (21:09)
--- NOTE | 2019-01-02 21:24 | Psych Consult Progress Note ---
Psychiatry Progress Note Psychiatry Progress Note Medications Current Medications Medications (Trade) Dose Ordered Sig/Jessie Route PRN Reason Start Time Stop Time Status Last Admin Dose Admin Acetaminophen (Tylenol) 650 mg Q6H PRN GT Mild Pain/Temp > 100.5 12/29/18 17:00 01/25/19 21:49 Ascorbic Acid (Vitamin C) 500 mg TWICE A DAY GT 12/29/18 18:00 01/26/19 08:59 01/02/19 17:36 Carvedilol (Coreg) 3.125 mg EVERY 12 HOURS GT 12/29/18 21:00 01/24/19 20:59 01/02/19 21:08 Heparin Sodium (Porcine) (Heparin 5000 units/ml) 5,000 units EVERY 12 HOURS SUBQ 12/27/18 09:00 01/23/19 20:59 01/02/19 21:10 Hydromorphone HCl (Dilaudid) 0.5 mg EVERY 3 HOURS PRN IVP Severe Pain (Pain Scale 7-10) 01/01/19 02:00 01/08/19 01:59 01/02/19 21:09 Lansoprazole (Prevacid) 30 mg BID GT 12/29/18 18:00 01/28/19 17:59 01/02/19 17:36 Lorazepam (Ativan) 1 mg Q6H PRN GT For Anxiety 12/29/18 17:00 01/03/19 22:59 01/02/19 11:31 Multivitamins (Multivitamins) 1 tab DAILY GT 12/30/18 09:00 01/26/19 08:59 01/02/19 08:52 Olanzapine (ZyPREXA) 2.5 mg BID GT 01/02/19 09:00 02/01/19 08:59 01/02/19 17:36 Ondansetron HCl (Zofran) 4 mg Q8H PRN IVP Nausea & Vomiting 12/26/18 21:51 01/25/19 21:50 Oxacillin Sodium 2 gm/Sodium Chloride 110 ml @ 220 mls/hr Q4HR IVPB 12/29/18 17:00 01/05/19 16:59 01/02/19 21:10 Tamsulosin HCl (Flomax) 0.4 mg DAILY ORAL 12/27/18 09:00 01/25/19 08:59 01/02/19 08:52 Problems: (1) Dementia with behavioral disturbance (2) Acute encephalopathy Neurological/Psychiatric: Reports: anxiety Allergies: Coded Allergies: No Known Allergies (Unverified , 12/24/18) Subjective the pt was asleep moaning. yesterday was agitated and pulled out the GT. the pt now in restraints. increased the zyprexa Objective Data Height (Feet): 5 Height (Inches): 10.00 Weight (Pounds): 179 General Appearance: no apparent distress, lethargic, confused, agitated - episodes of agitation, obese Assessment/Plan Problem List: (1) Dementia with behavioral disturbance ICD Codes: F03.91 - Unspecified dementia with behavioral disturbance SNOMED: 0967841996050 (2) Acute encephalopathy ICD Codes: G93.40 - Encephalopathy, unspecified SNOMED: 56879607, 483092396 Status: stable, unchanged Assessment: zyprexa 2.5mg po bid cont soft restraints. haldol IM prn Diagnoses [place] I: dementia with behavioral disturbance Delirium Lisha Black MD Jan 02, 2019 21:24
[2019-01-03] VITALS: BP 108/66
[2019-01-03] MEDS: Oxacillin 2 GM in NS 110 ML IVPB SCH ×6 (02:19→20:17)
[2019-01-03] MEDS: Hydromorphone 0.5mg/0.5ml inj IVP PRN ×2 (03:32→14:05)
[2019-01-03 04:00] VITALS: BP 110/60
[2019-01-03 05:59] LABS: BASOPHILS % (AUTO) 0.8 % (0.0-2.0); EOSINOPHILS % (AUTO) 3.2 % (0.0-3.0); HEMATOCRIT 37.8 % (42.0-52.0); HEMOGLOBIN 12.5 G/DL (14.2-18.0); LYMPHOCYTES % (AUTO) 13.1 % (20.0-45.0); MEAN CORPUSCULAR VOLUME 100 FL (80-99); MONOCYTES % (AUTO) 4.9 % (1.0-10.0); PLATELET COUNT 348 K/UL (150-450); RED CELL DISTRIBUTION WIDTH 14.3 % (11.6-14.8); WHITE BLOOD COUNT 10.3 K/UL (4.8-10.8)
[2019-01-03 06:31] LABS: ANION GAP 6 mmol/L (5-15); BLOOD UREA NITROGEN 17 mg/dL (7-18); CALCIUM 8.6 MG/DL (8.5-10.1); CARBON DIOXIDE 28 MMOL/L (21-32); CHLORIDE 104 MMOL/L (98-107); CREATININE 0.9 MG/DL (0.55-1.30); PHOSPHORUS 3.7 MG/DL (2.5-4.9); POTASSIUM 5.1 MMOL/L (3.5-5.1); SODIUM 138 MMOL/L (136-145)
--- NOTE | 2019-01-03 07:30 | NUR ---
HAND-OFF: Report given to QUAN Hines.
--- NOTE | 2019-01-03 07:41 | NUR ---
NURSE NOTES: Received patient from Cecilio RN, patient is sleeping in bed, no distress noted, tube feeding in place and running, no distress noted, bed is locked and in lowest position, bilateral soft wrist restraints in place, call light within reach, will continue to monitor.
[2019-01-03 08:00] VITALS: BP 92/52
[2019-01-03] MEDS: Ascorbic Acid 500mg tab GT SCH ×2 (09:10→17:07)
[2019-01-03] MEDS: OLANZapine 2.5mg tab GT SCH ×2 (09:10→17:07)
[2019-01-03] MEDS: Tamsulosin 0.4mg cap ORAL SCH (09:11)
[2019-01-03] MEDS: Heparin 5000 units/ml inj SUBQ SCH ×2 (09:13→20:23)
--- NOTE | 2019-01-03 10:34 | General Progress Note ---
Assessment/Plan Assessment: S: Not verbally communicative O: make limited verbal conversation, no chest pain. appears anxious. The son is bed side PHYSICAL EXAMINATION:HEAD AND NECK: Atraumatic and normocephalic. CHEST: Diffuse bronchial breathing sounds.ABDOMEN: PEG t in place, Soft. MUSCULOSKELETAL: Positive for the increased reflexes and spasticity in all 4 extremities.NEUROLOGY: Limited evaluation as the patient is not verbally communicative. Meds: Reviewed and reconciled. ASSESSMENT AND PLAN: 1. Sepsis: Gram positive 2. Hypoxemic respiratory failure. 3. Healthcare-associated pneumonia. 4. Macrocytic anemia. 5. Abnormal LFTs. 6. GI and DVT prophylaxes. 7. DNR/DNI. 8. Dysphagia Plan: ID, Pulmonary, Nephro notes are reviewed current empirical abx remains DNR high risk for aspiration S/p PEG T placement . Placement: SNIF + Hospice , [facility] PRN agitation Notes from CM reviewed Subjective Allergies: Coded Allergies: No Known Allergies (Unverified , 12/24/18) Objective Last 24 Hour Vital Signs Date Time Temp Pulse Resp B/P (MAP) Pulse Ox O2 Delivery O2 Flow Rate FiO2 01/03/19 09:00 71 92/52 01/03/19 08:15 Nasal Cannula 2.0 01/03/19 08:00 98.2 71 16 92/52 (65) 96 01/03/19 04:00 98.6 87 22 110/60 (77) 96 01/03/19 00:00 98.2 85 24 108/66 (80) 96 01/02/19 21:08 71 128/73 01/02/19 21:00 Nasal Cannula 2.0 01/02/19 20:00 97.3 71 24 128/73 (91) 94 01/02/19 20:00 Nasal Cannula 2.0 28 01/02/19 20:00 95 Nasal Cannula 2.0 28 01/02/19 16:00 98.4 65 20 127/72 (90) 98 01/02/19 12:00 97.3 71 18 113/61 (78) 93 Intake and Output 01/02/19 01/03/19 19:00 07:00 Intake Total 1819 ml 620 ml Output Total 1300 ml 1350 ml Balance 519 ml -730 ml Free Water 120 ml IV Total 1219 ml Tube Feeding 600 ml 500 ml Output Urine Total 1300 ml 1350 ml # Bowel Movements 1 Laboratory Tests 01/03/19 05:00: White Blood Count 10.3, Red Blood Count 3.80L, Hemoglobin 12.5L, Hematocrit 37.8L, Mean Corpuscular Volume 100H, Mean Corpuscular Hemoglobin 32.8H, Mean Corpuscular Hemoglobin Concent 33.0, Red Cell Distribution Width 14.3, Platelet Count 348, Mean Platelet Volume 5.6L, Neutrophils (%) (Auto) 78.0H, Lymphocytes (%) (Auto) 13.1L, Monocytes (%) (Auto) 4.9, Eosinophils (%) (Auto) 3.2H, Basophils (%) (Auto) 0.8, Sodium Level 138, Potassium Level 5.1, Chloride Level 104, Carbon Dioxide Level 28, Anion Gap 6, Blood Urea Nitrogen 17, Creatinine 0.9, Estimat Glomerular Filtration Rate , Glucose Level 121H, Calcium Level 8.6 , Phosphorus Level 3.7, Magnesium Level 2.3 Height (Feet): 5 Height (Inches): 10.00 Weight (Pounds): 199 Albaro Cho MD Jan 03, 2019 10:34
--- NOTE | 2019-01-03 10:49 | GI Progress Note ---
Assessment/Plan Problems: (1) Encounter for PEG (percutaneous endoscopic gastrostomy) ICD Codes: Z43.1 - Encounter for attention to gastrostomy SNOMED: 418419171, 334713198 (2) Severe malnutrition ICD Codes: E43 - Unspecified severe protein-calorie malnutrition SNOMED: 39855915 (3) Dysphagia ICD Codes: R13.10 - Dysphagia, unspecified SNOMED: 33992839, 984790141 (4) Dehydration ICD Codes: E86.0 - Dehydration SNOMED: 91451029 (5) Agitation ICD Codes: R45.1 - Restlessness and agitation SNOMED: 861389978 (6) Hemochromatosis ICD Codes: E83.119 - Hemochromatosis, unspecified SNOMED: 709028881 Status: stable Status Narrative Discussed with Dr. Styles Assessment/Plan SUMMARY OF FINDINGS: 1. Status post successful PEG placement. 2. Atrophic gastritis. RECOMMENDATIONS: ID, Pulmonary, Nephro notes are reviewed current empirical abx remains DNR/DNI strict aspiration precautions S/p PEG T placement, tolerating feedings Placement: SNF + Hospice , requested a different facility [facility] PRN agitation Reglan as needed for GI motility The patient was seen and examined at bedside and all new and available data was reviewed in the patients chart. I agree with the above findings, impression and plan. (Patient seen earlier today. Signature stamp does not reflect patient encounter time.). - David Styles MD Subjective Subjective limited Objective Last 24 Hour Vital Signs Date Time Temp Pulse Resp B/P (MAP) Pulse Ox O2 Delivery O2 Flow Rate FiO2 01/03/19 09:00 71 92/52 01/03/19 08:15 Nasal Cannula 2.0 01/03/19 08:00 98.2 71 16 92/52 (65) 96 01/03/19 04:00 98.6 87 22 110/60 (77) 96 01/03/19 00:00 98.2 85 24 108/66 (80) 96 01/02/19 21:08 71 128/73 01/02/19 21:00 Nasal Cannula 2.0 01/02/19 20:00 97.3 71 24 128/73 (91) 94 01/02/19 20:00 Nasal Cannula 2.0 28 01/02/19 20:00 95 Nasal Cannula 2.0 28 01/02/19 16:00 98.4 65 20 127/72 (90) 98 01/02/19 12:00 97.3 71 18 113/61 (78) 93 Intake and Output 01/02/19 01/03/19 19:00 07:00 Intake Total 1819 ml 620 ml Output Total 1300 ml 1350 ml Balance 519 ml -730 ml Free Water 120 ml IV Total 1219 ml Tube Feeding 600 ml 500 ml Output Urine Total 1300 ml 1350 ml # Bowel Movements 1 Laboratory Tests Test 01/03/19 05:00 White Blood Count 10.3 K/UL (4.8-10.8) Red Blood Count 3.80 M/UL (4.70-6.10) L Hemoglobin 12.5 G/DL (14.2-18.0) L Hematocrit 37.8 % (42.0-52.0) L Mean Corpuscular Volume 100 FL (80-99) H Mean Corpuscular Hemoglobin 32.8 PG (27.0-31.0) H Mean Corpuscular Hemoglobin Concent 33.0 G/DL (32.0-36.0) Red Cell Distribution Width 14.3 % (11.6-14.8) Platelet Count 348 K/UL (150-450) Mean Platelet Volume 5.6 FL (6.5-10.1) L Neutrophils (%) (Auto) 78.0 % (45.0-75.0) H Lymphocytes (%) (Auto) 13.1 % (20.0-45.0) L Monocytes (%) (Auto) 4.9 % (1.0-10.0) Eosinophils (%) (Auto) 3.2 % (0.0-3.0) H Basophils (%) (Auto) 0.8 % (0.0-2.0) Sodium Level 138 MMOL/L (136-145) Potassium Level 5.1 MMOL/L (3.5-5.1) Chloride Level 104 MMOL/L (98-107) Carbon Dioxide Level 28 MMOL/L (21-32) Anion Gap 6 mmol/L (5-15) Blood Urea Nitrogen 17 mg/dL (7-18) Creatinine 0.9 MG/DL (0.55-1.30) Estimat Glomerular Filtration Rate mL/min (>60) Glucose Level 121 MG/DL (74-106) H Calcium Level 8.6 MG/DL (8.5-10.1) Phosphorus Level 3.7 MG/DL (2.5-4.9) Magnesium Level 2.3 MG/DL (1.8-2.4) Height (Feet): 5 Height (Inches): 10.00 Weight (Pounds): 199 General Appearance: no apparent distress Cardiovascular: normal rate Respiratory/Chest: normal breath sounds, no respiratory distress Abdominal Exam: normal bowel sounds, non tender, soft, GT site Extremities: non-tender Kp Beltran SPECIAL EVENT ASSISTANT Jan 03, 2019 10:49
--- NOTE | 2019-01-03 11:33 | Nephrology Progress Note ---
Assessment/Plan Problem List: (1) Renal failure Assessment: acute , resolved (2) LLL pneumonia (3) Acute respiratory failure (4) Acute encephalopathy Assessment Renal impression: Renal failure acute, likely prerenal , combination of cardiomyopathy and dehydration leading to pre renal azotemia RLL pneumonia Sepsis H/O metastatic prostate cancer EjFx 18% per history now 30% Was on Hospice [employer] Anemia Plan DC KCL NS bolus optimize cardiac state pulm support antibiotics Per consultants 2D echo noted NOW DNR Subjective ROS Limited/Unobtainable: No Constitutional: Reports: malaise Objective Objective Last 24 Hour Vital Signs Date Time Temp Pulse Resp B/P (MAP) Pulse Ox O2 Delivery O2 Flow Rate FiO2 01/03/19 09:00 71 92/52 01/03/19 08:15 Nasal Cannula 2.0 01/03/19 08:00 98.2 71 16 92/52 (65) 96 01/03/19 04:00 98.6 87 22 110/60 (77) 96 01/03/19 00:00 98.2 85 24 108/66 (80) 96 01/02/19 21:08 71 128/73 01/02/19 21:00 Nasal Cannula 2.0 01/02/19 20:00 97.3 71 24 128/73 (91) 94 01/02/19 20:00 Nasal Cannula 2.0 28 01/02/19 20:00 95 Nasal Cannula 2.0 28 01/02/19 16:00 98.4 65 20 127/72 (90) 98 01/02/19 12:00 97.3 71 18 113/61 (78) 93 Intake and Output 01/02/19 01/03/19 19:00 07:00 Intake Total 1819 ml 620 ml Output Total 1300 ml 1350 ml Balance 519 ml -730 ml Free Water 120 ml IV Total 1219 ml Tube Feeding 600 ml 500 ml Output Urine Total 1300 ml 1350 ml # Bowel Movements 1 Laboratory Tests 01/03/19 05:00: White Blood Count 10.3, Red Blood Count 3.80L, Hemoglobin 12.5L, Hematocrit 37.8L, Mean Corpuscular Volume 100H, Mean Corpuscular Hemoglobin 32.8H, Mean Corpuscular Hemoglobin Concent 33.0, Red Cell Distribution Width 14.3, Platelet Count 348, Mean Platelet Volume 5.6L, Neutrophils (%) (Auto) 78.0H, Lymphocytes (%) (Auto) 13.1L, Monocytes (%) (Auto) 4.9, Eosinophils (%) (Auto) 3.2H, Basophils (%) (Auto) 0.8, Sodium Level 138, Potassium Level 5.1, Chloride Level 104, Carbon Dioxide Level 28, Anion Gap 6, Blood Urea Nitrogen 17, Creatinine 0.9, Estimat Glomerular Filtration Rate , Glucose Level 121H, Calcium Level 8.6 , Phosphorus Level 3.7, Magnesium Level 2.3 Height (Feet): 5 Height (Inches): 10.00 Weight (Pounds): 199 General Appearance: no apparent distress Objective NO CHANGE Rigoberto Aaron MD Jan 03, 2019 11:33
[2019-01-03 12:00] VITALS: BP 114/65
--- NOTE | 2019-01-03 13:36 | NUR ---
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 DEHYDRATION VS: BP 92/52, P 71, T 98.6, RR 24, SpO2 96 on 2.0L O2 NC RBC 3.80, Hgb 12.5, Hct 37.8 IS:ZYPREXA 2.5mg DILAUDID 0.5mg IVP COREG 3.125 PREVACID 30mg OXACILLIN 110ml IVPB HEPARIN SUBQ MED/SURG STATUS
--- NOTE | 2019-01-03 14:21 | Surgery Progress Note ---
Surgery Progress Note Subjective Additional Comments no acute events. restless. labs noted. otherwise unchanged. Objective Last 24 Hour Vital Signs Date Time Temp Pulse Resp B/P (MAP) Pulse Ox O2 Delivery O2 Flow Rate FiO2 01/03/19 12:00 98.4 84 18 114/65 (81) 95 01/03/19 09:00 71 92/52 01/03/19 08:15 Nasal Cannula 2.0 01/03/19 08:00 98.2 71 16 92/52 (65) 96 01/03/19 04:00 98.6 87 22 110/60 (77) 96 01/03/19 00:00 98.2 85 24 108/66 (80) 96 01/02/19 21:08 71 128/73 01/02/19 21:00 Nasal Cannula 2.0 01/02/19 20:00 97.3 71 24 128/73 (91) 94 01/02/19 20:00 Nasal Cannula 2.0 28 01/02/19 20:00 95 Nasal Cannula 2.0 28 01/02/19 16:00 98.4 65 20 127/72 (90) 98 I&O Intake and Output 01/02/19 01/03/19 19:00 07:00 Intake Total 1819 ml 620 ml Output Total 1300 ml 1350 ml Balance 519 ml -730 ml Free Water 120 ml IV Total 1219 ml Tube Feeding 600 ml 500 ml Output Urine Total 1300 ml 1350 ml # Bowel Movements 1 Dressing: saturated Wound: other Drains: other Cardiovascular: RSR Respiratory: clear Abdomen: present bowel sounds, non-distended Extremities: no cyanosis Laboratory Tests Test 01/03/19 05:00 White Blood Count 10.3 K/UL (4.8-10.8) Red Blood Count 3.80 M/UL (4.70-6.10) L Hemoglobin 12.5 G/DL (14.2-18.0) L Hematocrit 37.8 % (42.0-52.0) L Mean Corpuscular Volume 100 FL (80-99) H Mean Corpuscular Hemoglobin 32.8 PG (27.0-31.0) H Mean Corpuscular Hemoglobin Concent 33.0 G/DL (32.0-36.0) Red Cell Distribution Width 14.3 % (11.6-14.8) Platelet Count 348 K/UL (150-450) Mean Platelet Volume 5.6 FL (6.5-10.1) L Neutrophils (%) (Auto) 78.0 % (45.0-75.0) H Lymphocytes (%) (Auto) 13.1 % (20.0-45.0) L Monocytes (%) (Auto) 4.9 % (1.0-10.0) Eosinophils (%) (Auto) 3.2 % (0.0-3.0) H Basophils (%) (Auto) 0.8 % (0.0-2.0) Sodium Level 138 MMOL/L (136-145) Potassium Level 5.1 MMOL/L (3.5-5.1) Chloride Level 104 MMOL/L (98-107) Carbon Dioxide Level 28 MMOL/L (21-32) Anion Gap 6 mmol/L (5-15) Blood Urea Nitrogen 17 mg/dL (7-18) Creatinine 0.9 MG/DL (0.55-1.30) Estimat Glomerular Filtration Rate mL/min (>60) Glucose Level 121 MG/DL (74-106) H Calcium Level 8.6 MG/DL (8.5-10.1) Phosphorus Level 3.7 MG/DL (2.5-4.9) Magnesium Level 2.3 MG/DL (1.8-2.4) Plan Problems: (1) Decubitus skin ulcer Assessment & Plan: Pt presented on admission with multiple pressure injuries. Non-blanchable red area that is indurated L thoracic(L)1.1cm x (W)3.5cm. Periwound pink and intact. Maroon discoloration that is indurated L Buttocks (L) 1.9cm x (W)4cm.Maroon discoloration with red margins that are indurated.Non- blanchable erythema periwound. Non-blanchable erythema with induration noted to R buttocks (L)3cm x (W)3.5cm. Intact Blood Blister noted to R heel (L)5.5cm x (W )4.4cm. Non-blanchable erythema with fluctuance periwound. Intact Blood Blister noted extending from medial to lateral aspect of L heel (L)6.2cm x (W)9cm. Non- blanchable erythema periwound . Cavilon Skin Barrier applied to both heel blisters.Each heel covered with Optifoam drsg .Abd pads applied to both heels and each heel wrapped with kerlix to prevent further friction to heels deterioration in wounds on both heels (blisters) and the sacral redness is now dti. The left heel blister is blood filled and there is blanchable redness surrounding it. The right heel blood blister is partially open and draining foul smelling yellow brown drainage Tx plan: Apply Cavilon Skin Barrier to L thoracic. Cover with Optifoam drsg. Change every 3 days and prn. Apply Cavilon Skin Barrier to R and L heel Blisters. Cover each heel with Optifoam drsg. Reinforce with ABD Pad and Kerlix. Change daily Will discuss with family for intervention Unfortunately at risk for decline given medical condition and current status Apply Triad Paste to Sacrum,R and L buttocks. Cover with Optifoam drsgs. Change every 3 days and APM/RAÚL Mattress overlay. Reposition at least every 2hours or as tolerated. Off-load heels with Pillow. (2) Heel ulcer (3) Sepsis Assessment & Plan: leukocytosis resolved on IV Abx as per ID labs abnormal and improving CT head noted cont with current care (4) Dehydration Assessment & Plan: DAILY ESTIMATED NEEDS: Needs based on Wound, CA / 77kg abw 25-30 kcals/kg 5967-5891 total kcals 1.25-1.5 g protein/kg 96-115 g total protein 20-22 mL/kg 1887-4960 total fluid mLs NUTRITION DIAGNOSIS: 1) Increased kcal/prot needs R/T wound healing, catabolic dx as evidenced by pt admitted w/ BL heels + sacral wound, now DTI, h/o metastatic prostate CA. 2) Swallowing difficulty r/t dysphagia as evidenced by pt is now S/ p PEG placement, on tube feeds. CURRENT TF:Glucerna 1.5 @50ml/hr x 24 hrs ENTERAL NUTRITION RECOMMENDATIONS: Maintain Glucerna 1.5 @50ml/hr x24 hrs to provide 1200ml, 1800 kcal, 99g prot , 911ml free H2O - Maintain current goal to meet >90% est kcal and 100% est pro needs - Increase water flushes (hypernatremia) - HOB over 30 degree ADDITIONAL RECOMMENDATIONS: * Calibrated bedscale weight for accurate CBW- bed w/ added p200 mattress * Monitor lytes, replete as needed (low K) * Consider accucheck w/ SSI- h/o DM, A1C=6.5 * Wound healing: add Kyler 1pkt BID, continue Vit C * Updated CBC, BMP as able Juan Syed Jan 03, 2019 14:21
--- NOTE | 2019-01-03 15:31 | NUR ---
NURSE NOTES:WOUND CARE FOLLOW-UP NOTES:Reabsorbing DTPI L buttocks .Base of wound is indurated but now pink. No erythema or induration periwound. (L)1.7cm x (W)3.6cm. Dark Skin pigmentation without erythema or induration noted to sacrum.Periwound is blanchable. Reabsorbing blood blister L heel.No erythema,induration or fluctuance periwound. R heel blister de-roofed with 60% flap loss. Base of wound moist -viable.Periwound is fluctuant with non-blanchable erythema(L)7cm x (W)3.8cm. No new skin concerns noted. Tx.Plan: Cleanse R heel with Saline.Apply Therahoney.Cavilon Skin Barrier periwound. Cover with Optifoam drsg. Change every 3 days and prn. Apply Cavilon Skin Barrier to L heel. Cover with Optifoam drsg. Change every 7 days and prn. Apply Triad paste to buttocks. Cover with Optifoam drsg. Change every 3 days and prn. Reposition at least every 2 hours or as tolerated. Off-load heels with pillow.
[2019-01-03 16:00] VITALS: BP 137/80
--- NOTE | 2019-01-03 17:08 | Psych Consult Progress Note ---
Psychiatry Progress Note Psychiatry Progress Note Medications Current Medications Medications (Trade) Dose Ordered Sig/Jessie Route PRN Reason Start Time Stop Time Status Last Admin Dose Admin Acetaminophen (Tylenol) 650 mg Q6H PRN GT Mild Pain/Temp > 100.5 12/29/18 17:00 01/25/19 21:49 Ascorbic Acid (Vitamin C) 500 mg TWICE A DAY GT 12/29/18 18:00 01/26/19 08:59 01/03/19 09:10 Carvedilol (Coreg) 3.125 mg EVERY 12 HOURS GT 12/29/18 21:00 01/24/19 20:59 01/02/19 21:08 Heparin Sodium (Porcine) (Heparin 5000 units/ml) 5,000 units EVERY 12 HOURS SUBQ 12/27/18 09:00 01/23/19 20:59 01/03/19 09:13 Hydromorphone HCl (Dilaudid) 0.5 mg EVERY 3 HOURS PRN IVP Severe Pain (Pain Scale 7-10) 01/01/19 02:00 01/08/19 01:59 01/03/19 14:05 Lansoprazole (Prevacid) 30 mg BID GT 12/29/18 18:00 01/28/19 17:59 01/03/19 09:10 Lorazepam (Ativan) 1 mg Q6H PRN GT For Anxiety 12/29/18 17:00 01/03/19 22:59 01/02/19 11:31 Multivitamins (Multivitamins) 1 tab DAILY GT 12/30/18 09:00 01/26/19 08:59 01/03/19 09:10 Olanzapine (ZyPREXA) 2.5 mg BID GT 01/02/19 09:00 02/01/19 08:59 01/03/19 09:10 Ondansetron HCl (Zofran) 4 mg Q8H PRN IVP Nausea & Vomiting 12/26/18 21:51 01/25/19 21:50 Oxacillin Sodium 2 gm/Sodium Chloride 110 ml @ 220 mls/hr Q4HR IVPB 12/29/18 17:00 01/24/19 23:59 01/03/19 14:19 Tamsulosin HCl (Flomax) 0.4 mg DAILY ORAL 12/27/18 09:00 01/25/19 08:59 01/03/19 09:11 Neurological/Psychiatric: Reports: anxiety, weakness, other - agitation Allergies: Coded Allergies: No Known Allergies (Unverified , 12/24/18) Objective Data Height (Feet): 5 Height (Inches): 10.00 Weight (Pounds): 199 General Appearance: lethargic, confused, agitated Appearance: no abnormalities noted Behavior Mannerisms: poor eye contact Mental Status Exam - Thought P: loose association Mental Status Exam - Suicidal: not present Assessment/Plan Problem List: (1) Dementia with behavioral disturbance ICD Codes: F03.91 - Unspecified dementia with behavioral disturbance SNOMED: 4473614654626 (2) Acute encephalopathy ICD Codes: G93.40 - Encephalopathy, unspecified SNOMED: 61614751, 518159582 Status: not improved Assessment: zyprexa 2.5mg po bid cont soft restraints. Lisha Starr MD Jan 03, 2019 17:08
--- NOTE | 2019-01-03 17:37 | Infectious Diseases Prog Note ---
Assessment/Plan Problems: (1) LLL pneumonia Assessment & Plan: suspect aspiration, improved with vancomycin and zosyn empirically , aspiration precaution , keep HOB > 30 degree (2) Sepsis Assessment & Plan: with staph aureus methicillin sensitive , due to the above , already on oxacillin and treat him for four weeks . ECHO rule out vegetations . repeated blood culture to confirm clearance is pending .EOT 01/24/19 (3) Acute encephalopathy Assessment & Plan: due to the above, suspect metabolic and toxic, continue antibiotics and supportive care (4) Renal failure Assessment & Plan: suspect due to dehydration , continue IVF , monitor renal function closely (5) Dehydration Assessment & Plan: continue IVF, encourage hydration (6) Acute respiratory failure Assessment & Plan: due to the above, improving , off BIPAP , monitor CXR . Subjective ROS Limited/Unobtainable: Yes Allergies: Coded Allergies: No Known Allergies (Unverified , 12/24/18) Subjective He was comfortable, lying in bed, not agitated or restless, unresponsive and doesn't follow commands , afebrile , pulled his G tube and had leaking Objective Vital Signs Last 24 Hour Vital Signs Date Time Temp Pulse Resp B/P (MAP) Pulse Ox O2 Delivery O2 Flow Rate FiO2 01/03/19 16:00 98.1 94 18 137/80 (99) 98 01/03/19 14:35 98.4 01/03/19 12:00 98.4 84 18 114/65 (81) 95 01/03/19 09:00 71 92/52 01/03/19 08:15 Nasal Cannula 2.0 01/03/19 08:00 98.2 71 16 92/52 (65) 96 01/03/19 04:00 98.6 87 22 110/60 (77) 96 01/03/19 00:00 98.2 85 24 108/66 (80) 96 01/02/19 21:08 71 128/73 01/02/19 21:00 Nasal Cannula 2.0 01/02/19 20:00 97.3 71 24 128/73 (91) 94 01/02/19 20:00 Nasal Cannula 2.0 28 01/02/19 20:00 95 Nasal Cannula 2.0 28 Height (Feet): 5 Height (Inches): 10.00 Weight (Pounds): 199 General Appearance: WD/WN, no acute distress HEENT: normocephalic, atraumatic, anicteric, mucous membranes moist, PERRL Respiratory/Chest: chest wall non-tender, lungs clear, normal breath sounds, no respiratory distress, no accessory muscle use Cardiovascular: normal peripheral pulses, normal rate, regular rhythm, no gallop/murmur, no JVD Abdomen: normal bowel sounds, soft, non tender, no organomegaly, non distended , no mass, no scars Genitourinary: normal external genitalia Extremities: no cyanosis, no clubbing Skin: no rash, no lesions, no ulcers Neurologic/Psychiatric: alert, unresponsiveness Lymphatic: no neck adenopathy, no groin adenopathy Musculoskeletal: normal muscle bulk, no effusion Laboratory Tests Test 01/03/19 05:00 White Blood Count 10.3 K/UL (4.8-10.8) Red Blood Count 3.80 M/UL (4.70-6.10) L Hemoglobin 12.5 G/DL (14.2-18.0) L Hematocrit 37.8 % (42.0-52.0) L Mean Corpuscular Volume 100 FL (80-99) H Mean Corpuscular Hemoglobin 32.8 PG (27.0-31.0) H Mean Corpuscular Hemoglobin Concent 33.0 G/DL (32.0-36.0) Red Cell Distribution Width 14.3 % (11.6-14.8) Platelet Count 348 K/UL (150-450) Mean Platelet Volume 5.6 FL (6.5-10.1) L Neutrophils (%) (Auto) 78.0 % (45.0-75.0) H Lymphocytes (%) (Auto) 13.1 % (20.0-45.0) L Monocytes (%) (Auto) 4.9 % (1.0-10.0) Eosinophils (%) (Auto) 3.2 % (0.0-3.0) H Basophils (%) (Auto) 0.8 % (0.0-2.0) Sodium Level 138 MMOL/L (136-145) Potassium Level 5.1 MMOL/L (3.5-5.1) Chloride Level 104 MMOL/L (98-107) Carbon Dioxide Level 28 MMOL/L (21-32) Anion Gap 6 mmol/L (5-15) Blood Urea Nitrogen 17 mg/dL (7-18) Creatinine 0.9 MG/DL (0.55-1.30) Estimat Glomerular Filtration Rate mL/min (>60) Glucose Level 121 MG/DL (74-106) H Calcium Level 8.6 MG/DL (8.5-10.1) Phosphorus Level 3.7 MG/DL (2.5-4.9) Magnesium Level 2.3 MG/DL (1.8-2.4) Current Medications Medications (Trade) Dose Ordered Sig/Jessie Route PRN Reason Start Time Stop Time Status Last Admin Dose Admin Acetaminophen (Tylenol) 650 mg Q6H PRN GT Mild Pain/Temp > 100.5 12/29/18 17:00 01/25/19 21:49 Ascorbic Acid (Vitamin C) 500 mg TWICE A DAY GT 12/29/18 18:00 01/26/19 08:59 01/03/19 17:07 Carvedilol (Coreg) 3.125 mg EVERY 12 HOURS GT 12/29/18 21:00 01/24/19 20:59 01/02/19 21:08 Heparin Sodium (Porcine) (Heparin 5000 units/ml) 5,000 units EVERY 12 HOURS SUBQ 12/27/18 09:00 01/23/19 20:59 01/03/19 09:13 Hydromorphone HCl (Dilaudid) 0.5 mg EVERY 3 HOURS PRN IVP Severe Pain (Pain Scale 7-10) 01/01/19 02:00 01/08/19 01:59 01/03/19 14:05 Lansoprazole (Prevacid) 30 mg BID GT 12/29/18 18:00 01/28/19 17:59 01/03/19 17:07 Lorazepam (Ativan) 1 mg Q6H PRN GT For Anxiety 12/29/18 17:00 01/03/19 22:59 01/02/19 11:31 Multivitamins (Multivitamins) 1 tab DAILY GT 12/30/18 09:00 01/26/19 08:59 01/03/19 09:10 Olanzapine (ZyPREXA) 2.5 mg BID GT 01/02/19 09:00 02/01/19 08:59 01/03/19 17:07 Ondansetron HCl (Zofran) 4 mg Q8H PRN IVP Nausea & Vomiting 12/26/18 21:51 01/25/19 21:50 Oxacillin Sodium 2 gm/Sodium Chloride 110 ml @ 220 mls/hr Q4HR IVPB 12/29/18 17:00 01/24/19 23:59 01/03/19 17:06 Tamsulosin HCl (Flomax) 0.4 mg DAILY ORAL 12/27/18 09:00 01/25/19 08:59 01/03/19 09:11 Alex Mckeon M.D. Jan 03, 2019 17:37
--- NOTE | 2019-01-03 19:29 | NUR ---
HAND-OFF: Report given to Richa GLASS.
--- NOTE | 2019-01-03 19:46 | NUR ---
NURSE NOTES: Patient awake in bed, no signs of pain at this time. With Gtube feeding. With Prasad cath intact and draining well. Call light in reach. Bed in lowest position, lock engaged and alarm on. With bilateral soft wrist restraints. Will continue to monitor.
[2019-01-03 20:00] VITALS: BP 123/76
[2019-01-03] MEDS: LORazepam 1mg tab GT PRN (20:16)
[2019-01-04] VITALS: BP 142/83
[2019-01-04] MEDS: Oxacillin 2 GM in NS 110 ML IVPB SCH ×3 (01:19→09:30)
--- NOTE | 2019-01-04 02:10 | NUR ---
NURSE NOTES: Dressing changed.
[2019-01-04 04:00] VITALS: BP 113/53
[2019-01-04 07:33] LABS: BASOPHILS % (AUTO) 1.2 % (0.0-2.0); EOSINOPHILS % (AUTO) 4.3 % (0.0-3.0); HEMATOCRIT 35.1 % (42.0-52.0); HEMOGLOBIN 11.7 G/DL (14.2-18.0); LYMPHOCYTES % (AUTO) 17.8 % (20.0-45.0); MEAN CORPUSCULAR VOLUME 98 FL (80-99); MONOCYTES % (AUTO) 7.6 % (1.0-10.0); NEUTROPHILS % (AUTO) 69.2 % (45.0-75.0); PLATELET COUNT 316 K/UL (150-450); RED BLOOD COUNT 3.58 M/UL (4.70-6.10); RED CELL DISTRIBUTION WIDTH 14.6 % (11.6-14.8); WHITE BLOOD COUNT 7.8 K/UL (4.8-10.8)
--- NOTE | 2019-01-04 07:33 | NUR ---
HAND-OFF: Report given to QUAN Blue.
--- NOTE | 2019-01-04 07:40 | NUR ---
NURSE NOTES: Received patient on bed, asleep. IV site intact and patent. Gtube present and intact and patent. Prasad catheter intact, patent and draining. Bed in low and locked position, call light in reach. Bilateral soft wrist restraints, peripheral pulses present bilaterally and temperature is normal both wrists. No signs of respiratory distress or pain. Room board updated, will continue to monitor closely.
[2019-01-04 07:46] LABS: ANION GAP 5 mmol/L (5-15); BLOOD UREA NITROGEN 23 mg/dL (7-18); CALCIUM 8.4 MG/DL (8.5-10.1); CARBON DIOXIDE 28 MMOL/L (21-32); CHLORIDE 103 MMOL/L (98-107); CREATININE 1.2 MG/DL (0.55-1.30); SODIUM 136 MMOL/L (136-145)
[2019-01-04 08:00] VITALS: BP 132/77
[2019-01-04 09:29] VITALS: BP 132/77
[2019-01-04] MEDS: Ascorbic Acid 500mg tab GT SCH (09:29)
[2019-01-04] MEDS: OLANZapine 2.5mg tab GT SCH (09:29)
[2019-01-04] MEDS: Tamsulosin 0.4mg cap ORAL SCH (09:29)
[2019-01-04] MEDS: Heparin 5000 units/ml inj SUBQ SCH (09:30)
--- NOTE | 2019-01-04 10:37 | GI Progress Note ---
Assessment/Plan Problems: (1) Encounter for PEG (percutaneous endoscopic gastrostomy) ICD Codes: Z43.1 - Encounter for attention to gastrostomy SNOMED: 017597544, 794997495 (2) Severe malnutrition ICD Codes: E43 - Unspecified severe protein-calorie malnutrition SNOMED: 02049094 (3) Dysphagia ICD Codes: R13.10 - Dysphagia, unspecified SNOMED: 29011322, 442383189 (4) Dehydration ICD Codes: E86.0 - Dehydration SNOMED: 21360119 (5) Agitation ICD Codes: R45.1 - Restlessness and agitation SNOMED: 282193235 (6) Hemochromatosis ICD Codes: E83.119 - Hemochromatosis, unspecified SNOMED: 301953667 Status: stable Status Narrative Discussed with a Dr. Styles Assessment/Plan SUMMARY OF FINDINGS: 1. Status post successful PEG placement. 2. Atrophic gastritis. RECOMMENDATIONS: ID, Pulmonary, Nephro notes are reviewed current empirical abx remains DNR/DNI strict aspiration precautions S/p PEG T placement, tolerating feedings Placement: SNF + Hospice , [facility] PRN agitation Reglan as needed for GI motility DC planning The patient was seen and examined at bedside and all new and available data was reviewed in the patients chart. I agree with the above findings, impression and plan. (Patient seen earlier today. Signature stamp does not reflect patient encounter time.). - David Styles MD Subjective Subjective limited Objective Last 24 Hour Vital Signs Date Time Temp Pulse Resp B/P (MAP) Pulse Ox O2 Delivery O2 Flow Rate FiO2 01/04/19 09:29 70 132/77 01/04/19 09:00 Nasal Cannula 2.0 01/04/19 08:00 98.2 70 19 132/77 (95) 100 01/04/19 07:45 96 Nasal Cannula 2.0 28 01/04/19 07:45 Nasal Cannula 2.0 28 01/04/19 04:00 97.1 60 18 113/53 (73) 96 01/04/19 00:00 97.6 82 18 142/83 (102) 94 01/03/19 21:00 Nasal Cannula 2.0 01/03/19 20:16 87 123/76 01/03/19 20:00 97.9 87 18 123/76 (92) 93 01/03/19 16:00 98.1 94 18 137/80 (99) 98 01/03/19 14:35 98.4 01/03/19 12:00 98.4 84 18 114/65 (81) 95 Intake and Output 01/03/19 01/04/19 19:00 07:00 Intake Total 650 ml 750 ml Output Total 900 ml Balance 650 ml -150 ml Free Water 100 ml 200 ml Tube Feeding 550 ml 550 ml Output Urine Total 900 ml Laboratory Tests Test 01/04/19 07:06 White Blood Count 7.8 K/UL (4.8-10.8) Red Blood Count 3.58 M/UL (4.70-6.10) L Hemoglobin 11.7 G/DL (14.2-18.0) L Hematocrit 35.1 % (42.0-52.0) L Mean Corpuscular Volume 98 FL (80-99) Mean Corpuscular Hemoglobin 32.8 PG (27.0-31.0) H Mean Corpuscular Hemoglobin Concent 33.4 G/DL (32.0-36.0) Red Cell Distribution Width 14.6 % (11.6-14.8) Platelet Count 316 K/UL (150-450) Mean Platelet Volume 5.9 FL (6.5-10.1) L Neutrophils (%) (Auto) 69.2 % (45.0-75.0) Lymphocytes (%) (Auto) 17.8 % (20.0-45.0) L Monocytes (%) (Auto) 7.6 % (1.0-10.0) Eosinophils (%) (Auto) 4.3 % (0.0-3.0) H Basophils (%) (Auto) 1.2 % (0.0-2.0) Sodium Level 136 MMOL/L (136-145) Potassium Level 5.0 MMOL/L (3.5-5.1) Chloride Level 103 MMOL/L (98-107) Carbon Dioxide Level 28 MMOL/L (21-32) Anion Gap 5 mmol/L (5-15) Blood Urea Nitrogen 23 mg/dL (7-18) H Creatinine 1.2 MG/DL (0.55-1.30) Estimat Glomerular Filtration Rate mL/min (>60) Glucose Level 126 MG/DL (74-106) H Calcium Level 8.4 MG/DL (8.5-10.1) L Height (Feet): 5 Height (Inches): 10.00 Weight (Pounds): 199 General Appearance: WD/WN, no apparent distress, alert Cardiovascular: normal rate Respiratory/Chest: normal breath sounds, no respiratory distress Abdominal Exam: normal bowel sounds, non tender, soft, GT site - Clean dry and intact Extremities: non-tender Kp Beltran NP Jan 04, 2019 10:37
--- NOTE | 2019-01-04 12:00 | NUR ---
NURSE NOTES: patient discharged to [facility]. IV removed and site covered. Dressing changed. Prasad catheter was removed. No personal belongings. Patient kept comfortable at all times and patient needs met.
--- NOTE | 2019-01-04 14:08 | Infectious Diseases Prog Note ---
Assessment/Plan Problems: (1) LLL pneumonia Assessment & Plan: suspect aspiration, improved with vancomycin and zosyn empirically , aspiration precaution , keep HOB > 30 degree (2) Sepsis Assessment & Plan: with staph aureus methicillin sensitive , due to the above , already on oxacillin and treat him for four weeks . ECHO rule out vegetations . repeated blood culture to confirm clearance is pending .EOT 01/24/19 (3) Acute encephalopathy Assessment & Plan: due to the above, suspect metabolic and toxic, continue antibiotics and supportive care (4) Renal failure Assessment & Plan: suspect due to dehydration , continue IVF , monitor renal function closely (5) Dehydration Assessment & Plan: continue IVF, encourage hydration (6) Acute respiratory failure Assessment & Plan: due to the above, improving , off BIPAP , monitor CXR . Assessment/Plan time of the stamp doesn't reflect time patient was seen . Subjective ROS Limited/Unobtainable: Yes Allergies: Coded Allergies: No Known Allergies (Unverified , 12/24/18) Subjective He was comfortable, lying in bed, not agitated or restless, unresponsive and doesn't follow commands , afebrile , pulled his G tube and had leaking Objective Vital Signs Last 24 Hour Vital Signs Date Time Temp Pulse Resp B/P (MAP) Pulse Ox O2 Delivery O2 Flow Rate FiO2 01/04/19 09:29 70 132/77 01/04/19 09:00 Nasal Cannula 2.0 01/04/19 08:00 98.2 70 19 132/77 (95) 100 01/04/19 07:45 96 Nasal Cannula 2.0 28 01/04/19 07:45 Nasal Cannula 2.0 28 01/04/19 04:00 97.1 60 18 113/53 (73) 96 01/04/19 00:00 97.6 82 18 142/83 (102) 94 01/03/19 21:00 Nasal Cannula 2.0 01/03/19 20:16 87 123/76 01/03/19 20:00 97.9 87 18 123/76 (92) 93 01/03/19 16:00 98.1 94 18 137/80 (99) 98 01/03/19 14:35 98.4 Height (Feet): 5 Height (Inches): 10.00 Weight (Pounds): 199 General Appearance: WD/WN, no acute distress HEENT: normocephalic, atraumatic, anicteric, mucous membranes moist Respiratory/Chest: chest wall non-tender, lungs clear, normal breath sounds, no respiratory distress, no accessory muscle use Cardiovascular: normal peripheral pulses, normal rate, regular rhythm, no gallop/murmur, no JVD Abdomen: normal bowel sounds, soft, non tender, no organomegaly, non distended , no mass, no scars Genitourinary: normal external genitalia Extremities: no cyanosis, no clubbing Skin: no rash, no lesions, ulcers Neurologic/Psychiatric: alert, responsive Lymphatic: no neck adenopathy, no groin adenopathy Musculoskeletal: normal muscle bulk, no effusion Laboratory Tests Test 01/04/19 07:06 White Blood Count 7.8 K/UL (4.8-10.8) Red Blood Count 3.58 M/UL (4.70-6.10) L Hemoglobin 11.7 G/DL (14.2-18.0) L Hematocrit 35.1 % (42.0-52.0) L Mean Corpuscular Volume 98 FL (80-99) Mean Corpuscular Hemoglobin 32.8 PG (27.0-31.0) H Mean Corpuscular Hemoglobin Concent 33.4 G/DL (32.0-36.0) Red Cell Distribution Width 14.6 % (11.6-14.8) Platelet Count 316 K/UL (150-450) Mean Platelet Volume 5.9 FL (6.5-10.1) L Neutrophils (%) (Auto) 69.2 % (45.0-75.0) Lymphocytes (%) (Auto) 17.8 % (20.0-45.0) L Monocytes (%) (Auto) 7.6 % (1.0-10.0) Eosinophils (%) (Auto) 4.3 % (0.0-3.0) H Basophils (%) (Auto) 1.2 % (0.0-2.0) Sodium Level 136 MMOL/L (136-145) Potassium Level 5.0 MMOL/L (3.5-5.1) Chloride Level 103 MMOL/L (98-107) Carbon Dioxide Level 28 MMOL/L (21-32) Anion Gap 5 mmol/L (5-15) Blood Urea Nitrogen 23 mg/dL (7-18) H Creatinine 1.2 MG/DL (0.55-1.30) Estimat Glomerular Filtration Rate mL/min (>60) Glucose Level 126 MG/DL (74-106) H Calcium Level 8.4 MG/DL (8.5-10.1) Alex Pedro M.D. Jan 04, 2019 14:08
--- NOTE | 2019-01-05 16:13 | Discharge Summary ---
Discharge Summary Discharge Summary _ DATE OF ADMISSION: 12/24/2018 DATE OF DISCHARGE: 01/04/2029 DISCHARGED BY: Dr. Albaro Cho CONSULTANTS: Dr. Blade Mckeon [facility] HOSPITAL COURSE: Patient is an 78-year-old male, who is on hospice care, was transferred by family for evaluation of change in level of consciousness. Patient has a history of metastatic prostatic cancer and dementia. On evaluation at the ED, vital signs were stable. Blood work showed WBC of 15, hemoglobin 13, hematocrit 40. Potassium was elevated to 5.2, BUN was 59 and creatinine 2.8. Lactic acid was 2.5. Troponin was negative. Urinalysis showed +1 leukocyte esterase, negative nitrite, 0-2 RBC and 2-4 WBC. EKG showed a rate of [address] wave changes. Chest x-ray showed possible right lower lobe infiltrate. Septic workup was initiated. He was given IV hydration. He was given morphine and Zofran. Per family patient is DNR. BiPAP was placed. He was then admitted for evaluation of sepsis, pneumonia, respiratory failure and renal failure. He was started empirically on vancomycin and Zosyn. Kidney function was monitored. He was given slow cautious IV hydration. He was noted to come in with multiple wounds. His surgery was called to assist with care. He had induration noted on the right buttock and left buttocks; induration on on the left thoracic area and intact blood blister on bilateral heels. He was given wound care. He was placed on APM/RAÚL overlay, with frequent repositioning and offloading. Nutrition was optimized to aid with healing. Patient had been on and off BiPAP. He was kept n.p.o. Speech therapy swallow evaluation showed high risk for aspiration. A modified barium swallow study was done. Patient was at high risk for chronic aspiration. Patient was confused and agitated, he was trying to get out of bed. Psychiatrist was consulted. He was placed on soft wrist restraints. He was given low-dose Zyprexa. On 12/28/2018, he underwent EGD with PEG tube placement. Findings showed atrophic gastritis. Abdominal binder was placed. He was later on started on G- tube feeding. Blood culture showed growth of staph aureus, methicillin sensitive. Antibiotic was switched to oxacillin. Repeat blood culture was ordered to confirm clearance. Echocardiogram did not show any evidence of vegetations. Repeat blood culture did not isolate any growth. Kidney function normalized. He was tolerating tube feedings. He was saturating well on 2L nasal cannula. Family requested for new SNF. Patient was discharged to [facility]. FINAL DIAGNOSES: Sepsis with staph aureus methicillin sensitive Left lower lobe pneumonia, suspect aspiration Acute toxic metabolic encephalopathy Acute renal failure Dehydration Acute respiratory failure, resolved Dysphagia, status post EGD with PEG tube placement Severe protein calorie malnutrition Atrophic gastritis Dementia with behavioral disturbance History of metastatic prostate CA Anemia Multiple deep tissue injury, as stated above,present on admission DNR/DNI DISPOSITION: DC to SNF with hospice. I have been assigned to complete a discharge summary on this account, I was not involved with the patient's management. Annelise Larson NP Jan 05, 2019 16:13
== END 2019-01-04 12:27 | DRG 871 ==
LOC: EDBD 11:43 → EMR 13:09 → EDBEDREQ 14:23 → 4E 14:37 → 2W 19:43 → 4E 12-26 20:10
PROC: 0DH63UZ Insertion of Feeding Device into Stomach, Percutaneous Approach (ICD-10-PCS; principal; 2018-12-28 11:50)
PROC: 0DJ08ZZ Inspection of Upper Intestinal Tract, Via Natural or Artificial Opening Endoscopic (ICD-10-PCS; principal; 2018-12-28 11:50)
DX: A41.01 Sepsis due to Methicillin susceptible Staphylococcus aureus (principal); J69.0 Pneumonitis due to inhalation of food and vomit; J96.21 Acute and chronic respiratory failure with hypoxia; G92 Toxic encephalopathy; E43 Unspecified severe protein-calorie malnutrition; N17.9 Acute kidney failure, unspecified; F03.91 Unspecified dementia, unspecified severity, with behavioral disturbance; I42.9 Cardiomyopathy, unspecified; D64.9 Anemia, unspecified; Z66 Do not resuscitate; E86.0 Dehydration; Z85.46 Personal history of malignant neoplasm of prostate; I50.9 Heart failure, unspecified; L89.629 Pressure ulcer of left heel, unspecified stage; Z68.28 Body mass index [BMI] 28.0-28.9, adult; R13.10 Dysphagia, unspecified; E83.119 Hemochromatosis, unspecified; K29.40 Chronic atrophic gastritis without bleeding; F41.9 Anxiety disorder, unspecified; Z78.1 Physical restraint status
CPT/HCPCS: 36415; 36600; 70450; 71045; 74230; 80048; 80053; 80061; 80076; 80202; 81003; 82550; 82553; 82607; 82728; 82746; 82803; 82977; 83036; 83540; 83550; 83605; 83690; 83735; 83880; 84100; 84153; 84443; 84484; 84550; 85025; 85610; 85730; 86140; 87040; 87081; 87086; 87181; 93005; 93306; 94003; 94150; 94640; 94660; 94664; 94760; 96365; 96367; 96375; 99285; J2405; J2700; J7620; J8499